=== PATIENT | male | born 1940 | race Caucasian/White ===

== ENCOUNTER → 2017-01-03 | Outpatient (CLI) | payer MEDICARE, BC, OTHER ==
[~2017-01-03] VITALS: Ht 175.3 cm; Wt 68.5 kg
[~2017-01-03] MED LIST: DUTA1CAP PO; FLOM5CAP PO; GABA-283 PO; LATA5OPD OU; LEVO50TA5 PO; LIDOCAINE 2% INJ 100 MG/5 ML SDV (FOR ANES.) As Ordered ONE; LISI10TA4 PO; NAPR500T2 PO; NS 1,000 ML IV SCH; OMEP20CA3 PO; PROPOFOL 200 MG/20 ML VIAL As Ordered ONE
--- NOTE | 2017-01-03 07:46 | ROOR ---
Patient Name: Haider Serna Procedure Date: 01/03/2017 7:28 AM Date of : 1940 Age: 76 Room: [facility] Gender: Male Note Status: Finalized Procedure: Colonoscopy Indications: High risk colon cancer surveillance: Personal history of colonic polyps, Last colonoscopy: November 2013 Providers: Santiago RAMIREZ MD Referring MD: Nicky Lunsford NP Requesting Provider: Medicines: Monitored Anesthesia Care Complications: No immediate complications. Procedure: Pre-Anesthesia Assessment: - The heart rate, respiratory rate, oxygen saturations, blood pressure, adequacy of pulmonary ventilation, and response to care were monitored throughout the procedure. The Colonoscope was introduced through the anus and advanced to the cecum, identified by appendiceal orifice and ileocecal valve. The colonoscopy was performed without difficulty. The patient tolerated the procedure well. The quality of the bowel preparation was good. Findings: The perianal and digital rectal examinations were normal. Internal hemorrhoids were found during retroflexion. The hemorrhoids were medium-sized. The entire examined colon appeared normal on direct and retroflexion views. Impression: - Small Internal hemorrhoids. - The entire examined colon is normal on direct and retroflexion views. - No specimens collected. Recommendation: - Repeat colonoscopy in 5 years for surveillance based on personal history of previous adenomatous polyps. Santiago Ramirez MD Santiago RAMIREZ MD 01/03/2017 7:46:08 AM This report has been signed electronically. Number of Addenda: 0 Note Initiated On: 01/03/2017 7:28 AM Estimated Blood Loss: Estimated blood loss: none.
[2017-01-03 08:16] VITALS: BP 144/93
== END | disposition home or self-care (01) ==
LOC: M OPP 06:29
PROVIDERS: ATTEND Internal Medicine Gastroenterology
DX: Z12.11 Encounter for screening for malignant neoplasm of colon (principal); Z86.010 Personal history of colon polyps; K64.8 Other hemorrhoids; I10 Essential (primary) hypertension; E03.9 Hypothyroidism, unspecified; K21.9 Gastro-esophageal reflux disease without esophagitis; M48.00 Spinal stenosis, site unspecified; M19.90 Unspecified osteoarthritis, unspecified site; Z79.899 Other long term (current) drug therapy; Z87.891 Personal history of nicotine dependence

== ENCOUNTER → 2018-03-31 | Outpatient (CLI) | payer MEDICARE, BC, OTHER | LOC: M RAD 16:44 | DX: R26.9 Unspecified abnormalities of gait and mobility (principal) | CPT/HCPCS: 70551 ==

== ENCOUNTER 2018-06-18 07:27 | Emergency (ER) | payer MEDICARE, BC, OTHER ==
[2018-06-18] MEDS: PERCOCET 5MG/325MG TAB PO (07:44)
[2018-06-18] MEDS: diazePAM 5 MG TAB PO (09:10)
[2018-06-18] MEDS: NAPROXEN 250 MG TAB PO (09:11)
[2018-06-18] MEDS: LIDOCAINE 5% (LIDODERM) PATCH TD (11:43)
[2018-06-18] MEDS ORDERED: **NOTE PATIENT COMMENT** MISC XX (21:00)
== END 2018-06-18 13:29 | disposition home or self-care (01) ==
LOC: M ED 07:27
DX: G89.29 Other chronic pain (principal); M54.5 Low back pain; I10 Essential (primary) hypertension; E07.9 Disorder of thyroid, unspecified; R26.89 Other abnormalities of gait and mobility; Z79.899 Other long term (current) drug therapy; Z79.890 Hormone replacement therapy
CPT/HCPCS: 72131

== ENCOUNTER 2018-08-08 16:29 | Emergency (ER) | payer MEDICARE, BC, OTHER ==
[~2018-08-08] VITALS: Ht 175.3 cm; Wt 68.0 kg
[~2018-08-08 16:29] MED LIST changes: +APAP325T4 PO; +FLOM0.4C39 PO; -FLOM5CAP PO; -GABA-283 PO; +GABA-845 PO; +LIDO5DIS41 TOP; -LIDOCAINE 2% INJ 100 MG/5 ML SDV (FOR ANES.) As Ordered ONE; +MEDR4PAK PO; +MULTCAP PO; +NAPR-885 PO; -NAPR500T2 PO; -NS 1,000 ML IV SCH; +PERC5TAB12 PO; -PROPOFOL 200 MG/20 ML VIAL As Ordered ONE; +VALI2TAB PO
[2018-08-08 17:55] LABS: BASO % 0.3 % (0.0-1.0); EOS # 0.1 10^3/uL (0.0-0.50); EOS % 0.6 % (0.0-3.0); HEMATOCRIT 35.5 % (42.0-52.0); HEMOGLOBIN 11.8 g/dl (13.5-17.5); LYMPH # 0.7 10^3/uL (1.5-4.5); MEAN CORPUSCULAR HEMOGLOBIN 31.1 pg (27.0-33.0); MEAN CORPUSCULAR HGB CONC 33.2 g/dl (32.0-36.5); MEAN CORPUSCULAR VOLUME 93.4 fl (80.0-96.0); MONO # 0.6 10^3/uL (0.0-0.8); MONO % 6.9 % (0.0-5.0); NEUTROPHILS # 7.2 10^3/uL (1.8-7.7); NEUTROPHILS % 83.9 % (36.0-66.0); PLATELET COUNT, AUTOMATED 248 10^3/uL (150-450); WHITE BLOOD COUNT 8.6 10^3/uL (4.0-10.0)
--- NOTE | 2018-08-08 18:09 | REPVR ---
EXAM: MR Lumbar Spine Without Contrast. EXAM DATE/TIME: 08/08/2018 4:42 PM CLINICAL HISTORY: 77 years old, male; Pain; Low back pain; Prior surgery; Surgery date: 6+ months; Surgery type: Surg x3, last one 02/10; Additional info: Back pain weakness right leg TECHNIQUE: Multiplanar magnetic resonance images of the lumbar spine without intravenous contrast. COMPARISON: MRI-LS SPINE W/O FOLL WITH CON 08/30/2013 1:00 PM FINDINGS: Vertebrae: Status post posterior interbody fusion of L4 and L5 using metallic fixation hardware. Slight anterolisthesis of L4 on L5. Abnormal signal demonstrated in L2 and L3 with expansion of the disc space demonstrating fluid signal invaginating both the inferior endplate of L2 and superior endplate of L3. Findings worrisome for infectious discitis/osteomyelitis. Spinal cord: Visualized distal spinal cord and conus medullaris appears unremarkable. DISCS/SPINAL CANAL/NEURAL FORAMINA: L1-L2: Clumping of nerve roots at L1-2 may suggest arachnoiditis. No central or lateral stenosis. Degenerative facet joint arthropathy. L2-L3: There is a severe central spinal stenosis at L2-3 secondary to diffuse annular bulging, thickened ligamentum flavum and facet joint arthropathy. Also noted is clumping of the traversing nerve roots which may indicate arachnoiditis. L3-L4: There is a severe central spinal stenosis at L3-4 secondary to diffuse annular bulging, thickened ligamentum flavum and facet joint arthropathy. Moderate foraminal stenosis on the left and mild foraminal narrowing on the right. Bilateral lateral recess stenosis. L4-L5: Adequate decompression at L4-5 secondary to laminectomy. Metallic hardware obscures visualization of the anatomy due to magnetic susceptibility artifact. L5-S1: Posterior hard disc protrusion at L5-S1 effaces the ventral subarachnoid space and abuts without significant compression of the S1 nerve roots as they exit from the thecal sac. Moderate to severe bilateral foraminal stenosis. Marked bilateral facet arthropathy. Soft tissues: Unremarkable. IMPRESSION: Abnormal signal demonstrated in L2 and L3 with expansion of the disc space demonstrating fluid signal invaginating both the inferior endplate of L2 and superior endplate of L3. Findings worrisome for infectious discitis/osteomyelitis. Status post posterior interbody fusion of L4 and L5 status post L4 laminectomy. Severe central spinal stenosis at L2-3, and L3-4, and posterior hard disc protrusion at L5-S1 without significant neural compromise. 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 Electronically signed by: Rey Bragg On 08/08/2018 18:08:50 PM
[2018-08-08 18:26] LABS: ALBUMIN 2.8 GM/DL (3.2-5.2); ALT/SGPT 38 U/L (12-78); BILIRUBIN,TOTAL 0.5 MG/DL (0.2-1.0); BLOOD UREA NITROGEN 18 MG/DL (7-18); CALCIUM LEVEL 8.3 MG/DL (8.8-10.2); CARBON DIOXIDE LEVEL 24 MEQ/L (21-32); CHLORIDE LEVEL 108 MEQ/L (98-107); CREATININE FOR GFR 0.79 MG/DL (0.70-1.30); GLOMERULAR FILTRATION RATE > 60.0 (>42); GLUCOSE, FASTING 104 MG/DL (70-100); POTASSIUM SERUM 3.9 MEQ/L (3.5-5.1); SODIUM LEVEL 144 MEQ/L (136-145)
[2018-08-08 19:02] LABS: ERYTHROCYTE SEDIMENTATION RATE 63 mm/hr (0-20)
[2018-08-08 23:36] VITALS: BP 141/65
== END 2018-08-08 23:42 | disposition short-term general hospital (02) ==
LOC: EDBD 16:29 → M ED 16:29
DX: M46.46 Discitis, unspecified, lumbar region (principal); M46.26 Osteomyelitis of vertebra, lumbar region; I10 Essential (primary) hypertension; E78.9 Disorder of lipoprotein metabolism, unspecified; Z91.81 History of falling; Z79.899 Other long term (current) drug therapy; Z79.1 Long term (current) use of non-steroidal anti-inflammatories (NSAID); Z98.1 Arthrodesis status

== ENCOUNTER → 2018-08-21 | Outpatient (REF) ==
[2018-08-21 09:36] LABS: BASO # 0.1 10^3/uL (0.0-0.2); BASO % 0.9 % (0.0-1.0); EOS # 0.1 10^3/uL (0.0-0.50); EOS % 1.4 % (0.0-3.0); HEMOGLOBIN 11.5 g/dl (13.5-17.5); LYMPH % 17.7 % (24.0-44.0); MEAN CORPUSCULAR HEMOGLOBIN 30.7 pg (27.0-33.0); MEAN CORPUSCULAR HGB CONC 33.8 g/dl (32.0-36.5); MEAN CORPUSCULAR VOLUME 90.9 fl (80.0-96.0); MONO # 0.3 10^3/uL (0.0-0.8); MONO % 5.8 % (0.0-5.0); NEUTROPHILS # 4.3 10^3/uL (1.8-7.7); NEUTROPHILS % 73.5 % (36.0-66.0); PLATELET COUNT, AUTOMATED 316 10^3/uL (150-450); RED BLOOD COUNT 3.74 10^6/uL (4.30-6.10); WHITE BLOOD COUNT 5.9 10^3/uL (4.0-10.0)
[2018-08-21 10:00] LABS: ERYTHROCYTE SEDIMENTATION RATE 48 mm/hr (0-20)
[2018-08-21 10:05] LABS: ALBUMIN 2.9 GM/DL (3.2-5.2); ALT/SGPT 13 U/L (12-78); BILIRUBIN,TOTAL 0.5 MG/DL (0.2-1.0); BLOOD UREA NITROGEN 11 MG/DL (7-18); C REACTIVE PROTEIN QUANTITATIV 1.67 MG/DL (0.00-0.30); CALCIUM LEVEL 8.6 MG/DL (8.8-10.2); CARBON DIOXIDE LEVEL 27 MEQ/L (21-32); CHLORIDE LEVEL 105 MEQ/L (98-107); CREATININE FOR GFR 0.92 MG/DL (0.70-1.30); GLOMERULAR FILTRATION RATE > 60.0 (>42); GLUCOSE, FASTING 114 MG/DL (70-100); POTASSIUM SERUM 3.2 MEQ/L (3.5-5.1); SODIUM LEVEL 142 MEQ/L (136-145); TOTAL PROTEIN 6.1 GM/DL (6.4-8.2)
== END ==
PROVIDERS: ATTEND Internal Medicine
DX: M86.9 Osteomyelitis, unspecified (principal)

== ENCOUNTER → 2018-08-24 | Outpatient (REF) ==
[2018-08-24 13:00] LABS: BASO # 0.1 10^3/uL (0.0-0.2); BASO % 0.8 % (0.0-1.0); EOS # 0.1 10^3/uL (0.0-0.50); EOS % 1.9 % (0.0-3.0); HEMATOCRIT 33.5 % (42.0-52.0); LYMPH # 1.2 10^3/uL (1.5-4.5); MEAN CORPUSCULAR HEMOGLOBIN 30.8 pg (27.0-33.0); MEAN CORPUSCULAR HGB CONC 32.8 g/dl (32.0-36.5); MEAN CORPUSCULAR VOLUME 93.8 fl (80.0-96.0); MONO # 0.4 10^3/uL (0.0-0.8); MONO % 6.3 % (0.0-5.0); NEUTROPHILS # 4.6 10^3/uL (1.8-7.7); NEUTROPHILS % 71.7 % (36.0-66.0); PLATELET COUNT, AUTOMATED 278 10^3/uL (150-450); RED BLOOD COUNT 3.57 10^6/uL (4.30-6.10); WHITE BLOOD COUNT 6.4 10^3/uL (4.0-10.0)
[2018-08-24 13:24] LABS: ALBUMIN 2.8 GM/DL (3.2-5.2); ALT/SGPT 13 U/L (12-78); BILIRUBIN,TOTAL 0.3 MG/DL (0.2-1.0); BLOOD UREA NITROGEN 13 MG/DL (7-18); C REACTIVE PROTEIN QUANTITATIV 1.19 MG/DL (0.00-0.30); CALCIUM LEVEL 8.5 MG/DL (8.8-10.2); CARBON DIOXIDE LEVEL 28 MEQ/L (21-32); CHLORIDE LEVEL 105 MEQ/L (98-107); GLOMERULAR FILTRATION RATE > 60.0 (>42); GLUCOSE, FASTING 97 MG/DL (70-100); SODIUM LEVEL 140 MEQ/L (136-145); TOTAL PROTEIN 5.7 GM/DL (6.4-8.2)
[2018-08-24 14:24] LABS: ERYTHROCYTE SEDIMENTATION RATE 45 mm/hr (0-20)
== END ==
PROVIDERS: ATTEND Internal Medicine
DX: M86.9 Osteomyelitis, unspecified (principal)

== ENCOUNTER → 2018-08-31 | Outpatient (REF) | payer MEDICARE, BC, OTHER ==
[2018-08-31 10:13] LABS: BASO # 0.1 10^3/uL (0.0-0.2); BASO % 1.2 % (0.0-1.0); EOS # 0.1 10^3/uL (0.0-0.50); EOS % 2.3 % (0.0-3.0); HEMATOCRIT 34.4 % (42.0-52.0); HEMOGLOBIN 12.4 g/dl (13.5-17.5); LYMPH # 1.1 10^3/uL (1.5-4.5); LYMPH % 25.4 % (24.0-44.0); MEAN CORPUSCULAR HEMOGLOBIN 33.2 pg (27.0-33.0); MEAN CORPUSCULAR VOLUME 92.2 fl (80.0-96.0); MONO # 0.4 10^3/uL (0.0-0.8); MONO % 8.2 % (0.0-5.0); NEUTROPHILS # 2.7 10^3/uL (1.8-7.7); NEUTROPHILS % 62.2 % (36.0-66.0); PLATELET COUNT, AUTOMATED 152 10^3/uL (150-450); RED BLOOD COUNT 3.73 10^6/uL (4.30-6.10); WHITE BLOOD COUNT 4.3 10^3/uL (4.0-10.0)
[2018-08-31 11:18] LABS: ERYTHROCYTE SEDIMENTATION RATE 35 mm/hr (0-20)
[2018-08-31 14:05] LABS: ALBUMIN 3.2 GM/DL (3.2-5.2); ALT/SGPT 20 U/L (12-78); BILIRUBIN,TOTAL 0.2 MG/DL (0.2-1.0); BLOOD UREA NITROGEN 18 MG/DL (7-18); C REACTIVE PROTEIN QUANTITATIV 0.73 MG/DL (0.00-0.30); CALCIUM LEVEL 9.1 MG/DL (8.8-10.2); CARBON DIOXIDE LEVEL 27 MEQ/L (21-32); CHLORIDE LEVEL 103 MEQ/L (98-107); CREATININE FOR GFR 0.85 MG/DL (0.70-1.30); GLOMERULAR FILTRATION RATE > 60.0 (>42); GLUCOSE, FASTING 82 MG/DL (70-100); POTASSIUM SERUM 4.6 MEQ/L (3.5-5.1); SODIUM LEVEL 138 MEQ/L (136-145); TOTAL PROTEIN 6.4 GM/DL (6.4-8.2)
== END ==
PROVIDERS: ATTEND Physician Assistant
DX: M86.9 Osteomyelitis, unspecified (principal)

== ENCOUNTER → 2018-09-07 | Outpatient (REF) | payer MEDICARE, BC, OTHER ==
[2018-09-07 07:28] LABS: BASO % 0.6 % (0.0-1.0); EOS # 0.2 10^3/uL (0.0-0.50); EOS % 3.9 % (0.0-3.0); HEMATOCRIT 35.3 % (42.0-52.0); LYMPH # 0.9 10^3/uL (1.5-4.5); LYMPH % 18.4 % (24.0-44.0); MEAN CORPUSCULAR HEMOGLOBIN 30.6 pg (27.0-33.0); MEAN CORPUSCULAR VOLUME 90.1 fl (80.0-96.0); MONO # 0.5 10^3/uL (0.0-0.8); MONO % 10.5 % (0.0-5.0); NEUTROPHILS # 3.2 10^3/uL (1.8-7.7); NEUTROPHILS % 66.4 % (36.0-66.0); PLATELET COUNT, AUTOMATED 177 10^3/uL (150-450); RED BLOOD COUNT 3.92 10^6/uL (4.30-6.10); WHITE BLOOD COUNT 4.9 10^3/uL (4.0-10.0)
[2018-09-07 07:47] LABS: ALT/SGPT 18 U/L (12-78); BILIRUBIN,TOTAL 0.2 MG/DL (0.2-1.0); BLOOD UREA NITROGEN 14 MG/DL (7-18); C REACTIVE PROTEIN QUANTITATIV 2.14 MG/DL (0.00-0.30); CALCIUM LEVEL 8.4 MG/DL (8.8-10.2); CARBON DIOXIDE LEVEL 26 MEQ/L (21-32); CHLORIDE LEVEL 101 MEQ/L (98-107); CREATININE FOR GFR 0.86 MG/DL (0.70-1.30); GLOMERULAR FILTRATION RATE > 60.0 (>42); GLUCOSE, FASTING 99 MG/DL (70-100); POTASSIUM SERUM 4.3 MEQ/L (3.5-5.1); SODIUM LEVEL 133 MEQ/L (136-145); TOTAL PROTEIN 6.3 GM/DL (6.4-8.2)
[2018-09-07 08:26] LABS: ERYTHROCYTE SEDIMENTATION RATE 39 mm/hr (0-20)
== END ==
PROVIDERS: ATTEND Internal Medicine
DX: M86.9 Osteomyelitis, unspecified (principal)

== ENCOUNTER → 2018-09-10 | Outpatient (REF) | payer MEDICARE, BC, OTHER ==
[2018-09-10 08:35] LABS: HEMATOCRIT 34.3 % (42.0-52.0); HEMOGLOBIN 11.5 g/dl (13.5-17.5); MEAN CORPUSCULAR HEMOGLOBIN 31.3 pg (27.0-33.0); MEAN CORPUSCULAR HGB CONC 33.5 g/dl (32.0-36.5); MEAN CORPUSCULAR VOLUME 93.2 fl (80.0-96.0); PLATELET COUNT, AUTOMATED 219 10^3/uL (150-450); RED BLOOD COUNT 3.68 10^6/uL (4.30-6.10); WHITE BLOOD COUNT 5.5 10^3/uL (4.0-10.0)
[2018-09-10 09:27] LABS: ERYTHROCYTE SEDIMENTATION RATE 31 mm/hr (0-20)
== END ==
PROVIDERS: ATTEND Physician Assistant
DX: M46.40 Discitis, unspecified, site unspecified (principal)

== ENCOUNTER → 2018-09-14 | Outpatient (REF) ==
[2018-09-14 10:24] LABS: BASO # 0.1 10^3/uL (0.0-0.2); EOS # 0.2 10^3/uL (0.0-0.50); HEMATOCRIT 36.9 % (42.0-52.0); HEMOGLOBIN 12.3 g/dl (13.5-17.5); LYMPH # 1.2 10^3/uL (1.5-4.5); LYMPH % 18.9 % (24.0-44.0); MEAN CORPUSCULAR HEMOGLOBIN 31.5 pg (27.0-33.0); MEAN CORPUSCULAR HGB CONC 33.3 g/dl (32.0-36.5); MEAN CORPUSCULAR VOLUME 94.6 fl (80.0-96.0); MONO # 0.4 10^3/uL (0.0-0.8); MONO % 6.9 % (0.0-5.0); NEUTROPHILS # 4.3 10^3/uL (1.8-7.7); NEUTROPHILS % 69.9 % (36.0-66.0); PLATELET COUNT, AUTOMATED 285 10^3/uL (150-450); WHITE BLOOD COUNT 6.1 10^3/uL (4.0-10.0)
[2018-09-14 10:48] LABS: ALBUMIN 2.6 GM/DL (3.2-5.2); ALT/SGPT 15 U/L (12-78); BILIRUBIN,TOTAL 0.1 MG/DL (0.2-1.0); BLOOD UREA NITROGEN 18 MG/DL (7-18); C REACTIVE PROTEIN QUANTITATIV 1.08 MG/DL (0.00-0.30); CALCIUM LEVEL 7.6 MG/DL (8.8-10.2); CARBON DIOXIDE LEVEL 25 MEQ/L (21-32); CHLORIDE LEVEL 108 MEQ/L (98-107); CREATININE FOR GFR 0.79 MG/DL (0.70-1.30); ERYTHROCYTE SEDIMENTATION RATE 35 mm/hr (0-20); GLOMERULAR FILTRATION RATE > 60.0 (>42); GLUCOSE, FASTING 115 MG/DL (70-100); POTASSIUM SERUM 3.7 MEQ/L (3.5-5.1); SODIUM LEVEL 140 MEQ/L (136-145); TOTAL PROTEIN 5.6 GM/DL (6.4-8.2)
== END ==
PROVIDERS: ATTEND Internal Medicine
DX: M46.40 Discitis, unspecified, site unspecified (principal)

== ENCOUNTER → 2018-09-21 | Outpatient (REF) | payer BC, MEDICARE, OTHER ==
[~2018-09-21] MED LIST changes: +LATA0.0013 OU; -LATA5OPD OU
[2018-09-21 07:13] LABS: BASO # 0.1 10^3/uL (0.0-0.2); BASO % 0.8 % (0.0-1.0); EOS # 0.2 10^3/uL (0.0-0.50); EOS % 2.7 % (0.0-3.0); HEMATOCRIT 34.6 % (42.0-52.0); HEMOGLOBIN 11.5 g/dl (13.5-17.5); LYMPH # 0.9 10^3/uL (1.5-4.5); LYMPH % 13.5 % (24.0-44.0); MEAN CORPUSCULAR HEMOGLOBIN 31.3 pg (27.0-33.0); MEAN CORPUSCULAR HGB CONC 33.2 g/dl (32.0-36.5); MEAN CORPUSCULAR VOLUME 94.3 fl (80.0-96.0); MONO # 0.6 10^3/uL (0.0-0.8); MONO % 9.4 % (0.0-5.0); NEUTROPHILS # 4.7 10^3/uL (1.8-7.7); NEUTROPHILS % 73.4 % (36.0-66.0); PLATELET COUNT, AUTOMATED 216 10^3/uL (150-450); RED BLOOD COUNT 3.67 10^6/uL (4.30-6.10); WHITE BLOOD COUNT 6.4 10^3/uL (4.0-10.0)
[2018-09-21 07:33] LABS: ERYTHROCYTE SEDIMENTATION RATE 35 mm/hr (0-20)
[2018-09-21 07:40] LABS: ALBUMIN 3.2 GM/DL (3.2-5.2); ALT/SGPT 23 U/L (12-78); BILIRUBIN,TOTAL 0.3 MG/DL (0.2-1.0); BLOOD UREA NITROGEN 15 MG/DL (7-18); C REACTIVE PROTEIN QUANTITATIV 1.37 MG/DL (0.00-0.30); CALCIUM LEVEL 8.4 MG/DL (8.8-10.2); CARBON DIOXIDE LEVEL 27 MEQ/L (21-32); CHLORIDE LEVEL 104 MEQ/L (98-107); CREATININE FOR GFR 0.74 MG/DL (0.70-1.30); GLOMERULAR FILTRATION RATE > 60.0 (>42); GLUCOSE, FASTING 83 MG/DL (70-100); POTASSIUM SERUM 4.5 MEQ/L (3.5-5.1); SODIUM LEVEL 137 MEQ/L (136-145); TOTAL PROTEIN 6.5 GM/DL (6.4-8.2)
== END ==
PROVIDERS: ATTEND Physician Assistant
DX: M86.9 Osteomyelitis, unspecified (principal)

== ENCOUNTER → 2018-09-28 | Outpatient (REF) | payer MEDICARE, BC, OTHER ==
[2018-09-28 08:10] LABS: BASO # 0.1 10^3/uL (0.0-0.2); BASO % 1.1 % (0.0-1.0); EOS # 0.2 10^3/uL (0.0-0.50); EOS % 3.3 % (0.0-3.0); HEMATOCRIT 36.5 % (42.0-52.0); HEMOGLOBIN 12.1 g/dl (13.5-17.5); LYMPH # 1.1 10^3/uL (1.5-4.5); LYMPH % 24.7 % (24.0-44.0); MEAN CORPUSCULAR HEMOGLOBIN 31.4 pg (27.0-33.0); MEAN CORPUSCULAR HGB CONC 33.2 g/dl (32.0-36.5); MEAN CORPUSCULAR VOLUME 94.8 fl (80.0-96.0); MONO # 0.4 10^3/uL (0.0-0.8); MONO % 8.5 % (0.0-5.0); NEUTROPHILS # 2.9 10^3/uL (1.8-7.7); NEUTROPHILS % 62.2 % (36.0-66.0); PLATELET COUNT, AUTOMATED 257 10^3/uL (150-450); RED BLOOD COUNT 3.85 10^6/uL (4.30-6.10); WHITE BLOOD COUNT 4.6 10^3/uL (4.0-10.0)
[2018-09-28 08:21] LABS: ALBUMIN 3.1 GM/DL (3.2-5.2); ALT/SGPT 23 U/L (12-78); BILIRUBIN,TOTAL 0.2 MG/DL (0.2-1.0); BLOOD UREA NITROGEN 20 MG/DL (7-18); C REACTIVE PROTEIN QUANTITATIV 0.46 MG/DL (0.00-0.30); CALCIUM LEVEL 8.5 MG/DL (8.8-10.2); CARBON DIOXIDE LEVEL 27 MEQ/L (21-32); CHLORIDE LEVEL 102 MEQ/L (98-107); CREATININE FOR GFR 0.81 MG/DL (0.70-1.30); GLOMERULAR FILTRATION RATE > 60.0 (>42); GLUCOSE, FASTING 86 MG/DL (70-100); POTASSIUM SERUM 4.2 MEQ/L (3.5-5.1); SODIUM LEVEL 137 MEQ/L (136-145); TOTAL PROTEIN 6.2 GM/DL (6.4-8.2)
[2018-09-28 09:22] LABS: ERYTHROCYTE SEDIMENTATION RATE 26 mm/hr (0-20)
== END ==
PROVIDERS: ATTEND Internal Medicine
DX: M86.9 Osteomyelitis, unspecified (principal)

== ENCOUNTER → 2019-04-02 | Outpatient (CLI) | payer MEDICARE, BC, OTHER ==
[~2019-04-02] MED LIST changes: -OMEP20CA3 PO; +OMEP20CA4 PO
--- NOTE | 2019-04-02 11:49 | REP ---
Clinical: Status post lumbar fusion. Technique: AP, lateral views of the lumbosacral spine. Comparison: 06/08/2018. Findings: There is significant compression deformities involving L2 and L3 with associated endplate sclerosis/heterogeneity, osteophytosis, and kyphosis. Differential diagnosis includes trauma related injury versus sequelae of diskitis. Remainder examination is relatively normal / stable. Impression: Destructive changes involving the L2 and L3 vertebral bodies centered at the disc space as above are relatively new when compared with 06/08/2018. Correlation is required. Differential diagnosis may include prior trauma or sequelae of diskitis/osteomyelitis. Electronically Signed by Rome Liu MD 04/02/2019 11:40 A
--- NOTE | 2019-04-02 12:08 | REP ---
CT LUMBAR SPINE WITHOUT CONTRAST: HISTORY: Status post lumbar fusion. L2-3 a osteomyelitis. Comparison is made with multiple prior lumbar spine imaging studies, the most recent of which is an MRI exam from August 08, 2018 showing L2-3 discitis. The most remote prior lumbar spine CT study in the electronic x-ray jacket is from March 17, 2013. TECHNIQUE: Helical scanning is acquired. Axial and coronal MPR images are generated and reviewed. CT FINDINGS: There is extensive endplate destruction on either side of the L2-3 intervertebral disc compared with prior CT study of June 18, 2018. There is a large vacuum phenomenon in the disc and the disc itself is narrower than was on August 08, 2018 MRI study. There is posterior osteophytic ridging and a retrolisthesis of L2 posterior with respect to L3 is seen measuring 10.3 mm. This is much more prominent than on the June 18, 2018 CT study and is probably more prominent than on the August 08, 2018 MRI exam. This produces mild to moderate central canal stenosis at the L2-3 disc level. There is an interspinous process fusion metallic device in place at L2-3 dorsally. The rest of anterior and lateral osteophyte formation is also present. No paravertebral soft-tissue swelling or fluid collection is appreciated. There are bilateral renal cortical cysts again noted. At the L1-2, there is no new abnormality. At L3-4 there is mild disc bulging and mild central canal stenosis again noted unchanged. No focal disc protrusion is seen. No foraminal narrowing is seen. At L4-5, there is a laminectomy defect and trans pedicle screw and dorsal connecting aarti fixation is seen across the 4-5 disc level. A vacuum phenomenon is also noted L4-5. There is a mild degenerative spondylolisthesis L4-5 unchanged from the comparison CT study of June 18, 2018. At L5-S1, there is degenerative disc narrowing posterior osteophytic ridging. This is unchanged. IMPRESSION: The most recent prior MRI study showed picture of acute infectious diskitis at L2-3. The disc itself appears improved and now contains a vacuum phenomena. No paravertebral inflammatory changes are noted. However, there is loss of vertebral body height at both L2 and L3 and there is a progressive retrolisthesis at L2-3 with central canal stenosis. Stable changes are noted at the other lumbar levels. Electronically Signed by Enmanuel Howell MD 04/02/2019 12:45 P
--- NOTE | 2019-04-02 14:00 | REP ---
CT THORACIC SPINE WITHOUT CONTRAST: HISTORY: Status post lumbar fusion. Osteomyelitis at L2-3. No comparison thoracic imaging. TECHNIQUE: Helical scanning is acquired. 4 mm axial images are generated. Coronal and sagittal MPR images are generated and reviewed. CT FINDINGS: Thoracic vertebral body heights are preserved. Alignment is normal in the thoracic spine. Mild discogenic spurring is noted anteriorly and along the right lateral margin of the thoracic spine at mid and lower thoracic levels. Disc spaces are maintained in height. No bony destructive lesion is seen. No neural foraminal narrowing is noted. There is a calcified right posterior disc protrusion small in size at the T6-7 disc level. The right central disc bulging is seen at T8-9. A right posterior disc protrusion again with calcification at T7-8. No other thoracic disc protrusion is seen. There is no bony destructive change. Incidental note is made of a focal area of parenchymal opacity in the right lower lobe suggesting a small focus of pneumonia or fibrosis. There is inspissated mucoid material in right lower lobe bronchi in this location on axial images. This may reflect bronchitis. IMPRESSION: Small thoracic disc protrusions as above. Mild degenerative disc changes. Incidental subtle infiltrate in the right lower lobe with inspissated endobronchial mucus question of bronchitis or subtle pneumonia. Otherwise negative. Electronically Signed by Enmanuel Howell MD 04/02/2019 04:41 P
== END ==
LOC: M RAD 10:58
PROVIDERS: ATTEND Neurological Surgery
DX: M46.28 Osteomyelitis of vertebra, sacral and sacrococcygeal region (principal); Z98.1 Arthrodesis status; R93.7 Abnormal findings on diagnostic imaging of other parts of musculoskeletal system

== ENCOUNTER 2019-05-25 10:04 | Day surgery (SDC) | payer MEDICARE, BC, OTHER ==
[~2019-05-25] VITALS: Ht 175.3 cm; Wt 63.0 kg
[~2019-05-25 10:04] MED LIST changes: +ACET-897 PO; +CEFA1TAB PO; +FLAX100010 PO; +LR 1,000 ML IV ONE; +MAGN400C2 PO; +PROBCAP14 PO; +VITA500C19 PO; +VITAD400CA PO; +ZINC1TAB2 PO
[2019-05-25] MEDS ORDERED: PROPOFOL 200 MG/20 ML VIAL As Ordered ONE (11:05)
[2019-05-25] MEDS ORDERED: LIDOCAINE 2% INJ 100 MG/5 ML SDV (FOR ANES.) As Ordered ONE (11:05)
[2019-05-25] MEDS ORDERED: ROCURONIUM BROMIDE 50 MG/5 ML VIAL As Ordered ONE (11:05)
[2019-05-25] MEDS ORDERED: fentaNYL 250 MCG/5 ML INJECTION (J3010) As Ordered ONE (11:06)
[2019-05-25] MEDS ORDERED: MIDAZOLAM INJ 2 MG/2 ML VIAL (J2250) As Ordered ONE (11:06)
[2019-05-25] MEDS ORDERED: FLUTISP (11:07)
[2019-05-25] MEDS ORDERED: BUPIVACAINE HCL 0.25% 30 ML VIAL As Ordered ONE (12:21)
[2019-05-25] MEDS ORDERED: ONDANSETRON 4MG/2ML VIAL (J2405) As Ordered ONE (13:38)
[2019-05-25] MEDS ORDERED: dexameTHASONE 4 MG/ML 1ML VIAL (J1100) As Ordered ONE (13:38)
[2019-05-25] MEDS ORDERED: KETOROLAC 60 MG/2 ML VIAL (J1885) As Ordered ONE (13:38)
[2019-05-25] MEDS ORDERED: SUGAMMADEX SODIUM 500 MG/5 ML VIAL (BRIDION) As Ordered ONE (13:39)
[2019-05-25] MEDS ORDERED: ACETAMINOPHEN 1000MG 100ML IV BTL (OFIRMEV) (J0131 PER 10MG) As Ordered ONE (14:10)
[2019-05-25] MEDS ORDERED: fentaNYL 100 MCG/2 ML INJECTION (J3010) As Ordered ONE (14:35)
[2019-05-25] MEDS ORDERED: MEPERIDINE INJ 25 MG/ML VIAL (J2175) IV PRN (15:00)
[2019-05-25] MEDS ORDERED: oxyCODONE 5MG TAB PO PRN (15:00)
[2019-05-25] MEDS ORDERED: METOCLOPRAMIDE INJ 10MG/2ML VIAL (J2765) IV PRN (15:00)
[2019-05-25] MEDS ORDERED: ONDANSETRON 4MG/2ML VIAL (J2405) IV PRN (15:00)
[2019-05-25] MEDS ORDERED: LR 1,000 ML IV SCH (15:00)
[2019-05-25] MEDS ORDERED: fentaNYL 100 MCG/2 ML INJECTION (J3010) IV PRN (15:00)
[2019-05-25] MEDS ORDERED: ACETAMINOPHEN TAB 650MG DOSE (2X325MG) PO PRN (15:15)
[2019-05-25 16:50] VITALS: BP 117/56
--- NOTE | 2019-05-27 07:35 | RO ---
DATE OF PROCEDURE: 05/25/2019 PREOPERATIVE DIAGNOSIS: Left inguinal hernia. POSTOPERATIVE DIAGNOSIS: Left inguinal hernia. PROCEDURE PERFORMED: A robotic-assisted laparoscopic left inguinal herniorrhaphy with mesh. SURGEON: Dr. Marcus AIRCRAFT ENGINE MECHANIC: ISATU Virgen. Zhanna assistance was required for placement of the trocars, passage of instruments, passage of needles and mesh and then removal of the trocars and suturing of the wounds. ANESTHESIA: General. INDICATIONS FOR THE PROCEDURE: Patient is a 78-year-old man with a left inguinal hernia which has become somewhat symptomatic. He is now for repair of his left inguinal hernia. OPERATIVE PROCEDURE: The patient was brought to the operating room and placed on the table in a supine position. He was placed under general endotracheal anesthesia. The patient's abdomen, groins and genitalia were prepped and draped in sterile fashion. 0.25% Marcaine was infiltrated at each of the trocar sites as needed. Initial insertion was in the supraumbilical position where a Veress needle was inserted and after a positive hanging drop test the abdomen was insufflated with carbon dioxide gas. An 8 mm robotic port was placed over a 5 mm scope and advanced through the abdominal wall without difficulty. Initial examination revealed no significant adhesions within the abdomen. He was noted to have a moderately large left inguinal hernia protrusion. There was no sign of a right inguinal hernia. A second 8 mm port was placed in the left upper quadrant and a third port was placed on the right. The patient was tilted to a moderate Trendelenburg position. The patient cart of the XI robot was brought into position and the camera port was docked. Targeting took place in the additional arms were then also docked. I then moved to the control console to begin the robotic portion of the procedure. Instruments utilized were a bipolar cauterizing grasper and a pair of cauterizing scissors. A peritoneal flap was developed by making an arcuate incision anterior to the area of the inguinal floor. The flap was developed by a combination of sharp and cautery dissection. The hernia sac was reduced into the abdomen. The structures of the spermatic cord were identified and preserved. The hernia was found to be a moderately large indirect inguinal hernia. Once the preperitoneal space had been adequately developed a large left side large 3DMax Light Mesh was selected. This was reference code # [id number], lot # [id number]. This was inserted into the abdomen and placed into the preperitoneal space. It was tacked at the area of the Gary's ligament with a 2-0 Vicryl. A single lateral suture was also placed at the upper outer aspect of the mesh. The peritoneal flap was then closed with a running suture of 2-0 V-Loc. The intra-abdominal pressure was reduced to approximately 8 mmHg well the flap was being closed. The final repair looked excellent. The robotic instruments were then removed. The patient was returned to a flat position and the abdomen was vented and the ports removed. Zhanna Gaxiola then proceeded to close the skin incisions with buried Vicryl sutures. The patient tolerated the procedure well without apparent complication. He was awakened in the operating room, extubated and moved to the recovery room in stable condition.
== END 2019-05-25 17:00 | disposition home or self-care (01) ==
LOC: M SDC 10:04
PROVIDERS: ATTEND Surgery
DX: K40.90 Unilateral inguinal hernia, without obstruction or gangrene, not specified as recurrent (principal); I10 Essential (primary) hypertension; K21.9 Gastro-esophageal reflux disease without esophagitis; E03.9 Hypothyroidism, unspecified; N40.0 Benign prostatic hyperplasia without lower urinary tract symptoms; Z87.891 Personal history of nicotine dependence; Z79.899 Other long term (current) drug therapy
CPT/HCPCS: 49650; C1781; J0131; J1100; J1885; J2250; J2405; J3010

== ENCOUNTER 2020-04-06 11:01 | Inpatient (IN) | payer MEDICARE, BC, OTHER ==
[~2020-04-06] VITALS: Ht 175.3 cm; Wt 59.9 kg
[~2020-04-06 11:01] MED LIST changes: -DUTA1CAP PO; +DUTA1CAP2 PO; +FLUTISP; -LR 1,000 ML IV ONE; +OMEP1CAP73 PO; -OMEP20CA4 PO
--- NOTE | 2020-04-07 11:46 | HPEPDOC ---
Car Seat Coverer Note DATE OF ADMISSION: 04-07-20 DATE OF SERVICE: 04-07-20 TIME OF ADMISSION: Please refer to physician's admission order. 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 He underwent surgery on 03-31-20 which was complicated by post-op blood loss anemia requiring blood transfusion and hypotension requiring a levophed drip. He was able to be transitioned off of levophed and participate n therapy where he was found to have impairments in mobility and ADLs and deemed medically appropriate for discharge to ARU on 04-07-20. REVIEW OF SYSTEMS: The following is a completed review of systems and has been reviewed. Review of systems otherwise unremarkable. PAIN: Patient self reports no pain EYES: No recent vision changes EARS, NOSE, & THROAT: No throat pain, or dysphagia, or rhinorrhea CARDIOVASCULAR: Denies chest pain or palpitations PULMONARY: Denies shortness of breath GASTROINTESTINAL: Denies constipation/diarrhea GENITOURINARY: +urinary retention MUSCULOSKELETAL:bilat LE weakness NEUROLOGICAL:+neurogenic bladder, bilat LE weakness HEMATOLOGICAL: denies easy bruising SKIN: [lumbo-sacral incision PSYCHIATRIC: Unremarkable All other review of systems found to be negative. PAST MEDICAL HISTORY: as per HPI PAST SURGICAL HISTORY: Appendectomy, colonoscopy, cystoscopy, prostate cancer, trigeminal nerve decompression, vasectomy, multiple lumbar back surgeries ALLERGIES: Please see below. MEDICATIONS: Please see below. SOCIAL HISTORY: former smoker, occasional ETOH, no illicit drugs DIET: low sodium PHYSICAL EXAMINATION: VITAL SIGNS: Please see below. GENERAL:Pleasant and cooperative. No acute distress. HEENT: PERRL. Extraocular movements intact. Clear conjunctiva CARDIOVASCULAR: Regular rate and rhythm. No murmurs, rubs, or gallops]. LUNGS: Clear to auscultation bilaterally. No wheezes. No rhonchi ABDOMEN: Soft, nontender, nondistended. Positive bowel sounds. Normal active bowel sounds NEUROLOGICAL: Alert and oriented times three. Cranial nerves II through XII grossly intact. Sensation grossly intact in all 4limbs EXTREMITIES: 5\5 strength bilateral upper extremities. 4-\5 strength right lower extremity. 5-/5 strength in left lower extremity. SKIN:sacrum with blacnhable erythema lumbar incision without induration/mild erythema, no drainage, 2 open areas along distal incision site LABORATORY DATA: Please see below. IMAGING:n Imaging documentation personally reviewed by record FUNCTIONAL STATUS: Premorbid: Modified Independent with all activities of daily life as well as mobility On Admission: Min-Mod for bed mobility, transfers, ambulation, dressing. GOALS: Mod-I household distances, stairs, dressing, toileting, bathing ASSESSMENT:79-year-old M with past medical history of cauda equina with multiple spinal surgeries who presents status post R19-caautr decompression/fusion and L2-L3 intradiscal osteotomy PLAN: 1. Rehab- PT/OT advance molbity and ADLs, TLSO when OOB, spinal precautions 2. Neuro- hx of multiple lumbar surgeries with cauda equina and chronic low back pain with urinary retention (self-caths at home for neurogenic bladder) s/p T10- pelvis decompression/fusion and L2-L3 intradiscal osteotomy performed 03-31-20 now with impairment sin overall function -monitor for new weakness and infection 3. CArdiac- hx of HTN with recent drops in BPs requiring levophed post-op, will monitor and c/u on lisinopril -medicine consulted to assist in overall management 4. Resp- monitor for infection, incentive spirometry 5. Endo- hx of hypothyroidism, c/u synthroid 6. - chronic urinary retention due to neurogenic bladder and prostate, c/u Adovert, Flomax, will do ICs on the floor, if patient able to self-catyh like he does at home, will encourgae this 7. DVT ppx- heparin 8. GI ppx - protonix 9. Pain- Tylenol, oxycodone, flexeril prn 10. SKin- dressing changes per instructions 11. Dispo- TBD POST ADMISSION PHYSICIAN EVALUATION: Medical and functional status: Description of medical status, medical assessment: As above. Rehabilitation diagnosis and current and prior cold morbid medical conditions as above. Risk of complications and plans to mitigate them as above. Description of functional status current status is as above. Prior status as above. Status compared to preadmission: There are no clinically significant differences between the patient's current status and the information described on the preadmission screening document. Treatment plan anticipated: Treatment plan is as described above. Required disciplines including physical therapy, occupational therapy, others as noted above Intensity of services:3 hours a day, 6 days a week. Special considerations: There are no specific special or safety considerations that would likely preclude immediate implementation of an intensive rehabilitation program or subsequently influence the plan of care. ATTESTATION: Considering all the information above, it is my best judgment that this patient requires intensive rehabilitation therapy as described above and an inpatient hospital environment due to the complexity of nursing, medical, and rehabilitation needs required by the patient. Furthermore, this patient can reasonably be expected to participate in an benefit from an inpatient rehabilitation stay with an interdisciplinary team approach to the delivery of rehabilitation care under the direction and supervision of rehabilitation physician. PROGNOSIS:good ESTIMATED LENGTH OF STAY: 14-16 days. PROJECTED DISCHARGE DESTINATION: Home with family support and any durable medical equipment required to increase functional safety and mobility TIME SPENT COUNSELING AND COORDINATING INITIAL CARE: Greater than 70 minutes. Vital Signs as per EMR Home Medications Scheduled Ascorbic Acid (Vitamin C) 500 Mg Capsule.er, 500 MG PO DAILY, (Reported) Docusate Sodium (Colace) 100 Mg Capsule, 100 MG PO BID, (Reported) Dutasteride (Dutasteride) 0.5 Mg Cap, 0.5 MG PO QHS, (Reported) Flaxseed Oil (Flaxseed Oil) 1,000 Mg Capsule, 2 CAP PO DAILY, (Reported) Gabapentin (Gabapentin) 400 Mg Cap, 400 MG PO BID, (Reported) Lactobacillus Acidophilus (Probiotic) 1 Each Capsule, 1 CAP PO DAILY, (Reported) Latanoprost (Xalatan) 0.005% 2.5ML Drops, 1 DROP OU DAILY, (Reported) Levothyroxine Sodium (Levothyroxine Sodium) 50 Mcg Tab, 50 MCG PO DAILY, (Reported) Lisinopril (Lisinopril) 10 Mg Tab, 10 MG PO DAILY, (Reported) Magnesium Hydroxide (Milk of Magnesia) 400 Mg/5 Ml Oral.susp, 45 ML PO QHS, (Reported) Multivitamin (Multivitamins) 1 Cap Cap, 1 CAP PO DAILY, (Reported) Omeprazole (Omeprazole) 20 Mg Cap, 20 MG PO DAILY, (Reported) Potassium Chloride (Potassium Chloride) 20 Meq Tablet.er, 20 MEQ PO BID, (Reported) Tamsulosin HCl (Flomax) 0.4 Mg Cap, 0.4 MG PO QHS, (Reported) Timolol Maleate (Timolol Maleate) 0.5% 5ML Drops, 1 DROP OU BID, (Reported) Zinc (Zinc) 50 Mg Tablet, 50 MG PO DAILY, (Reported) Scheduled PRN Acetaminophen (Acetaminophen) 325 Mg Tablet, 650 MG PO Q6H PRN for PAIN / FEVER, (Reported) Allergies Coded Allergies: No Known Allergies (Unverified , 05/12/19) A-FIB/CHADSVASC A-FIB History Current/History of A-Fib/PAF?: No RANDY MELO MD Apr 07, 2020 11:46
[2020-04-07] MEDS ORDERED: ONDANSETRON 4 MG TAB PO PRN (12:00)
[2020-04-07] MEDS ORDERED: oxyCODONE 5MG TAB PO PRN (12:00)
[2020-04-07] MEDS ORDERED: CYCLOBENZAPRINE 10MG TABLET PO PRN (12:00)
[2020-04-07 14:00] VITALS: BP 128/68
[2020-04-07] MEDS ORDERED: POTA1TAB14 PO (14:25)
[2020-04-07] MEDS ORDERED: ACET1TAB55 PO (14:25)
[2020-04-07] MEDS ORDERED: XALA0.007 OU (14:25)
[2020-04-07] MEDS ORDERED: TIMO0.5S29 OU (14:25)
[2020-04-07] MEDS ORDERED: SYNT50TA PO (14:25)
[2020-04-07] MEDS ORDERED: COLA100C5 PO (14:28)
[2020-04-07] MEDS ORDERED: MILKSUS3 PO (14:28)
[2020-04-07] MEDS: ACETAMINOPHEN 500 MG TAB PO SCH ×2 (16:00→20:45)
[2020-04-07] MEDS: REMEDY PHYTOPLEX Z-GUARD PASTE 113GM TUBE (FROM STOREROOM PRODUCT) TOP SCH ×2 (16:00→20:44)
[2020-04-07 20:00] VITALS: BP 102/53
[2020-04-07] MEDS: DUTASTERIDE 0.5 MG CAP (AVODART) PO SCH (20:43)
[2020-04-07] MEDS: SENNA 8.6 MG TAB (SENOKOT) PO SCH (20:43)
[2020-04-07] MEDS: GABAPENTIN 400 MG CAP PO SCH (20:43)
[2020-04-07] MEDS: DOCUSATE SODIUM 100 MG CAP PO SCH (20:43)
[2020-04-07] MEDS: TIMOLOL MALEATE 0.5% OPHTH SOLN 5 ML OU SCH (20:44)
[2020-04-07] MEDS: HEPARIN SOD (PORCINE) 5000UNITS/ML 1ML VIAL/SYRINGE SC SCH (20:44)
[2020-04-07] MEDS: LATANOPROST 0.005% OPHTH SOLN 2.5 ML OU SCH (20:44)
[2020-04-07] MEDS: TAMSULOSIN 0.4 MG CAP PO SCH (20:44)
[2020-04-08] MEDS: LEVOTHYROXINE 50MCG TABLET (0.05MG) PO SCH (05:53)
[2020-04-08 06:00] VITALS: BP 121/65
[2020-04-08 06:05] LABS: BASO % 0.4 % (0.0-1.0); EOS # 0.1 10^3/uL (0.0-0.5); EOS % 1.3 % (0.0-3.0); HEMOGLOBIN 11.5 g/dl (13.5-17.5); LYMPH # 1.1 10^3/uL (1.5-5.0); LYMPH % 13.2 % (24.0-44.0); MEAN CORPUSCULAR HEMOGLOBIN 31.5 pg (27.0-33.0); MEAN CORPUSCULAR HGB CONC 32.9 g/dl (32.0-36.5); MEAN CORPUSCULAR VOLUME 95.9 fl (80.0-96.0); MONO # 0.6 10^3/uL (0.0-0.8); MONO % 6.7 % (0.0-5.0); NEUTROPHILS # 6.6 10^3/uL (1.5-8.5); NEUTROPHILS % 76.9 % (36.0-66.0); PLATELET COUNT, AUTOMATED 243 10^3/uL (150-450); RED BLOOD COUNT 3.65 10^6/uL (4.30-6.10); WHITE BLOOD COUNT 8.5 10^3/uL (4.0-10.0)
[2020-04-08 06:36] LABS: ALBUMIN 2.6 GM/DL (3.2-5.2); ALT/SGPT 73 U/L (12-78); BILIRUBIN,TOTAL 0.4 MG/DL (0.2-1.0); BLOOD UREA NITROGEN 29 MG/DL (7-18); CALCIUM LEVEL 8.8 MG/DL (8.8-10.2); CARBON DIOXIDE LEVEL 26 MEQ/L (21-32); CHLORIDE LEVEL 110 MEQ/L (98-107); CREATININE FOR GFR 0.72 MG/DL (0.70-1.30); GLOMERULAR FILTRATION RATE > 60.0 (>35); GLUCOSE, FASTING 96 MG/DL (70-100); POTASSIUM SERUM 4.4 MEQ/L (3.5-5.1); SODIUM LEVEL 140 MEQ/L (136-145); TOTAL PROTEIN 6.1 GM/DL (6.4-8.2)
[2020-04-08] MEDS: POTASSIUM CHLORIDE 10 MEQ SR TABLET PO SCH (08:32)
[2020-04-08] MEDS: MULTIVITAMINS/MINERALS THERAP 1 TAB PO SCH (08:32)
[2020-04-08] MEDS: PANTOPRAZOLE 40MG TAB (PROTONIX) PO SCH (08:33)
[2020-04-08] MEDS: lisinopriL 10 MG TAB PO SCH (08:33)
[2020-04-08] MEDS: GABAPENTIN 400 MG CAP PO SCH ×2 (08:34→20:11)
[2020-04-08] MEDS: ACETAMINOPHEN 500 MG TAB PO SCH ×3 (08:34→20:14)
[2020-04-08] MEDS: DOCUSATE SODIUM 100 MG CAP PO SCH ×2 (08:35→20:14)
[2020-04-08] MEDS: HEPARIN SOD (PORCINE) 5000UNITS/ML 1ML VIAL/SYRINGE SC SCH ×2 (08:36→20:11)
[2020-04-08] MEDS: REMEDY PHYTOPLEX Z-GUARD PASTE 113GM TUBE (FROM STOREROOM PRODUCT) TOP SCH ×3 (08:36→20:17)
[2020-04-08] MEDS: TIMOLOL MALEATE 0.5% OPHTH SOLN 5 ML OU SCH ×2 (08:38→20:15)
[2020-04-08] MEDS ORDERED: FLUBLOK(EGG FREE)(QUAD)INFLUENZA VACC 0.5ML SYRINGE 18YRS & OLDER IM ONE (09:00)
[2020-04-08 14:00] VITALS: BP 139/60
[2020-04-08 20:00] VITALS: BP 134/63
[2020-04-08] MEDS: DUTASTERIDE 0.5 MG CAP (AVODART) PO SCH (20:11)
[2020-04-08] MEDS: TAMSULOSIN 0.4 MG CAP PO SCH (20:11)
[2020-04-08] MEDS: SENNA 8.6 MG TAB (SENOKOT) PO SCH (20:14)
[2020-04-08] MEDS: LATANOPROST 0.005% OPHTH SOLN 2.5 ML OU SCH (20:15)
[2020-04-09 06:00] VITALS: BP 133/65
[2020-04-09] MEDS: LEVOTHYROXINE 50MCG TABLET (0.05MG) PO SCH (06:26)
--- NOTE | 2020-04-09 07:23 | CR.PDOC ---
General Date of Consultation: Apr 08, 2020 Referring Provider: RANDY MELO MD Consultation REASON FOR CONSULTATION/CHIEF COMPLAINT: Management of any medical comorbidities HISTORY OF PRESENT ILLNESS: CHIEF COMPLAINT: spinal stenosis with spinal cord injury s/p lumbar-sacral decompression HISTORY OF PRESENT ILLNESS: 79M with PMH of HTN, urinary retention, GERD, hypothyroidism , chronic low back pain s/p multiple lumbar surgeries complicated by diskitis and osteomyelitis in 2019 at L2-L3 with cauda equina and presented to [facility] on 03-31-20 complaining of worsening low back pain and was evaluated by neurosurgery who recommended a [id number] decompression/fusion and L2-L3 intradiscal osteotomy for correction of his kyphosis. He underwent surgery on 03-31-20 which was complicated by post-op blood loss anemia requiring blood transfusion and hypotension requiring a levophed drip. He was able to be transitioned off of levophed and participate n therapy where he was found to have impairments in mobility and ADLs and deemed medically appropriate for admission to ARU for continued rehab. PAST MEDICAL HISTORY: HTN, urinary retention, GERD, hypothyroidism , chronic low back pain s/p multiple lumbar surgeries complicated by diskitis and osteomyelitis in 2019 at L2-L3 with cauda equina PAST SURGICAL HISTORY: Appendectomy, colonoscopy, cystoscopy, prostate cancer, trigeminal nerve decompression, vasectomy, multiple lumbar back surgeries FAMILY HISTORY: Father: old age Mother: mother , breast cancer with mets Siblings: All decreased older than patient SOCIAL HISTORY: Tobacco use: former smoker ETOH: occasional Illicit drug use: none ALLERGIES: Please see below. CURRENT MEDICATIONS: Please see below. REVIEW OF SYSTEMS: REVIEW OF SYSTEMS: The following is a completed review of systems and has been reviewed. Review of systems otherwise unremarkable. PAIN: Patient self reports no pain EYES: No recent vision changes EARS, NOSE, & THROAT: No throat pain, or dysphagia, or rhinorrhea CARDIOVASCULAR: Denies chest pain or palpitations PULMONARY: Denies shortness of breath GASTROINTESTINAL: Denies constipation/diarrhea GENITOURINARY: +urinary retention MUSCULOSKELETAL:bilat LE weakness NEUROLOGICAL:+neurogenic bladder, bilat LE weakness HEMATOLOGICAL: denies easy bruising SKIN: [lumbo-sacral incision PSYCHIATRIC: Unremarkable All other review of systems found to be negative. PHYSICAL EXAMINATION: VITAL SIGNS: Please see below. GENERAL: Pleasant and cooperative. No acute distress. Frail elderly gentleman. HEENT: PERRL. Extraocular movements intact. Clear conjunctiva, bitemporal wasting. CARDIOVASCULAR: Regular rate and rhythm. No murmurs, rubs, or gallops LUNGS: Clear to auscultation bilaterally. No wheezes. No rhonchi ABDOMEN: Soft, nontender, nondistended. Positive bowel sounds. Normal active bowel sounds NEUROLOGICAL: Alert and oriented times three. Cranial nerves II through XII grossly intact. Sensation grossly intact in all 4limbs, 5\5 strength bilateral upper extremities. 4-\5 strength right lower extremity. 5-/5 strength in left lower extremity. EXTREMITIES: No edema LABORATORY DATA: Please see below. ASSESSMENT AND PLAN: 79-year-old M with past medical history of cauda equina with multiple spinal surgeries who presents to ARU status post [id number] decompression/fusion and L2-L3 intradiscal osteotomy for continued rehab as he is below his baseline functional status. S/p [id number] decompression/fusion and L2-L3 intradiscal osteotomy performed 03-31-20 now with impairments in overall function Multiple lumbar surgeries with cauda equina and chronic low back pain with urinary retention (self-caths at home for neurogenic bladder) PT OT as per ARU Pain control with tylenol, oxycodone, flexeril prn Hypertension BP well controlled c/w lisinopril Hypothyroidism, c/u synthroid Chronic urinary retention due to neurogenic bladder and prostate, c/u Adovert, Flomax Patient self catheterizes at home. Glaucoma timolol and latanoprost eye drops DVT ppx- heparin GI ppx - protonix Thank You for consulting on this patient will continue to follow while he is in the hospital. Vital Signs/I&O Vital Signs Date Time Temp Pulse Resp B/P (MAP) Pulse Ox O2 Delivery O2 Flow Rate FiO2 04/08/20 08:33 121/65 04/08/20 06:00 97.4 89 18 97 Room Air I&O- Last 24 Hours up to 6 AM 04/08/20 05:59 Intake Total 440 ml Output Total 50 ml Balance 390 ml Laboratory Data Labs 24H Laboratory Tests 2 04/08/20 05:36: Immature Granulocyte % (Auto) 1.5, Neutrophils (%) (Auto) 76.9H, Lymphocytes (%) (Auto) 13.2L, Monocytes (%) (Auto) 6.7H, Eosinophils (%) (Auto) 1.3, Basophils (%) (Auto) 0.4, Neutrophils # (Auto) 6.6, Lymphocytes # (Auto) 1.1L, Monocytes # (Auto) 0.6, Eosinophils # (Auto) 0.1, Basophils # (Auto) 0.0, Nucleated Red Blood Cells % (auto) 0.0, Anion Gap 4L, Glomerular Filtration Rate > 60.0, Calcium Level 8.8, Total Bilirubin 0.4, Aspartate Amino Transf (AST/SGOT) 31, Alanine Aminotransferase (ALT/SGPT) 73, Alkaline Phosphatase 127H, Total Protein 6.1L, Albumin 2.6L, Albumin/Globulin Ratio 0.7 CBC/BMP Laboratory Tests 04/08/20 05:36 Allergies Coded Allergies: No Known Allergies (Unverified , 05/12/19) Home Medications Scheduled Ascorbic Acid (Vitamin C) 500 Mg Capsule.er, 500 MG PO DAILY, (Reported) Docusate Sodium (Colace) 100 Mg Capsule, 100 MG PO BID, (Reported) Dutasteride (Dutasteride) 0.5 Mg Cap, 0.5 MG PO QHS, (Reported) Flaxseed Oil (Flaxseed Oil) 1,000 Mg Capsule, 2 CAP PO DAILY, (Reported) Gabapentin (Gabapentin) 400 Mg Cap, 400 MG PO BID, (Reported) Lactobacillus Acidophilus (Probiotic) 1 Each Capsule, 1 CAP PO DAILY, (Reported) Latanoprost (Xalatan) 0.005% 2.5ML Drops, 1 DROP OU DAILY, (Reported) Levothyroxine Sodium (Levothyroxine Sodium) 50 Mcg Tab, 50 MCG PO DAILY, (Reported) Lisinopril (Lisinopril) 10 Mg Tab, 10 MG PO DAILY, (Reported) Magnesium Hydroxide (Milk of Magnesia) 400 Mg/5 Ml Oral.susp, 45 ML PO QHS, (Reported) Multivitamin (Multivitamins) 1 Cap Cap, 1 CAP PO DAILY, (Reported) Omeprazole (Omeprazole) 20 Mg Cap, 20 MG PO DAILY, (Reported) Potassium Chloride (Potassium Chloride) 20 Meq Tablet.er, 20 MEQ PO BID, (Reported) Tamsulosin HCl (Flomax) 0.4 Mg Cap, 0.4 MG PO QHS, (Reported) Timolol Maleate (Timolol Maleate) 0.5% 5ML Drops, 1 DROP OU BID, (Reported) Zinc (Zinc) 50 Mg Tablet, 50 MG PO DAILY, (Reported) Scheduled PRN Acetaminophen (Acetaminophen) 325 Mg Tablet, 650 MG PO Q6H PRN for PAIN / FEVER, (Reported) COREY BEST MD Apr 08, 2020 11:29
[2020-04-09] MEDS: GABAPENTIN 400 MG CAP PO SCH ×2 (08:59→20:45)
[2020-04-09] MEDS: PANTOPRAZOLE 40MG TAB (PROTONIX) PO SCH (08:59)
[2020-04-09] MEDS: MULTIVITAMINS/MINERALS THERAP 1 TAB PO SCH (08:59)
[2020-04-09] MEDS: HEPARIN SOD (PORCINE) 5000UNITS/ML 1ML VIAL/SYRINGE SC SCH ×2 (08:59→20:46)
[2020-04-09] MEDS: DOCUSATE SODIUM 100 MG CAP PO SCH ×2 (09:00→20:46)
[2020-04-09] MEDS: ACETAMINOPHEN 500 MG TAB PO SCH ×3 (09:00→20:46)
[2020-04-09] MEDS: POTASSIUM CHLORIDE 10 MEQ SR TABLET PO SCH (09:00)
[2020-04-09] MEDS: REMEDY PHYTOPLEX Z-GUARD PASTE 113GM TUBE (FROM STOREROOM PRODUCT) TOP SCH ×3 (09:00→20:46)
[2020-04-09] MEDS: lisinopriL 10 MG TAB PO SCH (09:02)
[2020-04-09] MEDS: TIMOLOL MALEATE 0.5% OPHTH SOLN 5 ML OU SCH ×2 (09:03→20:48)
[2020-04-09 14:00] VITALS: BP 120/57
[2020-04-09 20:00] VITALS: BP 127/68
[2020-04-09] MEDS: TAMSULOSIN 0.4 MG CAP PO SCH (20:45)
[2020-04-09] MEDS: DUTASTERIDE 0.5 MG CAP (AVODART) PO SCH (20:45)
[2020-04-09] MEDS: SENNA 8.6 MG TAB (SENOKOT) PO SCH (20:46)
[2020-04-09] MEDS: LATANOPROST 0.005% OPHTH SOLN 2.5 ML OU SCH (20:47)
[2020-04-10] MEDS: LEVOTHYROXINE 50MCG TABLET (0.05MG) PO SCH (05:30)
[2020-04-10 05:37] VITALS: BP 116/71
[2020-04-10 07:36] LABS: BASO % 0.6 % (0.0-1.0); EOS # 0.1 10^3/uL (0.0-0.5); EOS % 0.9 % (0.0-3.0); HEMATOCRIT 33.9 % (42.0-52.0); LYMPH # 1.1 10^3/uL (1.5-5.0); LYMPH % 15.4 % (24.0-44.0); MEAN CORPUSCULAR HGB CONC 32.4 g/dl (32.0-36.5); MEAN CORPUSCULAR VOLUME 95.5 fl (80.0-96.0); MONO # 0.5 10^3/uL (0.0-0.8); MONO % 7.6 % (0.0-5.0); NEUTROPHILS # 5.2 10^3/uL (1.5-8.5); NEUTROPHILS % 74.5 % (36.0-66.0); PLATELET COUNT, AUTOMATED 316 10^3/uL (150-450); RED BLOOD COUNT 3.55 10^6/uL (4.30-6.10)
[2020-04-10 08:06] LABS: BLOOD UREA NITROGEN 24 MG/DL (7-18); CALCIUM LEVEL 8.5 MG/DL (8.8-10.2); CARBON DIOXIDE LEVEL 24 MEQ/L (21-32); CHLORIDE LEVEL 110 MEQ/L (98-107); CREATININE FOR GFR 0.73 MG/DL (0.70-1.30); GLOMERULAR FILTRATION RATE > 60.0 (>35); GLUCOSE, FASTING 91 MG/DL (70-100); POTASSIUM SERUM 4.2 MEQ/L (3.5-5.1); SODIUM LEVEL 141 MEQ/L (136-145)
[2020-04-10] MEDS: ACETAMINOPHEN 500 MG TAB PO SCH ×3 (09:00→20:31)
[2020-04-10] MEDS: DOCUSATE SODIUM 100 MG CAP PO SCH ×2 (09:00→20:32)
[2020-04-10] MEDS: REMEDY PHYTOPLEX Z-GUARD PASTE 113GM TUBE (FROM STOREROOM PRODUCT) TOP SCH ×3 (09:00→20:30)
[2020-04-10] MEDS: HEPARIN SOD (PORCINE) 5000UNITS/ML 1ML VIAL/SYRINGE SC SCH ×2 (09:20→20:28)
[2020-04-10] MEDS: PANTOPRAZOLE 40MG TAB (PROTONIX) PO SCH (09:21)
[2020-04-10] MEDS: MULTIVITAMINS/MINERALS THERAP 1 TAB PO SCH (09:21)
[2020-04-10] MEDS: GABAPENTIN 400 MG CAP PO SCH ×2 (09:22→20:29)
[2020-04-10] MEDS: POTASSIUM CHLORIDE 10 MEQ SR TABLET PO SCH (09:28)
[2020-04-10] MEDS: lisinopriL 10 MG TAB PO SCH (09:28)
[2020-04-10] MEDS: TIMOLOL MALEATE 0.5% OPHTH SOLN 5 ML OU SCH ×2 (09:29→20:29)
[2020-04-10 14:00] VITALS: BP 108/59
[2020-04-10 20:00] VITALS: BP 125/58
[2020-04-10] MEDS: DUTASTERIDE 0.5 MG CAP (AVODART) PO SCH (20:28)
[2020-04-10] MEDS: TAMSULOSIN 0.4 MG CAP PO SCH (20:28)
[2020-04-10] MEDS: SENNA 8.6 MG TAB (SENOKOT) PO SCH (20:29)
[2020-04-10] MEDS: LATANOPROST 0.005% OPHTH SOLN 2.5 ML OU SCH (20:31)
[2020-04-11] MEDS: LEVOTHYROXINE 50MCG TABLET (0.05MG) PO SCH (05:23)
[2020-04-11 05:51] VITALS: BP 114/60
[2020-04-11] MEDS: POTASSIUM CHLORIDE 10 MEQ SR TABLET PO SCH (07:59)
[2020-04-11] MEDS: PANTOPRAZOLE 40MG TAB (PROTONIX) PO SCH (07:59)
[2020-04-11] MEDS: GABAPENTIN 400 MG CAP PO SCH ×2 (08:00→20:16)
[2020-04-11] MEDS: HEPARIN SOD (PORCINE) 5000UNITS/ML 1ML VIAL/SYRINGE SC SCH ×2 (08:00→20:16)
[2020-04-11] MEDS: MULTIVITAMINS/MINERALS THERAP 1 TAB PO SCH (08:00)
[2020-04-11] MEDS: REMEDY PHYTOPLEX Z-GUARD PASTE 113GM TUBE (FROM STOREROOM PRODUCT) TOP SCH ×3 (08:01→20:18)
[2020-04-11] MEDS: DOCUSATE SODIUM 100 MG CAP PO SCH ×2 (08:01→20:17)
[2020-04-11] MEDS: ACETAMINOPHEN 500 MG TAB PO SCH ×3 (08:01→20:16)
[2020-04-11] MEDS: TIMOLOL MALEATE 0.5% OPHTH SOLN 5 ML OU SCH ×2 (08:02→20:17)
[2020-04-11] MEDS: lisinopriL 10 MG TAB PO SCH (08:02)
[2020-04-11 14:43] VITALS: BP 123/68
[2020-04-11 20:00] VITALS: BP 123/64
[2020-04-11] MEDS: TAMSULOSIN 0.4 MG CAP PO SCH (20:16)
[2020-04-11] MEDS: DUTASTERIDE 0.5 MG CAP (AVODART) PO SCH (20:16)
[2020-04-11] MEDS: LATANOPROST 0.005% OPHTH SOLN 2.5 ML OU SCH (20:17)
[2020-04-11] MEDS: SENNA 8.6 MG TAB (SENOKOT) PO SCH (20:17)
[2020-04-12] VITALS (7 sets, daily range): BP systolic 82–118; BP diastolic 50–68
[2020-04-12] MEDS: LEVOTHYROXINE 50MCG TABLET (0.05MG) PO SCH (05:33)
[2020-04-12 07:04] LABS: BASO % 0.5 % (0.0-1.0); EOS # 0.1 10^3/uL (0.0-0.5); EOS % 1.2 % (0.0-3.0); HEMATOCRIT 34.7 % (42.0-52.0); HEMOGLOBIN 11.4 g/dl (13.5-17.5); LYMPH # 1.1 10^3/uL (1.5-5.0); LYMPH % 13.1 % (24.0-44.0); MEAN CORPUSCULAR HEMOGLOBIN 31.7 pg (27.0-33.0); MEAN CORPUSCULAR HGB CONC 32.9 g/dl (32.0-36.5); MEAN CORPUSCULAR VOLUME 96.4 fl (80.0-96.0); MONO # 0.4 10^3/uL (0.0-0.8); MONO % 5.5 % (0.0-5.0); NEUTROPHILS # 6.3 10^3/uL (1.5-8.5); NEUTROPHILS % 78.6 % (36.0-66.0); PLATELET COUNT, AUTOMATED 361 10^3/uL (150-450); WHITE BLOOD COUNT 8.1 10^3/uL (4.0-10.0)
[2020-04-12 07:28] LABS: BLOOD UREA NITROGEN 22 MG/DL (7-18); CALCIUM LEVEL 8.8 MG/DL (8.8-10.2); CARBON DIOXIDE LEVEL 27 MEQ/L (21-32); CHLORIDE LEVEL 108 MEQ/L (98-107); CREATININE FOR GFR 0.85 MG/DL (0.70-1.30); GLOMERULAR FILTRATION RATE > 60.0 (>35); GLUCOSE, FASTING 92 MG/DL (70-100); POTASSIUM SERUM 4.3 MEQ/L (3.5-5.1); SODIUM LEVEL 140 MEQ/L (136-145)
[2020-04-12] MEDS: DOCUSATE SODIUM 100 MG CAP PO SCH ×2 (08:09→21:00)
[2020-04-12] MEDS: GABAPENTIN 400 MG CAP PO SCH ×2 (08:14→22:03)
[2020-04-12] MEDS: MULTIVITAMINS/MINERALS THERAP 1 TAB PO SCH (08:15)
[2020-04-12] MEDS: PANTOPRAZOLE 40MG TAB (PROTONIX) PO SCH (08:15)
[2020-04-12] MEDS: POTASSIUM CHLORIDE 10 MEQ SR TABLET PO SCH (08:15)
[2020-04-12] MEDS: HEPARIN SOD (PORCINE) 5000UNITS/ML 1ML VIAL/SYRINGE SC SCH ×2 (08:15→22:03)
[2020-04-12] MEDS: lisinopriL 10 MG TAB PO SCH (08:15)
[2020-04-12] MEDS: ACETAMINOPHEN 500 MG TAB PO SCH ×3 (08:15→22:03)
[2020-04-12] MEDS: REMEDY PHYTOPLEX Z-GUARD PASTE 113GM TUBE (FROM STOREROOM PRODUCT) TOP SCH ×3 (08:15→22:07)
[2020-04-12] MEDS: TIMOLOL MALEATE 0.5% OPHTH SOLN 5 ML OU SCH ×2 (08:16→22:04)
--- NOTE | 2020-04-12 11:22 | IPNPDOC ---
PM&R Progress Note DATE OF SERVICE: Apr 11, 2020 Bottom Stainer Progress Note Subjective: PAtient reproting he feels well, has minimal pain, and that he has been making progress in therapy. REVIEW OF SYSTEMS: The following is a completed review of systems and has been reviewed. Review of systems otherwise unremarkable. PAIN: Patient self reports no pain EYES: No recent vision changes EARS, NOSE, & THROAT: No throat pain, or dysphagia, or rhinorrhea CARDIOVASCULAR: Denies chest pain or palpitations PULMONARY: Denies shortness of breath GASTROINTESTINAL: Denies constipation/diarrhea GENITOURINARY: +urinary retention MUSCULOSKELETAL:bilat LE weakness NEUROLOGICAL:+neurogenic bladder, bilat LE weakness HEMATOLOGICAL: denies easy bruising SKIN: lumbo-sacral incision PSYCHIATRIC: Unremarkable All other review of systems found to be negative. PHYSICAL EXAMINATION: VITAL SIGNS: Please see below. GENERAL:Pleasant and cooperative. No acute distress. HEENT: PERRL. Extraocular movements intact. Clear conjunctiva CARDIOVASCULAR: Regular rate and rhythm. No murmurs, rubs, or gallops]. LUNGS: Clear to auscultation bilaterally. No wheezes. No rhonchi ABDOMEN: Soft, nontender, nondistended. Positive bowel sounds. Normal active bowel sounds NEUROLOGICAL: Alert and oriented times three. Cranial nerves II through XII grossly intact. Sensation grossly intact in all 4limbs EXTREMITIES: 5\5 strength bilateral upper extremities. 4-\5 strength right lower extremity. 5-/5 strength in left lower extremity. SKIN:sacrum with no erythema lumbar incision covered with silver optifoam LABORATORY DATA: Please see below. ASSESSMENT:79-year-old M with past medical history of cauda equina with multiple spinal surgeries who presents status post [id number] decompression/fusion and L2-L3 intradiscal osteotomy PLAN: 1. Rehab- PT/OT advance molbity and ADLs, TLSO when OOB, spinal precautions, ambulating in therapy 2. Neuro- hx of multiple lumbar surgeries with cauda equina and chronic low back pain with urinary retention (self-caths at home for neurogenic bladder) s/p T10- pelvis decompression/fusion and L2-L3 intradiscal osteotomy performed 03-31-20 now with impairment sin overall function -monitor for new weakness and infection 3. CArdiac- hx of HTN with recent drops in BPs requiring levophed post-op, will monitor and c/u on lisinopril -medicine consulted to assist in overall management 4. Resp- monitor for infection, incentive spirometry 5. Endo- hx of hypothyroidism, c/u synthroid 6. - chronic urinary retention due to neurogenic bladder and prostate, c/u Adovert, Flomax, patient with concentrated urine, but no fever/chills/suprapubic pain/dysuria, will encourage po fluid intake, no suspicion for UTI 7. DVT ppx- heparin 8. GI ppx - protonix 9. Pain- Tylenol, oxycodone, flexeril prn 10. SKin- dressing changes per instructions 11. Dispo- TBD Allergies Coded Allergies: No Known Allergies (Unverified , 05/12/19) Vital Signs Vital Signs Date Time Temp Pulse Resp B/P (MAP) Pulse Ox O2 Delivery O2 Flow Rate FiO2 04/12/20 08:15 114/61 04/12/20 06:00 96.8 84 18 98 Room Air Laboratory Data CBC/BMP Laboratory Tests 04/12/20 06:41 Labs 24H Laboratory Tests 2 04/12/20 06:41: Immature Granulocyte % (Auto) 1.1, Neutrophils (%) (Auto) 78.6H, Lymphocytes (%) (Auto) 13.1L, Monocytes (%) (Auto) 5.5H, Eosinophils (%) (Auto) 1.2, Basophils (%) (Auto) 0.5, Neutrophils # (Auto) 6.3, Lymphocytes # (Auto) 1.1L, Monocytes # (Auto) 0.4, Eosinophils # (Auto) 0.1, Basophils # (Auto) 0.0, Nucleated Red Blood Cells % (auto) 0.0, Anion Gap 5L, Glomerular Filtration Rate > 60.0, Calcium Level 8.8 Current Medications Current Medications Current Medications Medications (Trade) Dose Ordered Sig/Freda Route PRN Reason Start Time Stop Time Status Last Admin Dose Admin Acetaminophen (Tylenol Tab) 1,000 mg TID PO 04/07/20 16:00 04/12/20 08:15 Cyclobenzaprine HCl (Flexeril) 10 mg Q8HP PRN PO SPASMS 04/07/20 12:00 Docusate Sodium (Colace) 100 mg BID PO 04/07/20 21:00 04/10/20 20:32 Dutasteride (Avodart) 0.5 mg QHS PO 04/07/20 21:00 04/11/20 20:16 Gabapentin (Neurontin) 400 mg BID PO 04/07/20 21:00 04/12/20 08:14 Heparin Sodium (Porcine) (Heparin) 5,000 units Q12H SC 04/07/20 21:00 04/12/20 08:15 Home Med (Med Rec Complete!) ASDIRECTED XX 04/07/20 14:30 04/07/20 14:31 DC Latanoprost (Xalatan 0.005% Op Soln) 1 drop QHS OU 04/07/20 21:00 04/11/20 20:17 Levothyroxine Sodium (Synthroid) 50 mcg DAILY@06 PO 04/08/20 06:00 04/12/20 05:33 Lisinopril (Prinivil) 10 mg DAILY PO 04/08/20 09:00 04/12/20 08:15 Multivitamins (Theragram-M) 1 tab DAILY PO 04/08/20 09:00 04/12/20 08:15 Ondansetron HCl (Zofran) 4 mg Q6HP PRN PO NAUSEA 04/07/20 12:00 Oxycodone HCl (Roxicodone, Oxyir) 5 mg Q4HP PRN PO PAIN 04/07/20 12:00 Pantoprazole Sodium (Protonix) 40 mg DAILY PO 04/08/20 09:00 04/12/20 08:15 Potassium Chloride (Micro-K Extencaps) 20 meq DAILY PO 04/08/20 09:00 04/12/20 08:15 Senna (Senokot) 1 tab QHS PO 04/07/20 21:00 04/10/20 20:29 Tamsulosin HCl (Flomax) 0.4 mg QHS PO 04/07/20 21:00 04/11/20 20:16 Timolol Maleate (Timoptic 0.5% Ophth Gisselle) 1 drop BID OU 04/07/20 21:00 04/12/20 08:16 RANDY MELO MD Apr 12, 2020 11:22
--- NOTE | 2020-04-12 11:22 | IPNPDOC ---
PM&R Progress Note DATE OF SERVICE: Apr 12, 2020 Direct Marketing Specialist Progress Note Subjective: Patient reporting he had a sudden urge to urinate and had difficulty controlling it. He was agreeable to resuming BID self-cathing like he did at home. REVIEW OF SYSTEMS: The following is a completed review of systems and has been reviewed. Review of systems otherwise unremarkable. PAIN: Patient self reports no pain EYES: No recent vision changes EARS, NOSE, & THROAT: No throat pain, or dysphagia, or rhinorrhea CARDIOVASCULAR: Denies chest pain or palpitations PULMONARY: Denies shortness of breath GASTROINTESTINAL: Denies constipation/diarrhea GENITOURINARY: +urinary retention (chronic) MUSCULOSKELETAL:bilat LE weakness NEUROLOGICAL:+neurogenic bladder, bilat LE weakness HEMATOLOGICAL: denies easy bruising SKIN: lumbo-sacral incision PSYCHIATRIC: Unremarkable All other review of systems found to be negative. PHYSICAL EXAMINATION: VITAL SIGNS: Please see below. GENERAL:Pleasant and cooperative. No acute distress. HEENT: PERRL. Extraocular movements intact. Clear conjunctiva CARDIOVASCULAR: Regular rate and rhythm. No murmurs, rubs, or gallops]. LUNGS: Clear to auscultation bilaterally. No wheezes. No rhonchi ABDOMEN: Soft, nontender, nondistended. Positive bowel sounds. Normal active bowel sounds NEUROLOGICAL: Alert and oriented times three. Cranial nerves II through XII grossly intact. Sensation grossly intact in all 4limbs EXTREMITIES: 5\5 strength bilateral upper extremities. 4-\5 strength right lower extremity. 5-/5 strength in left lower extremity. SKIN:sacrum with no erythema lumbar incision covered with silver optifoam LABORATORY DATA: Please see below. ASSESSMENT:79-year-old M with past medical history of cauda equina with multiple spinal surgeries who presents status post [id number] decompression/fusion and L2-L3 intradiscal osteotomy PLAN: 1. Rehab- PT/OT advance molbity and ADLs, TLSO when OOB, spinal precautions, ambulating in therapy 2. Neuro- hx of multiple lumbar surgeries with cauda equina and chronic low back pain with urinary retention (self-caths at home for neurogenic bladder) s/p T10- pelvis decompression/fusion and L2-L3 intradiscal osteotomy performed 03-31-20 now with impairment sin overall function -monitor for new weakness and infection 3. CArdiac- hx of HTN with recent drops in BPs requiring levophed post-op, will monitor and c/u on lisinopril -medicine consulted to assist in overall management 4. Resp- monitor for infection, incentive spirometry 5. Endo- hx of hypothyroidism, c/u synthroid 6. 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 DVT ppx- heparin 8. GI ppx - protonix 9. Pain- Tylenol, oxycodone, flexeril prn 10. SKin- dressing changes per instructions 11. Dispo- TBD Allergies Coded Allergies: No Known Allergies (Unverified , 05/12/19) Vital Signs Vital Signs Date Time Temp Pulse Resp B/P (MAP) Pulse Ox O2 Delivery O2 Flow Rate FiO2 04/12/20 08:15 114/61 04/12/20 06:00 96.8 84 18 98 Room Air Laboratory Data CBC/BMP Laboratory Tests 04/12/20 06:41 Labs 24H Laboratory Tests 2 04/12/20 06:41: Immature Granulocyte % (Auto) 1.1, Neutrophils (%) (Auto) 78.6H, Lymphocytes (%) (Auto) 13.1L, Monocytes (%) (Auto) 5.5H, Eosinophils (%) (Auto) 1.2, Basophils (%) (Auto) 0.5, Neutrophils # (Auto) 6.3, Lymphocytes # (Auto) 1.1L, Monocytes # (Auto) 0.4, Eosinophils # (Auto) 0.1, Basophils # (Auto) 0.0, Nucleated Red Blood Cells % (auto) 0.0, Anion Gap 5L, Glomerular Filtration Rate > 60.0, Calcium Level 8.8 Current Medications Current Medications Current Medications Medications (Trade) Dose Ordered Sig/Rfeda Route PRN Reason Start Time Stop Time Status Last Admin Dose Admin Acetaminophen (Tylenol Tab) 1,000 mg TID PO 04/07/20 16:00 04/12/20 08:15 Cyclobenzaprine HCl (Flexeril) 10 mg Q8HP PRN PO SPASMS 04/07/20 12:00 Docusate Sodium (Colace) 100 mg BID PO 04/07/20 21:00 04/10/20 20:32 Dutasteride (Avodart) 0.5 mg QHS PO 04/07/20 21:00 04/11/20 20:16 Gabapentin (Neurontin) 400 mg BID PO 04/07/20 21:00 04/12/20 08:14 Heparin Sodium (Porcine) (Heparin) 5,000 units Q12H SC 04/07/20 21:00 04/12/20 08:15 Home Med (Med Rec Complete!) ASDIRECTED XX 04/07/20 14:30 04/07/20 14:31 DC Latanoprost (Xalatan 0.005% Op Soln) 1 drop QHS OU 04/07/20 21:00 04/11/20 20:17 Levothyroxine Sodium (Synthroid) 50 mcg DAILY@06 PO 04/08/20 06:00 04/12/20 05:33 Lisinopril (Prinivil) 10 mg DAILY PO 04/08/20 09:00 04/12/20 08:15 Multivitamins (Theragram-M) 1 tab DAILY PO 04/08/20 09:00 04/12/20 08:15 Ondansetron HCl (Zofran) 4 mg Q6HP PRN PO NAUSEA 04/07/20 12:00 Oxycodone HCl (Roxicodone, Oxyir) 5 mg Q4HP PRN PO PAIN 04/07/20 12:00 Pantoprazole Sodium (Protonix) 40 mg DAILY PO 04/08/20 09:00 04/12/20 08:15 Potassium Chloride (Micro-K Extencaps) 20 meq DAILY PO 04/08/20 09:00 04/12/20 08:15 Senna (Senokot) 1 tab QHS PO 04/07/20 21:00 04/10/20 20:29 Tamsulosin HCl (Flomax) 0.4 mg QHS PO 04/07/20 21:00 04/11/20 20:16 Timolol Maleate (Timoptic 0.5% Ophth Gisselle) 1 drop BID OU 04/07/20 21:00 04/12/20 08:16 RANDY MELO MD Apr 12, 2020 11:22
[2020-04-12] MEDS: SENNA 8.6 MG TAB (SENOKOT) PO SCH (21:00)
[2020-04-12] MEDS: DUTASTERIDE 0.5 MG CAP (AVODART) PO SCH (22:03)
[2020-04-12] MEDS: TAMSULOSIN 0.4 MG CAP PO SCH (22:03)
[2020-04-12] MEDS: LATANOPROST 0.005% OPHTH SOLN 2.5 ML OU SCH (22:04)
[2020-04-13] MEDS: LEVOTHYROXINE 50MCG TABLET (0.05MG) PO SCH (05:48)
[2020-04-13 06:50] VITALS: BP 100/59
[2020-04-13] MEDS: REMEDY PHYTOPLEX Z-GUARD PASTE 113GM TUBE (FROM STOREROOM PRODUCT) TOP SCH ×3 (09:00→20:40)
[2020-04-13] MEDS ORDERED: LISINOPRIL *2.5 MG* TAB PO SCH (09:00)
[2020-04-13] MEDS: ACETAMINOPHEN 500 MG TAB PO SCH ×3 (09:00→20:40)
[2020-04-13] MEDS: DOCUSATE SODIUM 100 MG CAP PO SCH ×2 (09:00→20:40)
[2020-04-13] MEDS: HEPARIN SOD (PORCINE) 5000UNITS/ML 1ML VIAL/SYRINGE SC SCH ×2 (09:24→20:46)
[2020-04-13] MEDS: PANTOPRAZOLE 40MG TAB (PROTONIX) PO SCH (09:24)
[2020-04-13] MEDS: MULTIVITAMINS/MINERALS THERAP 1 TAB PO SCH (09:24)
[2020-04-13] MEDS: POTASSIUM CHLORIDE 10 MEQ SR TABLET PO SCH (09:24)
[2020-04-13] MEDS: TIMOLOL MALEATE 0.5% OPHTH SOLN 5 ML OU SCH ×2 (09:26→20:49)
--- NOTE | 2020-04-13 10:53 | IPNPDOC ---
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 He continues to feel steady on his feet and was concerned that when he went to self cath lat night he met some resistance and says he usually does it at home while standing. He was encouraged to stand here as well. REVIEW OF SYSTEMS: The following is a completed review of systems and has been reviewed. Review of systems otherwise unremarkable. PAIN: Patient self reports no pain EYES: No recent vision changes EARS, NOSE, & THROAT: No throat pain, or dysphagia, or rhinorrhea CARDIOVASCULAR: Denies chest pain or palpitations PULMONARY: Denies shortness of breath GASTROINTESTINAL: Denies constipation/diarrhea GENITOURINARY: +urinary retention (chronic) MUSCULOSKELETAL:bilat LE weakness NEUROLOGICAL:+neurogenic bladder, bilat LE weakness HEMATOLOGICAL: denies easy bruising SKIN: lumbo-sacral incision PSYCHIATRIC: Unremarkable All other review of systems found to be negative. PHYSICAL EXAMINATION: VITAL SIGNS: Please see below. GENERAL:Pleasant and cooperative. No acute distress. HEENT: PERRL. Extraocular movements intact. Clear conjunctiva CARDIOVASCULAR: Regular rate and rhythm. No murmurs, rubs, or gallops]. LUNGS: Clear to auscultation bilaterally. No wheezes. No rhonchi ABDOMEN: Soft, nontender, nondistended. Positive bowel sounds. Normal active bowel sounds NEUROLOGICAL: Alert and oriented times three. Cranial nerves II through XII grossly intact. Sensation grossly intact in all 4limbs EXTREMITIES: 5\5 strength bilateral upper extremities. 4-\5 strength right lower extremity. 5-/5 strength in left lower extremity. SKIN:sacrum with no erythema lumbar incision covered with silver optifoam LABORATORY DATA: Please see below. ASSESSMENT:79-year-old M with past medical history of cauda equina with multiple spinal surgeries who presents status post [id number] decompression/fusion and L2-L3 intradiscal osteotomy PLAN: 1. Rehab- PT/OT advance molbity and ADLs, TLSO when OOB, spinal precautions, ambulating in therapy 2. Neuro- hx of multiple lumbar surgeries with cauda equina and chronic low back pain with urinary retention (self-caths at home for neurogenic bladder) s/p T10- pelvis decompression/fusion and L2-L3 intradiscal osteotomy performed 03-31-20 now with impairment sin overall function -monitor for new weakness and infection 3. CArdiac- hx of HTN with asymptomatic soft BPs, lisinopril d/c'd and will lower dosing of gabapentin -medicine consulted to assist in overall management 4. Resp- monitor for infection, incentive spirometry 5. Endo- hx of hypothyroidism, c/u synthroid 6. 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 DVT ppx- heparin 8. GI ppx - protonix 9. Pain- Tylenol 10. SKin- dressing changes per instructions 11. Dispo- TBD Allergies Coded Allergies: No Known Allergies (Unverified , 05/12/19) Vital Signs Vital Signs Date Time Temp Pulse Resp B/P (MAP) Pulse Ox O2 Delivery O2 Flow Rate FiO2 04/13/20 06:50 97.1 81 16 100/59 (73) 98 Room Air Current Medications Current Medications Current Medications Medications (Trade) Dose Ordered Sig/Freda Route PRN Reason Start Time Stop Time Status Last Admin Dose Admin Acetaminophen (Tylenol Tab) 1,000 mg TID PO 04/07/20 16:00 04/12/20 22:03 Cyclobenzaprine HCl (Flexeril) 10 mg Q8HP PRN PO SPASMS 04/07/20 12:00 Docusate Sodium (Colace) 100 mg BID PO 04/07/20 21:00 04/10/20 20:32 Dutasteride (Avodart) 0.25 mg QHS PO 04/13/20 21:00 UNV Dutasteride (Avodart) 0.5 mg QHS PO 04/07/20 21:00 04/13/20 09:12 DC 04/12/20 22:03 Gabapentin (Neurontin) 200 mg BID PO 04/13/20 09:00 Gabapentin (Neurontin) 400 mg BID PO 04/07/20 21:00 04/13/20 09:12 DC 04/12/20 22:03 Heparin Sodium (Porcine) (Heparin) 5,000 units Q12H SC 04/07/20 21:00 04/13/20 09:24 Home Med (Med Rec Complete!) ASDIRECTED XX 04/07/20 14:30 04/07/20 14:31 DC Latanoprost (Xalatan 0.005% Op Soln) 1 drop QHS OU 04/07/20 21:00 04/12/20 22:04 Levothyroxine Sodium (Synthroid) 50 mcg DAILY@06 PO 04/08/20 06:00 04/13/20 05:48 Lisinopril (Prinivil) 2.5 mg DAILY PO 04/13/20 09:00 04/13/20 09:12 DC Lisinopril (Prinivil) 10 mg DAILY PO 04/08/20 09:00 04/12/20 13:59 DC 04/12/20 08:15 Multivitamins (Theragram-M) 1 tab DAILY PO 04/08/20 09:00 04/13/20 09:24 Ondansetron HCl (Zofran) 4 mg Q6HP PRN PO NAUSEA 04/07/20 12:00 Oxycodone HCl (Roxicodone, Oxyir) 5 mg Q4HP PRN PO PAIN 04/07/20 12:00 Pantoprazole Sodium (Protonix) 40 mg DAILY PO 04/08/20 09:00 04/13/20 09:24 Potassium Chloride (Micro-K Extencaps) 20 meq DAILY PO 04/08/20 09:00 04/13/20 09:24 Senna (Senokot) 1 tab QHS PO 04/07/20 21:00 04/10/20 20:29 Tamsulosin HCl (Flomax) 0.4 mg QHS PO 04/07/20 21:00 04/12/20 22:03 Timolol Maleate (Timoptic 0.5% Ophth Gisselle) 1 drop BID OU 04/07/20 21:00 04/13/20 09:26 RANDY MELO MD Apr 13, 2020 10:53
[2020-04-13] MEDS: GABAPENTIN 100 MG CAP PO SCH ×2 (12:52→20:46)
[2020-04-13 14:00] VITALS: BP 126/61
[2020-04-13 20:00] VITALS: BP 129/63
[2020-04-13] MEDS: SENNA 8.6 MG TAB (SENOKOT) PO SCH (20:40)
[2020-04-13] MEDS: TAMSULOSIN 0.4 MG CAP PO SCH (20:45)
[2020-04-13] MEDS: DUTASTERIDE 0.5 MG CAP (AVODART) PO SCH (20:45)
[2020-04-13] MEDS: LATANOPROST 0.005% OPHTH SOLN 2.5 ML OU SCH (20:47)
[2020-04-13] MEDS ORDERED: DUTASTERIDE 0.5 MG CAP (AVODART) PO SCH ×2 (21:00)
[2020-04-14 06:00] VITALS: BP 118/65
[2020-04-14] MEDS: LEVOTHYROXINE 50MCG TABLET (0.05MG) PO SCH (06:04)
[2020-04-14 06:59] LABS: BASO # 0.1 10^3/uL (0.0-0.2); BASO % 0.9 % (0.0-1.0); EOS # 0.1 10^3/uL (0.0-0.5); EOS % 1.6 % (0.0-3.0); HEMATOCRIT 35.3 % (42.0-52.0); HEMOGLOBIN 11.2 g/dl (13.5-17.5); LYMPH # 1.1 10^3/uL (1.5-5.0); LYMPH % 15.5 % (24.0-44.0); MEAN CORPUSCULAR HEMOGLOBIN 30.9 pg (27.0-33.0); MEAN CORPUSCULAR HGB CONC 31.7 g/dl (32.0-36.5); MEAN CORPUSCULAR VOLUME 97.2 fl (80.0-96.0); MONO # 0.5 10^3/uL (0.0-0.8); MONO % 6.4 % (0.0-5.0); NEUTROPHILS # 5.2 10^3/uL (1.5-8.5); NEUTROPHILS % 74.6 % (36.0-66.0); PLATELET COUNT, AUTOMATED 393 10^3/uL (150-450); RED BLOOD COUNT 3.63 10^6/uL (4.30-6.10)
[2020-04-14 07:26] LABS: BLOOD UREA NITROGEN 18 MG/DL (7-18); CALCIUM LEVEL 8.7 MG/DL (8.8-10.2); CARBON DIOXIDE LEVEL 25 MEQ/L (21-32); CHLORIDE LEVEL 107 MEQ/L (98-107); CREATININE FOR GFR 0.73 MG/DL (0.70-1.30); GLOMERULAR FILTRATION RATE > 60.0 (>35); GLUCOSE, FASTING 92 MG/DL (70-100); POTASSIUM SERUM 4.2 MEQ/L (3.5-5.1); SODIUM LEVEL 134 MEQ/L (136-145)
[2020-04-14] MEDS: PANTOPRAZOLE 40MG TAB (PROTONIX) PO SCH (08:18)
[2020-04-14] MEDS: GABAPENTIN 100 MG CAP PO SCH ×2 (08:18→20:10)
[2020-04-14] MEDS: MULTIVITAMINS/MINERALS THERAP 1 TAB PO SCH (08:18)
[2020-04-14] MEDS: ACETAMINOPHEN 500 MG TAB PO SCH ×3 (08:19→20:10)
[2020-04-14] MEDS: REMEDY PHYTOPLEX Z-GUARD PASTE 113GM TUBE (FROM STOREROOM PRODUCT) TOP SCH ×3 (08:19→20:11)
[2020-04-14] MEDS: HEPARIN SOD (PORCINE) 5000UNITS/ML 1ML VIAL/SYRINGE SC SCH ×2 (08:19→20:10)
[2020-04-14] MEDS: POTASSIUM CHLORIDE 10 MEQ SR TABLET PO SCH (08:19)
[2020-04-14] MEDS: DOCUSATE SODIUM 100 MG CAP PO SCH ×2 (08:19→20:10)
--- NOTE | 2020-04-14 11:26 | IPNPDOC ---
PM&R Progress Note DATE OF SERVICE: Apr 14, 2020 Shuttle Final Inspector Progress Note Subjective: Patient seen walking in therapy stating his brace hurts towards the top of his thoracic spine, but was relieved with padding that was placed. Denies enw we akness, fevers, or chills. REVIEW OF SYSTEMS: The following is a completed review of systems and has been reviewed. Review of systems otherwise unremarkable. PAIN: Patient self reports no pain EYES: No recent vision changes EARS, NOSE, & THROAT: No throat pain, or dysphagia, or rhinorrhea CARDIOVASCULAR: Denies chest pain or palpitations PULMONARY: Denies shortness of breath GASTROINTESTINAL: Denies constipation/diarrhea GENITOURINARY: +urinary retention (chronic) MUSCULOSKELETAL:bilat LE weakness NEUROLOGICAL:+neurogenic bladder, bilat LE weakness HEMATOLOGICAL: denies easy bruising SKIN: lumbo-sacral incision PSYCHIATRIC: Unremarkable All other review of systems found to be negative. PHYSICAL EXAMINATION: VITAL SIGNS: Please see below. GENERAL:Pleasant and cooperative. No acute distress. HEENT: PERRL. Extraocular movements intact. Clear conjunctiva CARDIOVASCULAR: Regular rate and rhythm. No murmurs, rubs, or gallops]. LUNGS: Clear to auscultation bilaterally. No wheezes. No rhonchi ABDOMEN: Soft, nontender, nondistended. Positive bowel sounds. Normal active bowel sounds NEUROLOGICAL: Alert and oriented times three. Cranial nerves II through XII grossly intact. Sensation grossly intact in all 4limbs EXTREMITIES: 5\5 strength bilateral upper extremities. 4-\5 strength right lower extremity. 5-/5 strength in left lower extremity. SKIN:sacrum with no erythema lumbar incision covered with silver optifoam LABORATORY DATA: Please see below. ASSESSMENT:79-year-old M with past medical history of cauda equina with multiple spinal surgeries who presents status post [id number] decompression/fusion and L2-L3 intradiscal osteotomy PLAN: 1. Rehab- PT/OT advance molbity and ADLs, TLSO when OOB, spinal precautions, ambulating in therapy 2. Neuro- hx of multiple lumbar surgeries with cauda equina and chronic low back pain with urinary retention (self-caths at home for neurogenic bladder) s/p T10- pelvis decompression/fusion and L2-L3 intradiscal osteotomy performed 03-31-20 now with impairment sin overall function -monitor for new weakness and infection 3. CArdiac- hx of HTN with asymptomatic soft BPs, lisinopril d/c'd and will lower dosing of gabapentin -medicine consulted to assist in overall management 4. Resp- monitor for infection, incentive spirometry 5. Endo- hx of hypothyroidism, c/u synthroid 6. 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 DVT ppx- heparin 8. GI ppx - protonix 9. Pain- Tylenol 10. SKin- dressing changes per instructions 11. Dispo- 04-18-20 to home, progressing towards goals Allergies Coded Allergies: No Known Allergies (Unverified , 05/12/19) Vital Signs Vital Signs Date Time Temp Pulse Resp B/P (MAP) Pulse Ox O2 Delivery O2 Flow Rate FiO2 04/14/20 06:00 97.7 88 18 118/65 (82) 98 Room Air Laboratory Data CBC/BMP Laboratory Tests 04/14/20 06:19 Labs 24H Laboratory Tests 2 04/14/20 06:19: Immature Granulocyte % (Auto) 1.0, Neutrophils (%) (Auto) 74.6H, Lymphocytes (%) (Auto) 15.5L, Monocytes (%) (Auto) 6.4H, Eosinophils (%) (Auto) 1.6, Basophils (%) (Auto) 0.9, Neutrophils # (Auto) 5.2, Lymphocytes # (Auto) 1.1L, Monocytes # (Auto) 0.5, Eosinophils # (Auto) 0.1, Basophils # (Auto) 0.1, Nucleated Red Blood Cells % (auto) 0.0, Anion Gap 2L, Glomerular Filtration Rate > 60.0, Calcium Level 8.7L Current Medications Current Medications Current Medications Medications (Trade) Dose Ordered Sig/Freda Route PRN Reason Start Time Stop Time Status Last Admin Dose Admin Acetaminophen (Tylenol Tab) 1,000 mg TID PO 04/07/20 16:00 04/12/20 22:03 Cyclobenzaprine HCl (Flexeril) 10 mg Q8HP PRN PO SPASMS 04/07/20 12:00 04/13/20 10:49 DC Docusate Sodium (Colace) 100 mg BID PO 04/07/20 21:00 04/10/20 20:32 Dutasteride (Avodart) 0.25 mg QHS PO 04/13/20 21:00 04/13/20 10:49 DC Dutasteride (Avodart) 0.5 mg QHS PO 04/07/20 21:00 04/13/20 20:45 Dutasteride (Avodart) 0.5 mg QHS PO 04/13/20 21:00 UNV Gabapentin (Neurontin) 200 mg BID PO 04/13/20 09:00 04/14/20 08:18 Gabapentin (Neurontin) 400 mg BID PO 04/07/20 21:00 04/13/20 09:12 DC 04/12/20 22:03 Heparin Sodium (Porcine) (Heparin) 5,000 units Q12H SC 04/07/20 21:00 04/14/20 08:19 Home Med (Med Rec Complete!) ASDIRECTED XX 04/07/20 14:30 04/07/20 14:31 DC Latanoprost (Xalatan 0.005% Op Soln) 1 drop QHS OU 04/07/20 21:00 04/13/20 20:47 Levothyroxine Sodium (Synthroid) 50 mcg DAILY@06 PO 04/08/20 06:00 04/14/20 06:04 Lisinopril (Prinivil) 2.5 mg DAILY PO 04/13/20 09:00 04/13/20 09:12 DC Lisinopril (Prinivil) 10 mg DAILY PO 04/08/20 09:00 04/12/20 13:59 DC 04/12/20 08:15 Multivitamins (Theragram-M) 1 tab DAILY PO 04/08/20 09:00 04/14/20 08:18 Ondansetron HCl (Zofran) 4 mg Q6HP PRN PO NAUSEA 04/07/20 12:00 Oxycodone HCl (Roxicodone, Oxyir) 5 mg Q4HP PRN PO PAIN 04/07/20 12:00 04/13/20 10:49 DC Pantoprazole Sodium (Protonix) 40 mg DAILY PO 04/08/20 09:00 04/14/20 08:18 Potassium Chloride (Micro-K Extencaps) 20 meq DAILY PO 04/08/20 09:00 04/14/20 08:19 Senna (Senokot) 1 tab QHS PO 04/07/20 21:00 04/10/20 20:29 Tamsulosin HCl (Flomax) 0.4 mg QHS PO 04/07/20 21:00 04/13/20 20:45 Timolol Maleate (Timoptic 0.5% Ophth Gisselle) 1 drop BID OU 04/07/20 21:00 04/13/20 11:43 DC 04/13/20 09:26 Timolol Maleate (Timoptic 0.5% Ophth Gisselle) 1 drop BID@1200,2100 OU 04/13/20 21:00 04/13/20 20:49 RANDY MELO MD Apr 14, 2020 11:26
[2020-04-14] MEDS: TIMOLOL MALEATE 0.5% OPHTH SOLN 5 ML OU SCH ×2 (12:00→20:11)
[2020-04-14 14:00] VITALS: BP 122/66
[2020-04-14 20:00] VITALS: BP 156/67
[2020-04-14] MEDS: TAMSULOSIN 0.4 MG CAP PO SCH (20:10)
[2020-04-14] MEDS: SENNA 8.6 MG TAB (SENOKOT) PO SCH (20:10)
[2020-04-14] MEDS: DUTASTERIDE 0.5 MG CAP (AVODART) PO SCH (20:11)
[2020-04-14] MEDS: LATANOPROST 0.005% OPHTH SOLN 2.5 ML OU SCH (20:11)
[2020-04-15] MEDS: LEVOTHYROXINE 50MCG TABLET (0.05MG) PO SCH (06:06)
[2020-04-15 06:30] VITALS: BP 117/64
[2020-04-15] MEDS: DOCUSATE SODIUM 100 MG CAP PO SCH ×2 (08:59→20:18)
[2020-04-15] MEDS: PANTOPRAZOLE 40MG TAB (PROTONIX) PO SCH (08:59)
[2020-04-15] MEDS: HEPARIN SOD (PORCINE) 5000UNITS/ML 1ML VIAL/SYRINGE SC SCH ×2 (09:00→20:18)
[2020-04-15] MEDS: GABAPENTIN 100 MG CAP PO SCH ×2 (09:00→20:18)
[2020-04-15] MEDS: MULTIVITAMINS/MINERALS THERAP 1 TAB PO SCH (09:00)
[2020-04-15] MEDS: POTASSIUM CHLORIDE 10 MEQ SR TABLET PO SCH (09:00)
[2020-04-15] MEDS: ACETAMINOPHEN 500 MG TAB PO SCH ×3 (09:00→20:18)
[2020-04-15] MEDS: REMEDY PHYTOPLEX Z-GUARD PASTE 113GM TUBE (FROM STOREROOM PRODUCT) TOP SCH ×3 (09:01→20:18)
[2020-04-15] MEDS: TIMOLOL MALEATE 0.5% OPHTH SOLN 5 ML OU SCH ×2 (12:15→20:18)
[2020-04-15 14:00] VITALS: BP 112/62
[2020-04-15] MEDS: TAMSULOSIN 0.4 MG CAP PO SCH (20:18)
[2020-04-15] MEDS: SENNA 8.6 MG TAB (SENOKOT) PO SCH (20:18)
[2020-04-15] MEDS: DUTASTERIDE 0.5 MG CAP (AVODART) PO SCH (20:18)
[2020-04-15] MEDS: LATANOPROST 0.005% OPHTH SOLN 2.5 ML OU SCH (20:19)
[2020-04-15 21:01] VITALS: BP 130/67
[2020-04-16] MEDS: LEVOTHYROXINE 50MCG TABLET (0.05MG) PO SCH (05:23)
[2020-04-16 05:40] VITALS: BP 137/72
[2020-04-16] MEDS: MULTIVITAMINS/MINERALS THERAP 1 TAB PO SCH (08:39)
[2020-04-16] MEDS: PANTOPRAZOLE 40MG TAB (PROTONIX) PO SCH (08:39)
[2020-04-16] MEDS: HEPARIN SOD (PORCINE) 5000UNITS/ML 1ML VIAL/SYRINGE SC SCH ×2 (08:39→20:01)
[2020-04-16] MEDS: DOCUSATE SODIUM 100 MG CAP PO SCH ×2 (08:39→20:01)
[2020-04-16] MEDS: GABAPENTIN 100 MG CAP PO SCH ×2 (08:40→20:01)
[2020-04-16] MEDS: ACETAMINOPHEN 500 MG TAB PO SCH ×3 (08:40→20:01)
[2020-04-16] MEDS: POTASSIUM CHLORIDE 10 MEQ SR TABLET PO SCH (08:40)
[2020-04-16] MEDS: REMEDY PHYTOPLEX Z-GUARD PASTE 113GM TUBE (FROM STOREROOM PRODUCT) TOP SCH ×3 (08:41→20:01)
[2020-04-16] MEDS: TIMOLOL MALEATE 0.5% OPHTH SOLN 5 ML OU SCH ×2 (12:17→20:02)
[2020-04-16 14:00] VITALS: BP 116/61
--- NOTE | 2020-04-16 16:49 | IPNPDOC ---
Date Seen The patient was seen on 04/16/20. Progress Note SUBJECTIVE: patient was seen and examined at bedside today. Doing well. No acute events overnight per RN. Patient denies chest pain, shortness of breath, palpitations, fevers, chills, n/v/d. OBJECTIVE PHYSICAL EXAMINATION: VITAL SIGNS: Please see below. General: NAD, comfortable HEENT: PERRLA, EOMI, sclerae clear Neck: supple, normal ROM, no JVD Resp: lungs CTAB, no wheeze, no rales, no crackles CVS: RRR, normal S1, S2, no murmurs Abdo: soft, no masses, no hepatosplenomegaly, BS+, no rebound tenderness Extremities: no edema, pulses 2+ MSK: no joint deformities, normal ROM Neuro: moving all 4 extremities, 4/5 strength in RLE, as on prior exam; 5/5 strength in LLE; 5/5 strength BL UE, Psych: calm, cooperative, AAO x 3 LABORATORY DATA, IMAGING STUDIES, MICROBIOLOGY: Please see below. DVT prophylaxis ordered?: heparin 79-year-old M with past medical history of cauda equina with multiple spinal surgeries who presents to ARU status post [id number] decompression/fusion and L2-L3 intradiscal osteotomy for continued rehab as he is below his baseline functional status. S/p [id number] decompression/fusion and L2-L3 intradiscal osteotomy performed 03-31-20 now with impairments in overall function Multiple lumbar surgeries with cauda equina and chronic low back pain with urinary retention (self-caths at home for neurogenic bladder) PT OT as per ARU Pain control with tylenol, oxycodone, flexeril prn Hypertension BP well controlled per ARU notes, lisinopril was DC agree, BP goal < 150/90. Hypothyroidism, c/w synthroid Chronic urinary retention due to neurogenic bladder and prostate, c/u Adovert, Flomax Patient self catheterizes at home. Glaucoma timolol and latanoprost eye drops DVT ppx- heparin GI ppx - protonix VS, I&O, 24H, Fishbone Vital Signs/I&O Vital Signs Date Time Temp Pulse Resp B/P (MAP) Pulse Ox O2 Delivery O2 Flow Rate FiO2 04/16/20 14:00 98.2 90 18 116/61 (79) 100 Room Air I&O- Last 24 Hours up to 6 AM 04/16/20 05:59 Intake Total 540 ml Output Total 775 ml Balance -235 ml MATT GE MD Apr 16, 2020 16:49
[2020-04-16 19:49] VITALS: BP 130/66
[2020-04-16] MEDS: TAMSULOSIN 0.4 MG CAP PO SCH (20:01)
[2020-04-16] MEDS: DUTASTERIDE 0.5 MG CAP (AVODART) PO SCH (20:01)
[2020-04-16] MEDS: SENNA 8.6 MG TAB (SENOKOT) PO SCH (20:01)
[2020-04-16] MEDS: LATANOPROST 0.005% OPHTH SOLN 2.5 ML OU SCH (20:02)
[2020-04-17] MEDS: LEVOTHYROXINE 50MCG TABLET (0.05MG) PO SCH (05:44)
[2020-04-17 05:52] VITALS: BP 122/66
[2020-04-17 07:08] LABS: BASO # 0.1 10^3/uL (0.0-0.2); BASO % 0.8 % (0.0-1.0); EOS # 0.1 10^3/uL (0.0-0.5); EOS % 1.1 % (0.0-3.0); HEMATOCRIT 36.1 % (42.0-52.0); LYMPH # 1.1 10^3/uL (1.5-5.0); LYMPH % 17.1 % (24.0-44.0); MEAN CORPUSCULAR HEMOGLOBIN 31.2 pg (27.0-33.0); MEAN CORPUSCULAR HGB CONC 33.2 g/dl (32.0-36.5); MEAN CORPUSCULAR VOLUME 93.8 fl (80.0-96.0); MONO # 0.4 10^3/uL (0.0-0.8); MONO % 6.7 % (0.0-5.0); NEUTROPHILS # 4.6 10^3/uL (1.5-8.5); NEUTROPHILS % 73.8 % (36.0-66.0); PLATELET COUNT, AUTOMATED 367 10^3/uL (150-450); RED BLOOD COUNT 3.85 10^6/uL (4.30-6.10); WHITE BLOOD COUNT 6.3 10^3/uL (4.0-10.0)
[2020-04-17 07:22] LABS: BLOOD UREA NITROGEN 21 MG/DL (7-18); CALCIUM LEVEL 8.8 MG/DL (8.8-10.2); CARBON DIOXIDE LEVEL 25 MEQ/L (21-32); CHLORIDE LEVEL 107 MEQ/L (98-107); CREATININE FOR GFR 0.76 MG/DL (0.70-1.30); GLOMERULAR FILTRATION RATE > 60.0 (>35); GLUCOSE, FASTING 93 MG/DL (70-100); POTASSIUM SERUM 4.3 MEQ/L (3.5-5.1); SODIUM LEVEL 140 MEQ/L (136-145)
[2020-04-17] MEDS: MULTIVITAMINS/MINERALS THERAP 1 TAB PO SCH (08:21)
[2020-04-17] MEDS: POTASSIUM CHLORIDE 10 MEQ SR TABLET PO SCH (08:22)
[2020-04-17] MEDS: HEPARIN SOD (PORCINE) 5000UNITS/ML 1ML VIAL/SYRINGE SC SCH ×2 (08:22→22:10)
[2020-04-17] MEDS: PANTOPRAZOLE 40MG TAB (PROTONIX) PO SCH (08:22)
[2020-04-17] MEDS: DOCUSATE SODIUM 100 MG CAP PO SCH ×2 (08:22→22:10)
[2020-04-17] MEDS: GABAPENTIN 100 MG CAP PO SCH ×2 (08:22→22:09)
[2020-04-17] MEDS: ACETAMINOPHEN 500 MG TAB PO SCH ×3 (08:22→21:00)
[2020-04-17] MEDS: REMEDY PHYTOPLEX Z-GUARD PASTE 113GM TUBE (FROM STOREROOM PRODUCT) TOP SCH ×3 (08:23→21:00)
[2020-04-17] MEDS ORDERED: VITMTA PO (09:23)
[2020-04-17] MEDS ORDERED: OMEP1CAP73 PO (09:23)
[2020-04-17] MEDS ORDERED: KLOR10TA76 PO (09:23)
[2020-04-17] MEDS ORDERED: FLOM0.4C39 PO (09:23)
[2020-04-17] MEDS ORDERED: AVOD0.5C PO (09:23)
[2020-04-17] MEDS ORDERED: LEVO50TA5 PO (09:23)
[2020-04-17] MEDS ORDERED: GABA-1171 PO (09:23)
--- NOTE | 2020-04-17 10:50 | IPNPDOC ---
PM&R Progress Note DATE OF SERVICE: Apr 17, 2020 Odd Bundle Worker Progress Note Subjective: Patient reporting he feels ready to go home tomorrow and will stay with his son for a period of time. REVIEW OF SYSTEMS: The following is a completed review of systems and has been reviewed. Review of systems otherwise unremarkable. PAIN: Patient self reports no pain EYES: No recent vision changes EARS, NOSE, & THROAT: No throat pain, or dysphagia, or rhinorrhea CARDIOVASCULAR: Denies chest pain or palpitations PULMONARY: Denies shortness of breath GASTROINTESTINAL: Denies constipation/diarrhea GENITOURINARY: +urinary retention (chronic) MUSCULOSKELETAL:bilat LE weakness NEUROLOGICAL:+neurogenic bladder, bilat LE weakness HEMATOLOGICAL: denies easy bruising SKIN: lumbo-sacral incision PSYCHIATRIC: Unremarkable All other review of systems found to be negative. PHYSICAL EXAMINATION: VITAL SIGNS: Please see below. GENERAL:Pleasant and cooperative. No acute distress. HEENT: PERRL. Extraocular movements intact. Clear conjunctiva CARDIOVASCULAR: Regular rate and rhythm. No murmurs, rubs, or gallops]. LUNGS: Clear to auscultation bilaterally. No wheezes. No rhonchi ABDOMEN: Soft, nontender, nondistended. Positive bowel sounds. Normal active bowel sounds NEUROLOGICAL: Alert and oriented times three. Cranial nerves II through XII grossly intact. Sensation grossly intact in all 4limbs EXTREMITIES: 5\5 strength bilateral upper extremities. 4-\5 strength right lower extremity. 5-/5 strength in left lower extremity. SKIN:sacrum with no erythema lumbar incision covered with silver optifoam LABORATORY DATA: Please see below. ASSESSMENT:79-year-old M with past medical history of cauda equina with multiple spinal surgeries who presents status post [id number] decompression/fusion and L2-L3 intradiscal osteotomy PLAN: 1. Rehab- PT/OT advance molbity and ADLs, TLSO when OOB, spinal precautions, ambulating further in therapy 2. Neuro- hx of multiple lumbar surgeries with cauda equina and chronic low back pain with urinary retention (self-caths at home for neurogenic bladder) s/p [id number] decompression/fusion and L2-L3 intradiscal osteotomy performed 03-31-20 now with impairment sin overall function -monitor for new weakness and infection 3. CArdiac- hx of HTN with asymptomatic soft BPs, lisinopril d/c'd and will lower dosing of gabapentin -medicine consulted to assist in overall management 4. Resp- monitor for infection, incentive spirometry 5. Endo- hx of hypothyroidism, c/u synthroid 6. 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 DVT ppx- heparin 8. GI ppx - protonix 9. Pain- Tylenol 10. SKin- dressing changes per instructions 11. Dispo- 04-18-20 to home, progressing towards goals Allergies Coded Allergies: No Known Allergies (Unverified , 05/12/19) Vital Signs Vital Signs Date Time Temp Pulse Resp B/P (MAP) Pulse Ox O2 Delivery O2 Flow Rate FiO2 04/17/20 05:52 97.1 95 18 122/66 (84) 98 Room Air Laboratory Data CBC/BMP Laboratory Tests 04/17/20 06:42 Labs 24H Laboratory Tests 2 04/17/20 06:42: Immature Granulocyte % (Auto) 0.5, Neutrophils (%) (Auto) 73.8H, Lymphocytes (%) (Auto) 17.1L, Monocytes (%) (Auto) 6.7H, Eosinophils (%) (Auto) 1.1, Basophils (%) (Auto) 0.8, Neutrophils # (Auto) 4.6, Lymphocytes # (Auto) 1.1L, Monocytes # (Auto) 0.4, Eosinophils # (Auto) 0.1, Basophils # (Auto) 0.1, Nucleated Red Blood Cells % (auto) 0.0, Anion Gap 8, Glomerular Filtration Rate > 60.0, Calcium Level 8.8 Current Medications Current Medications Current Medications Medications (Trade) Dose Ordered Sig/Freda Route PRN Reason Start Time Stop Time Status Last Admin Dose Admin Acetaminophen (Tylenol Tab) 1,000 mg TID PO 04/07/20 16:00 04/16/20 20:01 Cyclobenzaprine HCl (Flexeril) 10 mg Q8HP PRN PO SPASMS 04/07/20 12:00 04/13/20 10:49 DC Docusate Sodium (Colace) 100 mg BID PO 04/07/20 21:00 04/17/20 08:22 Dutasteride (Avodart) 0.25 mg QHS PO 04/13/20 21:00 04/13/20 10:49 DC Dutasteride (Avodart) 0.5 mg QHS PO 04/07/20 21:00 04/16/20 20:01 Dutasteride (Avodart) 0.5 mg QHS PO 04/13/20 21:00 UNV Gabapentin (Neurontin) 200 mg BID PO 04/13/20 09:00 04/17/20 08:22 Gabapentin (Neurontin) 400 mg BID PO 04/07/20 21:00 04/13/20 09:12 DC 04/12/20 22:03 Heparin Sodium (Porcine) (Heparin) 5,000 units Q12H SC 04/07/20 21:00 04/17/20 08:22 Home Med (Med Rec Complete!) ASDIRECTED XX 04/07/20 14:30 04/07/20 14:31 DC Latanoprost (Xalatan 0.005% Op Soln) 1 drop QHS OU 04/07/20 21:00 04/16/20 20:02 Levothyroxine Sodium (Synthroid) 50 mcg DAILY@06 PO 04/08/20 06:00 04/17/20 05:44 Lisinopril (Prinivil) 2.5 mg DAILY PO 04/13/20 09:00 04/13/20 09:12 DC Lisinopril (Prinivil) 10 mg DAILY PO 04/08/20 09:00 04/12/20 13:59 DC 04/12/20 08:15 Multivitamins (Theragram-M) 1 tab DAILY PO 04/08/20 09:00 04/17/20 08:21 Ondansetron HCl (Zofran) 4 mg Q6HP PRN PO NAUSEA 04/07/20 12:00 Oxycodone HCl (Roxicodone, Oxyir) 5 mg Q4HP PRN PO PAIN 04/07/20 12:00 04/13/20 10:49 DC Pantoprazole Sodium (Protonix) 40 mg DAILY PO 04/08/20 09:00 04/17/20 08:22 Potassium Chloride (Micro-K Extencaps) 20 meq DAILY PO 04/08/20 09:00 04/17/20 08:22 Senna (Senokot) 1 tab QHS PO 04/07/20 21:00 04/16/20 20:01 Tamsulosin HCl (Flomax) 0.4 mg QHS PO 04/07/20 21:00 04/16/20 20:01 Timolol Maleate (Timoptic 0.5% Ophth Gisselle) 1 drop BID OU 04/07/20 21:00 04/13/20 11:43 DC 04/13/20 09:26 Timolol Maleate (Timoptic 0.5% Ophth Gisselle) 1 drop BID@1200,2100 OU 04/13/20 21:00 04/16/20 20:02 RANDY MELO MD Apr 17, 2020 10:50
[2020-04-17] MEDS: TIMOLOL MALEATE 0.5% OPHTH SOLN 5 ML OU SCH ×2 (12:00→22:10)
[2020-04-17 14:00] VITALS: BP 116/71
[2020-04-17 20:00] VITALS: BP 132/74
[2020-04-17] MEDS: SENNA 8.6 MG TAB (SENOKOT) PO SCH (22:09)
[2020-04-17] MEDS: TAMSULOSIN 0.4 MG CAP PO SCH (22:10)
[2020-04-17] MEDS: LATANOPROST 0.005% OPHTH SOLN 2.5 ML OU SCH (22:10)
[2020-04-17] MEDS: DUTASTERIDE 0.5 MG CAP (AVODART) PO SCH (22:10)
[2020-04-18] MEDS: LEVOTHYROXINE 50MCG TABLET (0.05MG) PO SCH (05:36)
[2020-04-18 06:00] VITALS: BP 118/62
[2020-04-18] MEDS: MULTIVITAMINS/MINERALS THERAP 1 TAB PO SCH (08:40)
[2020-04-18] MEDS: GABAPENTIN 100 MG CAP PO SCH (08:40)
[2020-04-18] MEDS: PANTOPRAZOLE 40MG TAB (PROTONIX) PO SCH (08:40)
[2020-04-18] MEDS: POTASSIUM CHLORIDE 10 MEQ SR TABLET PO SCH (08:41)
[2020-04-18] MEDS: ACETAMINOPHEN 500 MG TAB PO SCH (08:44)
[2020-04-18] MEDS: DOCUSATE SODIUM 100 MG CAP PO SCH (08:45)
[2020-04-18] MEDS: REMEDY PHYTOPLEX Z-GUARD PASTE 113GM TUBE (FROM STOREROOM PRODUCT) TOP SCH (08:45)
[2020-04-18] MEDS: HEPARIN SOD (PORCINE) 5000UNITS/ML 1ML VIAL/SYRINGE SC SCH (08:45)
[2020-04-18] MEDS ORDERED: FLUBLOK(EGG FREE)(QUAD)INFLUENZA VACC 0.5ML SYRINGE 18YRS & OLDER IM ONE (09:00)
[2020-04-18] MEDS: TIMOLOL MALEATE 0.5% OPHTH SOLN 5 ML OU SCH (12:00)
--- NOTE | 2020-05-01 11:35 | PMRDS ---
DATE OF ADMISSION: 04/07/2020 DATE OF DISCHARGE: 04/18/2020 CHIEF COMPLAINT/DISCHARGE DIAGNOSIS: Spinal stenosis with spinal cord injury; status post lumbar sacral decompression. HISTORY OF PRESENT ILLNESS: This is an 79-year-old male with a past medical history of hypertension, urinary retention, GERD, hypothyroidism, chronic low back pain; status post multiple lumbar surgeries complicated by discitis and osteomyelitis in 2019 at the L2 through L3 with cauda equina and presented to [facility] on 03/31/2020 complaining of worsening low back pain. He was evaluated by neurosurgery, who recommended a T10 through pelvis decompression and fusion and L2 through L3 intradiscal osteotomy for correction of his kyphosis. He underwent surgery on 03/31/2020, which was complicated by postop blood loss anemia requiring blood transfusion and hypotension requiring Levophed drip. He was able to be transitioned off of Levophed and participate in therapy, where he was found to have impairments in mobility and ADLs and deemed medically appropriate for discharge to ARU on 04/07/2020. PAST MEDICAL HISTORY: As per HPI. HOSPITAL COURSE: Patient was admitted and enrolled in a comprehensive PT/OT program. He received 24 hour nursing supervision and weekly team meetings were held to discuss his progress. Patient, during his hospital course, was noted to have lower blood pressures, however he was asymptomatic, but his Lisinopril dosing was discontinued and his Gabapentin dosing also lowered. He continued to have signs and symptoms of neurogenic bladder and was instructed to continue to self catheterize. He made consistent and steady gains in therapy and was deemed medically and functionally stable to return home. DISCHARGE MEDICATIONS: As per instructions. FUNCTIONAL HISTORY ON DISCHARGE: Patient was modified independent, able to ambulate 150 feet. Thank you for this referral. PRIMITIVO
== END 2020-04-18 14:15 | disposition home health service (06) | DRG 552 ==
LOC: M PM&R 04-07 13:49
PROVIDERS: ADMIT Physical Medicine & Rehabilitation; ATTEND Physical Medicine & Rehabilitation
DX: M48.061 Spinal stenosis, lumbar region without neurogenic claudication (principal); G83.4 Cauda equina syndrome; I10 Essential (primary) hypertension; K21.9 Gastro-esophageal reflux disease without esophagitis; E03.9 Hypothyroidism, unspecified; H40.9 Unspecified glaucoma; M54.5 Low back pain; R33.9 Retention of urine, unspecified; N31.9 Neuromuscular dysfunction of bladder, unspecified; N42.9 Disorder of prostate, unspecified; Z74.09 Other reduced mobility; M62.81 Muscle weakness (generalized); Z85.46 Personal history of malignant neoplasm of prostate; Z98.1 Arthrodesis status; Z87.891 Personal history of nicotine dependence; Z79.899 Other long term (current) drug therapy

== ENCOUNTER 2020-05-09 18:40 | Inpatient (IN) | payer MEDICARE, BC, OTHER ==
[~2020-05-09] VITALS: Ht 170.2 cm; Wt 60.2 kg
[~2020-05-09 18:40] MED LIST changes: +ACET1TAB55 PO; +AVOD0.5C PO; +COLA100C5 PO; +GABA-1171 PO; +KLOR10TA76 PO; +MILKSUS3 PO; +POTA1TAB14 PO; +SYNT50TA PO; +TIMO0.5S29 OU; +VITMTA PO; +XALA0.007 OU
[2020-05-09] MEDS ORDERED: NS 1,000 ML IV ONE (19:30)
--- NOTE | 2020-05-09 19:51 | REPVR ---
PROCEDURE INFORMATION: Exam: CT Head Without Contrast Exam date and time: 05/09/2020 7:25 PM Age: 79 years old Clinical indication: Altered mental status/memory loss; Additional info: AMS TECHNIQUE: Imaging protocol: Computed tomography of the head without contrast. Radiation optimization: All CT scans at this facility use at least one of these dose optimization techniques: automated exposure control; mA and/or kV adjustment per patient size (includes targeted exams where dose is matched to clinical indication); or iterative reconstruction. COMPARISON: CT Head without contrast 04/12/2014 10:04 AM FINDINGS: Brain: Prominent extra-axial space along the left posterior fossa, stable. Age-related volume loss. Mild decreased attenuation of the supratentorial white matter is likely secondary to chronic microvascular ischemia. No acute intracranial hemorrhage or midline shift. Cerebral ventricles: No hydrocephalus. Bones/joints: Prior right retromastoid craniotomy. Paranasal sinuses: Visualized sinuses are unremarkable. No fluid levels. Mastoid air cells: Visualized mastoid air cells are well aerated. Soft tissues: Unremarkable. IMPRESSION: No acute intracranial abnormality. Electronically signed by: Oscar Thompson On 05/09/2020 19:51:11 PM
--- NOTE | 2020-05-09 19:54 | REPVR ---
PROCEDURE INFORMATION: Exam: CT Cervical Spine Without Contrast Exam date and time: 05/09/2020 7:25 PM Age: 79 years old Clinical indication: Injury or trauma; Fall; Blunt trauma TECHNIQUE: Imaging protocol: Computed tomography images of the cervical spine without contrast. Radiation optimization: All CT scans at this facility use at least one of these dose optimization techniques: automated exposure control; mA and/or kV adjustment per patient size (includes targeted exams where dose is matched to clinical indication); or iterative reconstruction. COMPARISON: No relevant prior studies available. FINDINGS: Vertebrae: Nonspecific straightening. Vertebral body height and AP alignment is preserved. Iadc-vr-[id number] degenerative change about the dens. Mild to moderate prevertebral osteophytosis. There are bilateral facet joint degenerative changes. No acute cervical spine fracture. Discs/Spinal canal/Neural foramina: No definite significant central canal stenosis within limitations of technique. Multilevel cervical foraminal stenoses. Soft tissues: Unremarkable. Lungs: Scarring at the lung apices. Pleural space: No visible pneumothorax. Vasculature: Vascular calcification. IMPRESSION: No acute cervical spine fracture. Electronically signed by: Oscar Thompson On 05/09/2020 19:54:48 PM
--- NOTE | 2020-05-09 20:12 | REPVR ---
PROCEDURE INFORMATION: Exam: CT Thoracic Spine Without Contrast Exam date and time: 05/09/2020 7:25 PM Age: 79 years old Clinical indication: Injury or trauma; Fall; Blunt trauma (contusions or hematomas) TECHNIQUE: Imaging protocol: Computed tomography images of the thoracic spine without contrast. Radiation optimization: All CT scans at this facility use at least one of these dose optimization techniques: automated exposure control; mA and/or kV adjustment per patient size (includes targeted exams where dose is matched to clinical indication); or iterative reconstruction. COMPARISON: SC CT Spine,thoracic w/o contrast 04/02/2019 11:11 AM FINDINGS: Vertebrae: Degenerative spondylosis of the lower cervical spine. Mild degenerative spondylosis of the thoracic spine. No acute fracture or subluxation. Posterior spinal fusion of the lower thoracic spine with bilateral pedicle screw and aarti instrumentation visualized at T10, T11 and T12. Discs/Spinal canal/Neural foramina: Mild bony spinal stenosis and moderate bilateral neural foraminal stenosis at C6-C7. No severe bony spinal stenosis or foraminal stenosis identified within the thoracic spine. Soft tissues: Unremarkable. Lungs: Linear atelectasis and/or scar in the posterior right lower lobe. Mild bronchiectasis within the posterior right lower lobe. Stomach and bowel: Large gastric hiatus hernia. IMPRESSION: No acute fracture or subluxation. Electronically signed by: Fam Gautam On 05/09/2020 20:11:51 PM
--- NOTE | 2020-05-09 20:21 | REPVR ---
PROCEDURE INFORMATION: Exam: CT Lumbar Spine Without Contrast Exam date and time: 05/09/2020 7:25 PM Age: 79 years old Clinical indication: Injury or trauma; Fall; Blunt trauma (contusions or hematomas) TECHNIQUE: Imaging protocol: Computed tomography images of the lumbar spine without contrast. Radiation optimization: All CT scans at this facility use at least one of these dose optimization techniques: automated exposure control; mA and/or kV adjustment per patient size (includes targeted exams where dose is matched to clinical indication); or iterative reconstruction. COMPARISON: CT Spine, lumbar w/o contrast 04/02/2019 11:11 AM FINDINGS: Limitations: This examination is suboptimal secondary to artifact from pedicle screw and aarti instrumentation. Vertebrae: Status post anterior spinal fusion at L2-L3, L4-L5 and L5-S1 with interbody fusion. Posterior spinal fusion from the lower thoracic spine to the sacrum with bilateral pedicle screws at T12, L1, L2, L3, L4, L5 , S1 and the right and left iliac bones. Posterior bone graft is also present throughout the lumbar spine. There are old anterior wedge deformities of L2 and L3. There is a mild anterolisthesis of L4 which appears similar to that seen on the prior lumbar spine CT scan performed on 04/02/2019. No acute fracture is identified; however, a nondisplaced fracture may not be visible on this examination secondary to the extent of artifact from spinal instrumentation. Discs/Spinal canal/Neural foramina: Evaluation of the spinal canal and neural foramina is extremely limited secondary to artifact. No bony spinal stenosis is identified. Soft tissues: Unremarkable. IMPRESSION: 1. Suboptimal examination secondary to artifact from spinal instrumentation. 2. No acute fracture identified; however, a nondisplaced fracture may not be visible on this examination secondary to the extent of artifact from spinal instrumentation. Electronically signed by: Fam Gautam On 05/09/2020 20:21:19 PM
[2020-05-09 20:22] LABS: BASO % 0.3 % (0.0-1.0); HEMATOCRIT 40.2 % (42.0-52.0); HEMOGLOBIN 12.9 g/dl (13.5-17.5); LYMPH # 0.9 10^3/uL (1.5-5.0); LYMPH % 5.6 % (24.0-44.0); MEAN CORPUSCULAR HEMOGLOBIN 30.3 pg (27.0-33.0); MEAN CORPUSCULAR HGB CONC 32.1 g/dl (32.0-36.5); MEAN CORPUSCULAR VOLUME 94.4 fl (80.0-96.0); MONO # 0.7 10^3/uL (0.0-0.8); MONO % 4.2 % (0.0-5.0); NEUTROPHILS # 13.9 10^3/uL (1.5-8.5); NEUTROPHILS % 89.6 % (36.0-66.0); PLATELET COUNT, AUTOMATED 269 10^3/uL (150-450); RED BLOOD COUNT 4.26 10^6/uL (4.30-6.10); WHITE BLOOD COUNT 15.5 10^3/uL (4.0-10.0)
[2020-05-09 20:52] LABS: ACETAMINOPHEN LEVEL < 2.0 UG/ML (10.0-30.0); ALT/SGPT 36 U/L (12-78); BILIRUBIN,DIRECT 0.3 MG/DL (0.0-0.2); BILIRUBIN,TOTAL 0.8 MG/DL (0.2-1.0); BLOOD UREA NITROGEN 21 MG/DL (7-18); CALCIUM LEVEL 8.7 MG/DL (8.8-10.2); CARBON DIOXIDE LEVEL 28 MEQ/L (21-32); CHLORIDE LEVEL 107 MEQ/L (98-107); CK-MB VALUE MASS 1.8 NG/ML (<3.6); CPK CREATINE PHOSPHOKINASE 296 U/L (39-308); CREATININE FOR GFR 1.06 MG/DL (0.70-1.30); ETHYL ALCOHOL (ETHANOL) < 0.003 % (0.000-0.010); GLOMERULAR FILTRATION RATE > 60.0 (>35); GLUCOSE, FASTING 109 MG/DL (70-100); MB/CK RELATIVE INDEX 0.61 (< OR =4); POTASSIUM SERUM 4.3 MEQ/L (3.5-5.1); SALICYLATE LEVEL < 1.7 MG/DL (5.0-30.0); SODIUM LEVEL 140 MEQ/L (136-145); TOTAL PROTEIN 6.6 GM/DL (6.4-8.2); TROPONIN I < 0.02 NG/ML (< 0.10)
--- NOTE | 2020-05-09 21:07 | REPVR ---
PROCEDURE INFORMATION: Exam: XR Chest, 1 View Exam date and time: 05/09/2020 8:45 PM Age: 79 years old Clinical indication: Other: AMS; Additional info: Altered mental status TECHNIQUE: Imaging protocol: XR of the chest Views: 1 view. COMPARISON: No relevant prior studies available. FINDINGS: Lungs: The lungs are clear. Pleural space: No pleural effusion or pneumothorax. Heart/Mediastinum: The cardiomediastinal silhouette and pulmonary vasculature are within normal limits. Bones/joints: Posterior spinal instrumentation at the lower thoracic spine. Soft tissues: Large gastric hiatus hernia. IMPRESSION: No acute abnormality. Electronically signed by: Fam Gautam On 05/09/2020 21:07:00 PM
[2020-05-09 21:09] LABS: BILIRUBIN, URINE MANUAL NEGATIVE (NEGATIVE); GLUCOSE, URINE (UA) MANUAL NEGATIVE (NEGATIVE); KETONE, URINE MANUAL 1+ mg/dL (NEGATIVE); UROBILINOGEN, URINE MANUAL NORMAL (NORMAL)
[2020-05-09 21:28] LABS: BACTERIA, URINE MOD AMOUNT; SQUAMOUS EPITHELIAL CELL URINE NONE SEEN /hpf (SMALL AMT); TRIPLE PHOSPHATE CRYSTAL,URINE MOD AMOUNT /hpf
[2020-05-09 21:29] LABS: AMORPHOUS SEDIMENT, URINE LARGE AMOUNT (NEGATIVE); HYALINE CAST, URINE NONE SEEN /lpf (0-1); MUCUS, URINE SMALL AMOUNT (NEGATIVE)
[2020-05-09 22:27] LABS: AMPHETAMINES LEVEL URINE NEGATIVE (NEGATIVE); BARBITURATES URINE NEGATIVE (NEGATIVE); BENZODIAZEPINES URINE NEGATIVE (NEGATIVE); CANNABINOIDS URINE NEGATIVE (NEGATIVE); COCAINE METABOLITE URINE NEGATIVE (NEGATIVE); METHADONE URINE NEGATIVE (NEGATIVE); OPIATES URINE NEGATIVE (NEGATIVE); PHENCYCLIDINE URINE NEGATIVE (NEGATIVE)
[2020-05-09] MEDS ORDERED: ACETAMINOPHEN TAB 650MG DOSE (2X325MG) PO ONE (23:30)
[2020-05-10] MEDS ORDERED: cefTRIAXone SOD 1 GM in D5W MINI-BAG PLUS 50 ML IV ONE (01:00)
[2020-05-10] MEDS ORDERED: ACETAMINOPHEN TAB 650MG DOSE (2X325MG) PO PRN (02:30)
[2020-05-10] MEDS ORDERED: TAB-TAB2 PO (02:32)
[2020-05-10] MEDS ORDERED: KLOR10TA76 PO (02:32)
[2020-05-10] MEDS ORDERED: OMEP-218 PO (02:32)
[2020-05-10] MEDS ORDERED: GABA-1171 PO (02:32)
[2020-05-10] MEDS ORDERED: LISI10TA4 PO (02:33)
[2020-05-10] MEDS ORDERED: FLUTISP (02:33)
--- NOTE | 2020-05-10 02:46 | HPEPDOC ---
General Date of Admission 05/10/20 Date of Service: May 10, 2020 Chief Complaint The patient is a 79-year-old male admitted with a reason for visit of AMS. Source: Patient, Family Exam Limitations: Dementia Timing/Duration: Day(s) Severity: Moderate Associated Symptoms: Weakness History of Present Illness Patient is 79 years old male with past medical history of HTN, urinary retention , GERD, hypothyroidism , chronic low back pain s/p multiple lumbar surgeries complicated by diskitis and osteomyelitis in 2019 at L2-L3 with cauda equine and presented to the hospital with increased confusion. According to his family patient has been having increased generalized weakness associated with confusion for past 1-2 days. He was found by family on the floor unknown how long unable to get up. In ER patient was found to have tachycardia, white blood count of 15.5 and fever. UA positive for pyuria. Imaging study negative for fracture. Home Medications Scheduled Ascorbic Acid (Vitamin C) 500 Mg Capsule.er, 500 MG PO DAILY, (Reported) Docusate Sodium (Colace) 100 Mg Capsule, 100 MG PO DAILY, (Reported) Dutasteride (Dutasteride) 0.5 Mg Cap, 0.5 MG PO QHS, (Reported) Gabapentin (Gabapentin) 100 Mg Capsule, 200 MG PO BID, (Reported) Lactobacillus Acidophilus (Probiotic) 1 Each Capsule, 1 CAP PO DAILY, (Reported) Latanoprost (Xalatan) 0.005% 2.5ML Drops, 1 DROP OU QHS, (Reported) Levothyroxine Sodium (Levothyroxine Sodium) 50 Mcg Tab, 50 MCG PO DAILY, (Reported) Lisinopril (Lisinopril) 10 Mg Tablet, 10 MG PO DAILY, (Reported) Multivitamin (Tab-A-Matilde) 1 Each Tablet, 1 TAB PO DAILY, (Reported) Omeprazole (Omeprazole) 20 Mg Capsule.dr, 20 MG PO DAILY, (Reported) Potassium Chloride (Klor-Con M10) 10 Meq Tab.er.prt, 20 MEQ PO DAILY, (Reported) Tamsulosin HCl (Flomax) 0.4 Mg Cap, 0.4 MG PO QHS, (Reported) Timolol Maleate (Timolol Maleate) 0.5% 5ML Drops, 1 DROP OU BID, (Reported) Zinc (Zinc) 50 Mg Tablet, 50 MG PO DAILY, (Reported) Scheduled PRN Acetaminophen (Acetaminophen) 325 Mg Tablet, 650 MG PO Q6H PRN for PAIN / FEVER, (Reported) Fluticasone Propionate (Fluticasone Propionate) 16 Gm [place].susp, 2 SPRAY NA DAILY PRN for NASAL CONGESTION, (Reported) Allergies Coded Allergies: No Known Allergies (Unverified , 05/12/19) Past Medical History Medical History HTN, urinary retention, GERD, hypothyroidism , chronic low back pain s/p multiple lumbar surgeries complicated by diskitis and osteomyelitis in 2019 at L2-L3 with cauda equine Surgical History [id number] decompression/fusion and L2-L3 intradiscal osteotomy Family History I personally reviewed family history and found not pertinent Social History * Smoker: former Smoker Alcohol: occationally Drugs: denies A-FIB/CHADSVASC A-FIB History Current/History of A-Fib/PAF?: No Current PO Anticoag Therapy: No Review of Systems Constitutional: Reports: Chills, Fever Eyes: Denies: Pain, Vision change ENT: Denies: Head Aches Skin: Denies: Rash, Lesions Pulmonary: Denies: Dyspnea Cardiovascular: Denies: Chest Pain, Palpitations Gastrointestinal: Denies: Nausea Genitourinary: Reports: Dysuria, Retention Hematologic: Denies: Bruising Endocrine: Denies: Polydipsia, Polyphagia Musculoskeletal: Denies: Neck Pain, Back Pain Neurological: Denies: Weakness Psych: Reports: Memory Issues Physical Examination General Exam: Positive: Cooperative, Moderate Distress Eye Exam: Positive: PERRLA ENT Exam: Positive: Atraumatic Neck Exam: Positive: Supple; Negative: JVD Chest Exam: Positive: Diminished Heart Exam: Positive: Tachycardic; Negative: Rate Normal Telemetry: Positive: Sinus Abdomen Exam: Positive: Normal bowel sounds Extremity Exam: Negative: Clubbing, Cyanosis Skin Exam: Negative: Lesion Neuro Exam: Positive: Strength at 5/5 X4 ext Psych Exam: Positive: Other (demented) Vital Signs Vital Signs Date Time Temp Pulse Resp B/P (MAP) Pulse Ox O2 Delivery O2 Flow Rate FiO2 05/09/20 23:10 100.8 05/09/20 20:57 20 Room Air 05/09/20 18:54 116 127/58 (81) 100 Laboratory Data Labs 24H Laboratory Tests 2 05/09/20 20:02: Immature Granulocyte % (Auto) 0.3, Neutrophils (%) (Auto) 89.6H, Lymphocytes (%) (Auto) 5.6L, Monocytes (%) (Auto) 4.2, Eosinophils (%) (Auto) 0.0, Basophils (%) (Auto) 0.3, Neutrophils # (Auto) 13.9H, Lymphocytes # (Auto) 0.9L, Monocytes # (Auto) 0.7, Eosinophils # (Auto) 0.0, Basophils # (Auto) 0.0, Nucleated Red Blood Cells % (auto) 0.0, Anion Gap 5L, Glomerular Filtration Rate > 60.0, Lactic Acid Level 1.7, Calcium Level 8.7L, Total Bilirubin 0.8, Direct Bilirubin 0.3H, Aspartate Amino Transf (AST/SGOT) 36, Alanine Aminotransferase (ALT/SGPT) 36, Alkaline Phosphatase 148H, Ammonia 18, Total Creatine Kinase 296, Creatine Kinase MB 1.8, Creatine Kinase MB Relative Index 0.61, Troponin I < 0.02, Total Protein 6.6, Albumin 3.0L, Albumin/Globulin Ratio 0.8, Thyroid Stimulating Hormone (TSH) 1.220, Salicylates Level < 1.7L, Acetaminophen Level < 2.0L, Ethyl Alcohol Level < 0.003 05/09/20 20:03: Urine Opiates Screen NEGATIVE, Urine Methadone Screen NEGATIVE, Urine Barbiturates Screen NEGATIVE, Urine Phencyclidine Screen NEGATIVE, Urine Amph etamines Screen NEGATIVE, Urine Benzodiazepines Screen NEGATIVE, Urine Cocaine Metabolite Screen NEGATIVE, Urine Cannabinoids Screen NEGATIVE 05/09/20 20:32: Bedside Glucose ([facility] Panel) 106 05/09/20 20:50: Urine Color (HAILE) YELLOW, Urine Appearance (HAILE) CLOUDYH, Urine pH (HAILE) 8.0, Urine Specific [place] (HAILE) 1.010, Bedside Urine Glucose (UA) NEGATIVE, Bedside Urine Ketones (LAB) 1+H, Bedside Urine Blood POSITIVEH, Bedside Urine Nitrite (LAB) POSITIVEH, Bedside Urine Bilirubin (LAB) NEGATIVE, Bedside Urine Urobilinogen (LAB) NORMAL, Bedside Urine Leukocyte Esterase (L POSITIVEH, Urine Sediment Examination UNSPUN, Urine RBC 3-5H, Urine WBC 5-7H, Urine Squamous Epithelial Cells NONE SEEN, Urine Triple Phosphate Crystals MOD AMOUNTH, Urine Amorphous Sediment LARGE AMOUNTH, Urine Bacteria MOD AMOUNTH, Urine Hyaline Casts NONE SEEN, Urine Mucus SMALL AMOUNTH CBC/BMP Laboratory Tests 05/09/20 20:02 Microbiology Microbiology 05/09/20 Urine Culture, Received Pending 05/09/20 Blood Culture, Received Pending Assessment/Plan Patient is 79 years old male with past medical history of HTN, urinary retention, GERD, hypothyroidism , chronic low back pain s/p multiple lumbar surgeries complicated by diskitis and osteomyelitis in 2019 at L2-L3 with cauda equine and presented to the hospital with increased confusion. According to his family patient has been having increased generalized weakness associated with confusion for past 1-2 days. He was found by family on the floor unknown how long unable to get up. In ER patient was found to have tachycardia, white blood count of 15.5 and fever. UA positive for pyuria. Imaging study negative for fracture. Problems (1) Sepsis Status: Acute Problem Text: Patient has leukocytosis, fever and tachycardia Blood culture, urine culture IV fluid Ceftriaxone IV (2) UTI (urinary tract infection) Status: Acute Problem Text: Patient self catheterize himself which predispose to UTI. Also patient has dementia, there is question about sterility of self catheterization Await urine culture (3) Urinary retention Status: Chronic Problem Text: Taylor placed (4) Status post lumbar spine operative procedure for decompression of spinal cord Status: Chronic Problem Text: PT/OT (5) Physical deconditioning Status: Chronic Problem Text: Due to multiple comorbidities complicated by acute UTI and sepsis PT/OT Plan / VTE VTE Prophylaxis Ordered?: Yes KENNEY LOW DO May 10, 2020 02:46
[2020-05-10] MEDS ORDERED: FLUTICASONE PROP 0.05% NASAL SPRAY 16 GM (FLONASE) PRN (03:00)
[2020-05-10] MEDS: NS 1,000 ML IV SCH ×3 (03:51→21:09)
[2020-05-10 04:54] VITALS: BP 124/86
[2020-05-10] MEDS: LEVOTHYROXINE 50MCG TABLET (0.05MG) PO SCH (05:39)
[2020-05-10 08:31] LABS: HEMATOCRIT 38.2 % (42.0-52.0); HEMOGLOBIN 12.1 g/dl (13.5-17.5); MEAN CORPUSCULAR HEMOGLOBIN 30.3 pg (27.0-33.0); MEAN CORPUSCULAR HGB CONC 31.7 g/dl (32.0-36.5); MEAN CORPUSCULAR VOLUME 95.5 fl (80.0-96.0); PLATELET COUNT, AUTOMATED 229 10^3/uL (150-450); WHITE BLOOD COUNT 12.9 10^3/uL (4.0-10.0)
[2020-05-10 09:07] LABS: BLOOD UREA NITROGEN 17 MG/DL (7-18); CALCIUM LEVEL 8.5 MG/DL (8.8-10.2); CARBON DIOXIDE LEVEL 23 MEQ/L (21-32); CHLORIDE LEVEL 110 MEQ/L (98-107); CREATININE FOR GFR 0.89 MG/DL (0.70-1.30); GLOMERULAR FILTRATION RATE > 60.0 (>35); GLUCOSE, FASTING 94 MG/DL (70-100); POTASSIUM SERUM 4.1 MEQ/L (3.5-5.1); SODIUM LEVEL 139 MEQ/L (136-145)
[2020-05-10] MEDS: DICLOFENAC EPOLAMINE 1.3 % PATCH TOP SCH ×2 (09:08→21:09)
[2020-05-10] MEDS: GABAPENTIN 100 MG CAP PO SCH ×2 (09:09→21:09)
[2020-05-10] MEDS: TIMOLOL MALEATE 0.5% OPHTH SOLN 5 ML OU SCH ×2 (09:09→21:27)
[2020-05-10] MEDS: DOCUSATE SODIUM 100 MG CAP PO SCH (09:09)
[2020-05-10] MEDS: OMEPRAZOLE 20 MG CAP PO SCH (09:10)
[2020-05-10] MEDS: POTASSIUM CHLORIDE 10 MEQ SR TABLET PO SCH (09:10)
[2020-05-10] MEDS: lisinopriL 10 MG TAB PO SCH (09:10)
[2020-05-10] MEDS: HEPARIN SOD (PORCINE) 5000UNITS/ML 1ML VIAL/SYRINGE SC SCH ×2 (09:11→21:08)
[2020-05-10] MEDS: ACETAMINOPHEN 500 MG TAB PO SCH ×3 (09:11→21:09)
[2020-05-10] MEDS: cefTRIAXone SOD 1 GM in D5W MINI-BAG PLUS 50 ML IV SCH (09:15)
[2020-05-10 14:00] VITALS: BP 92/57
[2020-05-10 15:15] VITALS: BP 118/64
[2020-05-10] MEDS ORDERED: DUTASTERIDE 0.5 MG CAP (AVODART) PO SCH (21:00)
[2020-05-10] MEDS ORDERED: TAMSULOSIN 0.4 MG CAP PO SCH (21:00)
[2020-05-10] MEDS ORDERED: LATANOPROST 0.005% OPHTH SOLN 2.5 ML OU SCH (21:00)
[2020-05-10 22:00] VITALS: BP 109/64
[2020-05-11 05:52] LABS: HEMATOCRIT 32.9 % (42.0-52.0); HEMOGLOBIN 10.5 g/dl (13.5-17.5); MEAN CORPUSCULAR HEMOGLOBIN 30.9 pg (27.0-33.0); MEAN CORPUSCULAR HGB CONC 31.9 g/dl (32.0-36.5); MEAN CORPUSCULAR VOLUME 96.8 fl (80.0-96.0); PLATELET COUNT, AUTOMATED 203 10^3/uL (150-450); WHITE BLOOD COUNT 8.9 10^3/uL (4.0-10.0)
[2020-05-11] MEDS: NS 1,000 ML IV SCH (05:55)
[2020-05-11] MEDS: LEVOTHYROXINE 50MCG TABLET (0.05MG) PO SCH (05:55)
[2020-05-11 06:00] VITALS: BP 112/64
[2020-05-11 06:15] LABS: BLOOD UREA NITROGEN 11 MG/DL (7-18); CARBON DIOXIDE LEVEL 23 MEQ/L (21-32); CHLORIDE LEVEL 111 MEQ/L (98-107); CREATININE FOR GFR 0.74 MG/DL (0.70-1.30); GLOMERULAR FILTRATION RATE > 60.0 (>35); GLUCOSE, FASTING 88 MG/DL (70-100); MAGNESIUM LEVEL 1.9 MG/DL (1.8-2.4); POTASSIUM SERUM 3.9 MEQ/L (3.5-5.1); SODIUM LEVEL 141 MEQ/L (136-145)
[2020-05-11] MEDS ORDERED: BACI1CAP PO (07:21)
[2020-05-11] MEDS ORDERED: LEVA750T7 PO (07:21)
[2020-05-11] MEDS: HEPARIN SOD (PORCINE) 5000UNITS/ML 1ML VIAL/SYRINGE SC SCH (08:00)
[2020-05-11] MEDS: OMEPRAZOLE 20 MG CAP PO SCH (08:01)
[2020-05-11] MEDS: DOCUSATE SODIUM 100 MG CAP PO SCH (08:01)
[2020-05-11] MEDS: POTASSIUM CHLORIDE 10 MEQ SR TABLET PO SCH (08:01)
[2020-05-11] MEDS: GABAPENTIN 100 MG CAP PO SCH (08:01)
[2020-05-11] MEDS: ACETAMINOPHEN 500 MG TAB PO SCH (08:01)
[2020-05-11 08:02] VITALS: BP 112/64
[2020-05-11] MEDS: TIMOLOL MALEATE 0.5% OPHTH SOLN 5 ML OU SCH (08:02)
[2020-05-11] MEDS: lisinopriL 10 MG TAB PO SCH (08:02)
[2020-05-11] MEDS: cefTRIAXone SOD 1 GM in D5W MINI-BAG PLUS 50 ML IV SCH (08:02)
[2020-05-11] MEDS: DICLOFENAC EPOLAMINE 1.3 % PATCH TOP SCH (08:03)
--- NOTE | 2020-05-11 11:24 | DS.PDOC ---
Discharge Summary General Date of Admission May 10, 2020 at 02:29 Date of Discharge may 11, 2020 discharged to Acute Rehab Unit Discharge Summary PROCEDURES PERFORMED DURING STAY: none DISCHARGE DIAGNOSES: Recurrent Falls at home/ Debility/Physical Deconditioning Acute encephalopathy due to infection UTI prior to hospital admission HTN, chronic urinary retention, GERD, hypothyroidism , chronic low back pain s/p multiple lumbar surgeries complicated by diskitis and osteomyelitis in 2019 at L2-L3 with cauda equina COMPLICATIONS/CHIEF COMPLAINT: UTI. HISTORY OF PRESENT ILLNESS: 79-year-old male presented to the emergency room with altered mental status with recurrent falls and weakness at home for the past 2 days, unable to ambulate on his stone was found on the floor by his family for an unknown period of time. He was brought into the emergency room via ambulance, was found to be tachycardic with white count of 15.5 and a fever with abnormal urinalysis and confusion. Patient was admitted for urinary tract infection, present prior to hospital admission, started on intravenous ceftriaxone. Patient's urine culture grew out Proteus which was sensitive to Levaquin. He continues to be debilitated and required assistance with ambulation but is cooperative and requesting acute rehabilitation. HOSPITAL COURSE: Patient was treated for urinary tract infection with intravenous ceftriaxone with improvement in his white count from 15.5 to normal. He remained afebrile during the entire admission. Urine culture grew out Proteus sensitive to Levaquin. He remained debilitated and is transferred to the acute rehabilitation unit for further management. Patient's follow-up is evaluated with CT of the cervical, thoracic and lumbar spine, all of which shows chronic changes without any acute fractures or subluxation. CT of the head was unremarkable without acute intracranial abnormality. Chest x-ray had no infiltrate or pulmonary edema. DISCHARGE MEDICATIONS: Please see below. ALLERGIES: Please see below. PHYSICAL EXAMINATION ON DISCHARGE: VITAL SIGNS: Please see below. GENERAL: Awake, alert, oriented to person, place and time. Answers questions appropriately. Hard of hearing, HEENT: NoJVD, no thyromegaly, anicteric. No jaundice. Dry mucous membranes CARDIOVASCULAR EXAMINATION: S1, S2, sinus rhythm RESPIRATORY EXAMINATION: Clear to auscultation ABDOMINAL EXAMINATION: Positive bowel sounds, soft, no CVA tenderness. Nontender, nondistended EXTREMITIES: No cyanosis or clubbing LABORATORY DATA: Please see below. IMAGING STUDIES: SEE BELOW DISCHARGE PLAN: ARU TIME SPENT ON DISCHARGE: 30 minutes. Vital Signs/I&Os Vital Signs Date Time Temp Pulse Resp B/P (MAP) Pulse Ox O2 Delivery O2 Flow Rate FiO2 05/11/20 10:00 99.0 05/11/20 08:02 112/64 05/11/20 06:00 106 18 98 Room Air I&O- Last 24 Hours up to 6 AM 05/11/20 06:00 Intake Total 3470 ml Output Total 1300 ml Balance 2170 ml Laboratory Data Labs 24H Laboratory Tests 2 05/11/20 05:34: Nucleated Red Blood Cells % (auto) 0.0, Anion Gap 7L, Glomerular Filtration Rate > 60.0, Calcium Level 8.0L, Magnesium Level 1.9 CBC/BMP Laboratory Tests 05/11/20 05:34 Microbiology Microbiology 05/10/20 Blood Culture - Preliminary, Resulted No growth after 24 hours . All specim... 05/09/20 Urine Culture - Final, Complete Proteus Mirabilis 05/09/20 Blood Culture - Preliminary, Resulted No growth after 24 hours . All specim... Discharge Medications Scheduled Ascorbic Acid (Vitamin C) 500 Mg Capsule.er, 500 MG PO DAILY, (Reported) Bacillus Coagulans (Bacid with Lactospore) 1 Each Capsule, 1 CAP PO BIDWM Docusate Sodium (Colace) 100 Mg Capsule, 100 MG PO DAILY, (Reported) Dutasteride (Dutasteride) 0.5 Mg Cap, 0.5 MG PO QHS, (Reported) Gabapentin (Gabapentin) 100 Mg Capsule, 200 MG PO BID, (Reported) Lactobacillus Acidophilus (Probiotic) 1 Each Capsule, 1 CAP PO DAILY, (Reported) Latanoprost (Xalatan) 0.005% 2.5ML Drops, 1 DROP OU QHS, (Reported) Levofloxacin (Levaquin) 750 Mg Tablet, 750 MG PO DAILY Levothyroxine Sodium (Levothyroxine Sodium) 50 Mcg Tab, 50 MCG PO DAILY, (Reported) Lisinopril (Lisinopril) 10 Mg Tablet, 10 MG PO DAILY, (Reported) Multivitamin (Tab-A-Matilde) 1 Each Tablet, 1 TAB PO DAILY, (Reported) Omeprazole (Omeprazole) 20 Mg Capsule.dr, 20 MG PO DAILY, (Reported) Potassium Chloride (Klor-Con M10) 10 Meq Tab.er.prt, 20 MEQ PO DAILY, (Reported) Tamsulosin HCl (Flomax) 0.4 Mg Cap, 0.4 MG PO QHS, (Reported) Timolol Maleate (Timolol Maleate) 0.5% 5ML Drops, 1 DROP OU BID, (Reported) Zinc (Zinc) 50 Mg Tablet, 50 MG PO DAILY, (Reported) Scheduled PRN Acetaminophen (Acetaminophen) 325 Mg Tablet, 650 MG PO Q6H PRN for PAIN / FEVER, (Reported) Fluticasone Propionate (Fluticasone Propionate) 16 Gm [place].susp, 2 SPRAY NA DAILY PRN for NASAL CONGESTION, (Reported) Allergies Coded Allergies: No Known Allergies (Unverified , 05/12/19) NICOLE MARTELL MD May 11, 2020 11:24
[2020-05-11 14:00] VITALS: BP 98/56
--- NOTE | 2020-05-11 19:03 | ECGEPIP ---
[facility] - ED Test Date: 2020-05-09 Pat Name: JOHNNA ROGER Department: Room: [place] [address] Gender: Male Collection Analyst: hailey : [id number] Requested By: BERT Ogden Order Number: [id number] Reading MD: Don Rodriguez Measurements Intervals [place] Rate: 123 P: 64 WV: 162 QRS: 66 QRSD: 87 T: 60 QT: 309 QTc: 442 Interpretive Statements SINUS TACHYCARDIA POOR R WAVE PROGRESSION NO PRIORS FOR COMPARISON Electronically Signed on 05-11-2020 19:03:24 EDT by Don Rodriguez
== END 2020-05-11 14:15 | DRG 690 ==
LOC: EDBD 18:40 → M ED 18:40 → M ED INP 05-10 02:29 → ENRESERV 05-10 03:35 → M MSPAV 05-10 04:56
PROVIDERS: ADMIT Internal Medicine; ATTEND General Practice
DX: N39.0 Urinary tract infection, site not specified (principal); G93.40 Encephalopathy, unspecified; G83.4 Cauda equina syndrome; R33.9 Retention of urine, unspecified; I10 Essential (primary) hypertension; K21.9 Gastro-esophageal reflux disease without esophagitis; E03.9 Hypothyroidism, unspecified; M54.5 Low back pain; B96.4 Proteus (mirabilis) (morganii) as the cause of diseases classified elsewhere; F03.90 Unspecified dementia, unspecified severity, without behavioral disturbance, psychotic disturbance, mood disturbance, and anxiety; R53.1 Weakness; Z79.899 Other long term (current) drug therapy

== ENCOUNTER 2020-05-11 11:55 | Inpatient (IN) | payer MEDICARE, BC, OTHER ==
[~2020-05-11] VITALS: Ht 170.2 cm; Wt 60.6 kg
[~2020-05-11 11:55] MED LIST changes: +BACI1CAP PO; +LEVA750T7 PO; +LevoFLOXacin 750 MG TABLET PO SCH; +OMEP-218 PO; +TAB-TAB2 PO
[2020-05-11] MEDS ORDERED: ACETAMINOPHEN 500 MG TAB PO PRN (13:00)
[2020-05-11] MEDS ORDERED: ONDANSETRON 4 MG TAB PO PRN (13:00)
[2020-05-11] MEDS ORDERED: ACETAMINOPHEN TAB 650MG DOSE (2X325MG) PO PRN (13:00)
[2020-05-11 14:30] VITALS: BP 149/70
[2020-05-11] MEDS ORDERED: FLUTICASONE PROP 0.05% NASAL SPRAY 16 GM (FLONASE) NARES PRN (15:00)
[2020-05-11] MEDS: LACTOBACILLUS ACIDOPHILUS CAP (BACID) PO SCH (16:46)
[2020-05-11] MEDS: MULTIVITAMINS/MINERALS THERAP 1 TAB PO SCH (16:46)
[2020-05-11] MEDS: ZINC SULFATE 220 MG CAP PO SCH (16:46)
--- NOTE | 2020-05-11 17:12 | HPEPDOC ---
[employer] Supervisor Note DATE OF ADMISSION: 05/11/2020 DATE OF SERVICE: 05/11/2020 TIME OF ADMISSION: Please refer to physician's admission order. SOURCE OF ADMISSION INFORMATION: Patient, son, medical records ADMITTING DIAGNOSES: Urosepsis. Status post multiple lumbar surgeries (3), instrumentation, revision for osteomyelitis, discitis with T10 to pelvis decompression, fusion March 2020 Cauda equina syndrome. Neurogenic bladder Chronic back pain. Trigeminal neuralgia status post decompression. BPH. Anemia. 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 GERD with hiatal hernia Glaucoma. Hypothyroidism. Hypertension CHIEF COMPLAINT: Fatigue, confusion, back pain, urinary incontinence, right temporal pain. HISTORY OF PRESENT ILLNESS: This is an 79-year-old gentleman with severe arthritis status post multiple thoracolumbar surgeries complicated with osteomyelitis, discitis, subsequent cauda equina syndrome requiring intermittent catheterization. March 2020, he underwent surgical clear out, replacement, fusion, and patient was stabilized, making good progress on home exercise program after a stint in the rehabilitation unit. Evidently he got up in the middle of the night to go to the bathroom, fell, was down for several hours for being discovered by his son in the rn gynecology and eventually taken to ER was found to be Uroseptic with Proteus mirabilis. Initial treatment with IV ceftriaxone, at the time of his transfer being changed to Levaquin. FUNCTIONAL STATUS: His baseline is completely independent and acting as caregiver for his , he had nearly regained full independence after the most recent surgery at time of the fall. Currently requires minimal to moderate assistance for bed mobility, general mobility and self-care activities. REVIEW OF SYSTEMS: The following is a completed review of systems and has been reviewed. Review of systems otherwise unremarkable. PAIN: Chronic low back, bilateral lower extremity EYES: No recent vision changes. EARS, NOSE, & THROAT: No throat pain, or dysphagia, or rhinorrhea. CARDIOVASCULAR: Denies chest pain or palpitations. PULMONARY: Denies shortness of breath. GASTROINTESTINAL: Denies constipation/diarrhea. Notes regularity with occasional need for laxatives. GENITOURINARY: Currently fully dependent, history of BPH and baseline need for intermittent calf proximally twice a day . MUSCULOSKELETAL: Healing from spine surgery. NEUROLOGICAL:Weakness, left upper extremity. Right lower extremity. HEMATOLOGICAL: Denies easy bruising. SKIN: Healing thoracolumbar incisions. PSYCHIATRIC: Unremarkable. All other review of systems found to be negative. PAST MEDICAL HISTORY: Status post resection of trigeminal nerve for trigeminal neuralgia with persistent pain. 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 Notes Hypothyroidism. Son also notes history of left upper and right lower extremity weakness, etiology not clear. PAST SURGICAL HISTORY: 1020 decompression trigeminal nerve. Appendectomy. Records indicate some type of remote gamma knife procedure 2 ALLERGIES: None known MEDICATIONS: Please see below. FAMILY HISTORY: Mother 57 from cancer. Father 88 of natural causes. SOCIAL HISTORY: . Non- Smoker, no EtOH, lives in a ramp modified entrance 1 story home with for whom he is the usual caregiver. DIET: Regular . PHYSICAL EXAMINATION: VITAL SIGNS: Please see below. GENERAL: Pleasant and cooperative. No acute distress. Alert and oriented times three. HEENT: PERRL. Extraocular movements intact. Clear conjunctiva, no adenopathy or thyromegaly. Full cervical range of motion without tenderness or spasm. Tongue pale and glossy, midline, poor dentition . Tenderness right temporal region CARDIOVASCULAR: Regular rate and rhythm. No murmurs, rubs, or gallops. LUNGS: Clear to auscultation bilaterally. No wheezes. No rhonchi. ABDOMEN: Soft, nontender, nondistended. Positive bowel sounds. Normal active bowel sounds, no organomegaly. NEUROLOGICAL: Alert and oriented times three. Able to spell world forward and backwards. Cranial nerves II through XII intact. Sensation grossly intact. Reflexes 1 + and symmetric bilateral biceps, absent, triceps, brachial radialis, patellar, Achilles tendon jerks. Fasciculations noted on bilateral upper extremities, possibly shivering. EXTREMITIES: 5/5 freight handler, elbow flexion, elbow extension, knee extension, foot dorsiflexion, plantar flexion. Pulses intact. No edema, no calf tenderness SKIN: Blanching erythema. Sacral region, dressings over lumbosacral and midthoracic incisions. LABORATORY DATA: Please see below. IMAGIN05.09.2020. CT lumbosacral spine Status post anterior spinal fusion at L2-L3, L4-L5 and L5-S1 with interbody fusion. Posterior spinal fusion from the lower thoracic spine to the sacrum with bilateral pedicle screws at T12, L1, L2, L3, L4, L5 , S1 and the right and left iliac bones. Posterior bone graft is also present throughout the lumbar spine. There are old anterior wedge deformities of L2 and L3. There is a mild anterolisthesis of L4 which appears similar to that seen on the prior lumbar spine CT scan performed on 04/02/2019. No acute fracture is identified . CT thoracic spine degenerative spondylosis of lower cervical spine, thoracic spine, no acute fracture or subluxation. Posterior fusion with bilateral pedicle screw and aarti instrumentation T10, 11, 12. Moderate bilateral neural foraminal stenosis. C6-7. Incidental note of mild bronchiectasis right posterior lobe and hiatus hernia CXRAY no acute findings 05.09.2020 CT Head compared to 2014 study . No acute intracranial abnormality FUNCTIONAL STATUS: Premorbid: Independent with all activities of daily life as well as mobility. On Admission: Moderate to maximal assistance for lower body dressing, shower transfers, stairs. Moderate assistance for bathing, upper body dressing, bed chair and wheelchair transfers, toilet transfers, ambulation. Minimum assistance for grooming. Supervision for memory and problem solving. Modified independence for social interaction, expression, comprehension, bowel and bladder. GOALS: I for all self-care, mobility and higher order ADLs ASSESSMENT:-This is an 79-year-old gentleman with past medical history multiple spinal surgeries complicated by interim osteomyelitis, discitis requiring revision and fusion March 2020 1510 through pelvis status post recent fall, so multiple medical status. Urosepsis. He presents for comprehensive rehabilitative services. Patient appears stable to proceed and participate fully in the program. PLAN: 1. Rehab- PT/OT advance gait and ADls, strengthen/stretch/maintain ROM all 4 limbs, pain management with appropriate modalities and accommodation medications 2. Neuro- hx of trigeminal neuralgia, Sindhu Surgery of unknown purpose, persisting left upper and right lower extremity weakness, possibly related to cervical challenges. Well continue to monitor and also dressed in the rehabilitation program 3. MSK status post spine surgery, monitor wound healing remove dressings and keep open to air tomorrow 4. Cardiac-appears currently stable on lisinopril. Well continue to monitor 5. Resp -incentive spirometry, monitor for infection 6. Endo-history of hypothyroidism. Continue medications 7. - hx of chronic incontinence . Continue Taylor treat urosepsis. Repeat culture and monitor as indicated. input 8. GI ppx-omeprazole 9. DVT ppx-heparin 10. Pain- tylenol high-dose, -lidoderm patch 11. Dispo- TBD either back to son or to home with . POST ADMISSION PHYSICIAN EVALUATION: Medical and functional status: Description of medical status, medical assessment: As above. Rehabilitation diagnosis and current and prior cold morbid medical conditions as above. Risk of complications and plans to mitigate them as above. Description of functional status current status is as above. Prior status as above. Status compared to preadmission: There are no clinically significant differences between the patient's current status and the information described on the preadmission screening document. Treatment plan anticipated: Treatment plan is as described above. Required disciplines including physical therapy, occupational therapy, others as noted above. Intensity of services: 3 hours a day,6-7 days a week. Special considerations: There are no specific special or safety considerations that would likely preclude immediate implementation of an intensive rehabilitation program or subsequently influence the plan of care. ATTESTATION: Considering all the information above, it is my best judgment that this patient requires intensive rehabilitation therapy as described above and an inpatient hospital environment due to the complexity of nursing, medical, and rehabilitation needs required by the patient. Furthermore, this patient can reasonably be expected to participate in an benefit from an inpatient rehabilitation stay with an interdisciplinary team approach to the delivery of rehabilitation care under the direction and supervision of rehabilitation physician. PROGNOSIS: Excellent. ESTIMATED LENGTH OF STAY:10-14 days. PROJECTED DISCHARGE DESTINATION: Home with family support and any durable medical equipment required to increase functional safety and mobility. TIME SPENT COUNSELING AND COORDINATING INITIAL CARE: Greater than 60 minutes. Vital Signs Vital Sign - Last 24 Hours 05/11/20 14:30 Temp 98.0 Pulse 99 Resp 17 B/P (MAP) 149/70 (96) Pulse Ox 93 O2 Delivery Room Air Home Medications Scheduled Ascorbic Acid (Vitamin C) 500 Mg Capsule.er, 500 MG PO DAILY, (Reported) Bacillus Coagulans (Bacid with Lactospore) 1 Each Capsule, 1 CAP PO BIDWM Docusate Sodium (Colace) 100 Mg Capsule, 100 MG PO DAILY, (Reported) Dutasteride (Dutasteride) 0.5 Mg Cap, 0.5 MG PO QHS, (Reported) Gabapentin (Gabapentin) 100 Mg Capsule, 200 MG PO BID, (Reported) Lactobacillus Acidophilus (Probiotic) 1 Each Capsule, 1 CAP PO DAILY, (Reported) Latanoprost (Xalatan) 0.005% 2.5ML Drops, 1 DROP OU QHS, (Reported) Levofloxacin (Levaquin) 750 Mg Tablet, 750 MG PO DAILY Levothyroxine Sodium (Levothyroxine Sodium) 50 Mcg Tab, 50 MCG PO DAILY, (Reported) Lisinopril (Lisinopril) 10 Mg Tablet, 10 MG PO DAILY, (Reported) Multivitamin (Tab-A-Matilde) 1 Each Tablet, 1 TAB PO DAILY, (Reported) Omeprazole (Omeprazole) 20 Mg Capsule.dr, 20 MG PO DAILY, (Reported) Potassium Chloride (Klor-Con M10) 10 Meq Tab.er.prt, 20 MEQ PO DAILY, (Reported) Tamsulosin HCl (Flomax) 0.4 Mg Cap, 0.4 MG PO QHS, (Reported) Timolol Maleate (Timolol Maleate) 0.5% 5ML Drops, 1 DROP OU BID, (Reported) Zinc (Zinc) 50 Mg Tablet, 50 MG PO DAILY, (Reported) Scheduled PRN Acetaminophen (Acetaminophen) 325 Mg Tablet, 650 MG PO Q6H PRN for PAIN / FEVER, (Reported) Fluticasone Propionate (Fluticasone Propionate) 16 Gm [place].susp, 2 SPRAY NA DAILY PRN for NASAL CONGESTION, (Reported) Allergies Coded Allergies: No Known Allergies (Unverified , 05/12/19) A-FIB/CHADSVASC A-FIB History Current/History of A-Fib/PAF?: No Current PO Anticoag Therapy: Yes Age/Risk Factor Scoring CHADSVASC: CHADSVASC Response (Comments) Value Age Risk Factor Age >/= 75 years old 2 Total 2 Treatment Treatment ordered: Heparin IV bridge Therapy TRINA BHAT MD May 11, 2020 17:12
[2020-05-11] MEDS ORDERED: LIDOCAINE 5% (LIDODERM) PATCH TD ONE (17:15)
[2020-05-11] MEDS: ACETAMINOPHEN TAB 650MG DOSE (2X325MG) PO PRN (17:22)
[2020-05-11 20:00] VITALS: BP 123/64
[2020-05-11] MEDS ORDERED: GABAPENTIN 100 MG CAP PO SCH (21:00)
[2020-05-11] MEDS ORDERED: LevoFLOXacin 750 MG TABLET PO SCH (21:00)
[2020-05-11] MEDS ORDERED: DOCUSATE SODIUM 100 MG CAP PO SCH (21:00)
[2020-05-11] MEDS: HEPARIN SOD (PORCINE) 5000UNITS/ML 1ML VIAL/SYRINGE SC SCH (21:15)
[2020-05-11] MEDS: TAMSULOSIN 0.4 MG CAP PO SCH (21:15)
[2020-05-11] MEDS: DUTASTERIDE 0.5 MG CAP (AVODART) PO SCH (21:15)
[2020-05-11] MEDS: LATANOPROST 0.005% OPHTH SOLN 2.5 ML OU SCH (21:16)
[2020-05-11] MEDS: TIMOLOL MALEATE 0.5% OPHTH SOLN 5 ML OU SCH (21:16)
[2020-05-12] MEDS: ACETAMINOPHEN TAB 650MG DOSE (2X325MG) PO PRN (04:03)
[2020-05-12 05:55] VITALS: BP 104/57
[2020-05-12] MEDS: LEVOTHYROXINE 50MCG TABLET (0.05MG) PO SCH (05:59)
[2020-05-12] MEDS ORDERED: **NOTE PATIENT COMMENT** MISC XX SCH (06:00)
[2020-05-12] MEDS: LACTOBACILLUS ACIDOPHILUS CAP (BACID) PO SCH (07:52)
[2020-05-12] MEDS: OMEPRAZOLE 20 MG CAP PO SCH (07:52)
[2020-05-12] MEDS: MULTIVITAMINS/MINERALS THERAP 1 TAB PO SCH (07:52)
[2020-05-12] MEDS: DOCUSATE SODIUM 100 MG CAP PO SCH (07:52)
[2020-05-12] MEDS: HEPARIN SOD (PORCINE) 5000UNITS/ML 1ML VIAL/SYRINGE SC SCH ×2 (07:52→21:21)
[2020-05-12] MEDS: GABAPENTIN 400 MG CAP PO SCH ×2 (07:52→21:20)
[2020-05-12] MEDS: ZINC SULFATE 220 MG CAP PO SCH (07:53)
[2020-05-12] MEDS: POTASSIUM CHLORIDE 10 MEQ SR TABLET PO SCH (07:53)
[2020-05-12] MEDS: ASCORBIC ACID 500 MG TAB PO SCH (07:53)
[2020-05-12] MEDS: lisinopriL 10 MG TAB PO SCH (07:58)
[2020-05-12 08:14] LABS: HEMATOCRIT 28.2 % (42.0-52.0); MEAN CORPUSCULAR HEMOGLOBIN 30.5 pg (27.0-33.0); MEAN CORPUSCULAR HGB CONC 31.9 g/dl (32.0-36.5); MEAN CORPUSCULAR VOLUME 95.6 fl (80.0-96.0); PLATELET COUNT, AUTOMATED 197 10^3/uL (150-450); RED BLOOD COUNT 2.95 10^6/uL (4.30-6.10); WHITE BLOOD COUNT 6.9 10^3/uL (4.0-10.0)
[2020-05-12 08:55] LABS: ALBUMIN 1.9 GM/DL (3.2-5.2); ALT/SGPT 65 U/L (12-78); BILIRUBIN,TOTAL 0.3 MG/DL (0.2-1.0); BLOOD UREA NITROGEN 10 MG/DL (7-18); CALCIUM LEVEL 7.9 MG/DL (8.8-10.2); CARBON DIOXIDE LEVEL 23 MEQ/L (21-32); CHLORIDE LEVEL 109 MEQ/L (98-107); CREATININE FOR GFR 0.65 MG/DL (0.70-1.30); GLOMERULAR FILTRATION RATE > 60.0 (>35); GLUCOSE, FASTING 86 MG/DL (70-100); POTASSIUM SERUM 3.9 MEQ/L (3.5-5.1); SODIUM LEVEL 140 MEQ/L (136-145); TOTAL PROTEIN 4.9 GM/DL (6.4-8.2)
[2020-05-12] MEDS: TIMOLOL MALEATE 0.5% OPHTH SOLN 5 ML OU SCH ×2 (09:00→21:22)
[2020-05-12 10:39] LABS: ERYTHROCYTE SEDIMENTATION RATE 80 mm/hr (0-20)
--- NOTE | 2020-05-12 11:05 | CR.PDOC ---
General Date of Consultation: May 12, 2020 Consultation REASON FOR CONSULTATION/CHIEF COMPLAINT: Management of chronic medical problems Referring physician: Dr. Gentile HISTORY OF PRESENT ILLNESS: 79-year-old male with a past medical history of L2-Y6ltooaw discitis and osteomyelitis with cauda equina managed at [facility] by neurosurgery, Status post T10 and L2-L3, Pelvic decompression and fusion with intradiscal osteotomy for kyphosis, hypothyroidism, gastroesophageal reflux disease, urinary retention, trigeminal neuralgia hypertension, hypothyroidism, chronic low back pain; status post multiple lumbar surgeries, postop blood loss anemia requiring red blood cell transfusion and hypotension requiring vasopre ssor therapy during his lumbar fusion surgery, and recently admitted to [facility] 05/10 to 05/11 for urinary tract infection and chronic back pain treated with IV ceftriaxone and transitioned to oral Levaquin after discharging to the acute rehabilitation unit. While in the acute rehabilitation unit. Patient developed a fever 101 with persistent pain in the lower back hospitals with us to help manage patient's acute issues. ALLERGIES: Please see below. HOME MEDICATIONS: Please see below. PAST MEDICAL HISTORY: Trigeminal neuralgia ,HTN, urinary retention, GERD, hypothyroidism , chronic low back pain s/p multiple lumbar surgeries complicated by diskitis and osteomyelitis in 2019 at L2-L3 with cauda equina PAST SURGICAL HISTORY: Appendectomy, colonoscopy, cystoscopy, prostate cancer, trigeminal nerve decompression, vasectomy, multiple lumbar back surgeries FAMILY HISTORY: Father: old age Mother: mother , breast cancer with mets Siblings: All decreased older than patient SOCIAL HISTORY: Tobacco use: former smoker ETOH: occasional Illicit drug use: none ALLERGIES: Please see below. CURRENT MEDICATIONS: Please see below. REVIEW OF SYSTEMS: EYES: No recent vision changes EARS, NOSE, & THROAT: No throat pain, or dysphagia, or rhinorrhea CARDIOVASCULAR: Denies shortness of breath, lower extremity edema, weight gain, dizziness or lightheaded chest pain or palpitations PULMONARY: Denies shortness of breath, fever, sputum production GASTROINTESTINAL: Denies constipation/diarrhea, nausea, vomiting GENITOURINARY: +urinary retention MUSCULOSKELETAL:bilat LE weakness, chronic back pain NEUROLOGICAL:+neurogenic bladder, bilat LE weakness HEMATOLOGICAL: denies easy bruising SKIN: [lumbo-sacral incision trigeminal neuralgia pain on the right face PSYCHIATRIC: Unremarkable All other review of systems found to be negative. PHYSICAL EXAMINATION: VITAL SIGNS: Please see below. GENERAL: Pleasant and cooperative. No acute distress. Frail elderly gentleman. brace across chest and back HEENT: PERRL. Extraocular movements intact. Clear conjunctiva, bitemporal wasting. CARDIOVASCULAR: Regular rate and rhythm. No murmurs, rubs, or gallops LUNGS: Clear to auscultation bilaterally. No wheezes. No rhonchi ABDOMEN: Soft, nontender, nondistended. Positive bowel sounds. Normal active bowel sounds NEUROLOGICAL: Alert and oriented times three. Cranial nerves II through XII grossly intact. Sensation grossly intact in all 4limbs, 5\5 strength bilateral upper extremities. 4-\5 strength right lower extremity. 5-/5 strength in left lower extremity. EXTREMITIES: No edema LABORATORY DATA: Please see below. ASSESSMENT AND PLAN: 79-year-old M with past medical history of status post T10- pelvis decompression/fusion and L2-L3 intradiscal osteotomy, cauda equina with multiple spinal surgeries who presents to ARU after being admitted to the medical service for urinary tract infection from May 10 to May 11. Urinary tract infection with Proteus, which is low-grade temperature 100.3 Chronic back pain and history of discitis, osteomyelitis S/p [id number] decompression/fusion and L2-L3 intradiscal osteotomy performed 03-31-20 Hypertension Hypothyroidism Chronic urinary retention due to neurogenic bladder and prostate, Glaucoma PLAN: Patient will be changed to Augmentin 875 twice a day to complete a full 7 day course of antibiotics. Blood cultures, sedimentation rate, CRP and procalcitonin will be checked along with daily fever, monitoring. Due to chronic back pain, will obtain an MRI of the lumbar spine to look for any other etiologies for patient's fever and discomfort. Holding parameters admitted, placed in patient's blood pressure medications. Vital Signs/I&O Vital Signs Date Time Temp Pulse Resp B/P (MAP) Pulse Ox O2 Delivery O2 Flow Rate FiO2 05/12/20 07:58 108/58 05/12/20 05:55 99.5 90 18 96 Room Air I&O- Last 24 Hours up to 6 AM 05/12/20 06:00 Intake Total 120 ml Output Total 800 ml Balance -680 ml Laboratory Data Labs 24H Laboratory Tests 2 05/12/20 06:00: 05/12/20 07:57: Nucleated Red Blood Cells % (auto) 0.0, Erythrocyte Sedimentation Rate 80H, Anion Gap 8, Glomerular Filtration Rate > 60.0, Calcium Level 7.9L, Total Bilirubin 0.3#, Aspartate Amino Transf (AST/SGOT) 45H, Alanine Aminotransferase (ALT/SGPT) 65, Alkaline Phosphatase 170H, C-Reactive Protein, Quantitative 17.30H, Total Protein 4.9#L, Albumin 1.9#L, Albumin/Globulin Ratio 0.6 CBC/BMP Laboratory Tests 05/12/20 07:57 Microbiology Microbiology 05/12/20 Blood Culture, Received Pending 05/12/20 Blood Culture, Received Pending Allergies Coded Allergies: No Known Allergies (Unverified , 05/12/19) Home Medications Scheduled Ascorbic Acid (Vitamin C) 500 Mg Capsule.er, 500 MG PO DAILY, (Reported) Bacillus Coagulans (Bacid with Lactospore) 1 Each Capsule, 1 CAP PO BIDWM for 7 Days, #14 Docusate Sodium (Colace) 100 Mg Capsule, 100 MG PO DAILY, (Reported) Dutasteride (Dutasteride) 0.5 Mg Cap, 0.5 MG PO QHS, (Reported) Gabapentin (Gabapentin) 100 Mg Capsule, 200 MG PO BID, (Reported) Lactobacillus Acidophilus (Probiotic) 1 Each Capsule, 1 CAP PO DAILY, (Reported) Latanoprost (Xalatan) 0.005% 2.5ML Drops, 1 DROP OU QHS, (Reported) Levofloxacin (Levaquin) 750 Mg Tablet, 750 MG PO DAILY for 7 Days, #7 Levothyroxine Sodium (Levothyroxine Sodium) 50 Mcg Tab, 50 MCG PO DAILY, (Reported) Lisinopril (Lisinopril) 10 Mg Tablet, 10 MG PO DAILY, (Reported) Multivitamin (Tab-A-Matilde) 1 Each Tablet, 1 TAB PO DAILY, (Reported) Omeprazole (Omeprazole) 20 Mg Capsule.dr, 20 MG PO DAILY, (Reported) Potassium Chloride (Klor-Con M10) 10 Meq Tab.er.prt, 20 MEQ PO DAILY, (Reported) Tamsulosin HCl (Flomax) 0.4 Mg Cap, 0.4 MG PO QHS, (Reported) Timolol Maleate (Timolol Maleate) 0.5% 5ML Drops, 1 DROP OU BID, (Reported) Zinc (Zinc) 50 Mg Tablet, 50 MG PO DAILY, (Reported) Scheduled PRN Acetaminophen (Acetaminophen) 325 Mg Tablet, 650 MG PO Q6H PRN for PAIN / FEVER, (Reported) Fluticasone Propionate (Fluticasone Propionate) 16 Gm [place].susp, 2 SPRAY NA DAILY PRN for NASAL CONGESTION, (Reported) NICOLE MARTELL MD May 12, 2020 10:43
[2020-05-12] MEDS ORDERED: PROHANCE 279.3MG/ML 15ML VIAL As Ordered ONE (11:14)
--- NOTE | 2020-05-12 11:33 | IPNPDOC ---
PM&R Progress Note DATE OF SERVICE: May 12, 2020 Business Services Intern Progress Note DATE OF ADMISSION: May 11, 2020 at 14:20 INPATIENT REHABILITATION ADMISSION DAY: #[1] DATE OF SERVICE: 05/12/2020 CHIEF COMPLAINT: Fatigue, confusion, back pain, urinary hesitancy and incontinence, right temporal pain. SUBJECTIVE: This is an 79-year-old gentleman with severe arthritis status post multiple thoracolumbar surgeries complicated with osteomyelitis, discitis, subsequent cauda equina syndrome requiring intermittent catheterization. March 2020, he underwent surgical clear out, replacement, fusion, and patient was stabilized, making good progress on home exercise program after a stint in the rehabilitation unit. 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 Initial treatment with IV ceftriaxone, at the time of his transfer changed to Levaquin and today Augmentin. He had a low-grade fever overnight, appetite remains good and he slept well with no new complaints, aside from desire to obtain the increased dose of gabapentin 400 mg to help with the trigeminal neuralgia pain. PAST MEDICAL HISTORY: Status post resection of trigeminal nerve for trigeminal neuralgia with persistent right temporofacial pain. 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 Notes Hypothyroidism. Son also notes history of left upper and right lower extremity weakness, etiology not clear. PAST SURGICAL HISTORY: Decompression trigeminal nerve. Appendectomy. Records indicate some type of remote gamma knife procedure 2 ALLERGIES: none MEDICATIONS: Please see below. FUNCTIONAL STATUS: His baseline is completely independent and acting as caregiver for his , he had nearly regained full independence after the most recent surgery at time of the fall. Currently requires minimal to moderate assistance for bed mobility, general mobility and self-care activities. Premorbid: Independent with all activities of daily life as well as mobility. Supervision for memory and problem solving. Modified independence for social interaction, expression, comprehension, bowel and bladder. REVIEW OF SYSTEMS: The following is a completed review of systems and has been reviewed. Review of systems otherwise unremarkable. PAIN: Chronic low back, bilateral lower extremity EYES: No recent vision changes. EARS, NOSE, & THROAT: No throat pain, or dysphagia, or rhinorrhea. CARDIOVASCULAR: Denies chest pain or palpitations. PULMONARY: Denies shortness of breath. GASTROINTESTINAL: Denies constipation/diarrhea. Notes regularity with occasional need for laxatives. GENITOURINARY: Currently fully dependent, history of BPH and baseline need for intermittent calf proximally twice a day . MUSCULOSKELETAL: Healing from spine surgery. NEUROLOGICAL:Weakness, left upper extremity. Right lower extremity. HEMATOLOGICAL: Denies easy bruising. SKIN: Healing thoracolumbar incisions. PSYCHIATRIC: Unremarkable. All other review of systems found to be negative. PHYSICAL EXAMINATION: VITAL SIGNS: Please see below. GENERAL: Pleasant and cooperative. No acute distress. Alert and oriented times three. HEENT: PERRL. Extraocular movements intact. Clear conjunctiva, no adenopathy or thyromegaly. Full cervical range of motion without tenderness or spasm. Tongue pale and glossy, midline, poor dentition . Tenderness right temporal region. CARDIOVASCULAR: Regular rate and rhythm. No murmurs, rubs, or gallops. LUNGS: Clear to auscultation bilaterally. No wheezes. No rhonchi. ABDOMEN: Soft, nontender, nondistended. Positive bowel sounds. Normal active bowel sounds, no organomegaly. NEUROLOGICAL: Alert and oriented times three. Cranial nerves II through XII intact. Sensation grossly intact. EXTREMITIES: 5/5 microbial specialist, elbow flexion, elbow extension, knee extension, foot dorsiflexion, plantar flexion. Pulses intact. No edema, no calf tenderness SKIN: Blanching erythema. Sacral region, dressings over lumbosacral and midthoracic incisions. LABORATORY DATA: Please see below. Anemia with H&H 04/24.[address] lumbosacral spine Status post anterior spinal fusion at L2-L3, L4-L5 and L5-S1 with interbody fusion. Posterior spinal fusion from the lower thoracic spine to the sacrum with bilateral pedicle screws at T12, L1, L2, L3, L4, L5 , S1 and the right and left iliac bones. Posterior bone graft is also present throughout the lumbar spine. There are old anterior wedge deformities of L2 and L3. There is a mild anterolisthesis of L4 which appears similar to that seen on the prior lumbar spine CT scan performed on 04/02/2019. No acute fracture is identified . CT thoracic spine degenerative spondylosis of lower cervical spine, thoracic spine, no acute fracture or subluxation. Posterior fusion with bilateral pedicle screw and aarti instrumentation T10, 11, 12. Moderate bilateral neural foraminal stenosis. C6-7. Incidental note of mild bronchiectasis right posterior lobe and hiatus hernia CXRAY no acute findings 05.09.2020 CT Head compared to 2014 study . No acute intracranial abnormality ASSESSMENT: Urosepsis. Status post multiple lumbar surgeries (3), instrumentation, revision for osteomyelitis, discitis with T10 to pelvis decompression, fusion March 2020 Cauda equina syndrome. Neurogenic bladder Chronic back pain. Trigeminal neuralgia status post decompression. BPH. Anemia. 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 GERD with hiatal hernia Glaucoma. Hypothyroidism. Hypertension -This is an 79-year-old gentleman with past medical history multiple spinal surgeries complicated by interim osteomyelitis, discitis requiring revision and fusion March 2020 1510 through pelvis status post recent fall, so multiple medical status. Urosepsis. He presents for comprehensive rehabilitative services. Patient appears stable to proceed and participate fully in the progr am. PLAN: 1. Rehab- PT/OT advance gait and ADls, strengthen/stretch/maintain ROM all 4 limbs, pain management with appropriate modalities and accommodation medications 2. Neuro- hx of trigeminal neuralgia, Sindhu Surgery of unknown purpose, persisting left upper and right lower extremity weakness, possibly related to cervical challenges. Well continue to monitor and also dressed in the rehabilitation program 3. MSK status post rx for infection and debridement spine surgery, monitor wound healing remove dressings and keep open to air. Not clear if full osteomyelitis antibiotic RX given or post op Abx given, appreciate hospitalist assistance in requesting prior records and trying to sort out so we know best plan moving forward. 4. Cardiac-appears currently stable on lisinopril. Well continue to monitor 5. Resp -incentive spirometry, monitor for infection 6. Endo-history of hypothyroidism. Continue medications 7. - hx of chronic incontinence . Continue Taylor with plan to transition to bladder retraining once infection under better control. Not clear what degree is related to BPH vs Neurogenic effects from Cauda Equina. Hopefully with continued healing from most recent LS surgery, there may be some neuro return and improved bladder function. follow up with urodynamics may be indicated. Repeat culture and monitor as indicated. input 8. GI ppx-omeprazole 9. DVT ppx-heparin 10. Pain- tylenol high-dose, -lidoderm patch, Gabapentin 11. Anemia-probable post op, possibly hematuria related to issues, may need stool guaiac or other eval to asses for sources of loss, remains a bit low, will provide supplementation and continue to monitor. 12. Dispo- TBD either back to son or to home with if sufficiently stabilized. PROGNOSIS: Excellent. ESTIMATED LENGTH OF STAY:10-14 days. PROJECTED DISCHARGE DESTINATION: Home with family support and any durable medical equipment required to increase functional safety and mobility. TIME SPENT COUNSELING AND COORDINATING CARE: Greater than 60 minutes. Allergies Coded Allergies: No Known Allergies (Unverified , 05/12/19) Vital Signs Vital Signs Date Time Temp Pulse Resp B/P (MAP) Pulse Ox O2 Delivery O2 Flow Rate FiO2 05/12/20 07:58 108/58 05/12/20 05:55 99.5 90 18 96 Room Air Laboratory Data CBC/BMP Laboratory Tests 05/12/20 07:57 Labs 24H Laboratory Tests 2 05/12/20 06:00: 05/12/20 07:57: Nucleated Red Blood Cells % (auto) 0.0, Erythrocyte Sedimentation Rate 80H, Anion Gap 8, Glomerular Filtration Rate > 60.0, Calcium Level 7.9L, Total Bilirubin 0.3#, Aspartate Amino Transf (AST/SGOT) 45H, Alanine Aminotransferase (ALT/SGPT) 65, Alkaline Phosphatase 170H, C-Reactive Protein, Quantitative 17.30H, Total Protein 4.9#L, Albumin 1.9#L, Albumin/Globulin Ratio 0.6 Microbiology Microbiology 05/12/20 Blood Culture, Received Pending 05/12/20 Blood Culture, Received Pending Current Medications Current Medications Current Medications Medications (Trade) Dose Ordered Sig/Freda Route PRN Reason Start Time Stop Time Status Last Admin Dose Admin Acetaminophen (Tylenol Tab) 650 mg Q4HP PRN PO MILD PAIN (PS 1-4) 05/11/20 13:00 05/11/20 15:00 DC Acetaminophen (Tylenol Tab) 650 mg Q6HP PRN PO PAIN OR FEVER 05/11/20 15:00 05/12/20 04:03 Acetaminophen (Tylenol Tab) 1,000 mg Q6HP PRN PO MILD PAIN (PS 1-4) 05/11/20 13:00 UNV Amoxicillin/ Clavulanate Potassium (Augmentin) 875 mg BID PO 05/12/20 09:00 05/16/20 21:01 Ascorbic Acid (Vitamin C) 500 mg DAILY PO 05/12/20 09:00 05/12/20 07:53 Docusate Sodium (Colace) 100 mg BID PO 05/11/20 21:00 05/11/20 15:17 DC Docusate Sodium (Colace) 100 mg QAM PO 05/12/20 09:00 05/12/20 07:52 Dutasteride (Avodart) 0.5 mg QHS PO 05/11/20 21:00 05/11/20 21:15 Ferrous Gluconate (Fergon) 324 mg BID PO 05/12/20 21:00 UNV Fluticasone Propionate (Flonase 0.05% Nasal [place]) 2 spray DAILYPRN PRN NARES NASAL CONGESTION 05/11/20 15:00 Gabapentin (Neurontin) 200 mg BID PO 05/11/20 21:00 05/12/20 06:51 DC 05/11/20 21:14 Gabapentin (Neurontin) 400 mg BID PO 05/12/20 09:00 05/12/20 07:52 Heparin Sodium (Porcine) (Heparin) 5,000 units Q12H SC 05/11/20 21:00 05/12/20 07:52 Home Med (Med Rec Complete!) ASDIRECTED XX 05/11/20 15:30 05/11/20 15:38 DC Lactobacillus Acidophilus (Bacid) 1 ea DAILY PO 05/11/20 09:00 05/12/20 07:52 Latanoprost (Xalatan 0.005% Op Soln) 1 drop QHS OU 05/11/20 21:00 05/11/20 21:16 Levofloxacin (Levaquin) 750 mg DAILY@06 PO 05/11/20 06:00 05/11/20 15:38 DC Levofloxacin (Levaquin) 750 mg DAILY@2100 PO 05/11/20 21:00 05/12/20 08:28 DC 05/11/20 21:15 Levothyroxine Sodium (Synthroid) 50 mcg DAILY@06 PO 05/12/20 06:00 05/12/20 05:59 Lisinopril (Prinivil) 10 mg DAILY PO 05/12/20 09:00 Multivitamins (Theragram-M) 1 tab DAILY PO 05/11/20 09:00 05/12/20 07:52 Non-Formulary Medication ( See Comment Field Below ) REMOVE LIDODERM PATCH DAILY@0600 XX 05/12/20 06:00 05/12/20 06:01 DC 05/12/20 06:00 Omeprazole (PriLOSEC) 20 mg DAILY PO 05/12/20 09:00 05/12/20 07:52 Ondansetron HCl (Zofran) 4 mg Q6HP PRN PO NAUSEA 05/11/20 13:00 Potassium Chloride (Micro-K Extencaps) 20 meq DAILY PO 05/12/20 09:00 05/12/20 07:53 Tamsulosin HCl (Flomax) 0.4 mg QHS PO 05/11/20 21:00 05/11/20 21:15 Timolol Maleate (Timoptic 0.5% Ophth [place]) 1 drop BID OU 05/11/20 21:00 05/11/20 21:16 Vitamin B Complex/ Vitamin C (Therapeutic B Complex w/C) 1 cap DAILY PO 05/13/20 09:00 UNV Zinc Sulfate (Zinc Sulfate) 220 mg DAILY PO 05/11/20 09:00 05/12/20 07:53 Zinc Sulfate (Zinc Sulfate) 220 mg DAILY PO 05/13/20 09:00 UNV TRINA BHAT MD May 12, 2020 11:33
[2020-05-12 14:00] VITALS: BP 136/63
[2020-05-12] MEDS: FERROUS GLUCONATE 324 MG TAB PO SCH ×2 (14:52→21:20)
[2020-05-12] MEDS: VITAMIN B COMPLEX/VIT C CAP PO SCH (14:52)
[2020-05-12] MEDS: AUGMENTIN 875 MG TAB PO SCH ×2 (14:52→21:20)
[2020-05-12] MEDS: ACETAMINOPHEN 500 MG TAB PO SCH ×2 (14:53→21:21)
--- NOTE | 2020-05-12 15:29 | REPVR ---
PROCEDURE INFORMATION: Exam: MR Lumbar Spine Without and With Contrast. Exam date and time: 05/12/2020 12:37 PM Age: 79 years old Clinical indication: Low back pain; Prior surgery; Surgery date: <1 month; Surgery type: Lumbar fusion with hardware; Patient HX: Back pain, ulcer low back. HX osteo. Best images due to PT condition, utilized metal artifact reduction software; Additional info: R/O osteo. Disciitis compare with mri spine 07/2019 TECHNIQUE: Imaging protocol: Multiplanar magnetic resonance images of the lumbar spine without and with intravenous contrast. Contrast material: PROHANCE; Contrast volume: 20 ml; Contrast route: INTRAVENOUS (IV); COMPARISON: MRI-Spine, L.S. without con 08/08/2018 5:08 PM FINDINGS: Unfortunately, there is extensive metal throughout the spine making evaluation from T9 through L2 possible. The only sequence status partial useful is the T2 weighted sagittal mars sequence. Minimal information can be obtained from L2/3 through S2. L3 appears compressed approximately 50%. L2/3: Axial images are nondiagnostic. Sagittal images demonstrate possible foraminal narrowing due to spurring or disc material bilaterally. Essentially this is a nondiagnostic level. L3/4: Foramina are not well seen due to spurring with possible narrowing versus sequelae of artifact. The axial images are nondiagnostic. L4/5: No definite spinal stenosis identified the extensive artifact. There is listhesis of L4 5 mm anterior to L5. The foramina demonstrate possible moderate to severe narrowing but there is artifact making evaluation very limited. L5/S1: There is posterior spurring without spinal stenosis. There is no definite protrusion or extrusion. Foramina are fairly obscured due to metal. The right may be moderate to severely narrowed the left moderately narrowed due to spurring. IMPRESSION: Minimal useful information is able to be obtained as discussed above. Specifically, the level of previous discitis which is apparently L2/3 is not able to be evaluated properly on this examination due to extensive metal artifact. The history states discitis compare with MRI spine 07/2019. Most recent MRI available is from July 2018. Electronically signed by: Saurabh Stanton On 05/12/2020 15:29:11 PM
[2020-05-12 20:30] VITALS: BP 108/56
[2020-05-12] MEDS: TAMSULOSIN 0.4 MG CAP PO SCH (21:20)
[2020-05-12] MEDS: DUTASTERIDE 0.5 MG CAP (AVODART) PO SCH (21:20)
[2020-05-12] MEDS: LATANOPROST 0.005% OPHTH SOLN 2.5 ML OU SCH (21:22)
[2020-05-13 05:34] VITALS: BP 127/61
[2020-05-13] MEDS: LEVOTHYROXINE 50MCG TABLET (0.05MG) PO SCH (06:07)
[2020-05-13] MEDS: ACETAMINOPHEN 500 MG TAB PO SCH ×3 (06:08→20:58)
[2020-05-13] MEDS: LACTOBACILLUS ACIDOPHILUS CAP (BACID) PO SCH (07:53)
[2020-05-13] MEDS: FERROUS GLUCONATE 324 MG TAB PO SCH ×2 (07:53→20:57)
[2020-05-13] MEDS: AUGMENTIN 875 MG TAB PO SCH ×2 (07:53→20:58)
[2020-05-13] MEDS: DOCUSATE SODIUM 100 MG CAP PO SCH (07:53)
[2020-05-13] MEDS: POTASSIUM CHLORIDE 10 MEQ SR TABLET PO SCH (07:54)
[2020-05-13] MEDS: ZINC SULFATE 220 MG CAP PO SCH (07:54)
[2020-05-13] MEDS: ASCORBIC ACID 500 MG TAB PO SCH (07:54)
[2020-05-13] MEDS: OMEPRAZOLE 20 MG CAP PO SCH (07:54)
[2020-05-13] MEDS: VITAMIN B COMPLEX/VIT C CAP PO SCH (07:54)
[2020-05-13] MEDS: GABAPENTIN 400 MG CAP PO SCH ×2 (07:54→20:57)
[2020-05-13] MEDS: MULTIVITAMINS/MINERALS THERAP 1 TAB PO SCH (07:54)
[2020-05-13] MEDS: HEPARIN SOD (PORCINE) 5000UNITS/ML 1ML VIAL/SYRINGE SC SCH ×2 (07:55→20:57)
[2020-05-13] MEDS: TIMOLOL MALEATE 0.5% OPHTH SOLN 5 ML OU SCH ×2 (07:55→20:58)
[2020-05-13] MEDS: lisinopriL 10 MG TAB PO SCH (07:55)
[2020-05-13] MEDS ORDERED: ZINC SULFATE 220 MG CAP PO SCH (09:00)
--- NOTE | 2020-05-13 13:19 | IPNPDOC ---
Date Seen The patient was seen on 05/13/20. Progress Note Fever 100.8 -recent proteus UTI on augmentin per sensitivities. -blood cx negative -LS MRI neg -check cxr, recheck ua., procalcitonin, esr, crp VS, I&O, 24H, Fishbone Vital Signs/I&O Vital Signs Date Time Temp Pulse Resp B/P (MAP) Pulse Ox O2 Delivery O2 Flow Rate FiO2 05/13/20 07:55 99/54 05/13/20 05:34 97.9 92 18 99 Room Air I&O- Last 24 Hours up to 6 AM 05/13/20 06:00 Intake Total 610 ml Output Total 500 ml Balance 110 ml Laboratory Data Microbiology Microbiology 05/12/20 Blood Culture - Preliminary, Resulted No growth after 24 hours . All specim... 05/12/20 Blood Culture - Preliminary, Resulted No growth after 24 hours . All specim... NICOLE MARTELL MD May 13, 2020 13:19
[2020-05-13 13:47] LABS: BASO % 0.2 % (0.0-1.0); EOS # 0.1 10^3/uL (0.0-0.5); EOS % 0.5 % (0.0-3.0); HEMATOCRIT 36.2 % (42.0-52.0); LYMPH # 0.9 10^3/uL (1.5-5.0); MEAN CORPUSCULAR HEMOGLOBIN 30.2 pg (27.0-33.0); MEAN CORPUSCULAR HGB CONC 30.7 g/dl (32.0-36.5); MEAN CORPUSCULAR VOLUME 98.4 fl (80.0-96.0); MONO # 0.6 10^3/uL (0.0-0.8); MONO % 6.8 % (0.0-5.0); NEUTROPHILS # 7.5 10^3/uL (1.5-8.5); NEUTROPHILS % 82.1 % (36.0-66.0); PLATELET COUNT, AUTOMATED 289 10^3/uL (150-450); RED BLOOD COUNT 3.68 10^6/uL (4.30-6.10); WHITE BLOOD COUNT 9.1 10^3/uL (4.0-10.0)
[2020-05-13 13:52] LABS: HEMOGLOBIN 11.1 g/dl (13.5-17.5)
[2020-05-13 14:00] VITALS: BP 148/67
[2020-05-13 14:25] LABS: ERYTHROCYTE SEDIMENTATION RATE 86 mm/hr (0-20)
[2020-05-13 14:32] LABS: BLOOD UREA NITROGEN 10 MG/DL (7-18); CALCIUM LEVEL 8.7 MG/DL (8.8-10.2); CARBON DIOXIDE LEVEL 26 MEQ/L (21-32); CHLORIDE LEVEL 109 MEQ/L (98-107); CREATININE FOR GFR 0.94 MG/DL (0.70-1.30); GLOMERULAR FILTRATION RATE > 60.0 (>35); GLUCOSE, FASTING 90 MG/DL (70-100); POTASSIUM SERUM 3.1 MEQ/L (3.5-5.1); SODIUM LEVEL 143 MEQ/L (136-145)
--- NOTE | 2020-05-13 14:40 | REPVR ---
PROCEDURE INFORMATION: Exam: XR Chest, 2 Views Exam date and time: 05/13/2020 2:19 PM Age: 79 years old Clinical indication: Fever TECHNIQUE: Imaging protocol: XR of the chest Views: 2 views. COMPARISON: CR PORTABLE CHEST X-RAY 05/09/2020 8:36 PM FINDINGS: Lungs: Unremarkable. No consolidation. Pleural space: Unremarkable. No pleural effusion. No pneumothorax. Heart/Mediastinum: The cardiomediastinal silhouette is fairly stable in appearance. A hiatal hernia is again present, now with an air-fluid level. Bones/joints: There is again hardware in the thoracolumbar spine. IMPRESSION: 1. No evidence for acute pulmonary disease. 2. Hiatal hernia, as on 05/09/20. Electronically signed by: Francisco Duran On 05/13/2020 14:39:54 PM
[2020-05-13 20:18] VITALS: BP 110/57
[2020-05-13] MEDS: DUTASTERIDE 0.5 MG CAP (AVODART) PO SCH (20:57)
[2020-05-13] MEDS: TAMSULOSIN 0.4 MG CAP PO SCH (20:57)
[2020-05-13] MEDS: LATANOPROST 0.005% OPHTH SOLN 2.5 ML OU SCH (20:58)
[2020-05-14 05:06] VITALS: BP 141/76
[2020-05-14] MEDS: LEVOTHYROXINE 50MCG TABLET (0.05MG) PO SCH (05:51)
[2020-05-14] MEDS: ACETAMINOPHEN 500 MG TAB PO SCH ×3 (05:52→21:32)
[2020-05-14] MEDS: DOCUSATE SODIUM 100 MG CAP PO SCH (08:27)
[2020-05-14] MEDS: ZINC SULFATE 220 MG CAP PO SCH (08:27)
[2020-05-14] MEDS: VITAMIN B COMPLEX/VIT C CAP PO SCH (08:27)
[2020-05-14] MEDS: MULTIVITAMINS/MINERALS THERAP 1 TAB PO SCH (08:27)
[2020-05-14] MEDS: LACTOBACILLUS ACIDOPHILUS CAP (BACID) PO SCH (08:27)
[2020-05-14] MEDS: FERROUS GLUCONATE 324 MG TAB PO SCH ×2 (08:27→21:33)
[2020-05-14] MEDS: OMEPRAZOLE 20 MG CAP PO SCH (08:27)
[2020-05-14] MEDS: AUGMENTIN 875 MG TAB PO SCH ×2 (08:27→21:32)
[2020-05-14] MEDS: GABAPENTIN 400 MG CAP PO SCH ×2 (08:27→21:33)
[2020-05-14] MEDS: ASCORBIC ACID 500 MG TAB PO SCH (08:27)
[2020-05-14] MEDS: POTASSIUM CHLORIDE 10 MEQ SR TABLET PO SCH (08:28)
[2020-05-14] MEDS: HEPARIN SOD (PORCINE) 5000UNITS/ML 1ML VIAL/SYRINGE SC SCH ×2 (08:28→21:32)
[2020-05-14] MEDS: lisinopriL 10 MG TAB PO SCH (08:31)
[2020-05-14] MEDS: TIMOLOL MALEATE 0.5% OPHTH SOLN 5 ML OU SCH ×2 (08:32→21:33)
[2020-05-14 14:00] VITALS: BP 112/59
[2020-05-14 20:00] VITALS: BP 117/55
[2020-05-14] MEDS: DUTASTERIDE 0.5 MG CAP (AVODART) PO SCH (21:32)
[2020-05-14] MEDS: TAMSULOSIN 0.4 MG CAP PO SCH (21:32)
[2020-05-14] MEDS: LATANOPROST 0.005% OPHTH SOLN 2.5 ML OU SCH (21:33)
[2020-05-15 06:00] VITALS: BP_SYST 126; BP_SYST 144; BP_DIAS 76; BP_DIAS 81
[2020-05-15] MEDS: LEVOTHYROXINE 50MCG TABLET (0.05MG) PO SCH (06:20)
[2020-05-15] MEDS: ACETAMINOPHEN 500 MG TAB PO SCH ×3 (06:21→21:11)
[2020-05-15 08:33] LABS: BLOOD UREA NITROGEN 7 MG/DL (7-18); CALCIUM LEVEL 7.9 MG/DL (8.8-10.2); CARBON DIOXIDE LEVEL 28 MEQ/L (21-32); CHLORIDE LEVEL 106 MEQ/L (98-107); CREATININE FOR GFR 0.73 MG/DL (0.70-1.30); GLOMERULAR FILTRATION RATE > 60.0 (>35); GLUCOSE, FASTING 96 MG/DL (70-100); POTASSIUM SERUM 3.6 MEQ/L (3.5-5.1); SODIUM LEVEL 141 MEQ/L (136-145)
[2020-05-15] MEDS: lisinopriL 10 MG TAB PO SCH (09:00)
[2020-05-15] MEDS: HEPARIN SOD (PORCINE) 5000UNITS/ML 1ML VIAL/SYRINGE SC SCH ×2 (09:36→21:12)
[2020-05-15] MEDS: OMEPRAZOLE 20 MG CAP PO SCH (09:36)
[2020-05-15] MEDS: AUGMENTIN 875 MG TAB PO SCH ×2 (09:37→21:12)
[2020-05-15] MEDS: POTASSIUM CHLORIDE 10 MEQ SR TABLET PO SCH (09:38)
[2020-05-15] MEDS: GABAPENTIN 400 MG CAP PO SCH ×2 (09:38→21:11)
[2020-05-15] MEDS: ASCORBIC ACID 500 MG TAB PO SCH (09:38)
[2020-05-15] MEDS: LACTOBACILLUS ACIDOPHILUS CAP (BACID) PO SCH (09:38)
[2020-05-15] MEDS: ZINC SULFATE 220 MG CAP PO SCH (09:38)
[2020-05-15] MEDS: FERROUS GLUCONATE 324 MG TAB PO SCH ×2 (09:38→21:10)
[2020-05-15] MEDS: MULTIVITAMINS/MINERALS THERAP 1 TAB PO SCH (09:38)
[2020-05-15] MEDS: VITAMIN B COMPLEX/VIT C CAP PO SCH (09:38)
[2020-05-15] MEDS: DOCUSATE SODIUM 100 MG CAP PO SCH (09:39)
[2020-05-15] MEDS: TIMOLOL MALEATE 0.5% OPHTH SOLN 5 ML OU SCH ×2 (09:39→21:11)
[2020-05-15 14:00] VITALS: BP 111/56
[2020-05-15] MEDS ORDERED: SANTYL OINT 30GM TOP SCH (16:00)
--- NOTE | 2020-05-15 16:56 | IPNPDOC ---
PM&R Progress Note DATE OF SERVICE: May 15, 2020 Scoop Machine Operator Progress Note DATE OF ADMISSION: May 11, 2020 at 14:20 INPATIENT REHABILITATION ADMISSION DAY: #1 DATE OF SERVICE: 05/12/2020 CHIEF COMPLAINT: Fatigue, confusion, back pain, urinary hesitancy and incontinence, right temporal pain. SUBJECTIVE: This is an 79-year-old gentleman with severe arthritis status post multiple thoracolumbar surgeries complicated with osteomyelitis, discitis, subsequent cauda equina syndrome related to neural impingement from migrated cage is requiring BID intermittent catheterization. March 2020, he underwent surgical clear out, replacement, fusion, and patient was stabilized, making good progress on home exercise program after a stint in the rehabilitation unit. There were 3 areas of eschar in the incision. Evidently he got up in the middle of the night to go to the bathroom, fell, was down for several hours for being discovered by his son in the layout technician and eventually taken to ER was found to be Uroseptic with Proteus mirabilis. Initial treatment with IV ceftriaxone, at the time of his transfer changed to Levaquin and off to transfer to the unit to Augmentin. He had a low-grade fever over the weekend, appetite is fair and he slept well with no new complaints. Right trigeminal neuralgia seems to be better controlled with the increased dose of gabapentin 400 mg. son is present. Discussed current situation and the plan of ongoing bladder training and attempt to remove Taylor and resumption of intermi ttent catheterization. The hope is that there may be some continued neurological return. That might help improve that function. Medical records obtained from [facility] notable for the following: Dr. Meena Marinelli notes, histories of 3 prior surgeries, 1. lumbar laminectomy. 2. L4-L5 MIDLAF surgery with bilateral interbody cages. 3. L2-3 laminotomy with intraspinous Coflex. Postoperatively after the last surgery, he developed severe discitis, osteomyelitis at L2-3 approximately one year ago, progressive severe kyphosis and cauda equina and compression on the right and neurogenic bladder. The cages had backed out, causing foraminal stenosis on the right more than the left. This required the patient to ambulate with extreme forward flexion with a walker. Noted right iliopsoas, 3 out of 5, quadriceps 4 out of 5, as well as bilateral hamstrings, tibialis anterior, extensor hallucis longus. On the left. He was 3 over 5 and left iliopsoas with grossly normal strength distally. 04/07/2020 Patient underwent L2-3 intradiscal osteotomy, T10 to pelvis decompression and fusion with plate osteotomies. Neuro monitoring without evidence of significant changes throughout the procedure. Estimated blood loss 1500 mL, transfused 4 units packed red cells. Infectious disease consult with Dr. Chavez in his note indicates patient had history of staph epi bacteremia with spinal ostial discitis, received 6 weeks of IV antibiotics ending in July 2019. He had history of C. difficile 2018. At the time of this most recent surgery March 2020, apparently there was fluid collection seen of the thoracic region just below the dermis. No purulence and extension deeper into the muscle. A CSF leak was noted which was closed and the swab grew one colony of cutiebacterium, the notes do not indicate whether or not this was treated. Patients urine much clearer today, spirits better and working on ambulation wearing his TLSO, more upright and with less LE discomfort. Feeling encouraged with his progress. PAST MEDICAL HISTORY: Status post resection of trigeminal nerve for trigeminal neuralgia with persistent right temporofacial pain. 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 Notes Hypothyroidism. Son also notes history of left upper and right lower extremity weakness, etiology not clear. PAST SURGICAL HISTORY: Decompression trigeminal nerve. Appendectomy. Records indicate some type of remote gamma knife procedure 2 ALLERGIES: none MEDICATIONS: Please see below. FUNCTIONAL STATUS: His baseline is completely independent and acting as caregiver for his , he had nearly regained full independence after the most recent surgery at time of the fall. Pt demonstrates improved safety with functional transfers participating in strengthening, endurance and improving balance in standing. Pt fatigued at end of session and requires increased cueing with ambulation to keep 4ww closerto KRIS and to increase L step length. Goal is to achieve mod I level again. REVIEW OF SYSTEMS: The following is a completed review of systems and has been reviewed. Review of systems otherwise unremarkable. PAIN: Chronic low back, bilateral lower extremity EYES: No recent vision changes. EARS, NOSE, & THROAT: No throat pain, or dysphagia, or rhinorrhea. CARDIOVASCULAR: Denies chest pain or palpitations. PULMONARY: Denies shortness of breath. GASTROINTESTINAL: Denies constipation/diarrhea. Notes regularity with occasional need for laxatives. GENITOURINARY: Currently Taylor dependent, history of BPH and baseline need for intermittent cath approximately twice a day . MUSCULOSKELETAL: Healing from spine surgery. NEUROLOGICAL:Weakness, left upper extremity. Right lower extremity. HEMATOLOGICAL: Denies easy bruising. SKIN: Healing thoracolumbar incisions. PSYCHIATRIC: Unremarkable. All other review of systems found to be negative. PHYSICAL EXAMINATION: VITAL SIGNS: Please see below. GENERAL: Pleasant and cooperative. No acute distress. Alert and oriented times three, very thin body habitus. HEENT: PERRL. Extraocular movements intact. Clear conjunctiva, no adenopathy or thyromegaly. Full cervical range of motion without tenderness or spasm. Tongue pale and glossy, midline, poor dentition . Tenderness right temporal region. CARDIOVASCULAR: Regular rate and rhythm. No murmurs, rubs, or gallops. LUNGS: Clear to auscultation bilaterally. No wheezes. No rhonchi. ABDOMEN: Soft, nontender, nondistended. Positive bowel sounds. Normal active bowel sounds, no organomegaly. NEUROLOGICAL: Alert and oriented times three. Cranial nerves II through XII intact. Sensation grossly intact. 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 Pulses intact. No edema, no calf tenderness SKIN: Blanching erythema. Sacral region, long midthoracic incisions with 3 areas of breakdown upper level 1 cm the mid and lower levels. 2 cm each with fibrinous necrotic bases. These were debrided. No bleeding, no malodor. LABORATORY DATA: Please see below. Anemia with H&H 9/28.2 last week, now improved to 11.1 and 36.2, WBC 9.1, creatinine 0.73, UA trace positive for le ukocyte esterase [id number]. CT lumbosacral spine Status post anterior spinal fusion at L2-L3, L4-L5 and L5-S1 with interbody fusion. Posterior spinal fusion from the lower thoracic spine to the sacrum with bilateral pedicle screws at T12, L1, L2, L3, L4, L5 , S1 and the right and left iliac bones. Posterior bone graft is also present throughout the lumbar spine. There are old anterior wedge deformities of L2 and L3. There is a mild anterolisthesis of L4 which appears similar to that seen on the prior lumbar spine CT scan performed on 04/02/2019. No acute fracture is identified . CT thoracic spine degenerative spondylosis of lower cervical spine, thoracic spine, no acute fracture or subluxation. Posterior fusion with bilateral pedicle screw and aarti instrumentation T10, 11, 12. Moderate bilateral neural foraminal stenosis. C6-7. Incidental note of mild bronchiectasis right posterior lobe and hiatus hernia. 05/12/2020 MRI significant artifact, post operative changes 05/13/2020. Chest x-ray negative for pneumonia or effusion. Incidental note of hiatal hernia 05.09.2020 CT Head compared to 2013 study . No acute intracranial abnormality ASSESSMENT: Urosepsis. Status post multiple lumbar surgeries (3), instrumentation, revision for osteomyelitis, discitis with T10 to pelvis decompression, fusion March 2020 Cauda equina syndrome. Neurogenic bladder Chronic back pain. Trigeminal neuralgia status post decompression. BPH. Anemia. 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 GERD with hiatal hernia Glaucoma. Hypothyroidism. Hypertension. Unstageable shallow Ulcerations incisional site. Thoracic spine, possible shearing or pressure lesions This is an 79-year-old gentleman with past medical history multiple spinal surgeries complicated by interim osteomyelitis, discitis requiring revision and fusion March 2020 151 through pelvis status post recent fall, so multiple medical status. Urosepsis. He presents for comprehensive rehabilitative services. Patient appears stable to proceed and participate fully in the program. PLAN: 1. Rehab- PT/OT advance gait and ADls, strengthen/stretch/maintain ROM all 4 limbs, pain management with appropriate modalities and accommodation medications 2. Neuro- hx of trigeminal neuralgia, Sindhu Surgery of unknown purpose, persisting left upper and right lower extremity weakness, possibly related to cervical challenges. Well continue to monitor and also dressed in the rehabilitation program 3. MSK status post rx for infection and debridement spine surgery, monitor wound healing remove dressings and keep open to air. Not clear if full osteomyelitis antibiotic RX given or post op Abx given, appreciate hospitalist assistance in requesting prior records and trying to sort out so we know best plan moving forward. 4. Blood pressure has been low with systolics in the 90s in the 100s have had to hold lisinopril. Well continue to monitor and adjust meds 5. Resp -incentive spirometry, monitor for infection 6. Endo-history of hypothyroidism. Continue medications 7. - hx of chronic incontinence and neurogenic bladder . Bladder retraining now that infection under better control. Not clear what degree is related to BPH vs Neurogenic effects from Cauda Equina. Well DC N monitor with bladder scans and see how he does probably will need to increase the frequency of self cath to 3 times a day if he continues to have significant incomplete voiding. Hopefully with continued healing from most recent LS surgery, there may be some neuro return and improved bladder function. follow up with urodynamics may be indicated. Repeat culture and monitor as indicated. input 8. GI ppx-omeprazole 9. DVT ppx-heparin 10. Pain- tylenol high-dose, -lidoderm patch, Gabapentin 11. Anemia-probable post op, possibly hematuria related to issues, may need stool guaiac or other eval to asses for sources of loss, improving, will provide supplementation and continue to monitor. 12. Skin -cleanse area with lavage play memory managed upper lesion, which was related to granular tissue, apply Santyl and 2 x 2 gauze to the lower 2 lesions. Well monitor and adjust treatment daily. In the interim, well attempt to avoid supine positioning and encourage side to side to minimize pressure over that s christo region. 12. Dispo- TBD either back to son or to home with if sufficiently stabilized. PROGNOSIS: Excellent. ESTIMATED LENGTH OF STAY:10-14 days. PROJECTED DISCHARGE DESTINATION: Home with family support and any durable medical equipment required to increase functional safety and mobility. TIME SPENT COUNSELING AND COORDINATING CARE: Greater than 40minutes. Allergies Coded Allergies: No Known Allergies (Unverified , 05/12/19) Vital Signs Vital Signs Date Time Temp Pulse Resp B/P (MAP) Pulse Ox O2 Delivery O2 Flow Rate FiO2 05/15/20 14:00 97.4 99 19 111/56 (74) 100 Room Air Laboratory Data CBC/BMP Laboratory Tests 05/15/20 07:33 Labs 24H Laboratory Tests 2 05/15/20 07:33: Anion Gap 7L, Glomerular Filtration Rate > 60.0, Calcium Level 7.9L Microbiology Microbiology 05/13/20 Urine Culture - Final, Complete 05/12/20 Blood Culture - Preliminary, Resulted No Growth after 72 hours. All specime... 05/12/20 Blood Culture - Preliminary, Resulted No Growth after 72 hours. All specime... Current Medications Current Medications Current Medications Medications (Trade) Dose Ordered Sig/Freda Route PRN Reason Start Time Stop Time Status Last Admin Dose Admin Acetaminophen (Tylenol Tab) 650 mg Q4HP PRN PO MILD PAIN (PS 1-4) 05/11/20 13:00 05/11/20 15:00 DC Acetaminophen (Tylenol Tab) 650 mg Q6HP PRN PO PAIN OR FEVER 05/11/20 15:00 05/12/20 14:36 DC 05/12/20 04:03 Acetaminophen (Tylenol Tab) 1,000 mg Q6HP PRN PO MILD PAIN (PS 1-4) 05/11/20 13:00 UNV Acetaminophen (Tylenol Tab) 1,000 mg Q8H PO 05/12/20 14:00 05/15/20 06:21 Amoxicillin/ Clavulanate Potassium (Augmentin) 875 mg BID PO 05/12/20 09:00 05/16/20 21:01 05/15/20 09:37 Ascorbic Acid (Vitamin C) 500 mg DAILY PO 05/12/20 09:00 05/15/20 09:38 Collagenase (Santyl) DAILYPRN TOP 05/15/20 16:00 Docusate Sodium (Colace) 100 mg BID PO 05/11/20 21:00 05/11/20 15:17 DC Docusate Sodium (Colace) 100 mg QAM PO 05/12/20 09:00 05/15/20 09:39 Dutasteride (Avodart) 0.5 mg QHS PO 05/11/20 21:00 05/14/20 21:32 Ferrous Gluconate (Fergon) 324 mg BID PO 05/12/20 09:00 05/15/20 09:38 Fluticasone Propionate (Flonase 0.05% Nasal Kegley) 2 spray DAILYPRN PRN NARES NASAL CONGESTION 05/11/20 15:00 Gabapentin (Neurontin) 200 mg BID PO 05/11/20 21:00 05/12/20 06:51 DC 05/11/20 21:14 Gabapentin (Neurontin) 400 mg BID PO 05/12/20 09:00 05/15/20 09:38 Heparin Sodium (Porcine) (Heparin) 5,000 units Q12H SC 05/11/20 21:00 05/15/20 09:36 Home Med (Med Rec Complete!) ASDIRECTED XX 05/11/20 15:30 05/11/20 15:38 DC Lactobacillus Acidophilus (Bacid) 1 ea DAILY PO 05/11/20 09:00 05/15/20 09:38 Latanoprost (Xalatan 0.005% Op Soln) 1 drop QHS OU 05/11/20 21:00 05/14/20 21:33 Levofloxacin (Levaquin) 750 mg DAILY@06 PO 05/11/20 06:00 05/11/20 15:38 DC Levofloxacin (Levaquin) 750 mg DAILY@2100 PO 05/11/20 21:00 05/12/20 08:28 DC 05/11/20 21:15 Levothyroxine Sodium (Synthroid) 50 mcg DAILY@06 PO 05/12/20 06:00 05/15/20 06:20 Lisinopril (Prinivil) 10 mg DAILY PO 05/12/20 09:00 Multivitamins (Theragram-M) 1 tab DAILY PO 05/11/20 09:00 05/15/20 09:38 Non-Formulary Medication ( See Comment Field Below ) REMOVE LIDODERM PATCH DAILY@0600 XX 05/12/20 06:00 05/12/20 06:01 DC 05/12/20 06:00 Omeprazole (PriLOSEC) 20 mg DAILY PO 05/12/20 09:00 05/15/20 09:36 Ondansetron HCl (Zofran) 4 mg Q6HP PRN PO NAUSEA 05/11/20 13:00 Potassium Chloride (Micro-K Extencaps) 20 meq DAILY PO 05/12/20 09:00 05/15/20 09:38 Tamsulosin HCl (Flomax) 0.4 mg QHS PO 05/11/20 21:00 05/14/20 21:32 Timolol Maleate (Timoptic 0.5% Ophth Gisselle) 1 drop BID OU 05/11/20 21:00 05/15/20 09:39 Vitamin B Complex/ Vitamin C (Therapeutic B Complex w/C) 1 cap DAILY PO 05/12/20 09:00 05/15/20 09:38 Zinc Sulfate (Zinc Sulfate) 220 mg DAILY PO 05/11/20 09:00 05/15/20 09:38 Zinc Sulfate (Zinc Sulfate) 220 mg DAILY PO 05/13/20 09:00 05/12/20 11:21 TRINA LEONARD MD May 15, 2020 16:56
[2020-05-15 19:32] LABS: APPEARANCE, URINE HAZY (CLEAR); BACTERIA, URINE AUTO NEGATIVE (NEGATIVE); BILIRUBIN, URINE AUTO NEGATIVE (NEGATIVE); BLOOD, URINE BLOOD NEGATIVE (NEGATIVE); CALCIUM OXALATE CRYSTALS SMALL; COLOR, URINE AMBER (YELLOW); GLUCOSE, URINE (UA) AUTO NEGATIVE (NEGATIVE); KETONE, URINE AUTO NEGATIVE (NEGATIVE); LEUKOCYTE ESTERASE, URINE AUTO NEGATIVE (NEGATIVE); MUCUS, URINE SMALL (NEGATIVE); NITRITE, URINE AUTO NEGATIVE (NEGATIVE); PROTEIN, URINE AUTO 1+ mg/dL (NEGATIVE); RBC, URINE AUTO 3 /HPF (0-3); SQUAMOUS EPITHELIAL CELL UR AU 0 /HPF (0-6); UROBILINOGEN, URINE AUTO 0.2 mg/dL (0.0-2.0); WBC, URINE AUTO 2 /HPF (0-3)
[2020-05-15 20:00] VITALS: BP 114/55
[2020-05-15] MEDS: DUTASTERIDE 0.5 MG CAP (AVODART) PO SCH (21:10)
[2020-05-15] MEDS: LATANOPROST 0.005% OPHTH SOLN 2.5 ML OU SCH (21:11)
[2020-05-15] MEDS: TAMSULOSIN 0.4 MG CAP PO SCH (21:11)
[2020-05-16 06:16] VITALS: BP 137/72
[2020-05-16] MEDS: ACETAMINOPHEN 500 MG TAB PO SCH ×3 (06:16→21:00)
[2020-05-16] MEDS: LEVOTHYROXINE 50MCG TABLET (0.05MG) PO SCH (06:17)
[2020-05-16] MEDS ORDERED: NS 250 ML IV ONE ×2 (07:30→08:30)
[2020-05-16 08:36] LABS: BLOOD UREA NITROGEN 10 MG/DL (7-18); CALCIUM LEVEL 8.3 MG/DL (8.8-10.2); CARBON DIOXIDE LEVEL 27 MEQ/L (21-32); CHLORIDE LEVEL 105 MEQ/L (98-107); CREATININE FOR GFR 0.79 MG/DL (0.70-1.30); GLOMERULAR FILTRATION RATE > 60.0 (>35); GLUCOSE, FASTING 112 MG/DL (70-100); POTASSIUM SERUM 3.7 MEQ/L (3.5-5.1); SODIUM LEVEL 140 MEQ/L (136-145)
[2020-05-16 09:00] VITALS: BP 125/60
[2020-05-16] MEDS: lisinopriL 10 MG TAB PO SCH (09:00)
[2020-05-16] MEDS: FERROUS GLUCONATE 324 MG TAB PO SCH ×2 (10:01→20:59)
[2020-05-16] MEDS: OMEPRAZOLE 20 MG CAP PO SCH (10:01)
[2020-05-16] MEDS: HEPARIN SOD (PORCINE) 5000UNITS/ML 1ML VIAL/SYRINGE SC SCH ×2 (10:01→21:00)
[2020-05-16] MEDS: ZINC SULFATE 220 MG CAP PO SCH (10:01)
[2020-05-16] MEDS: MULTIVITAMINS/MINERALS THERAP 1 TAB PO SCH (10:01)
[2020-05-16] MEDS: VITAMIN B COMPLEX/VIT C CAP PO SCH (10:01)
[2020-05-16] MEDS: DOCUSATE SODIUM 100 MG CAP PO SCH (10:02)
[2020-05-16] MEDS: GABAPENTIN 400 MG CAP PO SCH ×2 (10:02→20:59)
[2020-05-16] MEDS: LACTOBACILLUS ACIDOPHILUS CAP (BACID) PO SCH (10:02)
[2020-05-16] MEDS: POTASSIUM CHLORIDE 10 MEQ SR TABLET PO SCH (10:03)
[2020-05-16] MEDS: AUGMENTIN 875 MG TAB PO SCH ×2 (10:03→20:59)
[2020-05-16] MEDS: TIMOLOL MALEATE 0.5% OPHTH SOLN 5 ML OU SCH ×2 (10:03→21:01)
[2020-05-16] MEDS: ASCORBIC ACID 500 MG TAB PO SCH (10:03)
[2020-05-16] MEDS: PHENAZOPYRIDINE 100 MG TAB PO SCH ×2 (11:23→20:59)
--- NOTE | 2020-05-16 19:38 | IPNPDOC ---
PM&R Progress Note DATE OF SERVICE: May 16, 2020 Senior Occupational Therapist Progress Note DATE OF ADMISSION: May 11, 2020 at 14:20 INPATIENT REHABILITATION ADMISSION DAY: #5 DATE OF SERVICE: 05/16/2020 CHIEF COMPLAINT: Fatigue, confusion, back pain, urinary hesitancy and incontinence, right temporal pain. SUBJECTIVE: This is an 79-year-old gentleman with severe arthritis status post multiple thoracolumbar surgeries complicated with osteomyelitis, discitis, subsequent cauda equina syndrome related to neural impingement from migrated cage is requiring BID intermittent catheterization. March 2020, he underwent surgical clear out, replacement, fusion, and patient was stabilized, making good progress on home exercise program after a stint in the rehabilitation unit. There were 3 areas of eschar in the incision. Prior to this admission, evidently he got up in the middle of the night to go to the bathroom, fell, was down for several hours for being discovered by his son in the pelt dropper and eventually taken to ER was found to be Uroseptic with Proteus mirabilis. Initial treatment with IV ceftriaxone, at the time of his transfer changed to Levaquin and upon transfer to the unit to Augmentin. He had a low-grade fever over the weekend, appetite is fair and he slept well with no new complaints. Right trigeminal neuralgia seems to be better controlled with the increased dose of gabapentin 400 mg. Yesterday we began bladder training, clamping and releasing the Taylor every 2 hours, however during the day he was dehydrated with little output, kept going over night with 1100 cc out and beginning sense of need to void, Taylor was dc'd however he has only been able to void once thus far this afternoon. Will continue bladder scan and straight cath which was prior baseline, added Pyridium and rechecking wound. Patient discussed in team conference, note of some altered mental status observed during afternoon therapy sessions, possibly related to fatigue and UTI. Cleanse spinal wounds and applied Santyl, wound beds, wheat cleaner with no drainage today. Medical records obtained from [facility] notable for the following: Dr. Meena Marinelli notes, histories of 3 prior surgeries, 1. lumbar laminectomy. 2. L4-L5 MIDLAF surgery with bilateral interbody cages. 3. L2-3 laminotomy with intraspinous Coflex. Postoperatively after the last surgery, he developed severe discitis, osteomyelitis at L2-3 approximately one year ago, progressive severe kyphosis and cauda equina and compression on the right and neurogenic bladder. The cages had backed out, causing foraminal stenosis on the right more than the left. This required the patient to ambulate with extreme forward flexion with a walker. Noted right iliopsoas, 3 out of 5, quadriceps 4 out of 5, as well as bilateral hamstrings, tibialis anterior, extensor hallucis longus. On the left. He was 3 over 5 and left iliopsoas with grossly normal strength distally. 04/07/2020 Patient underwent L2-3 intradiscal osteotomy, T10 to pelvis decompression and fusion with plate osteotomies. Neuro monitoring without evidence of significant changes throughout the procedure. Estimated blood loss 1500 mL, transfused 4 units packed red cells. Infectious disease consult with Dr. Chavez in his note indicates patient had history of staph epi bacteremia with spinal ostial discitis, received 6 weeks of IV antibiotics ending in July 2019. He had history of C. difficile 2018. At the time of this most recent surgery March 2020, apparently there was fluid collection seen of the thoracic region just below the dermis. No purulence and extension deeper into the muscle. A CSF leak was noted which was closed and the swab grew one colony of cutiebacterium, the notes do not indicate whether or not this was treated. Patients urine much clearer today, spirits better and working on ambulation wearing his TLSO, more upright and with less LE discomfort. Feeling encouraged with his progress. ALLERGIES: none MEDICATIONS: Please see below. FUNCTIONAL STATUS: His baseline is completely independent and acting as caregiver for his , he had nearly regained full independence after the most recent surgery at time of the fall. Pt demonstrates improved safety with functional transfers participating in strengthening, endurance and improving balance in standing. Pt fatigued at end of session and requires increased cueing with ambulation to keep 4ww closerto KRIS and to increase L step length. Goal is to achieve mod I level again. REVIEW OF SYSTEMS: The following is a completed review of systems and has been reviewed. Review of systems otherwise unremarkable. PAIN: Chronic low back, bilateral lower extremity EYES: No recent vision changes. EARS, NOSE, & THROAT: No throat pain, or dysphagia, or rhinorrhea. CARDIOVASCULAR: Denies chest pain or palpitations. PULMONARY: Denies shortness of breath. GASTROINTESTINAL: Denies constipation/diarrhea. Notes regularity with occasional need for laxatives. GENITOURINARY: Transitioning from Taylor, history of BPH and baseline need for intermittent cath. MUSCULOSKELETAL: Healing from spine surgery. NEUROLOGICAL:Weakness, left upper extremity. Right lower extremity. HEMATOLOGICAL: Denies easy bruising. SKIN: Healing thoracolumbar incisions. PSYCHIATRIC: Unremarkable. All other review of systems found to be negative. PHYSICAL EXAMINATION: VITAL SIGNS: Please see below. GENERAL: Pleasant and cooperative. No acute distress. Alert and oriented times three, very thin body habitus. HEENT: PERRL. Extraocular movements intact. Clear conjunctiva, no adenopathy or thyromegaly. Full cervical range of motion without tenderness or spasm. Tongue pale and glossy, midline, poor dentition . Tenderness right temporal region. CARDIOVASCULAR: Regular rate and rhythm. No murmurs, rubs, or gallops. LUNGS: Clear to auscultation bilaterally. No wheezes. No rhonchi. ABDOMEN: Soft, nontender, nondistended. Positive bowel sounds. Normal active bowel sounds, no organomegaly. NEUROLOGICAL: Alert and oriented times three. Cranial nerves II through XII intact. Sensation grossly intact. EXTREMITIES: 5/5 eye physician, elbow flexion, elbow extension, knee extension, foot dorsiflexion, plantar flexion. Pulses intact. No edema, no calf tenderness SKIN: Blanching erythema. Sacral region, long midthoracic incisions with 3 areas of breakdown upper level 1 cm the mid and lower levels. 2 cm each wheat cleaner bases LABORATORY DATA: Please see below. Anemia IMAGIN05.09.2020. CT lumbosacral spine Status post anterior spinal fusion at L2-L3, L4-L5 and L5-S1 with interbody fusion. Posterior spinal fusion from the lower thoracic spine to the sacrum with bilateral pedicle screws at T12, L1, L2, L3, L4, L5 , S1 and the right and left iliac bones. Posterior bone graft is also present throughout the lumbar spine. There are old anterior wedge deformities of L2 and L3. There is a mild anterolisthesis of L4 which appears similar to that seen on the prior lumbar spine CT scan performed on 04/02/2019. No acute fracture is identified . CT thoracic spine degenerative spondylosis of lower cervical spine, thoracic spine, no acute fracture or subluxation. Posterior fusion with bilateral pedicle screw and aarti instrumentation T10, 11, 12. Moderate bilateral neural foraminal stenosis. C6-7. Incidental note of mild bronchiectasis right posterior lobe and hiatus hernia. 05/12/2020 MRI significant artifact, post operative changes 05/13/2020. Chest x-ray negative for pneumonia or effusion. Incidental note of hiatal hernia 05.09.2020 CT Head compared to 2013 study . No acute intracranial abnormality ASSESSMENT: Urosepsis. Status post multiple lumbar surgeries (3), instrumentation, revision for osteomyelitis, discitis with T10 to pelvis decompression, fusion March 2020 Cauda equina syndrome. Neurogenic bladder Chronic back pain. Trigeminal neuralgia status post decompression. BPH. Anemia. 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 GERD with hiatal hernia Glaucoma. Hypothyroidism. Hypertension. Unstageable shallow Ulcerations incisional site. Thoracic spine, possible shearing or pressure lesions, improving This is an 79-year-old gentleman with past medical history multiple spinal surgeries complicated by interim osteomyelitis, discitis requiring revision and fusion March 2020 1510 through pelvis status post recent fall, so multiple medical status. Urosepsis. He presents for comprehensive rehabilitative services. Patient appears stable to proceed and participate fully in the prog henry. PLAN: 1. Rehab- PT/OT advance gait and ADls, strengthen/stretch/maintain ROM all 4 limbs, pain management with appropriate modalities and medications 2. Neuro- hx of trigeminal neuralgia, Sindhu Surgery of unknown purpose, persisting left upper and right lower extremity weakness, possibly related to cervical challenges. Well continue to monitor and also dressed in the rehabilitation program 3. MSK status post rx for infection and debridement spine surgery, monitor wound healing encourage side to side lying 4. Blood pressure has been low with systolics in the 90s in the 100s have had to hold lisinopril. Well continue to monitor and adjust meds 5. Resp -incentive spirometry, monitor for infection 6. Endo-history of hypothyroidism. Continue medications 7. - hx of chronic incontinence and neurogenic bladder . Bladder retraining now that infection under better control. Not clear what degree is related to BPH vs Neurogenic effects from Cauda Equina. Well DC N monitor with bladder scans and see how he does probably will need to increase the frequency of self cath to 3 times a day if he continues to have significant incomplete voiding. Hopefully with continued healing from most recent LS surgery, there may be some neuro return and improved bladder function. follow up with urodynamics may be indicated. On antibiotics, repeat culture and monitor as indicated. input 8. GI ppx-omeprazole 9. DVT ppx-heparin 10. Pain- tylenol high-dose, -lidoderm patch, Gabapentin, well controlled 11. Anemia-probable post op, possibly hematuria related to issues, may need stool guaiac or other eval to asses for sources of loss, improving, will provide supplementation and continue to monitor. 12. Skin -cleanse area with lavage play memory managed upper lesion. Well monitor and adjust treatment daily. In the interim, well attempt to avoid supine positioning and encourage side to side to minimize pressure over that spinal region. 12. Dispo- TBD either back to son or to home with if sufficiently stabilized. PROGNOSIS: Excellent. ESTIMATED LENGTH OF STAY:10-14 days. PROJECTED DISCHARGE DESTINATION: Home with family support and any durable medical equipment required to increase functional safety and mobility. TIME SPENT COUNSELING AND COORDINATING CARE: Greater than 40minutes. Allergies Coded Allergies: No Known Allergies (Unverified , 05/12/19) Vital Signs Vital Signs Date Time Temp Pulse Resp B/P (MAP) Pulse Ox O2 Delivery O2 Flow Rate FiO2 05/16/20 09:00 125/60 05/16/20 06:16 98.3 85 18 97 Room Air Laboratory Data CBC/BMP Laboratory Tests 05/16/20 07:46 Labs 24H Laboratory Tests 2 05/16/20 07:46: Anion Gap 8, Glomerular Filtration Rate > 60.0, Calcium Level 8.3L Microbiology Microbiology 05/13/20 Urine Culture - Final, Complete 05/12/20 Blood Culture - Preliminary, Resulted No Growth after 72 hours. All specime... 05/12/20 Blood Culture - Preliminary, Resulted No Growth after 72 hours. All specime... Current Medications Current Medications Current Medications Medications (Trade) Dose Ordered Sig/Freda Route PRN Reason Start Time Stop Time Status Last Admin Dose Admin Acetaminophen (Tylenol Tab) 650 mg Q4HP PRN PO MILD PAIN (PS 1-4) 05/11/20 13:00 05/11/20 15:00 DC Acetaminophen (Tylenol Tab) 650 mg Q6HP PRN PO PAIN OR FEVER 05/11/20 15:00 05/12/20 14:36 DC 05/12/20 04:03 Acetaminophen (Tylenol Tab) 1,000 mg Q6HP PRN PO MILD PAIN (PS 1-4) 05/11/20 13:00 UNV Acetaminophen (Tylenol Tab) 1,000 mg Q8H PO 05/12/20 14:00 05/16/20 13:29 Amoxicillin/ Clavulanate Potassium (Augmentin) 875 mg BID PO 05/12/20 09:00 05/16/20 21:01 05/16/20 10:03 Ascorbic Acid (Vitamin C) 500 mg DAILY PO 05/12/20 09:00 05/16/20 10:03 Collagenase (Santyl) DAILYPRN TOP 05/15/20 16:00 05/16/20 19:01 DC 05/15/20 21:13 Docusate Sodium (Colace) 100 mg BID PO 05/11/20 21:00 05/11/20 15:17 DC Docusate Sodium (Colace) 100 mg QAM PO 05/12/20 09:00 05/16/20 10:02 Dutasteride (Avodart) 0.5 mg QHS PO 05/11/20 21:00 05/15/20 21:10 Ferrous Gluconate (Fergon) 324 mg BID PO 05/12/20 09:00 05/16/20 10:01 Fluticasone Propionate (Flonase 0.05% Nasal [place]) 2 spray DAILYPRN PRN NARES NASAL CONGESTION 05/11/20 15:00 Gabapentin (Neurontin) 200 mg BID PO 05/11/20 21:00 05/12/20 06:51 DC 05/11/20 21:14 Gabapentin (Neurontin) 400 mg BID PO 05/12/20 09:00 05/16/20 10:02 Heparin Sodium (Porcine) (Heparin) 5,000 units Q12H SC 05/11/20 21:00 05/16/20 10:01 Home Med (Med Rec Complete!) ASDIRECTED XX 05/11/20 15:30 05/11/20 15:38 DC Lactobacillus Acidophilus (Bacid) 1 ea DAILY PO 05/11/20 09:00 05/16/20 10:02 Latanoprost (Xalatan 0.005% Op Soln) 1 drop QHS OU 05/11/20 21:00 05/15/20 21:11 Levofloxacin (Levaquin) 750 mg DAILY@06 PO 05/11/20 06:00 05/11/20 15:38 DC Levofloxacin (Levaquin) 750 mg DAILY@2100 PO 05/11/20 21:00 05/12/20 08:28 DC 05/11/20 21:15 Levothyroxine Sodium (Synthroid) 50 mcg DAILY@06 PO 05/12/20 06:00 05/16/20 06:17 Lisinopril (Prinivil) 10 mg DAILY PO 05/12/20 09:00 Multivitamins (Theragram-M) 1 tab DAILY PO 05/11/20 09:00 05/16/20 10:01 Non-Formulary Medication ( See Comment Field Below ) REMOVE LIDODERM PATCH DAILY@0600 XX 05/12/20 06:00 05/12/20 06:01 DC 05/12/20 06:00 Omeprazole (PriLOSEC) 20 mg DAILY PO 05/12/20 09:00 05/16/20 10:01 Ondansetron HCl (Zofran) 4 mg Q6HP PRN PO NAUSEA 05/11/20 13:00 Phenazopyridine HCl (Pyridium) 100 mg BID PO 05/16/20 09:00 05/19/20 08:59 05/16/20 11:23 Potassium Chloride (Micro-K Extencaps) 20 meq DAILY PO 05/12/20 09:00 05/16/20 10:03 Tamsulosin HCl (Flomax) 0.4 mg QHS PO 05/11/20 21:00 05/15/20 21:11 Timolol Maleate (Timoptic 0.5% Ophth Gisselle) 1 drop BID OU 05/11/20 21:00 05/16/20 10:03 Vitamin B Complex/ Vitamin C (Therapeutic B Complex w/C) 1 cap DAILY PO 05/12/20 09:00 05/16/20 10:01 Zinc Sulfate (Zinc Sulfate) 220 mg DAILY PO 05/11/20 09:00 05/16/20 10:01 Zinc Sulfate (Zinc Sulfate) 220 mg DAILY PO 05/13/20 09:00 05/12/20 11:21 TRINA LEONARD MD May 16, 2020 19:38
[2020-05-16 20:00] VITALS: BP 138/72
[2020-05-16] MEDS: TAMSULOSIN 0.4 MG CAP PO SCH (20:59)
[2020-05-16] MEDS: DUTASTERIDE 0.5 MG CAP (AVODART) PO SCH (20:59)
[2020-05-16] MEDS: LATANOPROST 0.005% OPHTH SOLN 2.5 ML OU SCH (21:01)
[2020-05-17 06:00] VITALS: BP 109/56
[2020-05-17] MEDS: LEVOTHYROXINE 50MCG TABLET (0.05MG) PO SCH (06:10)
[2020-05-17] MEDS: ACETAMINOPHEN 500 MG TAB PO SCH ×3 (06:11→21:11)
[2020-05-17] MEDS: ASCORBIC ACID 500 MG TAB PO SCH (09:34)
[2020-05-17] MEDS: OMEPRAZOLE 20 MG CAP PO SCH (09:34)
[2020-05-17] MEDS: ZINC SULFATE 220 MG CAP PO SCH (09:34)
[2020-05-17] MEDS: FERROUS GLUCONATE 324 MG TAB PO SCH ×2 (09:35→21:10)
[2020-05-17] MEDS: LACTOBACILLUS ACIDOPHILUS CAP (BACID) PO SCH (09:35)
[2020-05-17] MEDS: POTASSIUM CHLORIDE 10 MEQ SR TABLET PO SCH (09:35)
[2020-05-17] MEDS: PHENAZOPYRIDINE 100 MG TAB PO SCH ×2 (09:35→21:10)
[2020-05-17] MEDS: DOCUSATE SODIUM 100 MG CAP PO SCH (09:35)
[2020-05-17] MEDS: MULTIVITAMINS/MINERALS THERAP 1 TAB PO SCH (09:35)
[2020-05-17] MEDS: VITAMIN B COMPLEX/VIT C CAP PO SCH (09:35)
[2020-05-17] MEDS: GABAPENTIN 400 MG CAP PO SCH ×2 (09:35→21:11)
[2020-05-17] MEDS: TIMOLOL MALEATE 0.5% OPHTH SOLN 5 ML OU SCH ×2 (09:36→21:10)
[2020-05-17] MEDS: HEPARIN SOD (PORCINE) 5000UNITS/ML 1ML VIAL/SYRINGE SC SCH ×2 (09:36→21:10)
--- NOTE | 2020-05-17 10:42 | IPNPDOC ---
PM&R Progress Note DATE OF SERVICE: May 17, 2020 Property Man Progress Note DATE OF ADMISSION: May 11, 2020 at 14:20 DATE OF ADMISSION: May 11, 2020 at 14:20 INPATIENT REHABILITATION ADMISSION DAY: #6 DATE OF SERVICE: 05/17/2020 CHIEF COMPLAINT: Fatigue, confusion, back pain, urinary hesitancy and incont inence, right temporal pain. SUBJECTIVE: This is an 79-year-old gentleman with severe arthritis status post multiple thoracolumbar surgeries complicated with osteomyelitis, discitis, subsequent cauda equina syndrome related to neural impingement from migrated cage is requiring BID intermittent catheterization. He has chronic weakness of left upper extremity and right lower extremity of unknown etiology, possibly needs evaluation of C Spine. March 2020, he underwent surgical clear out, replacement, fusion, and patient was stabilized, making good progress on home exercise program after a stint in the rehabilitation unit. There were 3 areas of eschar in the incision. Prior to current ARU admission, evidently he got up in the middle of the night to go to the bathroom, fell, was down for several hours before being discovered by his son in the control operator and eventually taken to ER was found to be Uroseptic with Proteus mirabilis. Initial treatment with IV ceftriaxone, at the time of his transfer changed to Levaquin and upon transfer to the unit to Augmentin. He had a low-grade fever over the weekend, appetite is fair and he slept well with no new complaints. Right trigeminal neuralgia seems to be better controlled with the increased dose of gabapentin 400 mg. We began bladder training, clamping and releasing the Taylor every 2 hours, however during the day he was dehydrated with little output, continues with hesitancy despite beginning sense of need to void after Taylor was dc'd. Will continue bladder scan and straight cath which was prior baseline, added Pyridium and rechecking wound. Will switch to medihoney dressing applications today. Medical records obtained from [facility] notable for the following: Dr. Meena Marinelli notes, histories of 3 prior surgeries, 1. lumbar laminectomy. 2. L4-L5 MIDLAF surgery with bilateral interbody cages. 3. L2-3 laminotomy with intraspinous Coflex. Postoperatively after the last surgery, he developed severe discitis, osteomyelitis at L2-3 approximately one year ago, progressive severe kyphosis and cauda equina and compression on the right and neurogenic bladder. The cages had backed out, causing foraminal stenosis on the right more than the left. This required the patient to ambulate with extreme forward flexion with a walker. Noted right iliopsoas, 3 out of 5, quadriceps 4 out of 5, as well as bilateral hamstrings, tibialis anterior, extensor hallucis longus. On the left. He was 3 over 5 and left iliopsoas with grossly normal strength distally. 04/07/2020 Patient underwent L2-3 intradiscal osteotomy, T10 to pelvis decompression and fusion with plate osteotomies. Neuro monitoring without e vidence of significant changes throughout the procedure. Estimated blood loss 1500 mL, transfused 4 units packed red cells. Infectious disease consult with Dr. Chavez in his note indicates patient had history of staph epi bacteremia with spinal ostial discitis, received 6 weeks of IV antibiotics ending in July 2019. He had history of C. difficile 2018. At the time of this most recent surgery March 2020, apparently there was fluid collection seen of the thoracic region just below the dermis. No purulence and extension deeper into the muscle. A CSF leak was noted which was closed and the swab grew one colony of cutiebacterium, the notes do not indicate whether or not this was treated. Patients urine much clearer today, spirits better and working on ambulation wearing his TLSO, more upright and with less LE discomfort. Feeling encouraged with his progress. ALLERGIES: none MEDICATIONS: Please see below. FUNCTIONAL STATUS: His baseline is completely independent and acting as caregiver for his , he had nearly regained full independence after the most recent surgery at time of the fall. Pt demonstrates improved safety with functional transfers participating in strengthening, endurance and improving balance in standing. Pt fatigued at end of session and requires increased cueing with ambulation to keep 4ww closerto KRIS and to increase L step length. Goal is to achieve mod I level again. REVIEW OF SYSTEMS: The following is a completed review of systems and has been reviewed. Review of systems otherwise unremarkable. PAIN: Chronic low back, bilateral lower extremity EYES: No recent vision changes. EARS, NOSE, & THROAT: No throat pain, or dysphagia, or rhinorrhea. CARDIOVASCULAR: Denies chest pain or palpitations. PULMONARY: Denies shortness of breath. GASTROINTESTINAL: Denies constipation/diarrhea. Notes regularity with occasional need for laxatives. GENITOURINARY: Transitioning from Taylor, history of BPH and baseline need for intermittent cath. MUSCULOSKELETAL: Healing from spine surgery. NEUROLOGICAL:Weakness, left upper extremity. Right lower extremity. HEMATOLOGICAL: Denies easy bruising. SKIN: Healing thoracolumbar incisions. PSYCHIATRIC: Unremarkable. All other review of systems found to be negative. PHYSICAL EXAMINATION: VITAL SIGNS: Please see below. GENERAL: Pleasant and cooperative. No acute distress. Alert and oriented times three, very thin body habitus. HEENT: PERRL. Extraocular movements intact. Clear conjunctiva, no adenopathy or thyromegaly. Full cervical range of motion without tenderness or spasm. Tongue pale and glossy, midline, poor dentition . Tenderness right temporal region. CARDIOVASCULAR: Regular rate and rhythm. No murmurs, rubs, or gallops. LUNGS: Clear to auscultation bilaterally. No wheezes. No rhonchi. ABDOMEN: Soft, nontender, nondistended. Positive bowel sounds. Normal active bowel sounds, no organomegaly. NEUROLOGICAL: Alert and oriented times three. Cranial nerves II through XII intact. Sensation grossly intact. EXTREMITIES: 5/5 machine i engraver, elbow flexion, elbow extension, knee extension, foot dorsiflexion, plantar flexion. Pulses intact. No edema, no calf tenderness SKIN: Blanching erythema. Sacral region, long midthoracic incisions with 3 areas of breakdown upper level 1 cm the mid and lower levels. 2 cm each mercury cell cleaner bases LABORATORY DATA: Please see below. Anemia [id number]. CT lumbosacral spine Status post anterior spinal fusion at L2-L3, L4-L5 and L5-S1 with interbody fusion. Posterior spinal fusion from the lower thoracic spine to the sacrum with bilateral pedicle screws at T12, L1, L2, L3, L4, L5 , S1 and the right and left iliac bones. Posterior bone graft is also present throughout the lumbar spine. There are old anterior wedge deformities of L2 and L3. There is a mild anterolisthesis of L4 which appears similar to that seen on the prior lumbar spine CT scan performed on 04/02/2019. No acute fracture is identified . CT thoracic spine degenerative spondylosis of lower cervical spine, thoracic spine, no acute fracture or subluxation. Posterior fusion with bilateral pedicle screw and aarti instrumentation T10, 11, 12. Moderate bilateral neural foraminal stenosis. C6-7. Incidental note of mild bronchiectasis right posterior lobe and hiatus hernia. 05/12/2020 MRI significant artifact, post operative changes 05/13/2020. Chest x-ray negative for pneumonia or effusion. Incidental note of hiatal hernia 05.09.2020 CT Head compared to 2013 study . No acute intracranial abnormality ASSESSMENT: Urosepsis. Status post multiple lumbar surgeries (3), instrumentation, revision for osteomyelitis, discitis with T10 to pelvis decompression, fusion March 2020 Cauda equina syndrome. Neurogenic bladder Chronic back pain. Trigeminal neuralgia status post decompression. BPH. Anemia. 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 GERD with hiatal hernia Glaucoma. Hypothyroidism. Hypertension. Unstageable shallow Ulcerations incisional site. Thoracic spine, possible shearing or pressure lesions, improving This is an 79-year-old gentleman with past medical history multiple spinal surgeries complicated by interim osteomyelitis, discitis requiring revision and fusion March [id number] through pelvis status post recent fall, so multiple medical status. Urosepsis. Crossed weakness left upper and right lower extremity along with persisting neurogenic bladder raise concern for possible C Spine abnormalities further contributing to the picture. Will delve into records, if no recent study obtained, may need to proceed to r/o syrinx, severe OA with SC compromise causing "double crush" with known prior cauda equina lesions. PLAN: 1. Rehab- PT/OT advance gait and ADls, strengthen/stretch/maintain ROM all 4 limbs, pain management with appropriate modalities and medications 2. Neuro- hx of trigeminal neuralgia Gamma knife Surgery previously, unknown indication, persisting left upper and right lower extremity weakness, possibly related to cervical challenges. Well continue to monitor and also dressed in the rehabilitation program 3. MSK status post rx for infection and debridement spine surgery, monitor wound healing encourage side to side lying 4. Blood pressure has been low with systolics in the 90s in the 100s will DC lisinopril and treat empirically, possibly needs permissive hypertension for improved cerebral circulation and cognitive clarity. 5. Resp -incentive spirometry, monitor for infection 6. Endo-history of hypothyroidism. Continue medications 7. - hx of chronic incontinence and neurogenic bladder . Bladder retraining now that infection under better control most recent cx negative. Not clear what degree is related to BPH vs Neurogenic effects from Cauda Equina. Well monitor with bladder scans and see how he does probably will need to increase the frequency of self cath to 3 times a day if he continues to have significant incomplete voiding. Hopefully with continued healing from most recent LS surgery, there may be some neuro return and improved bladder function. follow up with urodynamics may be indicated. On antibiotics, repeat culture and monitor as indicated. input 8. GI ppx-omeprazole 9. DVT ppx-heparin 10. Pain- tylenol high-dose, -lidoderm patch, Gabapentin, well controlled 11. Anemia-probable post op, possibly hematuria related to issues, may need stool guaiac or other eval to asses for sources of loss, improving, will provide supplementation and continue to monitor. 12. Skin -cleanse area with lavage play memory managed upper lesion. Well monitor and adjust treatment daily. In the interim, well attempt to avoid supine positioning and encourage side to side to minimize pressure over that spinal region. 12. Dispo- TBD either back to son or to home with if sufficiently stabilized. Allergies Coded Allergies: No Known Allergies (Unverified , 05/12/19) Vital Signs Vital Signs Date Time Temp Pulse Resp B/P (MAP) Pulse Ox O2 Delivery O2 Flow Rate FiO2 05/17/20 06:00 98.5 99 17 109/56 (73) 98 Room Air Microbiology Microbiology 05/13/20 Urine Culture - Final, Complete 05/12/20 Blood Culture - Preliminary, Resulted No Growth after 72 hours. All specime... 05/12/20 Blood Culture - Preliminary, Resulted No Growth after 72 hours. All specime... Current Medications Current Medications Current Medications Medications (Trade) Dose Ordered Sig/Freda Route PRN Reason Start Time Stop Time Status Last Admin Dose Admin Acetaminophen (Tylenol Tab) 650 mg Q4HP PRN PO MILD PAIN (PS 1-4) 05/11/20 13:00 05/11/20 15:00 DC Acetaminophen (Tylenol Tab) 650 mg Q6HP PRN PO PAIN OR FEVER 05/11/20 15:00 05/12/20 14:36 DC 05/12/20 04:03 Acetaminophen (Tylenol Tab) 1,000 mg Q6HP PRN PO MILD PAIN (PS 1-4) 05/11/20 13:00 UNV Acetaminophen (Tylenol Tab) 1,000 mg Q8H PO 05/12/20 14:00 05/17/20 06:11 Amoxicillin/ Clavulanate Potassium (Augmentin) 875 mg BID PO 05/12/20 09:00 05/16/20 21:01 DC 05/16/20 20:59 Ascorbic Acid (Vitamin C) 500 mg DAILY PO 05/12/20 09:00 05/17/20 09:34 Collagenase (Santyl) DAILYPRN TOP 05/15/20 16:00 05/16/20 19:01 DC 05/15/20 21:13 Docusate Sodium (Colace) 100 mg BID PO 05/11/20 21:00 05/11/20 15:17 DC Docusate Sodium (Colace) 100 mg QAM PO 05/12/20 09:00 05/17/20 09:35 Dutasteride (Avodart) 0.5 mg QHS PO 05/11/20 21:00 05/16/20 20:59 Ferrous Gluconate (Fergon) 324 mg BID PO 05/12/20 09:00 05/17/20 09:35 Fluticasone Propionate (Flonase 0.05% Nasal [place]) 2 spray DAILYPRN PRN NARES NASAL CONGESTION 05/11/20 15:00 Gabapentin (Neurontin) 200 mg BID PO 05/11/20 21:00 05/12/20 06:51 DC 05/11/20 21:14 Gabapentin (Neurontin) 400 mg BID PO 05/12/20 09:00 05/17/20 09:35 Heparin Sodium (Porcine) (Heparin) 5,000 units Q12H SC 05/11/20 21:00 05/17/20 09:36 Home Med (Med Rec Complete!) ASDIRECTED XX 05/11/20 15:30 05/11/20 15:38 DC Lactobacillus Acidophilus (Bacid) 1 ea DAILY PO 05/11/20 09:00 05/17/20 09:35 Latanoprost (Xalatan 0.005% Op Soln) 1 drop QHS OU 05/11/20 21:00 05/16/20 21:01 Levofloxacin (Levaquin) 750 mg DAILY@06 PO 05/11/20 06:00 05/11/20 15:38 DC Levofloxacin (Levaquin) 750 mg DAILY@2100 PO 05/11/20 21:00 05/12/20 08:28 DC 05/11/20 21:15 Levothyroxine Sodium (Synthroid) 50 mcg DAILY@06 PO 05/12/20 06:00 05/17/20 06:10 Lisinopril (Prinivil) 10 mg DAILY PO 05/12/20 09:00 05/17/20 07:16 DC Multivitamins (Theragram-M) 1 tab DAILY PO 05/11/20 09:00 05/17/20 09:35 Non-Formulary Medication ( See Comment Field Below ) REMOVE LIDODERM PATCH DAILY@0600 XX 05/12/20 06:00 05/12/20 06:01 DC 05/12/20 06:00 Omeprazole (PriLOSEC) 20 mg DAILY PO 05/12/20 09:00 05/17/20 09:34 Ondansetron HCl (Zofran) 4 mg Q6HP PRN PO NAUSEA 05/11/20 13:00 Phenazopyridine HCl (Pyridium) 100 mg BID PO 05/16/20 09:00 05/19/20 08:59 05/17/20 09:35 Potassium Chloride (Micro-K Extencaps) 20 meq DAILY PO 05/12/20 09:00 05/17/20 09:35 Tamsulosin HCl (Flomax) 0.4 mg QHS PO 05/11/20 21:00 05/16/20 20:59 Timolol Maleate (Timoptic 0.5% Ophth G[place]) 1 drop BID OU 05/11/20 21:00 05/17/20 09:36 Vitamin B Complex/ Vitamin C (Therapeutic B Complex w/C) 1 cap DAILY PO 05/12/20 09:00 05/17/20 09:35 Zinc Sulfate (Zinc Sulfate) 220 mg DAILY PO 05/11/20 09:00 05/17/20 09:34 Zinc Sulfate (Zinc Sulfate) 220 mg DAILY PO 05/13/20 09:00 05/12/20 11:21 TRINA LEONARD MD May 17, 2020 10:40
[2020-05-17 14:00] VITALS: BP 121/60
--- NOTE | 2020-05-17 19:13 | REPVR ---
PROCEDURE INFORMATION: Exam: CT Cervical Spine Without Contrast Exam date and time: 05/17/2020 5:41 PM Age: 79 years old Clinical indication: Weakness; Additional info: W contrast, worsening L ue, rle weakness, HX osteomyelitis TECHNIQUE: Imaging protocol: Computed tomography images of the cervical spine without contrast. Radiation optimization: All CT scans at this facility use at least one of these dose optimization techniques: automated exposure control; mA and/or kV adjustment per patient size (includes targeted exams where dose is matched to clinical indication); or iterative reconstruction. COMPARISON: CT Spine,cervical w/o contrast 05/09/2020 7:22 PM FINDINGS: Vertebrae: The dens appears intact and the lateral masses of C1 appear symmetric. The cervical vertebra and facet joints appear in alignment on the lateral view. There is no evidence of acute fracture. There is severe sclerosis and facet hypertrophy mid cervical region greater on the right. C5-C6: There is severe narrowing of the C5-C6 disc space and very large posterior right osteophyte causing moderate impression on the anterior right side of the thecal sac. There is also severe right C6 neural foraminal narrowing secondary to osteophyte formation. C6-C7: There is severe narrowing of the C6-C7 disc space with moderate irregular posterior osteophyte formation causing moderate impression on the thecal sac. There is moderate to severe bilateral C7 neural foraminal narrowing secondary to osteophyte formation. Other bones/joints: There is a craniotomy defect of the bone flap right posterior fossa. Soft tissues: There is no evidence of soft tissue swelling. Lungs: Clear apical portions of the lung. Other findings: There is no evidence of changes of osteomyelitis. IMPRESSION: 1. No evidence of osteomyelitis. 2. The C5-C6 level demonstrates large posterior right osteophyte and severe right C6 neural foraminal narrowing. 3. The C6-C7 level demonstrates moderate posterior osteophyte formation and moderate to severe C7 neural foraminal narrowing. Electronically signed by: Hugo Lucio On 05/17/2020 19:13:34 PM
--- NOTE | 2020-05-17 19:29 | REPVR ---
PROCEDURE INFORMATION: Exam: CT Thoracic Spine Without Contrast Exam date and time: 05/17/2020 5:41 PM Age: 79 years old Clinical indication: Weakness; Additional info: W contrast, worsening L ue, rle weakness, HX osteomyelitis TECHNIQUE: Imaging protocol: Computed tomography images of the thoracic spine without contrast. Radiation optimization: All CT scans at this facility use at least one of these dose optimization techniques: automated exposure control; mA and/or kV adjustment per patient size (includes targeted exams where dose is matched to clinical indication); or iterative reconstruction. COMPARISON: CT Spine,thoracic w/o contrast 05/09/2020 7:29 PM FINDINGS: Vertebrae: The thoracic vertebra appear in alignment on the lateral view, however there is mild kyphosis. Screws are noted at T10, T11, T12 and appearing intact. T6-T7: There is a moderate right paracentral osteophyte causing moderate impression on the thecal sac. T7-T8: There is a moderate right paracentral osteophyte causing moderate impression on the thecal sac. Other bones/joints: There is no evidence of osteomyelitis. Other findings: The apical and medial aspects of the lungs appear clear. IMPRESSION: There is no evidence of osteomyelitis. Electronically signed by: Hugo Lucio On 05/17/2020 19:29:43 PM
--- NOTE | 2020-05-17 19:46 | REPVR ---
PROCEDURE INFORMATION: Exam: CT Lumbar Spine Without Contrast Exam date and time: 05/17/2020 5:41 PM Age: 79 years old Clinical indication: Weakness; Additional info: W contrast, worsening L ue, rle weakness, HX osteomyelitis TECHNIQUE: Imaging protocol: Computed tomography images of the lumbar spine without contrast. Radiation optimization: All CT scans at this facility use at least one of these dose optimization techniques: automated exposure control; mA and/or kV adjustment per patient size (includes targeted exams where dose is matched to clinical indication); or iterative reconstruction. COMPARISON: CT Spine, lumbar w/o contrast 05/09/2020 7:29 PM FINDINGS: Tubes, catheters and devices: There is a large amount of artifact created by the screw and bar devices. No definite abscess can be identified however the sensitivity is markedly decreased secondary to the metallic artifact. Kidneys and ureters: There is a mass at the lower pole of the right kidney which may be a very large cyst. To exclude any possibility of solid pathology recommend correlation with an abdominal CT with contrast or ultrasound. There is a probable cyst lower pole left kidney. IMPRESSION: 1. There is a mass at the lower pole of the right kidney possibly a very large cyst. To exclude any possibility of a solid lesion recommend CT scan with contrast of the abdomen and pelvis or an ultrasound. 2. Wedge-shaped compression deformities and degenerative change L2 and L3 probably all chronic. Electronically signed by: Hugo Lucio On 05/17/2020 19:46:11 PM
[2020-05-17 20:30] VITALS: BP 124/66
[2020-05-17] MEDS: TAMSULOSIN 0.4 MG CAP PO SCH (21:10)
[2020-05-17] MEDS: LATANOPROST 0.005% OPHTH SOLN 2.5 ML OU SCH (21:10)
[2020-05-17] MEDS: DUTASTERIDE 0.5 MG CAP (AVODART) PO SCH (21:11)
[2020-05-18 05:58] VITALS: BP 131/70
[2020-05-18] MEDS: LEVOTHYROXINE 50MCG TABLET (0.05MG) PO SCH (05:59)
[2020-05-18] MEDS: ACETAMINOPHEN 500 MG TAB PO SCH ×3 (06:00→21:16)
--- NOTE | 2020-05-18 08:43 | PMRNOTEPD ---
PMR Note Subjective Case discussed further with son and physical therapy note comparison to most recent stay in the interim since this admission. There appears to be worsening right lower extremity and left upper extremity weakness. Although, he began to regain some sensation with bladder function, as well as challenges with significant hesitancy and difficulty voiding. Objective Wounds cleansed, operative wound, decreased to 0.5 cm, middle wound 1.1 cm and lower wound 2 cm and narrowing. Jackson honey dressing applied. Right lower extremity dorsiflexion 3 over 5, quads 3 over 5. Left upper extremit y biceps, 3+ over 5, hand intrinsics 3+ over 5. Assessment/Plan: Proceed with CT scan imaging, cervical thoracolumbar spine, possibly less and better observation of structures reassessing for evidence of persisting osteomyelitis, fluid collections, hematoma, or other pathology that might be exhibiting to worsening neurological presentation. Contact NS and update with results Continue wound management Continue intermittent cath Continue to encourage fluids Continue Abx CT noted for significant DDD C spine, no acute disc or myelopathy or syrinx, postoperative changes TL spine, no evidence recurrent osteomyelitis, fluid collection or bony changes. Will forward info to Dr. Benjamin at [facility]. Will initiate empiric trial low dose steroids for possible inflammatory changes Will shift Flomax to daily dosing, continue IC, wound care TRINA BHAT MD May 17, 2020 14:53
--- NOTE | 2020-05-18 08:43 | IPNPDOC ---
PM&R Progress Note DATE OF SERVICE: May 18, 2020 Director Of Cardiology Progress Note DATE OF ADMISSION: May 11, 2020 at 14:20 INPATIENT REHABILITATION ADMISSION DAY: #7 CHIEF COMPLAINT: Fatigue, confusion, back pain, urinary hesitancy and incontinence, right temporal pain. SUBJECTIVE: This is an 79-year-old gentleman with severe arthritis status post multiple thoracolumbar surgeries complicated with osteomyelitis, discitis, subsequent cauda equina syndrome related to neural impingement from migrated cage is requiring BID intermittent catheterization. He has chronic weakness of left upper extremity and right lower extremity of unknown etiology, possibly needs evaluation of C Spine. March 2020, he underwent surgical clear out, replacement, fusion, and patient was stabilized, making good progress on home exercise program after a stint in the rehabilitation unit. There were 3 areas of eschar in the incision. 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 Initial treatment with IV ceftriaxone, at the time of his transfer changed to Levaquin and upon transfer to the unit to Augmentin. He had a low-grade fever over the weekend, appetite is fair and he slept well with no new complaints. Right trigeminal neuralgia seems to be better controlled with the increased dose of gabapentin 400 mg. Bladder training begun earlier this week, initial clamping and releasing the Taylor every 2 hours and subsequent removal, however he continues with hesitancy despite increasing sense of urge to void. Will continue bladder scan and straight cath which was prior baseline, added Pyridium. Wound healing nicely, switch to medihoney dressing applications today. Medical records obtained from [facility] notable for the following: Dr. Meena Marinelli notes, histories of 3 prior surgeries, 1. Lumbar laminectomy. 2. L4-L5 MIDLAF surgery with bilateral interbody cages. 3. L2-3 laminotomy with intraspinous Coflex. Postoperatively after the last surgery, he developed severe discitis, osteomyelitis at L2-3 approximately one year ago, progressive severe kyphosis and cauda equina and compression on the right and neurogenic bladder. The cages had backed out, causing foraminal stenosis on the right more than the left. This required the patient to ambulate with extreme forward flexion with a walker. Noted right iliopsoas, 3 out of 5, quadriceps 4 out of 5, as well as bilateral hamstrings, tibialis anterior, extensor hallucis longus. On the left. He was 3 over 5 and left iliopsoas with grossly normal strength distally. 04/07/2020 Patient underwent L2-3 intradiscal osteotomy, T10 to pelvis decompression and fusion with plate osteotomies. Neuro monitoring without evidence of significant changes throughout the procedure. Estimated blood loss 1500 mL, transfused 4 units packed red cells. Infectious disease consult with Dr. 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 He had history of C. difficile 2018. At the time of this most recent surgery March 2020, apparently there was fluid collection seen of the thoracic region just below the dermis. No purulence and extension deeper into the muscle. A CSF leak was noted which was closed and the swab grew one colony of cutiebacterium, the available notes do not indicate whether or not this was treated. Patients spirits better and working on ambulation wearing his TLSO, more upright and with less LE discomfort. Feeling encouraged with his progress. MEDICATIONS: Please see below. FUNCTIONAL STATUS: His baseline is completely independent and acting as caregiver for his , he had nearly regained full independence after the most recent surgery at time of the fall. Pt demonstrates improved safety with functional transfers participating in strengthening, endurance and improving balance in standing. Pt stood at [facility] for safety, noted to have trunk flexion and RLE flexion. Pt unable to flex and clear RLE during transfer and instead demonstrated "sliding" of leg along floor. Goal is to achieve mod I level again. REVIEW OF SYSTEMS: The following is a completed review of systems and has been reviewed. Review of systems otherwise unremarkable. PAIN: Chronic low back, bilateral lower extremity EYES: No recent vision changes. EARS, NOSE, & THROAT: No throat pain, or dysphagia, or rhinorrhea. CARDIOVASCULAR: Denies chest pain or palpitations. PULMONARY: Denies shortness of breath. GASTROINTESTINAL: Denies constipation/diarrhea. Notes regularity with occasional need for laxatives. GENITOURINARY: Transitioning from Taylor, history of BPH and baseline need for intermittent cath. MUSCULOSKELETAL: Healing from spine surgery, notes new left shoulder girdle pain. NEUROLOGICAL:Weakness, left upper extremity. Right lower extremity. HEMATOLOGICAL: Denies easy bruising. SKIN: Healing thoracolumbar incisions. PSYCHIATRIC: Unremarkable. All other review of systems found to be negative. PHYSICAL EXAMINATION: VITAL SIGNS: Please see below. GENERAL: Pleasant and cooperative. No acute distress. Alert and oriented times three, very thin body habitus. HEENT: PERRL. Extraocular movements intact. Clear conjunctiva, no adenopathy or thyromegaly. Full cervical range of motion without tenderness or spasm. Tongue pale and glossy, midline, poor dentition . Tenderness right temporal region. CARDIOVASCULAR: Regular rate and rhythm. No murmurs, rubs, or gallops. LUNGS: Clear to auscultation bilaterally. No wheezes. No rhonchi. ABDOMEN: Soft, nontender, nondistended. Positive bowel sounds. Normal active bowel sounds, no organomegaly. NEUROLOGICAL: Alert and oriented times three. Cranial nerves II through XII intact. Sensation grossly intact. EXTREMITIES: 5/5 hand spring repairer helper, elbow flexion, elbow extension, knee extension, foot dorsiflexion, plantar flexion. Tenderness left bicipital tendon. Pulses intact. No edema, no calf tenderness SKIN: Blanching erythema. Sacral region, long midthoracic incisions with 3 areas of breakdown upper level 1 cm the mid and lower levels. 2 cm each final cleaner bases LABORATORY DATA: Please see below. Anemia [id number] Vertebrae: The dens appears intact and the lateral masses of C1 appear symmetric. The cervical vertebra and facet joints appear in alignment on the lateral view. There is no evidence of acute fracture. There is severe sclerosis and facet hypertrophy mid cervical region greater on the right. C5-C6: There is severe narrowing of the C5-C6 disc space and very large posterior right osteophyte causing moderate impression on the anterior right side of the thecal sac. There is also severe right C6 neural foraminal narrowing secondary to osteophyte formation. C6-C7: There is severe narrowing of the C6-C7 disc space with moderate irregular posterior osteophyte formation causing moderate impression on the thecal sac. There is moderate to severe bilateral C7 neural foraminal narrowing secondary to osteophyte formation. Other bones/joints: There is a craniotomy defect of the bone flap right posterior fossa. Soft tissues: There is no evidence of soft tissue swelling. Lungs: Clear apical portions of the lung. Other findings: There is no evidence of changes of osteomyelitis. 1. There is a mass at the lower pole of the right kidney possibly a very large cyst. To exclude any possibility of a solid lesion recommend CT scan with contrast of the abdomen and pelvis or an ultrasound. 2. Wedge-shaped compression deformities and degenerative change L2 and L3 probably all chronic. Vertebrae: The thoracic vertebra appear in alignment on the lateral view, however there is mild kyphosis. Screws are noted at T10, T11, T12 and appearing intact. T6-T7: There is a moderate right paracentral osteophyte causing moderate impression on the thecal sac. T7-T8: There is a moderate right paracentral osteophyte causing moderate impression on the thecal sac. Other bones/joints: There is no evidence of osteomyelitis. Other findings: The apical and medial aspects of the lungs appear clear. IMPRESSION: There is no evidence of osteomyelitis, disc, abscess. ASSESSMENT: Urosepsis, improving. Status post multiple lumbar surgeries (3), instrumentation, revision for osteomyelitis, discitis with T10 to pelvis decompression, fusion March 2020 Cauda equina syndrome. Neurogenic bladder Chronic back pain. Trigeminal neuralgia status post decompression. BPH. Anemia. 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 GERD with hiatal hernia Glaucoma. Hypothyroidism. Hypertension. Unstageable shallow Ulcerations incisional site. Thoracic spine, possible shearing or pressure lesions, improving Osteoarthritis with multilevel spondylytic changes History of right occipital window, micro arterial surgery , gamma knife for trigeminal neuralgia Renal cysts This is an 79-year-old gentleman with past medical history multiple spinal surgeries complicated by interim osteomyelitis, discitis requiring revision and fusion March 2020 T10 through pelvis status post recent fall. Urosepsis resolving with antibiotics. Crossed weakness left upper and right lower extremity along with persisting neurogenic bladder raised concern for possible C Spine abnormalities further contributing to the picture. Repeat CT shows improvement of interim notice of bronchiectasis, and incidental note of bilateral renal cysts possibly in need of further workup. Have forwarded current updates to treating Neurosurgeon Dr. Benjamin at [facility]. Will initiate empiric trial low dose steroids for possible inflammatory changes in both shoulder and spinal areas. Add topical Diclofenac patch for shoulder. DC heparin as he is ambulating more and risk of bleeding from trauma of repeated IC. Will shift Flomax to daily dosing. PLAN: 1. Rehab- PT/OT advance gait and ADls, strengthen/stretch/maintain ROM all 4 limbs, pain management with appropriate modalities and medications, consider FES. 2. Neuro- hx of trigeminal neuralgia stable, pain controlled Well continue to monitor and also address left upper, right lower extremity weakness in the rehabilitation program and with trial steroids. 3. MSK status post rx for infection and debridement spine surgery, monitor wound healing encourage side to side lying, possibly US left shoulder girdle pain 4. Blood pressure has been low with systolics in the 90s in the 100s will DC lisinopril and treat empirically, possibly needs permissive hypertension for improved cerebral circulation and cognitive clarity. Seems brighter today with the change. 5. Resp -incentive spirometry, monitor for infection 6. Endo-history of hypothyroidism. Continue medications 7. - hx of chronic incontinence and neurogenic bladder . Bladder retraining now that infection under better control most recent cx negative. Not clear what degree is related to BPH vs Neurogenic effects from Cauda Equina. Well monitor with bladder scans and see how he does probably will need to increase the frequency of self cath to 3 times a day if he continues to have significant incomplete voiding. Hopefully with continued healing from most recent LS surgery, there may be some neuro return and improved bladder function. follow up with urodynamics may be indicated. On antibiotics, repeat culture and monitor as indicated. input 8. GI ppx-omeprazole 9. DVT ppx-TEDS 10. Pain- tylenol high-dose, -lidoderm patch, Gabapentin, Diclofenac, well controlled 11. Anemia-probable post op, possibly hematuria related to issues, may need stool guaiac or other eval to asses for sources of loss, improving, will provide supplementation and continue to monitor. 12. Skin -cleanse area with vash and applied medihoney to lesions yesterday. Well monitor and adjust treatment daily. In the interim, well attempt to avoid supine positioning and encourage side to side to minimize pressure over that spinal region. 12. Dispo- TBD either back to son or to home with if sufficiently stabilized. Allergies Coded Allergies: No Known Allergies (Unverified , 05/12/19) Vital Signs Vital Signs Date Time Temp Pulse Resp B/P (MAP) Pulse Ox O2 Delivery O2 Flow Rate FiO2 05/18/20 05:58 98.1 92 18 131/70 (90) 99 Room Air Microbiology Microbiology 05/13/20 Urine Culture - Final, Complete 05/12/20 Blood Culture - Final, Complete NO GROWTH AFTER 5 DAYS 05/12/20 Blood Culture - Final, Complete NO GROWTH AFTER 5 DAYS Current Medications Current Medications Current Medications Medications (Trade) Dose Ordered Sig/Freda Route PRN Reason Start Time Stop Time Status Last Admin Dose Admin Acetaminophen (Tylenol Tab) 650 mg Q4HP PRN PO MILD PAIN (PS 1-4) 05/11/20 13:00 05/11/20 15:00 DC Acetaminophen (Tylenol Tab) 650 mg Q6HP PRN PO PAIN OR FEVER 05/11/20 15:00 05/12/20 14:36 DC 05/12/20 04:03 Acetaminophen (Tylenol Tab) 1,000 mg Q6HP PRN PO MILD PAIN (PS 1-4) 05/11/20 13:00 UNV Acetaminophen (Tylenol Tab) 1,000 mg Q8H PO 05/12/20 14:00 05/18/20 06:00 Amoxicillin/ Clavulanate Potassium (Augmentin) 875 mg BID PO 05/12/20 09:00 05/16/20 21:01 DC 05/16/20 20:59 Ascorbic Acid (Vitamin C) 500 mg DAILY PO 05/12/20 09:00 05/17/20 09:34 Collagenase (Santyl) DAILYPRN TOP 05/15/20 16:00 05/16/20 19:01 DC 05/15/20 21:13 Docusate Sodium (Colace) 100 mg BID PO 05/11/20 21:00 05/11/20 15:17 DC Docusate Sodium (Colace) 100 mg QAM PO 05/12/20 09:00 05/17/20 09:35 Dutasteride (Avodart) 0.5 mg QHS PO 05/11/20 21:00 05/17/20 21:11 Ferrous Gluconate (Fergon) 324 mg BID PO 05/12/20 09:00 05/17/20 21:10 Fluticasone Propionate (Flonase 0.05% Nasal [place]) 2 spray DAILYPRN PRN NARES NASAL CONGESTION 05/11/20 15:00 Gabapentin (Neurontin) 200 mg BID PO 05/11/20 21:00 05/12/20 06:51 DC 05/11/20 21:14 Gabapentin (Neurontin) 400 mg BID PO 05/12/20 09:00 05/17/20 21:11 Heparin Sodium (Porcine) (Heparin) 5,000 units Q12H SC 05/11/20 21:00 05/17/20 21:10 Home Med (Med Rec Complete!) ASDIRECTED XX 05/11/20 15:30 05/11/20 15:38 DC Lactobacillus Acidophilus (Bacid) 1 ea DAILY PO 05/11/20 09:00 05/17/20 09:35 Latanoprost (Xalatan 0.005% Op Soln) 1 drop QHS OU 05/11/20 21:00 05/17/20 21:10 Levofloxacin (Levaquin) 750 mg DAILY@06 PO 05/11/20 06:00 05/11/20 15:38 DC Levofloxacin (Levaquin) 750 mg DAILY@2100 PO 05/11/20 21:00 05/12/20 08:28 DC 05/11/20 21:15 Levothyroxine Sodium (Synthroid) 50 mcg DAILY@06 PO 05/12/20 06:00 05/18/20 05:59 Lisinopril (Prinivil) 10 mg DAILY PO 05/12/20 09:00 05/17/20 07:16 DC Multivitamins (Theragram-M) 1 tab DAILY PO 05/11/20 09:00 05/17/20 09:35 Non-Formulary Medication ( See Comment Field Below ) REMOVE LIDODERM PATCH DAILY@0600 XX 05/12/20 06:00 05/12/20 06:01 DC 05/12/20 06:00 Omeprazole (PriLOSEC) 20 mg DAILY PO 05/12/20 09:00 05/17/20 09:34 Ondansetron HCl (Zofran) 4 mg Q6HP PRN PO NAUSEA 05/11/20 13:00 Phenazopyridine HCl (Pyridium) 100 mg BID PO 05/16/20 09:00 05/19/20 08:59 05/17/20 21:10 Potassium Chloride (Micro-K Extencaps) 20 meq DAILY PO 05/12/20 09:00 05/17/20 09:35 Prednisone (Deltasone) 5 mg DAILY PO 05/18/20 09:00 Tamsulosin HCl (Flomax) 0.4 mg QHS PO 05/11/20 21:00 05/17/20 21:10 Timolol Maleate (Timoptic 0.5% Ophth Gisselle) 1 drop BID OU 05/11/20 21:00 05/17/20 21:10 Vitamin B Complex/ Vitamin C (Therapeutic B Complex w/C) 1 cap DAILY PO 05/12/20 09:00 05/17/20 09:35 Zinc Sulfate (Zinc Sulfate) 220 mg DAILY PO 05/11/20 09:00 05/17/20 09:34 Zinc Sulfate (Zinc Sulfate) 220 mg DAILY PO 05/13/20 09:00 05/12/20 11:21 TRINA LEONARD MD May 18, 2020 08:43
[2020-05-18] MEDS: ZINC SULFATE 220 MG CAP PO SCH (08:44)
[2020-05-18] MEDS: HEPARIN SOD (PORCINE) 5000UNITS/ML 1ML VIAL/SYRINGE SC SCH (08:44)
[2020-05-18] MEDS: MULTIVITAMINS/MINERALS THERAP 1 TAB PO SCH (08:44)
[2020-05-18] MEDS: POTASSIUM CHLORIDE 10 MEQ SR TABLET PO SCH (08:45)
[2020-05-18] MEDS: VITAMIN B COMPLEX/VIT C CAP PO SCH (08:45)
[2020-05-18] MEDS: OMEPRAZOLE 20 MG CAP PO SCH (08:45)
[2020-05-18] MEDS: LACTOBACILLUS ACIDOPHILUS CAP (BACID) PO SCH (08:45)
[2020-05-18] MEDS: ASCORBIC ACID 500 MG TAB PO SCH (08:45)
[2020-05-18] MEDS: DOCUSATE SODIUM 100 MG CAP PO SCH (08:45)
[2020-05-18] MEDS: GABAPENTIN 400 MG CAP PO SCH ×2 (08:46→21:17)
[2020-05-18] MEDS: predniSONE 5 MG TAB PO SCH (08:46)
[2020-05-18] MEDS: PHENAZOPYRIDINE 100 MG TAB PO SCH ×2 (08:46→21:16)
[2020-05-18] MEDS: FERROUS GLUCONATE 324 MG TAB PO SCH ×2 (08:46→21:16)
[2020-05-18] MEDS: TIMOLOL MALEATE 0.5% OPHTH SOLN 5 ML OU SCH ×2 (08:46→21:17)
[2020-05-18] MEDS: DICLOFENAC EPOLAMINE 1.3 % PATCH TOP SCH ×2 (09:00→21:00)
[2020-05-18] MEDS: TAMSULOSIN 0.4 MG CAP PO SCH (10:12)
[2020-05-18 14:00] VITALS: BP 121/63
[2020-05-18 20:15] VITALS: BP 120/60
[2020-05-18] MEDS: DUTASTERIDE 0.5 MG CAP (AVODART) PO SCH (21:16)
[2020-05-18] MEDS: LATANOPROST 0.005% OPHTH SOLN 2.5 ML OU SCH (21:17)
[2020-05-19] MEDS: LEVOTHYROXINE 50MCG TABLET (0.05MG) PO SCH (05:50)
[2020-05-19] MEDS: ACETAMINOPHEN 500 MG TAB PO SCH ×3 (05:50→21:01)
[2020-05-19 06:02] VITALS: BP 126/66
[2020-05-19] MEDS: DICLOFENAC EPOLAMINE 1.3 % PATCH TOP SCH ×2 (08:43→21:00)
[2020-05-19] MEDS: OMEPRAZOLE 20 MG CAP PO SCH (08:44)
[2020-05-19] MEDS: predniSONE 5 MG TAB PO SCH (08:44)
[2020-05-19] MEDS: VITAMIN B COMPLEX/VIT C CAP PO SCH (08:44)
[2020-05-19] MEDS: ASCORBIC ACID 500 MG TAB PO SCH (08:44)
[2020-05-19] MEDS: LACTOBACILLUS ACIDOPHILUS CAP (BACID) PO SCH (08:44)
[2020-05-19] MEDS: DOCUSATE SODIUM 100 MG CAP PO SCH (08:44)
[2020-05-19] MEDS: TAMSULOSIN 0.4 MG CAP PO SCH (08:44)
[2020-05-19] MEDS: MULTIVITAMINS/MINERALS THERAP 1 TAB PO SCH (08:44)
[2020-05-19] MEDS: GABAPENTIN 400 MG CAP PO SCH ×2 (08:44→21:01)
[2020-05-19] MEDS: FERROUS GLUCONATE 324 MG TAB PO SCH ×2 (08:44→21:01)
[2020-05-19] MEDS: ZINC SULFATE 220 MG CAP PO SCH (08:44)
[2020-05-19] MEDS: POTASSIUM CHLORIDE 10 MEQ SR TABLET PO SCH (08:45)
[2020-05-19] MEDS: TIMOLOL MALEATE 0.5% OPHTH SOLN 5 ML OU SCH ×2 (08:45→21:02)
[2020-05-19] MEDS: SANTYL OINT 30GM TOP SCH (09:00)
--- NOTE | 2020-05-19 09:46 | IPNPDOC ---
PM&R Progress Note DATE OF SERVICE: May 19, 2020 Layer Off Progress Note DATE OF ADMISSION: May 11, 2020 at 14:20 INPATIENT REHABILITATION ADMISSION DAY: #[8] CHIEF COMPLAINT: Fatigue, confusion, back pain, urinary hesitancy and incontinence, right temporal pain, right lower extremity, left upper extremity weakness. SUBJECTIVE: This is an 79-year-old gentleman with severe arthritis status post multiple thoracolumbar surgeries complicated with osteomyelitis, discitis, subsequent cauda equina syndrome related to neural impingement from migrated cage is requiring BID intermittent catheterization. He has chronic weakness of left upper extremity and right lower extremity of unknown etiology probably related to multilevel spinal spondyloarthropathy. Further discussion clarify history that he had had a prior right occipital craniotomy in symptoms of microvascular procedure along with the gamma knife as part of treatment for the trigeminal neuralgia. March 2020, he underwent surgical clear out, replacement, fusion, and patient was stabilized, making good progress on home exercise program after a stint in the rehabilitation unit. There were 3 areas of eschar in the inc ision. Prior to current ARU admission, evidently he got up in the middle of the night to go to the bathroom, fell, was down for several hours before being discovered by his son in the mental hygiene consultant and eventually taken to ER was found to be Uroseptic with Proteus mirabilis. Initial treatment with IV ceftriaxone, at the time of his transfer changed to Levaquin and upon transfer to the unit to Augmentin. He had a low-grade fever last weekend, appetite is fair and he slept well with no new complaints. Right trigeminal neuralgia seems to be better controlled with the increased dose of gabapentin 400 mg. Bladder training begun earlier this week, initial clamping and releasing the Taylor every 2 hours and subsequent removal, however he continues with hesitancy despite increasing sense of urge to void. Will continue bladder scan and straight cath which was prior baseline, added Pyridium. Wounds healing nicely. Dr. Meena Marinelli notes, histories of 3 prior surgeries, 1. Lumbar laminectomy. 2. L4-L5 MIDLAF surgery with bilateral interbody cages. 3. L2-3 laminotomy with intraspinous Coflex. Postoperatively after the last surgery, he developed severe discitis, osteomyelitis at L2-3 approximately one year ago, progressive severe kyphosis and cauda equina and compression on the right and neurogenic bladder. The cages had backed out, causing foraminal stenosis on the right more than the left. This required the patient to ambulate with extreme forward flexion with a walker. Noted right iliopsoas, 3 out of 5, quadriceps 4 out of 5, as well as bilateral hamstrings, tibialis anterior, extensor hallucis longus. On the left. He was 3 over 5 and left iliopsoas with grossly normal strength distally. 04/07/2020 Patient underwent L2-3 intradiscal osteotomy, T10 to pelvis decompres shama and fusion with plate osteotomies. Neuro monitoring without evidence of significant changes throughout the procedure. Estimated blood loss 1500 mL, transfused 4 units packed red cells. Infectious disease consult with Dr. 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 He had history of C. difficile 2018. At the time of this most recent surgery March 2020, apparently there was fluid collection seen of the thoracic region just below the dermis. No purulence and extension deeper into the muscle. A CSF leak was noted which was closed and the swab grew one colony of cutiebacterium, the available notes do not indicate whether or not this was treated. Patients spirits better and working on ambulation wearing his TLSO, more upright and with less LE discomfort. Feeling encouraged with his progress. Communication was sent to Dr. Coronado at [facility], [place] regarding alterations in the right lower extremity and recent reimaging and any further recommendations for workup or treatment adjustments. Low-dose prednisone was begun, well tolerated and seems to be helping further improve symptoms and stabilizing strength in the right lower extremity. MEDICATIONS: Please see below. FUNCTIONAL STATUS: His baseline is completely independent and acting as caregiver for his , he had nearly regained full independence after the most recent surgery at time of the fall. Pt demonstrates improved safety with functional transfers participating in strengthening, endurance and improving balance in standing. Pt. stood at [facility] for safety, noted to have trunk flexion and RLE flexion. Pt unable to flex and clear RLE during transfer and instead demonstrated "sliding" of leg along floor. Goal is to achieve mod I level again. REVIEW OF SYSTEMS: The following is a completed review of systems and has been reviewed. Review of systems otherwise unremarkable. PAIN: Chronic low back, bilateral lower extremity EYES: No recent vision changes. EARS, NOSE, & THROAT: No throat pain, or dysphagia, or rhinorrhea. CARDIOVASCULAR: Denies chest pain or palpitations. PULMONARY: Denies shortness of breath. GASTROINTESTINAL: Denies constipation/diarrhea. Notes regularity with occasional need for laxatives. GENITOURINARY: Getting some sensation, however, continues need intermittent cath. MUSCULOSKELETAL: Healing from spine surgery NEUROLOGICAL:Weakness, left upper extremity. Right lower extremity. HEMATOLOGICAL: Denies easy bruising. SKIN: Healing thoracolumbar incisions. PSYCHIATRIC: Unremarkable. All other review of systems found to be negative. PHYSICAL EXAMINATION: VITAL SIGNS: Please see below. GENERAL: Pleasant and cooperative. No acute distress. Alert and oriented times three, very thin body habitus. HEENT: PERRL. Extraocular movements intact. Clear conjunctiva, no adenopathy or thyromegaly. Full cervical range of motion without tenderness or spasm. Tongue pale and glossy, midline, poor dentition . Tenderness right temporal region. CARDIOVASCULAR: Regular rate and rhythm. No murmurs, rubs, or gallops. LUNGS: Clear to auscultation bilaterally. No wheezes. No rhonchi. ABDOMEN: Soft, nontender, nondistended. Positive bowel sounds. Normal active bowel sounds, no organomegaly. NEUROLOGICAL: Alert and oriented times three. Cranial nerves II through XII intact. Sensation grossly intact. EXTREMITIES: 5/5 right, 4 +over 5 left desk interviewer, elbow flexion, elbow extension, 4 over 5, right 5 over 5 left knee extension, foot dorsiflexion, plantar flexion. Pulses intact. No edema, no calf tenderness. SKIN: Blanching erythema. Sacral region, long midthoracic incisions with 3 areas of breakdown upper level 1 cm the mid and lower levels. 2 cm each. Dressings had come elevated and lesions are more necrotic. No drainage or redness. LABORATORY DATA: Please see below. Anemia [id number] Vertebrae: The dens appears intact and the lateral masses of C1 appear symmetric. The cervical vertebra and facet joints appear in alignment on the lateral view. There is no evidence of acute fracture. There is severe sclerosis and facet hypertrophy mid cervical region greater on the right. C5-C6: There is severe narrowing of the C5-C6 disc space and very large posterior right osteophyte causing moderate impression on the anterior right side of the thecal sac. There is also severe right C6 neural foraminal narrowing secondary to osteophyte formation. C6-C7: There is severe narrowing of the C6-C7 disc space with moderate irregular posterior osteophyte formation causing moderate impression on the thecal sac. There is moderate to severe bilateral C7 neural foraminal narrowing secondary to osteophyte formation. Other bones/joints: There is a craniotomy defect of the bone flap right posterior fossa. Soft tissues: There is no evidence of soft tissue swelling. Lungs: Clear apical portions of the lung. Other findings: There is no evidence of changes of osteomyelitis. 1. There is a mass at the lower pole of the right kidney possibly a very large cyst. To exclude any possibility of a solid lesion recommend CT scan with contrast of the abdomen and pelvis or an ultrasound. 2. Wedge-shaped compression deformities and degenerative change L2 and L3 probably all chronic. Vertebrae: The thoracic vertebra appear in alignment on the lateral view, however there is mild kyphosis. Screws are noted at T10, T11, T12 and appearing intact. T6-T7: There is a moderate right paracentral osteophyte causing moderate impression on the thecal sac. T7-T8: There is a moderate right paracentral osteophyte causing moderate impression on the thecal sac. Other bones/joints: There is no evidence of osteomyelitis. Other findings: The apical and medial aspects of the lungs appear clear. IMPRESSION: There is no evidence of osteomyelitis, disc, abscess. ASSESSMENT: Urosepsis, improving. Status post multiple lumbar surgeries (3), instrumentation, revision for osteomyelitis, discitis with T10 to pelvis decompression, fusion March 2020, no evidence of recurrence of infection Cauda equina syndrome. Neurogenic bladder Chronic back pain. Trigeminal neuralgia status post decompression. BPH. Anemia. 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 GERD with hiatal hernia Glaucoma. Hypothyroidism. Hypertension. Unstageable shallow Ulcerations incisional site. Thoracic spine, possible shearing or pressure lesions, improving Osteoarthritis with multilevel spondylytic changes History of right occipital window, micro arterial surgery , gamma knife for trigeminal neuralgia Renal cysts This is an 79-year-old gentleman with past medical history multiple spinal surgeries complicated by interim osteomyelitis, discitis requiring revision and fusion March 2020 T10 through pelvis status post recent fall. Urosepsis resolving with antibiotics. Crossed weakness left upper and right lower extremity along with persisting neurogenic bladder raised concern for possible C Spine abnormalities further contributing to the picture. Repeat CT shows improvement of interim notice of bronchiectasis, and incidental note of bilateral renal cysts possibly in need of further workup. Have forwarded current updates to treating Neurosurgeon Dr. Coronado at [facility]. Have initiated empiric trial low dose steroids for possible inflammatory changes in both shoulder and spinal areas, appears to be responding. . PLAN: 1. Rehab- PT/OT advance gait and ADls, strengthen/stretch/maintain ROM all 4 limbs, pain management with appropriate modalities and medications, consider FES. 2. Neuro- hx of trigeminal neuralgia stable, pain controlled Well continue to monitor and also address left upper, right lower extremity weakness in the rehabilitation program and with trial steroids. 3. MSK status post rx for infection and debridement spine surgery, monitor wound healing encourage side to side lying, possibly US left shoulder girdle pain 4. Blood pressure has been low with systolics in the 90s in the 100s will DC lisinopril and treat empirically, possibly needs permissive hypertension for improved cerebral circulation and cognitive clarity. Seems brighter today with the change. 5. Resp -incentive spirometry, monitor for infection 6. Endo-history of hypothyroidism. Continue medications 7. - hx of chronic incontinence and neurogenic bladder . Bladder retraining now that infection under better control most recent cx negative. Not clear what degree is related to BPH vs Neurogenic effects from Cauda Equina. Well monitor with bladder scans and see how he does probably will need to increase the frequency of self cath to 3 times a day if he continues to have significant incomplete voiding. Hopefully with continued healing from most recent LS surgery, there may be some neuro return and improved bladder function. follow up with urodynamics may be indicated. On antibiotics, repeat culture and monitor as indicated. Shifted Flomax to daytime dosing to see if that helps improve ability to spontaneously void. We'll proceed with nursing observation training and education on self catheterization techniques, in hopes of preventing or minimizing future infections. Probably will proceed with chronic suppression therapy, which will also help facilitate continued wound healing 8. GI ppx-omeprazole 9. DVT ppx-TEDS 10. Pain- tylenol high-dose, -lidoderm patch, Gabapentin, well controlled 11. Anemia-probable post op, possibly hematuria related to issues, may need stool guaiac or other eval to asses for sources of loss, improving, will provide supplementation and continue to monitor. 12. Skin -continue to cleanse switch back to santyl, to encourage further enzymatic debridement over the weekend, continue to attempt to avoid supine positioning and encourage side to side to minimize pressure over that spinal region. 12. Dispo- TBD either back to son or to home with if sufficiently stabilized. Allergies Coded Allergies: No Known Allergies (Unverified , 05/12/19) Vital Signs Vital Signs Date Time Temp Pulse Resp B/P (MAP) Pulse Ox O2 Delivery O2 Flow Rate FiO2 05/19/20 06:02 98.4 91 18 126/66 (86) 96 Room Air Microbiology Microbiology 05/13/20 Urine Culture - Final, Complete 05/12/20 Blood Culture - Final, Complete NO GROWTH AFTER 5 DAYS 05/12/20 Blood Culture - Final, Complete NO GROWTH AFTER 5 DAYS Current Medications Current Medications Current Medications Medications (Trade) Dose Ordered Sig/Freda Route PRN Reason Start Time Stop Time Status Last Admin Dose Admin Acetaminophen (Tylenol Tab) 650 mg Q4HP PRN PO MILD PAIN (PS 1-4) 05/11/20 13:00 05/11/20 15:00 DC Acetaminophen (Tylenol Tab) 650 mg Q6HP PRN PO PAIN OR FEVER 05/11/20 15:00 05/12/20 14:36 DC 05/12/20 04:03 Acetaminophen (Tylenol Tab) 1,000 mg Q6HP PRN PO MILD PAIN (PS 1-4) 05/11/20 13:00 UNV Acetaminophen (Tylenol Tab) 1,000 mg Q8H PO 05/12/20 14:00 05/19/20 05:50 Amoxicillin/ Clavulanate Potassium (Augmentin) 875 mg BID PO 05/12/20 09:00 05/16/20 21:01 DC 05/16/20 20:59 Ascorbic Acid (Vitamin C) 500 mg DAILY PO 05/12/20 09:00 05/19/20 08:44 Collagenase (Santyl) DAILYPRN TOP 05/15/20 16:00 05/16/20 19:01 DC 05/15/20 21:13 Diclofenac Epolamine (Flector 1.3%) 1 patch Q12H TOP 05/18/20 09:00 05/19/20 08:43 Docusate Sodium (Colace) 100 mg BID PO 05/11/20 21:00 05/11/20 15:17 DC Docusate Sodium (Colace) 100 mg QAM PO 05/12/20 09:00 05/19/20 08:44 Dutasteride (Avodart) 0.5 mg QHS PO 05/11/20 21:00 05/18/20 21:16 Ferrous Gluconate (Fergon) 324 mg BID PO 05/12/20 09:00 05/19/20 08:44 Fluticasone Propionate (Flonase 0.05% Nasal [place]) 2 spray DAILYPRN PRN NARES NASAL CONGESTION 05/11/20 15:00 Gabapentin (Neurontin) 200 mg BID PO 05/11/20 21:00 05/12/20 06:51 DC 05/11/20 21:14 Gabapentin (Neurontin) 400 mg BID PO 05/12/20 09:00 05/19/20 08:44 Heparin Sodium (Porcine) (Heparin) 5,000 units Q12H SC 05/11/20 21:00 05/18/20 10:41 DC 05/18/20 08:44 Home Med (Med Rec Complete!) ASDIRECTED XX 05/11/20 15:30 05/11/20 15:38 DC Lactobacillus Acidophilus (Bacid) 1 ea DAILY PO 05/11/20 09:00 05/19/20 08:44 Latanoprost (Xalatan 0.005% Op Soln) 1 drop QHS OU 05/11/20 21:00 05/18/20 21:17 Levofloxacin (Levaquin) 750 mg DAILY@06 PO 05/11/20 06:00 05/11/20 15:38 DC Levofloxacin (Levaquin) 750 mg DAILY@2100 PO 05/11/20 21:00 05/12/20 08:28 DC 05/11/20 21:15 Levothyroxine Sodium (Synthroid) 50 mcg DAILY@06 PO 05/12/20 06:00 05/19/20 05:50 Lisinopril (Prinivil) 10 mg DAILY PO 05/12/20 09:00 05/17/20 07:16 DC Multivitamins (Theragram-M) 1 tab DAILY PO 05/11/20 09:00 05/19/20 08:44 Non-Formulary Medication ( See Comment Field Below ) REMOVE LIDODERM PATCH DAILY@0600 XX 05/12/20 06:00 05/12/20 06:01 DC 05/12/20 06:00 Omeprazole (PriLOSEC) 20 mg DAILY PO 05/12/20 09:00 05/19/20 08:44 Ondansetron HCl (Zofran) 4 mg Q6HP PRN PO NAUSEA 05/11/20 13:00 Phenazopyridine HCl (Pyridium) 100 mg BID PO 05/16/20 09:00 05/19/20 08:59 DC 05/18/20 21:16 Potassium Chloride (Micro-K Extencaps) 20 meq DAILY PO 05/12/20 09:00 05/19/20 08:45 Prednisone (Deltasone) 5 mg DAILY PO 05/18/20 09:00 05/19/20 08:44 Tamsulosin HCl (Flomax) 0.4 mg DAILY PO 05/18/20 09:00 05/19/20 08:44 Tamsulosin HCl (Flomax) 0.4 mg QHS PO 05/11/20 21:00 05/18/20 09:01 DC 05/17/20 21:10 Timolol Maleate (Timoptic 0.5% Ophth Gisselle) 1 drop BID OU 05/11/20 21:00 05/19/20 08:45 Vitamin B Complex/ Vitamin C (Therapeutic B Complex w/C) 1 cap DAILY PO 05/12/20 09:00 05/19/20 08:44 Zinc Sulfate (Zinc Sulfate) 220 mg DAILY PO 05/11/20 09:00 05/19/20 08:44 Zinc Sulfate (Zinc Sulfate) 220 mg DAILY PO 05/13/20 09:00 05/12/20 11:21 TRINA LEONARD MD May 19, 2020 09:46
[2020-05-19 14:00] VITALS: BP 115/65
[2020-05-19 20:00] VITALS: BP 125/65
[2020-05-19] MEDS: DUTASTERIDE 0.5 MG CAP (AVODART) PO SCH (21:01)
[2020-05-19] MEDS: LATANOPROST 0.005% OPHTH SOLN 2.5 ML OU SCH (21:02)
[2020-05-20 05:56] VITALS: BP 124/66
[2020-05-20] MEDS: LEVOTHYROXINE 50MCG TABLET (0.05MG) PO SCH (06:09)
[2020-05-20] MEDS: ACETAMINOPHEN 500 MG TAB PO SCH ×3 (06:09→20:08)
[2020-05-20] MEDS: ZINC SULFATE 220 MG CAP PO SCH (08:17)
[2020-05-20] MEDS: MULTIVITAMINS/MINERALS THERAP 1 TAB PO SCH (08:17)
[2020-05-20] MEDS: ASCORBIC ACID 500 MG TAB PO SCH (08:17)
[2020-05-20] MEDS: OMEPRAZOLE 20 MG CAP PO SCH (08:17)
[2020-05-20] MEDS: POTASSIUM CHLORIDE 10 MEQ SR TABLET PO SCH (08:18)
[2020-05-20] MEDS: TAMSULOSIN 0.4 MG CAP PO SCH (08:18)
[2020-05-20] MEDS: predniSONE 5 MG TAB PO SCH (08:18)
[2020-05-20] MEDS: VITAMIN B COMPLEX/VIT C CAP PO SCH (08:18)
[2020-05-20] MEDS: FERROUS GLUCONATE 324 MG TAB PO SCH ×2 (08:18→20:08)
[2020-05-20] MEDS: DICLOFENAC EPOLAMINE 1.3 % PATCH TOP SCH ×2 (08:18→20:08)
[2020-05-20] MEDS: DOCUSATE SODIUM 100 MG CAP PO SCH (08:18)
[2020-05-20] MEDS: GABAPENTIN 400 MG CAP PO SCH ×2 (08:18→20:08)
[2020-05-20] MEDS: LACTOBACILLUS ACIDOPHILUS CAP (BACID) PO SCH (08:18)
[2020-05-20] MEDS: TIMOLOL MALEATE 0.5% OPHTH SOLN 5 ML OU SCH ×2 (08:19→20:08)
[2020-05-20] MEDS: SANTYL OINT 30GM TOP SCH (08:20)
[2020-05-20 14:00] VITALS: BP 125/65
[2020-05-20 20:00] VITALS: BP 142/69
[2020-05-20] MEDS: DUTASTERIDE 0.5 MG CAP (AVODART) PO SCH (20:08)
[2020-05-20] MEDS: LATANOPROST 0.005% OPHTH SOLN 2.5 ML OU SCH (20:08)
[2020-05-21] MEDS: LEVOTHYROXINE 50MCG TABLET (0.05MG) PO SCH (05:07)
[2020-05-21] MEDS: ACETAMINOPHEN 500 MG TAB PO SCH ×3 (05:08→20:39)
[2020-05-21 06:30] VITALS: BP 139/67
[2020-05-21] MEDS: ZINC SULFATE 220 MG CAP PO SCH (08:15)
[2020-05-21] MEDS: DOCUSATE SODIUM 100 MG CAP PO SCH (08:15)
[2020-05-21] MEDS: MULTIVITAMINS/MINERALS THERAP 1 TAB PO SCH (08:15)
[2020-05-21] MEDS: ASCORBIC ACID 500 MG TAB PO SCH (08:15)
[2020-05-21] MEDS: TAMSULOSIN 0.4 MG CAP PO SCH (08:15)
[2020-05-21] MEDS: FERROUS GLUCONATE 324 MG TAB PO SCH ×2 (08:16→20:38)
[2020-05-21] MEDS: DICLOFENAC EPOLAMINE 1.3 % PATCH TOP SCH ×2 (08:16→20:38)
[2020-05-21] MEDS: VITAMIN B COMPLEX/VIT C CAP PO SCH (08:16)
[2020-05-21] MEDS: LACTOBACILLUS ACIDOPHILUS CAP (BACID) PO SCH (08:16)
[2020-05-21] MEDS: POTASSIUM CHLORIDE 10 MEQ SR TABLET PO SCH (08:16)
[2020-05-21] MEDS: predniSONE 5 MG TAB PO SCH (08:16)
[2020-05-21] MEDS: GABAPENTIN 400 MG CAP PO SCH ×2 (08:16→20:38)
[2020-05-21] MEDS: OMEPRAZOLE 20 MG CAP PO SCH (08:16)
[2020-05-21] MEDS: SANTYL OINT 30GM TOP SCH (08:17)
[2020-05-21] MEDS: TIMOLOL MALEATE 0.5% OPHTH SOLN 5 ML OU SCH ×2 (08:17→20:38)
[2020-05-21 14:00] VITALS: BP 109/58
[2020-05-21 20:15] VITALS: BP 122/63
[2020-05-21] MEDS: DUTASTERIDE 0.5 MG CAP (AVODART) PO SCH (20:38)
[2020-05-21] MEDS: LATANOPROST 0.005% OPHTH SOLN 2.5 ML OU SCH (20:38)
[2020-05-22] MEDS: LEVOTHYROXINE 50MCG TABLET (0.05MG) PO SCH (05:44)
[2020-05-22] MEDS: ACETAMINOPHEN 500 MG TAB PO SCH ×3 (05:45→21:54)
[2020-05-22 05:55] VITALS: BP 126/69
[2020-05-22 07:30] VITALS: BP 112/57
[2020-05-22] MEDS: MULTIVITAMINS/MINERALS THERAP 1 TAB PO SCH (08:14)
[2020-05-22] MEDS: LACTOBACILLUS ACIDOPHILUS CAP (BACID) PO SCH (08:14)
[2020-05-22] MEDS: TAMSULOSIN 0.4 MG CAP PO SCH (08:15)
[2020-05-22] MEDS: VITAMIN B COMPLEX/VIT C CAP PO SCH (08:15)
[2020-05-22] MEDS: FERROUS GLUCONATE 324 MG TAB PO SCH ×2 (08:15→20:54)
[2020-05-22] MEDS: POTASSIUM CHLORIDE 10 MEQ SR TABLET PO SCH (08:15)
[2020-05-22] MEDS: ASCORBIC ACID 500 MG TAB PO SCH (08:15)
[2020-05-22] MEDS: ZINC SULFATE 220 MG CAP PO SCH (08:15)
[2020-05-22] MEDS: DOCUSATE SODIUM 100 MG CAP PO SCH (08:15)
[2020-05-22] MEDS: predniSONE 5 MG TAB PO SCH (08:15)
[2020-05-22] MEDS: OMEPRAZOLE 20 MG CAP PO SCH (08:15)
[2020-05-22] MEDS: GABAPENTIN 400 MG CAP PO SCH ×2 (08:15→20:53)
[2020-05-22] MEDS: DICLOFENAC EPOLAMINE 1.3 % PATCH TOP SCH ×2 (08:16→20:55)
[2020-05-22] MEDS: TIMOLOL MALEATE 0.5% OPHTH SOLN 5 ML OU SCH ×2 (08:17→20:54)
--- NOTE | 2020-05-22 11:07 | IPNPDOC ---
PM&R Progress Note DATE OF SERVICE: May 22, 2020 [employer] Progress Note DATE OF ADMISSION: May 11, 2020 at 14:20 INPATIENT REHABILITATION ADMISSION DAY: #[9] CHIEF COMPLAINT: Fatigue, confusion, back pain, urinary hesitancy and incontinence, right temporal pain, right lower extremity, left upper extremity weakness. SUBJECTIVE: This is an 79-year-old gentleman with severe arthritis status post multiple thoracolumbar surgeries complicated with osteomyelitis, discitis, subsequent cauda equina syndrome related to neural impingement from migrated cage is requiring BID intermittent catheterization. He has chronic weakness of left upper extremity and right lower extremity of unknown etiology probably related to multilevel spinal spondyloarthropathy. Further discussion clarified history that he had had a prior right occipital craniotomy in symptoms of microvascular procedure along with the gamma knife as part of treatment for the trigeminal neuralgia. March 2020, he underwent surgical clear out, replacement, fusion, and patient was stabilized, making good progress on home exercise program after a stint in the rehabilitation unit. There were 3 areas of eschar in the incision. Prior to current ARU admission, evidently he got up in the middle of the night to go to the bathroom, fell, was down for several hours before being discovered by his son in the equipment operator and eventually taken to ER was found to be Uroseptic with Proteus mirabilis. Initial treatment with IV ceftriaxone, at the time of his transfer changed to Levaquin and upon transfer to the unit, to Augmentin. Right trigeminal neuralgia seems to be better controlled with the increased dose of gabapentin 400 mg. Bladder training begun last week, and he is working on optimized self cath techniques, family to bring in prior more user friendly catheterization tubes, education on aseptic technique being reinforced. Wounds healing nicely. Dr. Meena Marinelli notes, histories of 3 prior surgeries, 1. Lumbar laminectomy. 2. L4-L5 MIDLAF surgery with bilateral interbody cages. 3. L2-3 laminotomy with intraspinous Coflex. Postoperatively after the last surgery, he developed severe discitis, osteomyelitis at L2-3 approximately one year ago, progressive severe kyphosis and cauda equina and compression on the right and neurogenic bladder. The cages had backed out, causing foraminal stenosis on the right more than the left. This required the patient to ambulate with extreme forward flexion with a walker. Noted right iliopsoas, 3 out of 5, quadriceps 4 out of 5, as well as bilateral hamstrings, tibialis anterior, extensor hallucis longus. On the left. He was 3 over 5 and left iliopsoas with grossly normal strength distally. 04/07/2020 Patient underwent L2-3 intradiscal osteotomy, T10 to pelvis decompression and fusion with plate osteotomies. Neuro monitoring without evidence of significant changes throughout the procedure. Estimated blood loss 1500 mL, transfused 4 units packed red cells. Infectious disease consult with Dr. 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 He had history of C. difficile 2018. At the time of this most recent surgery March 2020, apparently there was fluid collection seen of the thoracic region just below the dermis. No purulence and extension deeper into the muscle. A CSF leak was noted which was closed and the swab grew one colony of cutiebacterium, the available notes do not indicate whether or not this was treated. Patients spirits better and working on ambulation wearing his TLSO, more upright and with no back or LE discomfort. Feeling encouraged with his progress. Communication was sent to Dr. Coronado at [facility] regarding alterations in the right lower extremity and recent reimaging and any further recommendations for workup or treatment adjustments. Low-dose prednisone was begun, well tolerated and seems to be helping further improve symptoms and stabilizing strength in the right lower extremity. MEDICATIONS: Please see below. FUNCTIONAL STATUS: His baseline is completely independent and acting as caregiver for his , he had nearly regained full independence after the most recent surgery at time of the fall. Pt demonstrates improved safety with functional transfers participating in strengthening, endurance and improving balance in standing. Pt. stood at [facility] for safety, noted to have trunk flexion and RLE flexion. Patient fatigues easily working on strengthening activities for the upper and lower extremities. Improving ability to flex and clear RLE during transfer. Goal is to achieve mod I level again. REVIEW OF SYSTEMS: The following is a completed review of systems and has been reviewed. Review of systems otherwise unremarkable. PAIN: Chronic low back, bilateral lower extremity EYES: No recent vision changes. EARS, NOSE, & THROAT: No throat pain, or dysphagia, or rhinorrhea. CARDIOVASCULAR: Denies chest pain or palpitations. PULMONARY: Denies shortness of breath. GASTROINTESTINAL: Denies constipation/diarrhea. Notes regularity with occasional need for laxatives. GENITOURINARY: Getting some sensation, however, continues need intermittent cath. MUSCULOSKELETAL: Healing from spine surgery NEUROLOGICAL:Weakness, left upper extremity. Right lower extremity. HEMATOLOGICAL: Denies easy bruising. SKIN: Healing thoracolumbar incisions. PSYCHIATRIC: Unremarkable. All other review of systems found to be negative. PHYSICAL EXAMINATION: VITAL SIGNS: Please see below. GENERAL: Pleasant and cooperative. No acute distress. Alert and oriented times three, very thin body habitus. HEENT: PERRL. Extraocular movements intact. Clear conjunctiva, no adenopathy or thyromegaly. Full cervical range of motion without tenderness or spasm. Tenderness right temporal region. CARDIOVASCULAR: Regular rate and rhythm. No murmurs, rubs, or gallops. LUNGS: Clear to auscultation bilaterally. No wheezes. No rhonchi. ABDOMEN: Soft, nontender, nondistended. Positive bowel sounds. Normal active bowel sounds, no organomegaly. NEUROLOGICAL: Alert and oriented times three. Cranial nerves II through XII intact. Sensation grossly intact. EXTREMITIES: 5/5 right, 4 +over 5 left steam finisher, elbow flexion, elbow extension, 4 over 5, right 5 over 5 left knee extension, foot dorsiflexion, plantar flexion. Pulses intact. No edema, no calf tenderness. SKIN: Blanching erythema. Sacral region, long midthoracic incisions with 3 areas of breakdown upper level 1 cm the mid and lower levels. 2 cm each. Dressings intact. LABORATORY DATA: Please see below. Anemia [id number] Vertebrae: The dens appears intact and the lateral masses of C1 appear symmetric. The cervical vertebra and facet joints appear in alignment on the lateral view. There is no evidence of acute fracture. There is severe sclerosis and facet hypertrophy mid cervical region greater on the right. C5-C6: There is severe narrowing of the C5-C6 disc space and very large posterior right osteophyte causing moderate impression on the anterior right side of the thecal sac. There is also severe right C6 neural foraminal narrowing secondary to osteophyte formation. C6-C7: There is severe narrowing of the C6-C7 disc space with moderate irregular posterior osteophyte formation causing moderate impression on the thecal sac. There is moderate to severe bilateral C7 neural foraminal narrowing secondary to osteophyte formation. Other bones/joints: There is a craniotomy defect of the bone flap right posterior fossa. Soft tissues: There is no evidence of soft tissue swelling. Lungs: Clear apical portions of the lung. Other findings: There is no evidence of changes of osteomyelitis. 1. There is a mass at the lower pole of the right kidney possibly a very large cyst. To exclude any possibility of a solid lesion recommend CT scan with contrast of the abdomen and pelvis or an ultrasound. 2. Wedge-shaped compression deformities and degenerative change L2 and L3 probably all chronic. Vertebrae: The thoracic vertebra appear in alignment on the lateral view, however there is mild kyphosis. Screws are noted at T10, T11, T12 and appearing intact. T6-T7: There is a moderate right paracentral osteophyte causing moderate impression on the thecal sac. T7-T8: There is a moderate right paracentral osteophyte causing moderate impression on the thecal sac. Other bones/joints: There is no evidence of osteomyelitis. Other findings: The apical and medial aspects of the lungs appear clear. IMPRESSION: There is no evidence of osteomyelitis, disc, abscess. ASSESSMENT: Urosepsis, improving. Status post multiple lumbar surgeries (3), instrumentation, revision for osteomyelitis, discitis with T10 to pelvis decompression, fusion March 2020, no evidence of recurrence of infection Cauda equina syndrome. Neurogenic bladder Chronic back pain. Trigeminal neuralgia status post decompression. BPH. Anemia. 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 GERD with hiatal hernia Glaucoma. Hypothyroidism. Hypertension. Unstageable shallow Ulcerations incisional site. Thoracic spine, possible shearing or pressure lesions, improving Osteoarthritis with multilevel spondylytic changes History of right occipital window, micro arterial surgery , gamma knife for trigeminal neuralgia Renal cysts This is an 79-year-old gentleman with past medical history multiple spinal surgeries complicated by interim osteomyelitis, discitis requiring revision and fusion March 2020 T10 through pelvis status post recent fall. Urosepsis resolving with antibiotics. Crossed weakness left upper and right lower extremity along with persisting neurogenic bladder raised concern for possible C Spine abnormalities further contributing to the picture. Repeat CT shows improvement of interim notice of bronchiectasis, and incidental note of bilateral renal cysts possibly in need of further workup. Have forwarded current updates to treating Neurosurgeon Dr. Coronado at [facility]. Have initiated empiric trial low dose steroids for possible inflammatory changes in both shoulder and spinal areas, appears to be responding, will begin slow wean to minimize adverse effects. PLAN: 1. Rehab- PT/OT advance gait and ADls, strengthen/stretch/maintain ROM all 4 limbs, pain management with appropriate modalities and medications, consider FES. 2. Neuro- hx of trigeminal neuralgia stable, pain controlled Well continue to monitor and also address left upper, right lower extremity weakness in the rehabilitation program and with trial steroids. 3. MSK status post rx for infection and debridement spine surgery, monitor wound healing encourage side to side lying, possibly US left shoulder girdle pain 4. Blood pressure has been low with systolics in the 90s in the 100s will DC lisinopril and treat empirically, possibly needs permissive hypertension for improved cerebral circulation and cognitive clarity. Seems brighter today with the change. 5. Resp -incentive spirometry, monitor for infection 6. Endo-history of hypothyroidism. Continue medications 7. - hx of chronic incontinence and neurogenic bladder .We'll proceed with nursing observation training and education on self catheterization techniques, in hopes of preventing or minimizing future infections. Probably will proceed with chronic suppression therapy, which will also help facilitate continued wound healing 8. GI ppx-omeprazole 9. DVT ppx-TEDS 10. Pain- tylenol high-dose, -lidoderm patch, Gabapentin, well controlled 11. Anemia-probable post op, possibly hematuria related to issues, may need stool guaiac or other eval to asses for sources of loss, improving, will provide supplementation and continue to monitor. 12. Skin -continue to cleanse switched back to santyl, to encourage further enzymatic debridement over the weekend, continue to attempt to avoid supine positioning and encourage side to side to minimize pressure over that spinal region, will monitor and adjust as heals. 12. Dispo- TBD either back to son or to home with if sufficiently stabilized. Allergies Coded Allergies: No Known Allergies (Unverified , 05/12/19) Vital Signs Vital Signs Date Time Temp Pulse Resp B/P (MAP) Pulse Ox O2 Delivery O2 Flow Rate FiO2 05/22/20 07:30 100 112/57 (75) 99 Room Air 05/22/20 05:55 97.6 18 Microbiology Microbiology 05/13/20 Urine Culture - Final, Complete 05/12/20 Blood Culture - Final, Complete NO GROWTH AFTER 5 DAYS 05/12/20 Blood Culture - Final, Complete NO GROWTH AFTER 5 DAYS Current Medications Current Medications Current Medications Medications (Trade) Dose Ordered Sig/Freda Route PRN Reason Start Time Stop Time Status Last Admin Dose Admin Acetaminophen (Tylenol Tab) 650 mg Q4HP PRN PO MILD PAIN (PS 1-4) 05/11/20 13:00 05/11/20 15:00 DC Acetaminophen (Tylenol Tab) 650 mg Q6HP PRN PO PAIN OR FEVER 05/11/20 15:00 05/12/20 14:36 DC 05/12/20 04:03 Acetaminophen (Tylenol Tab) 1,000 mg Q6HP PRN PO MILD PAIN (PS 1-4) 05/11/20 13:00 UNV Acetaminophen (Tylenol Tab) 1,000 mg Q8H PO 05/12/20 14:00 05/21/20 05:08 Amoxicillin/ Clavulanate Potassium (Augmentin) 875 mg BID PO 05/12/20 09:00 05/16/20 21:01 DC 05/16/20 20:59 Ascorbic Acid (Vitamin C) 500 mg DAILY PO 05/12/20 09:00 05/22/20 08:15 Collagenase (Santyl) DAILYPRN TOP 05/15/20 16:00 05/16/20 19:01 DC 05/15/20 21:13 Collagenase (Santyl) see nursing instructions, clean... DAILY TOP 05/19/20 09:00 05/22/20 08:59 DC 05/21/20 08:17 Diclofenac Epolamine (Flector 1.3%) 1 patch Q12H TOP 05/18/20 09:00 05/19/20 08:43 Docusate Sodium (Colace) 100 mg BID PO 05/11/20 21:00 05/11/20 15:17 DC Docusate Sodium (Colace) 100 mg QAM PO 05/12/20 09:00 05/22/20 08:15 Dutasteride (Avodart) 0.5 mg QHS PO 05/11/20 21:00 05/21/20 20:38 Ferrous Gluconate (Fergon) 324 mg BID PO 05/12/20 09:00 05/22/20 08:15 Fluticasone Propionate (Flonase 0.05% Nasal [place]) 2 spray DAILYPRN PRN NARES NASAL CONGESTION 05/11/20 15:00 Gabapentin (Neurontin) 200 mg BID PO 05/11/20 21:00 05/12/20 06:51 DC 05/11/20 21:14 Gabapentin (Neurontin) 400 mg BID PO 05/12/20 09:00 05/22/20 08:15 Heparin Sodium (Porcine) (Heparin) 5,000 units Q12H SC 05/11/20 21:00 05/18/20 10:41 DC 05/18/20 08:44 Home Med (Med Rec Complete!) ASDIRECTED XX 05/11/20 15:30 05/11/20 15:38 DC Lactobacillus Acidophilus (Bacid) 1 ea DAILY PO 05/11/20 09:00 05/22/20 08:14 Latanoprost (Xalatan 0.005% Op Soln) 1 drop QHS OU 05/11/20 21:00 05/21/20 20:38 Levofloxacin (Levaquin) 750 mg DAILY@06 PO 05/11/20 06:00 05/11/20 15:38 DC Levofloxacin (Levaquin) 750 mg DAILY@2100 PO 05/11/20 21:00 05/12/20 08:28 DC 05/11/20 21:15 Levothyroxine Sodium (Synthroid) 50 mcg DAILY@06 PO 05/12/20 06:00 05/22/20 05:44 Lisinopril (Prinivil) 10 mg DAILY PO 05/12/20 09:00 05/17/20 07:16 DC Multivitamins (Theragram-M) 1 tab DAILY PO 05/11/20 09:00 05/22/20 08:14 Non-Formulary Medication ( See Comment Field Below ) REMOVE LIDODERM PATCH DAILY@0600 XX 05/12/20 06:00 05/12/20 06:01 DC 05/12/20 06:00 Omeprazole (PriLOSEC) 20 mg DAILY PO 05/12/20 09:00 05/22/20 08:15 Ondansetron HCl (Zofran) 4 mg Q6HP PRN PO NAUSEA 05/11/20 13:00 Phenazopyridine HCl (Pyridium) 100 mg BID PO 05/16/20 09:00 05/19/20 08:59 DC 05/18/20 21:16 Potassium Chloride (Micro-K Extencaps) 20 meq DAILY PO 05/12/20 09:00 05/22/20 08:15 Prednisone (Deltasone) 5 mg DAILY PO 05/18/20 09:00 05/22/20 08:15 Tamsulosin HCl (Flomax) 0.4 mg DAILY PO 05/18/20 09:00 05/22/20 08:15 Tamsulosin HCl (Flomax) 0.4 mg QHS PO 05/11/20 21:00 05/18/20 09:01 DC 05/17/20 21:10 Timolol Maleate (Timoptic 0.5% Ophth Gisselle) 1 drop BID OU 05/11/20 21:00 05/22/20 08:17 Vitamin B Complex/ Vitamin C (Therapeutic B Complex w/C) 1 cap DAILY PO 05/12/20 09:00 05/22/20 08:15 Zinc Sulfate (Zinc Sulfate) 220 mg DAILY PO 05/11/20 09:00 05/22/20 08:15 Zinc Sulfate (Zinc Sulfate) 220 mg DAILY PO 05/13/20 09:00 05/12/20 11:21 TRINA LEONARD MD May 22, 2020 11:06
[2020-05-22 14:00] VITALS: BP_SYST 129; BP_DIAS 6; BP_DIAS 66
[2020-05-22 16:30] VITALS: BP 111/57
[2020-05-22 20:15] VITALS: BP 122/66
[2020-05-22] MEDS: DUTASTERIDE 0.5 MG CAP (AVODART) PO SCH (20:54)
[2020-05-22] MEDS: LATANOPROST 0.005% OPHTH SOLN 2.5 ML OU SCH (20:54)
[2020-05-23] MEDS: LEVOTHYROXINE 50MCG TABLET (0.05MG) PO SCH (05:30)
[2020-05-23] MEDS: ACETAMINOPHEN 500 MG TAB PO SCH ×3 (05:43→20:49)
[2020-05-23 05:51] VITALS: BP 113/67
[2020-05-23] MEDS: ZINC SULFATE 220 MG CAP PO SCH (10:17)
[2020-05-23] MEDS: DOCUSATE SODIUM 100 MG CAP PO SCH (10:17)
[2020-05-23] MEDS: OMEPRAZOLE 20 MG CAP PO SCH (10:17)
[2020-05-23] MEDS: ASCORBIC ACID 500 MG TAB PO SCH (10:17)
[2020-05-23] MEDS: TAMSULOSIN 0.4 MG CAP PO SCH (10:17)
[2020-05-23] MEDS: VITAMIN B COMPLEX/VIT C CAP PO SCH (10:17)
[2020-05-23] MEDS: LACTOBACILLUS ACIDOPHILUS CAP (BACID) PO SCH (10:17)
[2020-05-23] MEDS: MULTIVITAMINS/MINERALS THERAP 1 TAB PO SCH (10:18)
[2020-05-23] MEDS: predniSONE 2.5 MG TAB PO SCH (10:18)
[2020-05-23] MEDS: POTASSIUM CHLORIDE 10 MEQ SR TABLET PO SCH (10:18)
[2020-05-23] MEDS: FERROUS GLUCONATE 324 MG TAB PO SCH ×2 (10:18→20:54)
[2020-05-23] MEDS: GABAPENTIN 400 MG CAP PO SCH ×2 (10:18→20:54)
[2020-05-23] MEDS: TIMOLOL MALEATE 0.5% OPHTH SOLN 5 ML OU SCH ×2 (10:19→20:54)
--- NOTE | 2020-05-23 11:52 | IPNPDOC ---
PM&R Progress Note DATE OF SERVICE: May 23, 2020 [employer] Progress Note CHIEF COMPLAINT: Fatigue, confusion, back pain, urinary hesitancy and incontinence, right temporal pain, right lower extremity, left upper extremity weakness. SUBJECTIVE: This is an 79-year-old gentleman with severe arthritis status post multiple thoracolumbar surgeries complicated with osteomyelitis, discitis, subsequent cauda equina syndrome related to neural impingement from migrated cage is requiring BID intermittent catheterization. He has chronic weakness of left upper extremity and right lower extremity of unknown etiology probably related to multilevel spinal spondyloarthropathy. Further discussion clarified history that he had had a prior right occipital craniotomy in symptoms of microvascular procedure along with the gamma knife as part of treatment for the trigeminal neuralgia. March 2020, he underwent surgical clear out, replacement, fusion, and patient was stabilized, making good progress on home exercise program after a stint in the rehabilitation unit. There were 3 areas of eschar in the incision. Prior to current ARU admission, evidently he got up in the middle of the night to go to the bathroom, fell, was down for several hours before being discovered by his son in the director medical economics and eventually taken to ER was found to be Uroseptic with Proteus mirabilis. Initial treatment with IV ceftriaxone, at the time of his transfer changed to Levaquin and upon transfer to the unit, to Augmentin. Right trigeminal neuralgia seems to be better controlled with the increased dose of gabapentin 400 mg. Bladder training begun last week, and he is working on optimized self cath techniques, family brought in more user friendly catheterization tubes, education on aseptic technique being reinforced. Patient pleased he was able to spontaneously void more frequently in between caths, continuing to measure PVRS. Steroids tapering, off antibiotics, doing well. Wounds healing nicely. Dr. Meena Marinelli notes, histories of 3 prior surgeries, 1. Lumbar laminectomy. 2. L4-L5 MIDLAF surgery with bilateral interbody cages. 3. L2-3 laminotomy with intraspinous Coflex. Postoperatively after the last surgery, he developed severe discitis, osteomyelitis at L2-3 approximately one year ago, progressive severe kyphosis and cauda equina and compression on the right and neurogenic bladder. The cages had backed out, causing foraminal stenosis on the right more than the left. This required the patient to ambulate with extreme forward flexion with a walker. Noted right iliopsoas, 3 out of 5, quadriceps 4 out of 5, as well as bilateral hamstrings, tibialis anterior, extensor hallucis longus. On the left. He was 3 over 5 and left iliopsoas with grossly normal strength distally. 04/07/2020 Patient underwent L2-3 intradiscal osteotomy, T10 to pelvis decom pression and fusion with plate osteotomies. Neuro monitoring without evidence of significant changes throughout the procedure. Estimated blood loss 1500 mL, transfused 4 units packed red cells. Infectious disease consult with Dr. 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 He had history of C. difficile 2018. At the time of this most recent surgery March 2020, apparently there was fl uid collection seen of the thoracic region just below the dermis. No purulence and extension deeper into the muscle. A CSF leak was noted which was closed and the swab grew one colony of cutiebacterium, the available notes do not indicate whether or not this was treated. Patients spirits better and working on ambulation wearing his TLSO, more upright and with no back or LE discomfort. Feeling encouraged with his progress. MEDICATIONS: Please see below. FUNCTIONAL STATUS: His baseline is completely independent and acting as caregiver for his , he had nearly regained full independence after the most recent surgery at time of the fall. Pt demonstrates improved safety with functional transfers participating in strengthening, endurance and improving balance in standing. Pt. stood at SBA, much more steady and at times able to go sit to stand without pushing off using his hands. Patient fatigues easily working on strengthening activities for the upper and lower extremities. Improving ability to flex and cl ear RLE during transfer. Goal is to achieve mod I level again. REVIEW OF SYSTEMS: The following is a completed review of systems and has been reviewed. Review of systems otherwise unremarkable. PAIN: Chronic low back, bilateral lower extremity EYES: No recent vision changes. EARS, NOSE, & THROAT: No throat pain, or dysphagia, or rhinorrhea. CARDIOVASCULAR: Denies chest pain or palpitations. PULMONARY: Denies shortness of breath. GASTROINTESTINAL: Denies constipation/diarrhea. Notes regularity with occasional need for laxatives. GENITOURINARY: Getting some sensation, however, continues need intermittent cath. MUSCULOSKELETAL: Healing from spine surgery NEUROLOGICAL:Weakness, left upper extremity. Right lower extremity. HEMATOLOGICAL: Denies easy bruising. SKIN: Healing thoracolumbar incisions. PSYCHIATRIC: Unremarkable. All other review of systems found to be negative. PHYSICAL EXAMINATION: VITAL SIGNS: Please see below. GENERAL: Pleasant and cooperative. No acute distress. Alert and oriented times three, very thin body habitus. HEENT: PERRL. Extraocular movements intact. Clear conjunctiva, no adenopathy or thyromegaly. Full cervical range of motion without tenderness or spasm. Tenderness right temporal region. CARDIOVASCULAR: Regular rate and rhythm. No murmurs, rubs, or gallops. LUNGS: Clear to auscultation bilaterally. No wheezes. No rhonchi. ABDOMEN: Soft, nontender, nondistended. Positive bowel sounds. Normal active bowel sounds, no organomegaly. NEUROLOGICAL: Alert and oriented times three. Cranial nerves II through XII intact. Sensation grossly intact. EXTREMITIES: 5/5 right, 4 +over 5 left applied exercise physiologist, elbow flexion, elbow extension, 4+ over 5, right 5 over 5 left knee extension, foot dorsiflexion, plantar flexion. Pulses intact. No edema, no calf tenderness. SKIN: Blanching erythema. Sacral region, long midthoracic incisions with 3 areas of breakdown upper level 1 cm the mid and lower levels. 2 cm each. Healing well, no drainage. LABORATORY DATA: Please see below. Anemia [id number] Vertebrae: The dens appears intact and the lateral masses of C1 appear symmetric. The cervical vertebra and facet joints appear in alignment on the lateral view. There is no evidence of acute fracture. There is severe sclerosis and facet hypertrophy mid cervical region greater on the right. C5-C6: There is severe narrowing of the C5-C6 disc space and very large posterior right osteophyte causing moderate impression on the anterior right side of the thecal sac. There is also severe right C6 neural foraminal narrowing secondary to osteophyte formation. C6-C7: There is severe narrowing of the C6-C7 disc space with moderate irregular posterior osteophyte formation causing moderate impression on the thecal sac. There is moderate to severe bilateral C7 neural foraminal narrowing secondary to osteophyte formation. Other bones/joints: There is a craniotomy defect of the bone flap right posterior fossa. Soft tissues: There is no evidence of soft tissue swelling. Lungs: Clear apical portions of the lung. Other findings: There is no evidence of changes of osteomyelitis. 1. There is a mass at the lower pole of the right kidney possibly a very large cyst. To exclude any possibility of a solid lesion recommend CT scan with contrast of the abdomen and pelvis or an ultrasound. 2. Wedge-shaped compression deformities and degenerative change L2 and L3 probably all chronic. Vertebrae: The thoracic vertebra appear in alignment on the lateral view, however there is mild kyphosis. Screws are noted at T10, T11, T12 and appearing intact. T6-T7: There is a moderate right paracentral osteophyte causing moderate impression on the thecal sac. T7-T8: There is a moderate right paracentral osteophyte causing moderate impression on the thecal sac. Other bones/joints: There is no evidence of osteomyelitis. Other findings: The apical and medial aspects of the lungs appear clear. IMPRESSION: There is no evidence of osteomyelitis, disc, abscess. ASSESSMENT: Urosepsis, improving. Status post multiple lumbar surgeries (3), instrumentation, revision for osteomyelitis, discitis with T10 to pelvis decompression, fusion March 2020, no evidence of recurrence of infection Cauda equina syndrome. Neurogenic bladder Chronic back pain. Trigeminal neuralgia status post decompression. BPH. Anemia. 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 GERD with hiatal hernia Glaucoma. Hypothyroidism. Hypertension. Unstageable shallow Ulcerations incisional site. Thoracic spine, possible shearing or pressure lesions, improving Osteoarthritis with multilevel spondylytic changes History of right occipital window, micro arterial surgery , gamma knife for trig eminal neuralgia Renal cysts This is an 79-year-old gentleman with past medical history multiple spinal surgeries complicated by interim osteomyelitis, discitis requiring revision and fusion March 2020 T10 through pelvis status post recent fall. Urosepsis resolving with antibiotics. Crossed weakness left upper and right lower extremity along with persisting neurogenic bladder raised concern for possible C Spine abnormalities further contributing to the picture. Repeat CT shows improvement of interim notice of bronchiectasis, and incidental note of bilateral renal cysts possibly in need of further workup. Have forwarded current updates to treating Neurosurgeon Dr. Coronado at [facility]. Have initiated empiric trial low dose steroids for possible inflammatory changes in both shoulder and spinal areas, appears to be responding, will begin slow wean to minimize adverse effects. PLAN: 1. Rehab- PT/OT advance gait and ADls, strengthen/stretch/maintain ROM all 4 limbs, pain management with appropriate modalities and medications, consider FES. 2. Neuro- hx of trigeminal neuralgia stable, pain controlled Well continue to monitor and also address left upper, improving right lower extremity weakness in the rehabilitation program and with trial steroids. 3. MSK status post rx for infection and debridement spine surgery, monitor wound healing encourage side to side lying 4. Blood pressure has been low with systolics in the 90s in the 100s will DC lisinopril and treat empirically, possibly needs permissive hypertension for improved cerebral circulation and cognitive clarity. Seems brighter with the change. 5. Resp -incentive spirometry, monitor for infection 6. Endo-history of hypothyroidism. Continue medications 7. - hx of chronic incontinence and neurogenic bladder .We'll proceed with nursing observation training and education on self catheterization techniques, in hopes of preventing or minimizing future infections. Probably will proceed with chronic suppression therapy, which will also help facilitate continued woun d healing 8. GI ppx-omeprazole 9. DVT ppx-TEDS 10. Pain- tylenol high-dose, -lidoderm patch, Gabapentin, well controlled 11. Anemia-probable post op, possibly hematuria related to issues, may need stool guaiac or other eval to asses for sources of loss, improving, will provide supplementation and continue to monitor. 12. Skin -continue to cleanse switched back to santyl, to encourage further enzymatic debridement over the weekend, continue to attempt to avoid supine positioning and encourage side to side to minimize pressure over that spinal region, will monitor and adjust as heals. 12. Dispo- TBD either back to son or to home with if sufficiently stabilized. Allergies Coded Allergies: No Known Allergies (Unverified , 05/12/19) Vital Signs Vital Signs Date Time Temp Pulse Resp B/P (MAP) Pulse Ox O2 Delivery O2 Flow Rate FiO2 05/23/20 05:51 97.8 88 17 113/67 (82) 96 Room Air Microbiology Microbiology 05/13/20 Urine Culture - Final, Complete Current Medications Current Medications Current Medications Medications (Trade) Dose Ordered Sig/Freda Route PRN Reason Start Time Stop Time Status Last Admin Dose Admin Acetaminophen (Tylenol Tab) 650 mg Q4HP PRN PO MILD PAIN (PS 1-4) 05/11/20 13:00 05/11/20 15:00 DC Acetaminophen (Tylenol Tab) 650 mg Q6HP PRN PO PAIN OR FEVER 05/11/20 15:00 05/12/20 14:36 DC 05/12/20 04:03 Acetaminophen (Tylenol Tab) 1,000 mg Q6HP PRN PO MILD PAIN (PS 1-4) 05/11/20 13:00 UNV Acetaminophen (Tylenol Tab) 1,000 mg Q8H PO 05/12/20 14:00 05/23/20 05:43 Amoxicillin/ Clavulanate Potassium (Augmentin) 875 mg BID PO 05/12/20 09:00 05/16/20 21:01 DC 05/16/20 20:59 Ascorbic Acid (Vitamin C) 500 mg DAILY PO 05/12/20 09:00 05/23/20 10:17 Collagenase (Santyl) DAILYPRN TOP 05/15/20 16:00 05/16/20 19:01 DC 05/15/20 21:13 Collagenase (Santyl) see nursing instructions, clean... DAILY TOP 05/19/20 09:00 05/22/20 08:59 DC 05/21/20 08:17 Diclofenac Epolamine (Flector 1.3%) 1 patch Q12H TOP 05/18/20 09:00 05/23/20 09:02 DC 05/19/20 08:43 Docusate Sodium (Colace) 100 mg BID PO 05/11/20 21:00 05/11/20 15:17 DC Docusate Sodium (Colace) 100 mg QAM PO 05/12/20 09:00 05/23/20 10:17 Dutasteride (Avodart) 0.5 mg QHS PO 05/11/20 21:00 05/22/20 20:54 Ferrous Gluconate (Fergon) 324 mg BID PO 05/12/20 09:00 05/23/20 10:18 Fluticasone Propionate (Flonase 0.05% Nasal [place]) 2 spray DAILYPRN PRN NARES NASAL CONGESTION 05/11/20 15:00 Gabapentin (Neurontin) 200 mg BID PO 05/11/20 21:00 05/12/20 06:51 DC 05/11/20 21:14 Gabapentin (Neurontin) 400 mg BID PO 05/12/20 09:00 05/23/20 10:18 Heparin Sodium (Porcine) (Heparin) 5,000 units Q12H SC 05/11/20 21:00 05/18/20 10:41 DC 05/18/20 08:44 Home Med (Med Rec Complete!) ASDIRECTED XX 05/11/20 15:30 05/11/20 15:38 DC Lactobacillus Acidophilus (Bacid) 1 ea DAILY PO 05/11/20 09:00 05/23/20 10:17 Latanoprost (Xalatan 0.005% Op Soln) 1 drop QHS OU 05/11/20 21:00 05/22/20 20:54 Levofloxacin (Levaquin) 750 mg DAILY@06 PO 05/11/20 06:00 05/11/20 15:38 DC Levofloxacin (Levaquin) 750 mg DAILY@2100 PO 05/11/20 21:00 05/12/20 08:28 DC 05/11/20 21:15 Levothyroxine Sodium (Synthroid) 50 mcg DAILY@06 PO 05/12/20 06:00 05/23/20 05:30 Lisinopril (Prinivil) 10 mg DAILY PO 05/12/20 09:00 05/17/20 07:16 DC Multivitamins (Theragram-M) 1 tab DAILY PO 05/11/20 09:00 05/23/20 10:18 Non-Formulary Medication ( See Comment Field Below ) REMOVE LIDODERM PATCH DAILY@0600 XX 05/12/20 06:00 05/12/20 06:01 DC 05/12/20 06:00 Omeprazole (PriLOSEC) 20 mg DAILY PO 05/12/20 09:00 05/23/20 10:17 Ondansetron HCl (Zofran) 4 mg Q6HP PRN PO NAUSEA 05/11/20 13:00 Phenazopyridine HCl (Pyridium) 100 mg BID PO 05/16/20 09:00 05/19/20 08:59 DC 05/18/20 21:16 Potassium Chloride (Micro-K Extencaps) 20 meq DAILY PO 05/12/20 09:00 05/23/20 10:18 Prednisone (Deltasone) 2.5 mg DAILY PO 05/23/20 09:00 05/23/20 10:18 Prednisone (Deltasone) 5 mg DAILY PO 05/18/20 09:00 05/22/20 11:21 DC 05/22/20 08:15 Tamsulosin HCl (Flomax) 0.4 mg DAILY PO 05/18/20 09:00 05/23/20 10:17 Tamsulosin HCl (Flomax) 0.4 mg QHS PO 05/11/20 21:00 05/18/20 09:01 DC 05/17/20 21:10 Timolol Maleate (Timoptic 0.5% Ophth Gisselle) 1 drop BID OU 05/11/20 21:00 05/23/20 10:19 Vitamin B Complex/ Vitamin C (Therapeutic B Complex w/C) 1 cap DAILY PO 05/12/20 09:00 05/23/20 10:17 Zinc Sulfate (Zinc Sulfate) 220 mg DAILY PO 05/11/20 09:00 05/23/20 10:17 Zinc Sulfate (Zinc Sulfate) 220 mg DAILY PO 05/13/20 09:00 05/12/20 11:21 TRINA LEONARD MD May 23, 2020 11:52
[2020-05-23 14:00] VITALS: BP 125/66
[2020-05-23 20:45] VITALS: BP 112/60
[2020-05-23] MEDS: LATANOPROST 0.005% OPHTH SOLN 2.5 ML OU SCH (20:54)
[2020-05-23] MEDS: DUTASTERIDE 0.5 MG CAP (AVODART) PO SCH (20:54)
[2020-05-24 06:00] VITALS: BP 115/64
[2020-05-24] MEDS: LEVOTHYROXINE 50MCG TABLET (0.05MG) PO SCH (06:23)
[2020-05-24] MEDS: ACETAMINOPHEN 500 MG TAB PO SCH ×3 (06:23→20:37)
[2020-05-24] MEDS: TAMSULOSIN 0.4 MG CAP PO SCH (08:16)
[2020-05-24] MEDS: MULTIVITAMINS/MINERALS THERAP 1 TAB PO SCH (08:16)
[2020-05-24] MEDS: OMEPRAZOLE 20 MG CAP PO SCH (08:16)
[2020-05-24] MEDS: VITAMIN B COMPLEX/VIT C CAP PO SCH (08:16)
[2020-05-24] MEDS: ZINC SULFATE 220 MG CAP PO SCH (08:16)
[2020-05-24] MEDS: ASCORBIC ACID 500 MG TAB PO SCH (08:16)
[2020-05-24] MEDS: LACTOBACILLUS ACIDOPHILUS CAP (BACID) PO SCH (08:16)
[2020-05-24] MEDS: FERROUS GLUCONATE 324 MG TAB PO SCH ×2 (08:16→20:37)
[2020-05-24] MEDS: POTASSIUM CHLORIDE 10 MEQ SR TABLET PO SCH (08:17)
[2020-05-24] MEDS: predniSONE 2.5 MG TAB PO SCH (08:17)
[2020-05-24] MEDS: TIMOLOL MALEATE 0.5% OPHTH SOLN 5 ML OU SCH ×2 (08:17→20:37)
[2020-05-24] MEDS: GABAPENTIN 400 MG CAP PO SCH ×2 (08:17→20:37)
[2020-05-24] MEDS: DOCUSATE SODIUM 100 MG CAP PO SCH (08:17)
--- NOTE | 2020-05-24 08:30 | IPNPDOC ---
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 Right trigeminal neuralgia seems to be better controlled with the increased dose of gabapentin 400 mg and course of steroids. Bladder training begun last week, and he is working on optimized self cath techniques, family brought in more user friendly catheterization tubes, education on aseptic technique being reinforced. Patient pleased he was able to spontaneously void more frequently in between caths, continuing to measure PVRS, however he did not get much sleep last night up with bladder distension and nursing protocol not to cath below a certain scan level, will proceed to independent bladder management with setup. He has difficulty opening the packages on the hospital versions and is trying to conserve his more user friendly supply from home, concerned to have enough when he is discharged. We will work out a better plan with nursing and case management regarding this. Steroids tapering, off antibiotics, doing well. W ounds healing nicely. Patients spirits better and working on ambulation wearing his TLSO, more upright and with no back or LE discomfort. Feeling encouraged with his progress. MEDICATIONS: Please see below. FUNCTIONAL STATUS: His baseline is completely independent and acting as caregiver for his , he had nearly regained full independence after the most recent surgery at time of the fall. Pt demonstrates improved safety with functional transfers participating in strengthening, endurance and improving balance in standing. Pt. stood at SBA, much more steady and at times able to go sit to stand without pushing off using his hands. Patient fatigues easily working on strengthening activities for the upper and lower extremities. Improving ability to flex and clear RLE during transfer. Rallied today and was even starting toe rises, more upright posture today. Goal is to achieve mod I level again. REVIEW OF SYSTEMS: The following is a completed review of systems and has been reviewed. Review of systems otherwise unremarkable. PAIN: Chronic low back, bilateral lower extremity EYES: No recent vision changes. EARS, NOSE, & THROAT: No throat pain, or dysphagia, or rhinorrhea. CARDIOVASCULAR: Denies chest pain or palpitations. PULMONARY: Denies shortness of breath. GASTROINTESTINAL: Denies constipation/diarrhea. Notes regularity with occasional need for laxatives. GENITOURINARY: Getting some sensation, however, continues need intermittent cath. MUSCULOSKELETAL: Healing from spine surgery NEUROLOGICAL:Weakness, left upper extremity. Right lower extremity. HEMATOLOGICAL: Denies easy bruising. SKIN: Healing thoracolumbar incisions. PSYCHIATRIC: Unremarkable. All other review of systems found to be negative. PHYSICAL EXAMINATION: VITAL SIGNS: Please see below. GENERAL: Pleasant and cooperative. No acute distress, looks fatigued today. Alert and oriented times three, very thin body habitus. HEENT: PERRL. Extraocular movements intact. Clear conjunctiva, no adenopathy or thyromegaly. Full cervical range of motion without tenderness or spasm. Tenderness right temporal region. CARDIOVASCULAR: Regular rate and rhythm. No murmurs, rubs, or gallops. LUNGS: Clear to auscultation bilaterally. No wheezes. No rhonchi. ABDOMEN: Soft, nontender, nondistended. Positive bowel sounds. Normal active bowel sounds, no organomegaly. NEUROLOGICAL: Alert and oriented times three. Cranial nerves II through XII intact. Sensation grossly intact. 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 Pulses intact. No edema, no calf tenderness. SKIN: Blanching erythema. Sacral region, long midthoracic incisions with 3 areas of breakdown upper level 0.3 cm and dry, nearly healed the mid and lower levels. 0.8 and 1 cm. Healing well, no drainage. LABORATORY DATA: Please see below. Anemia [id number] Vertebrae: The dens appears intact and the lateral masses of C1 appear symmetric. The cervical vertebra and facet joints appear in alignment on the lateral view. There is no evidence of acute fracture. There is severe sclerosis and facet hypertrophy mid cervical region greater on the right. C5-C6: There is severe narrowing of the C5-C6 disc space and very large posterior right osteophyte causing moderate impression on the anterior right side of the thecal sac. There is also severe right C6 neural foraminal narrowing secondary to osteophyte formation. C6-C7: There is severe narrowing of the C6-C7 disc space with moderate irregular posterior osteophyte formation causing moderate impression on the thecal sac. There is moderate to severe bilateral C7 neural foraminal narrowing secondary to osteophyte formation. Other bones/joints: There is a craniotomy defect of the bone flap right posterior fossa. Soft tissues: There is no evidence of soft tissue swelling. Lungs: Clear apical portions of the lung. Other findings: There is no evidence of changes of osteomyelitis. 1. There is a mass at the lower pole of the right kidney possibly a very large cyst. To exclude any possibility of a solid lesion recommend CT scan with contrast of the abdomen and pelvis or an ultrasound. 2. Wedge-shaped compression deformities and degenerative change L2 and L3 probably all chronic. Vertebrae: The thoracic vertebra appear in alignment on the lateral view, however there is mild kyphosis. Screws are noted at T10, T11, T12 and appearing intact. T6-T7: There is a moderate right paracentral osteophyte causing moderate impression on the thecal sac. T7-T8: There is a moderate right paracentral osteophyte causing moderate impression on the thecal sac. Other bones/joints: There is no evidence of osteomyelitis. ASSESSMENT: Urosepsis, improving. Status post multiple lumbar surgeries (3), instrumentation, revision for osteomyelitis, discitis with T10 to pelvis decompression, fusion March 2020, no evidence of recurrence of infection Cauda equina syndrome. Neurogenic bladder Chronic back pain. Trigeminal neuralgia status post decompression. BPH. Anemia. 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 GERD with hiatal hernia Glaucoma. Hypothyroidism. Hypertension. Unstageable shallow Ulcerations incisional site. Thoracic spine, possible shearing or pressure lesions, improving Osteoarthritis with multilevel spondylytic changes History of right occipital window, micro arterial surgery , gamma knife for trigeminal neuralgia Renal cysts This is an 79-year-old gentleman with past medical history multiple spinal surgeries complicated by interim osteomyelitis, discitis requiring revision and fusion March 2020 T10 through pelvis status post recent fall. Urosepsis resolving with antibiotics. Crossed weakness left upper and right lower extremity along with persisting neurogenic bladder raised concern for possible C Spine abnormalities further contributing to the picture. Repeat CT shows improvement of interim notice of bronchiectasis, and incidental note of bilateral renal cysts possibly in need of further workup. Further discussion clarified history that he had had a prior right occipital craniotomy with microvascular procedure along with the gamma knife as part of treatment for the trigeminal neuralgia. Have initiated empiric trial low dose steroids for possible inflammatory changes appears to be responding, will begin slow wean to minimize adverse effects. Neural recovery evident and progressing nicely post op and post rx of infection. PLAN: 1. Rehab- PT/OT advance gait and ADls, strengthen/stretch/maintain ROM all 4 limbs, pain management with appropriate modalities and medications, consider FES. 2. Neuro- hx of trigeminal neuralgia stable, pain controlled Well continue to monitor and also address left upper, improving right lower extremity weakness in the rehabilitation programs. 3. MSK status post rx for infection and debridement spine surgery, monitor wound healing encourage side to side lying 4. Blood pressure has been low with systolics in the 90s in the 100s will DC lisinopril and treat empirically, possibly needs permissive hypertension for improved cerebral circulation and cognitive clarity. Seems brighter with the change. BP stable 5. Resp -incentive spirometry, monitor for infection 6. Endo-history of hypothyroidism. Continue medications 7. - hx of chronic incontinence and neurogenic bladder .We'll proceed with nursing observation training and education on self catheterization techniques, in hopes of preventing or minimizing future infections. Probably will proceed with chronic suppression therapy, which will also help facilitate continued wound healing. 8. GI ppx-omeprazole 9. DVT ppx-TEDS 10. Pain- tylenol high-dose, -lidoderm patch, Gabapentin, well controlled 11. Anemia-probable post op, possibly hematuria related to issues, may need stool guaiac or other eval to asses for sources of loss, improving, will provide supplementation and continue to monitor. 12. Skin -continue to cleanse and dress and continue to attempt to avoid supine positioning and encourage side to side to minimize pressure over that spinal region, will monitor and adjust as heals. 13. Dispo- back to son. TIME SPENT: Chart Review, examination and documentation minutes. Allergies Coded Allergies: No Known Allergies (Unverified , 05/12/19) Vital Signs Vital Signs Date Time Temp Pulse Resp B/P (MAP) Pulse Ox O2 Delivery O2 Flow Rate FiO2 05/24/20 06:00 98.3 106 18 115/64 (81) 98 Room Air Laboratory Data Labs 24H Laboratory Tests 2 05/24/20 06:46: Urine Color YELLOW, Urine Appearance CLEAR, Urine pH 6.0, Urine Specific [place] 1.011, Urine Protein NEGATIVE, Urine Glucose (UA) NEGATIVE, Urine Ketones NEGATIVE, Urine Blood NEGATIVE, Urine Nitrite NEGATIVE, Urine Bilirubin NEGATIVE, Urine Urobilinogen 0.2, Urine Leukocyte Esterase NEGATIVE, Urine WBC (Auto) 0, Urine RBC (Auto) 3, Urine Hyaline Casts (Auto) 0, Urine Bacteria (Auto) NEGATIVE, Urine Squamous Epithelial Cells 0, Urine Mucus (Auto) SMALL, Urine Sperm (Auto) Current Medications Current Medications Current Medications Medications (Trade) Dose Ordered Sig/Freda Route PRN Reason Start Time Stop Time Status Last Admin Dose Admin Acetaminophen (Tylenol Tab) 650 mg Q4HP PRN PO MILD PAIN (PS 1-4) 05/11/20 13:00 05/11/20 15:00 DC Acetaminophen (Tylenol Tab) 650 mg Q6HP PRN PO PAIN OR FEVER 05/11/20 15:00 05/12/20 14:36 DC 05/12/20 04:03 Acetaminophen (Tylenol Tab) 1,000 mg Q6HP PRN PO MILD PAIN (PS 1-4) 05/11/20 13:00 UNV Acetaminophen (Tylenol Tab) 1,000 mg Q8H PO 05/12/20 14:00 05/24/20 06:23 Amoxicillin/ Clavulanate Potassium (Augmentin) 875 mg BID PO 05/12/20 09:00 05/16/20 21:01 DC 05/16/20 20:59 Ascorbic Acid (Vitamin C) 500 mg DAILY PO 05/12/20 09:00 05/24/20 08:16 Collagenase (Santyl) DAILYPRN TOP 05/15/20 16:00 05/16/20 19:01 DC 05/15/20 21:13 Collagenase (Santyl) see nursing instructions, clean... DAILY TOP 05/19/20 09:00 05/22/20 08:59 DC 05/21/20 08:17 Diclofenac Epolamine (Flector 1.3%) 1 patch Q12H TOP 05/18/20 09:00 05/23/20 09:02 DC 05/19/20 08:43 Docusate Sodium (Colace) 100 mg BID PO 05/11/20 21:00 05/11/20 15:17 DC Docusate Sodium (Colace) 100 mg QAM PO 05/12/20 09:00 05/23/20 10:17 Dutasteride (Avodart) 0.5 mg QHS PO 05/11/20 21:00 05/23/20 20:54 Ferrous Gluconate (Fergon) 324 mg BID PO 05/12/20 09:00 05/24/20 08:16 Fluticasone Propionate (Flonase 0.05% Nasal [place]) 2 spray DAILYPRN PRN NARES NASAL CONGESTION 05/11/20 15:00 Gabapentin (Neurontin) 200 mg BID PO 05/11/20 21:00 05/12/20 06:51 DC 05/11/20 21:14 Gabapentin (Neurontin) 400 mg BID PO 05/12/20 09:00 05/24/20 08:17 Heparin Sodium (Porcine) (Heparin) 5,000 units Q12H SC 05/11/20 21:00 05/18/20 10:41 DC 05/18/20 08:44 Home Med (Med Rec Complete!) ASDIRECTED XX 05/11/20 15:30 05/11/20 15:38 DC Lactobacillus Acidophilus (Bacid) 1 ea DAILY PO 05/11/20 09:00 05/24/20 08:16 Latanoprost (Xalatan 0.005% Op Soln) 1 drop QHS OU 05/11/20 21:00 05/23/20 20:54 Levofloxacin (Levaquin) 750 mg DAILY@06 PO 05/11/20 06:00 05/11/20 15:38 DC Levofloxacin (Levaquin) 750 mg DAILY@2100 PO 05/11/20 21:00 05/12/20 08:28 DC 05/11/20 21:15 Levothyroxine Sodium (Synthroid) 50 mcg DAILY@06 PO 05/12/20 06:00 05/24/20 06:23 Lisinopril (Prinivil) 10 mg DAILY PO 05/12/20 09:00 05/17/20 07:16 DC Multivitamins (Theragram-M) 1 tab DAILY PO 05/11/20 09:00 05/24/20 08:16 Non-Formulary Medication ( See Comment Field Below ) REMOVE LIDODERM PATCH DAILY@0600 XX 05/12/20 06:00 05/12/20 06:01 DC 05/12/20 06:00 Omeprazole (PriLOSEC) 20 mg DAILY PO 05/12/20 09:00 05/24/20 08:16 Ondansetron HCl (Zofran) 4 mg Q6HP PRN PO NAUSEA 05/11/20 13:00 Phenazopyridine HCl (Pyridium) 100 mg BID PO 05/16/20 09:00 05/19/20 08:59 DC 05/18/20 21:16 Potassium Chloride (Micro-K Extencaps) 20 meq DAILY PO 05/12/20 09:00 05/24/20 08:17 Prednisone (Deltasone) 2.5 mg DAILY PO 05/23/20 09:00 05/24/20 08:17 Prednisone (Deltasone) 5 mg DAILY PO 05/18/20 09:00 05/22/20 11:21 DC 05/22/20 08:15 Tamsulosin HCl (Flomax) 0.4 mg DAILY PO 05/18/20 09:00 05/24/20 08:16 Tamsulosin HCl (Flomax) 0.4 mg QHS PO 05/11/20 21:00 05/18/20 09:01 DC 05/17/20 21:10 Timolol Maleate (Timoptic 0.5% Ophth [place]iss[place]) 1 drop BID OU 05/11/20 21:00 05/24/20 08:17 Vitamin B Complex/ Vitamin C (Therapeutic B Complex w/C) 1 cap DAILY PO 05/12/20 09:00 05/24/20 08:16 Zinc Sulfate (Zinc Sulfate) 220 mg DAILY PO 05/11/20 09:00 05/24/20 08:16 Zinc Sulfate (Zinc Sulfate) 220 mg DAILY PO 05/13/20 09:00 05/12/20 11:21 TRINA LEONARD MD May 24, 2020 08:29
[2020-05-24 14:00] VITALS: BP 120/66
[2020-05-24 20:00] VITALS: BP 132/72
[2020-05-24] MEDS: LATANOPROST 0.005% OPHTH SOLN 2.5 ML OU SCH (20:37)
[2020-05-24] MEDS: DUTASTERIDE 0.5 MG CAP (AVODART) PO SCH (20:37)
[2020-05-25] MEDS: ACETAMINOPHEN 500 MG TAB PO SCH ×3 (06:00→20:35)
[2020-05-25 06:15] VITALS: BP 133/68
[2020-05-25] MEDS: LEVOTHYROXINE 50MCG TABLET (0.05MG) PO SCH (06:25)
[2020-05-25] MEDS: predniSONE 2.5 MG TAB PO SCH (08:13)
[2020-05-25] MEDS: VITAMIN B COMPLEX/VIT C CAP PO SCH (08:13)
[2020-05-25] MEDS: MULTIVITAMINS/MINERALS THERAP 1 TAB PO SCH (08:13)
[2020-05-25] MEDS: TAMSULOSIN 0.4 MG CAP PO SCH (08:13)
[2020-05-25] MEDS: ASCORBIC ACID 500 MG TAB PO SCH (08:13)
[2020-05-25] MEDS: POTASSIUM CHLORIDE 10 MEQ SR TABLET PO SCH (08:13)
[2020-05-25] MEDS: FERROUS GLUCONATE 324 MG TAB PO SCH ×2 (08:13→20:34)
[2020-05-25] MEDS: OMEPRAZOLE 20 MG CAP PO SCH (08:13)
[2020-05-25] MEDS: TIMOLOL MALEATE 0.5% OPHTH SOLN 5 ML OU SCH ×2 (08:13→20:35)
[2020-05-25] MEDS: GABAPENTIN 400 MG CAP PO SCH ×2 (08:13→20:34)
[2020-05-25] MEDS: LACTOBACILLUS ACIDOPHILUS CAP (BACID) PO SCH (08:13)
[2020-05-25] MEDS: ZINC SULFATE 220 MG CAP PO SCH (08:13)
[2020-05-25] MEDS: DOCUSATE SODIUM 100 MG CAP PO SCH (08:14)
[2020-05-25 14:00] VITALS: BP 124/71
[2020-05-25 20:00] VITALS: BP 121/69
[2020-05-25] MEDS: DUTASTERIDE 0.5 MG CAP (AVODART) PO SCH (20:34)
[2020-05-25] MEDS: LATANOPROST 0.005% OPHTH SOLN 2.5 ML OU SCH (20:35)
[2020-05-26] MEDS: ACETAMINOPHEN 500 MG TAB PO SCH (05:30)
[2020-05-26] MEDS: LEVOTHYROXINE 50MCG TABLET (0.05MG) PO SCH (05:30)
[2020-05-26 05:54] VITALS: BP 126/71
[2020-05-26] MEDS ORDERED: GABA-845 PO (08:45)
[2020-05-26] MEDS ORDERED: FERR32TA PO (08:45)
[2020-05-26] MEDS ORDERED: FLOM0.4C39 PO (08:45)
[2020-05-26] MEDS ORDERED: PRED25TA PO (08:45)
--- NOTE | 2020-05-26 08:53 | DS.PDOC ---
PM&R Discharge Summary [employer]ating [employer]er Discharge Note DATE OF ADMISSION: May 01, 2020 at 18:30 DATE OF DISCHARGE: 05.26.2020 DISCHARGE DIAGNOSES: Urosepsis, improving. Status post multiple lumbar surgeries (3), instrumentation, revision for osteomyelitis, discitis with T10 to pelvis decompression, fusion March 2020, no evidence of recurrence of infection Cauda equina syndrome. Neurogenic bladder Chronic back pain. BPH. Anemia. 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 Hypertension. Unstageable shallow Ulcerations incisional site. Thoracic spine Renal cysts PAST MEDICAL HISTORY: GERD with hiatal hernia Glaucoma. Hypothyroidism. Osteoarthritis with multilevel spondylytic changes PAST SURGICAL HISTORY: History of right occipital window, micro arterial surgery , gamma knife for trigeminal neuralgia Trigeminal neuralgia status post decompression. Status post multiple lumbar surgeries (3), instrumentation, revision for osteomyelitis, discitis with T10 to pelvis decompression, fusion March 2020, no evidence of recurrence of infection HOSPITAL COURSE: This is an 79-year-old gentleman with past medical history multiple spinal surgeries complicated by interim osteomyelitis, discitis requiring revision and fusion March 2020 T10 through pelvis status post recent fall. He successfully completed rehabilitation and was staying with his son having outpatient OT/PT when he fell and was found down and with Urosepsis. Since admission to ARU, he has responded well to a course of antibiotics. Crossed weakness left upper and right lower extremity along with persisting neurogenic bladder raised concern for possible C Spine abnormalities further contributing to the picture. Repeat CT showed multilevel spondylosis and foraminal impingement, improvement of interim notice of bronchiectasis, and incidental note of bilateral renal cysts possibly in need of further workup. Further discussion clarified history that in the early ' he had gamma knife as part of treatment for the trigeminal neuralgia. He received empiric trial low dose steroids for possible inflammatory changes and responded well, will continue slow wean to minimize adverse effects. Neural recovery evident and progressing nicely post op and post rx of infection. Claudia was dc'd per bladder protocol, however unfortunately, despite increase of Flomax and addition of Pyridium, he was unable to spontaneously void sufficiently to avoid intermittent cath, recommended to continue at least 3 times a day and as needed, with follow up for any possible prostate component to hesitancy. Given neurological recovery of increased strength in right lower extremity, it is possibly more of a mechanical obstructive uropathy now that is the challenge than merely the cauda equina syndrome. Shallow ulcerations over spinal incision site felt to be perpetuated by brace irritation and prolonged supine positioning. Side to side positioning and use of a gel pillow when seated are recommended. Protective foam dressing suggested until TLSO deemed no longer necessary per NS. BP dropped on several occasions and has been within acceptable range off antihypertensive medications PHYSICAL EXAMINATION: VITAL SIGNS: Please see below. GENERAL: Pleasant and cooperative. No acute distress, looks fatigued today. Alert and oriented times three, very thin body habitus. HEENT: PERRL. Extraocular movements intact. Clear conjunctiva, no adenopathy or thyromegaly. Full cervical range of motion without tenderness or spasm. Tenderness right temporal region. CARDIOVASCULAR: Regular rate and rhythm. No murmurs, rubs, or gallops. LUNGS: Clear to auscultation bilaterally. No wheezes. No rhonchi. ABDOMEN: Soft, nontender, nondistended. Positive bowel sounds. Normal active bowel sounds, no organomegaly. NEUROLOGICAL: Alert and oriented times three. Cranial nerves II through XII intact. Sensation grossly intact. 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 Pulses intact. No edema, no calf tenderness. SKIN: Blanching erythema. Sacral region, long midthoracic incisions with 3 areas of breakdown upper level 0.3 cm and dry, nearly healed the mid and lower levels. 0.8 and 1 cm. Healing well, no drainage. LABORATORY DATA: Please see below. Anemia FUNCTIONAL STATUS AT DISCHARGE: Pt ambulates 160' with 4ww and Mod I independent with setup for straight cath TID Dressing and self care independent with setup GI continent and regular BM Skin NS WD dressings incisions LABORATORY DATA: Please see below U/A 10.28 neg ALLERGIES: See below. MEDICATIONS: See Below. DISCHARGE DISPOSITION: Home with son with follow up with: - Dr. Coronado, neurosurgery at [facility] for re-imaging, healing progress, decision on length of time to wear TLSO, need for skin protection from shearing irritation from the brace in interim (will provide foam bangading), -PMD regarding anemia, coordination for glaucoma, general medical care - Urology regarding renal cysts, hesitancy requiring regular intermittent catheterization, whether any BPH component that could be adderssed, home health PT, wound care, mobility with walker Vital Signs/I&O Vital Sign - Last 24 Hours 05/25/20 05/25/20 05/26/20 14:00 20:00 05:54 Temp 98.0 98.7 98.1 Pulse 109 89 88 Resp 19 18 18 B/P (MAP) 124/71 (88) 121/69 (86) 126/71 (89) Pulse Ox 99 97 97 O2 Delivery Room Air Room Air Room Air I&O- Last 24 Hours up to 6 AM 05/26/20 06:00 Intake Total 360 ml Output Total 1275 ml Balance -915 ml Medications Medications Current Medications Medications (Trade) Dose Ordered Sig/Freda Route PRN Reason Start Time Stop Time Status Last Admin Dose Admin Acetaminophen (Tylenol Tab) 650 mg Q4HP PRN PO MILD PAIN (PS 1-4) 05/11/20 13:00 05/11/20 15:00 DC Acetaminophen (Tylenol Tab) 650 mg Q6HP PRN PO PAIN OR FEVER 05/11/20 15:00 05/12/20 14:36 DC 05/12/20 04:03 Acetaminophen (Tylenol Tab) 1,000 mg Q6HP PRN PO MILD PAIN (PS 1-4) 05/11/20 13:00 UNV Acetaminophen (Tylenol Tab) 1,000 mg Q8H PO 05/12/20 14:00 05/26/20 05:30 Amoxicillin/ Clavulanate Potassium (Augmentin) 875 mg BID PO 05/12/20 09:00 05/16/20 21:01 DC 05/16/20 20:59 Ascorbic Acid (Vitamin C) 500 mg DAILY PO 05/12/20 09:00 05/25/20 08:13 Collagenase (Santyl) DAILYPRN TOP 05/15/20 16:00 05/16/20 19:01 DC 05/15/20 21:13 Collagenase (Santyl) see nursing instructions, clean... DAILY TOP 05/19/20 09:00 05/22/20 08:59 DC 05/21/20 08:17 Diclofenac Epolamine (Flector 1.3%) 1 patch Q12H TOP 05/18/20 09:00 05/23/20 09:02 DC 05/19/20 08:43 Docusate Sodium (Colace) 100 mg BID PO 05/11/20 21:00 05/11/20 15:17 DC Docusate Sodium (Colace) 100 mg QAM PO 05/12/20 09:00 05/23/20 10:17 Dutasteride (Avodart) 0.5 mg QHS PO 05/11/20 21:00 05/25/20 20:34 Ferrous Gluconate (Fergon) 324 mg BID PO 05/12/20 09:00 05/25/20 20:34 Fluticasone Propionate (Flonase 0.05% Nasal [place]) 2 spray DAILYPRN PRN NARES NASAL CONGESTION 05/11/20 15:00 Gabapentin (Neurontin) 200 mg BID PO 05/11/20 21:00 05/12/20 06:51 DC 05/11/20 21:14 Gabapentin (Neurontin) 400 mg BID PO 05/12/20 09:00 05/25/20 20:34 Heparin Sodium (Porcine) (Heparin) 5,000 units Q12H SC 05/11/20 21:00 05/18/20 10:41 DC 05/18/20 08:44 Home Med (Med Rec Complete!) ASDIRECTED XX 05/11/20 15:30 05/11/20 15:38 DC Lactobacillus Acidophilus (Bacid) 1 ea DAILY PO 05/11/20 09:00 05/25/20 08:13 Latanoprost (Xalatan 0.005% Op Soln) 1 drop QHS OU 05/11/20 21:00 05/25/20 20:35 Levofloxacin (Levaquin) 750 mg DAILY@06 PO 05/11/20 06:00 05/11/20 15:38 DC Levofloxacin (Levaquin) 750 mg DAILY@2100 PO 05/11/20 21:00 05/12/20 08:28 DC 05/11/20 21:15 Levothyroxine Sodium (Synthroid) 50 mcg DAILY@06 PO 05/12/20 06:00 05/26/20 05:30 Lisinopril (Prinivil) 10 mg DAILY PO 05/12/20 09:00 05/17/20 07:16 DC Multivitamins (Theragram-M) 1 tab DAILY PO 05/11/20 09:00 05/25/20 08:13 Non-Formulary Medication ( See Comment Field Below ) REMOVE LIDODERM PATCH DAILY@0600 XX 05/12/20 06:00 05/12/20 06:01 DC 05/12/20 06:00 Omeprazole (PriLOSEC) 20 mg DAILY PO 05/12/20 09:00 05/25/20 08:13 Ondansetron HCl (Zofran) 4 mg Q6HP PRN PO NAUSEA 05/11/20 13:00 Phenazopyridine HCl (Pyridium) 100 mg BID PO 05/16/20 09:00 05/19/20 08:59 DC 05/18/20 21:16 Potassium Chloride (Micro-K Extencaps) 20 meq DAILY PO 05/12/20 09:00 05/25/20 08:13 Prednisone (Deltasone) 2.5 mg DAILY PO 05/23/20 09:00 05/25/20 08:13 Prednisone (Deltasone) 5 mg DAILY PO 05/18/20 09:00 05/22/20 11:21 DC 05/22/20 08:15 Tamsulosin HCl (Flomax) 0.4 mg DAILY PO 05/18/20 09:00 05/25/20 08:13 Tamsulosin HCl (Flomax) 0.4 mg QHS PO 05/11/20 21:00 05/18/20 09:01 DC 05/17/20 21:10 Timolol Maleate (Timoptic 0.5% Ophth Gisselle) 1 drop BID OU 05/11/20 21:00 05/25/20 20:35 Vitamin B Complex/ Vitamin C (Therapeutic B Complex w/C) 1 cap DAILY PO 05/12/20 09:00 05/25/20 08:13 Zinc Sulfate (Zinc Sulfate) 220 mg DAILY PO 05/11/20 09:00 05/25/20 08:13 Zinc Sulfate (Zinc Sulfate) 220 mg DAILY PO 05/13/20 09:00 05/12/20 11:21 DC Scheduled Ascorbic Acid (Vitamin C) 500 Mg Capsule.er, 500 MG PO DAILY, (Reported) Bacillus Coagulans (Bacid with Lactospore) 1 Each Capsule, 1 CAP PO BIDWM Docusate Sodium (Colace) 100 Mg Capsule, 100 MG PO DAILY, (Reported) Dutasteride (Dutasteride) 0.5 Mg Cap, 0.5 MG PO QHS, (Reported) Ferrous Gluconate (Ferrous Gluconate) 324 Mg Tablet, 324 MG PO BID Gabapentin (Gabapentin) 400 Mg Capsule, 400 MG PO BID Lactobacillus Acidophilus (Probiotic) 1 Each Capsule, 1 CAP PO DAILY, (Reported) Latanoprost (Xalatan) 0.005% 2.5ML Drops, 1 DROP OU QHS, (Reported) Levothyroxine Sodium (Levothyroxine Sodium) 50 Mcg Tab, 50 MCG PO DAILY, (Reported) Multivitamin (Tab-A-Matilde) 1 Each Tablet, 1 TAB PO DAILY, (Reported) Omeprazole (Omeprazole) 20 Mg Capsule.dr, 20 MG PO DAILY, (Reported) Potassium Chloride (Klor-Con M10) 10 Meq Tab.er.prt, 20 MEQ PO DAILY, (Reported) Prednisone (Prednisone) 2.5 Mg Tablet, 2.5 MG PO DAILY Tamsulosin HCl (Flomax) 0.4 Mg Cap, 0.4 MG PO QHS, (Reported) Tamsulosin HCl (Flomax) 0.4 Mg Capsule, 0.4 MG PO DAILY Timolol Maleate (Timolol Maleate) 0.5% 5ML Drops, 1 DROP OU BID, (Reported) Zinc (Zinc) 50 Mg Tablet, 50 MG PO DAILY, (Reported) Scheduled PRN Acetaminophen (Acetaminophen) 325 Mg Tablet, 650 MG PO Q6H PRN for PAIN / FEVER, (Reported) Fluticasone Propionate (Fluticasone Propionate) 16 Gm [place].susp, 2 SPRAY NA DAILY PRN for NASAL CONGESTION, (Reported) Allergies Coded Allergies: No Known Allergies (Unverified , 05/12/19) TRINA BHAT MD May 26, 2020 08:53
[2020-05-26] MEDS: ZINC SULFATE 220 MG CAP PO SCH (09:03)
[2020-05-26] MEDS: DOCUSATE SODIUM 100 MG CAP PO SCH (09:04)
[2020-05-26] MEDS: ASCORBIC ACID 500 MG TAB PO SCH (09:04)
[2020-05-26] MEDS: TAMSULOSIN 0.4 MG CAP PO SCH (09:04)
[2020-05-26] MEDS: POTASSIUM CHLORIDE 10 MEQ SR TABLET PO SCH (09:04)
[2020-05-26] MEDS: OMEPRAZOLE 20 MG CAP PO SCH (09:04)
[2020-05-26] MEDS: VITAMIN B COMPLEX/VIT C CAP PO SCH (09:04)
[2020-05-26] MEDS: predniSONE 2.5 MG TAB PO SCH (09:04)
[2020-05-26] MEDS: LACTOBACILLUS ACIDOPHILUS CAP (BACID) PO SCH (09:04)
[2020-05-26] MEDS: FERROUS GLUCONATE 324 MG TAB PO SCH (09:04)
[2020-05-26] MEDS: GABAPENTIN 400 MG CAP PO SCH (09:04)
[2020-05-26] MEDS: MULTIVITAMINS/MINERALS THERAP 1 TAB PO SCH (09:04)
[2020-05-26] MEDS: TIMOLOL MALEATE 0.5% OPHTH SOLN 5 ML OU SCH (09:05)
== END 2020-05-26 12:20 | disposition home health service (06) | DRG 74 ==
LOC: M PM&R 14:20
PROVIDERS: ADMIT Physical Medicine & Rehabilitation; ATTEND Physical Medicine & Rehabilitation
DX: G83.4 Cauda equina syndrome (principal); L98.428 Non-pressure chronic ulcer of back with other specified severity; N40.1 Benign prostatic hyperplasia with lower urinary tract symptoms; R32 Unspecified urinary incontinence; R53.83 Other fatigue; I10 Essential (primary) hypertension; R53.1 Weakness; G50.0 Trigeminal neuralgia; H40.9 Unspecified glaucoma; M51.35 Other intervertebral disc degeneration, thoracolumbar region; K44.9 Diaphragmatic hernia without obstruction or gangrene; K21.9 Gastro-esophageal reflux disease without esophagitis; G81.91 Hemiplegia, unspecified affecting right dominant side; D50.0 Iron deficiency anemia secondary to blood loss (chronic); E03.9 Hypothyroidism, unspecified; N28.1 Cyst of kidney, acquired; R33.9 Retention of urine, unspecified; M47.815 Spondylosis without myelopathy or radiculopathy, thoracolumbar region; Z98.1 Arthrodesis status; Z79.899 Other long term (current) drug therapy

== ENCOUNTER 2022-04-29 13:14 | Inpatient (IN) | payer MEDICARE, BC, OTHER ==
[~2022-04-29] VITALS: Ht 175.3 cm; Wt 60.7 kg
[~2022-04-29 13:14] MED LIST changes: +FERR32TA PO; +GABA-283 PO; -GABA-845 PO; -KLOR10TA76 PO; +LISI10TA22 PO; -LISI10TA4 PO; -LevoFLOXacin 750 MG TABLET PO SCH; +OMEP-173 PO; -OMEP-218 PO; +POTA-136 PO; +PRED25TA PO; +RAME8TAB2 PO
[2022-04-29] MEDS ORDERED: ACETAMINOPHEN TAB 650MG DOSE (2X325MG) PO PRN (13:20)
[2022-04-29 13:25] VITALS: BP 157/76
[2022-04-29] MEDS ORDERED: HOME MED LIST COMPLETE! XX SCH (13:40)
[2022-04-29 15:10] VITALS: BP 128/70
[2022-04-29] MEDS ORDERED: ONDANSETRON 4MG ORAL DISINTEGRATING TAB PO PRN (16:10)
[2022-04-29] MEDS: LACTOBACILLUS ACIDOPHILUS CAP (BACID) PO SCH (18:36)
[2022-04-29 20:00] VITALS: BP 140/74
[2022-04-29] MEDS: TAMSULOSIN 0.4 MG CAP PO SCH (20:22)
[2022-04-29] MEDS: CEPHALEXIN 250MG CAPSULE PO SCH (20:22)
[2022-04-29] MEDS: DUTASTERIDE 0.5 MG CAP (AVODART) PO SCH (20:22)
[2022-04-29] MEDS: LATANOPROST 0.005% OPHTH SOLN 2.5 ML OU SCH (20:22)
[2022-04-29] MEDS: GABAPENTIN 400MG CAP PO SCH (20:22)
[2022-04-29] MEDS: TIMOLOL MALEATE 0.5% OPHTH SOLN 5 ML OU SCH (20:23)
[2022-04-30] MEDS: LEVOTHYROXINE 50MCG TABLET (0.05MG) PO SCH (06:35)
[2022-04-30 06:43] LABS: BASO % 0.9 % (0.0-1.0); EOS # 0.2 10^3/uL (0.0-0.5); EOS % 4.5 % (0.0-3.0); HEMATOCRIT 37.2 % (42.0-52.0); HEMOGLOBIN 12.4 g/dl (13.5-17.5); LYMPH # 1.1 10^3/uL (1.5-5.0); LYMPH % 26.3 % (24.0-44.0); MEAN CORPUSCULAR HGB CONC 33.3 g/dl (32.0-36.5); MEAN CORPUSCULAR VOLUME 95.9 fl (80.0-96.0); MONO # 0.4 10^3/uL (0.0-0.8); MONO % 9.5 % (2.0-8.0); NEUTROPHILS # 2.4 10^3/uL (1.5-8.5); NEUTROPHILS % 57.1 % (36.0-66.0); PLATELET COUNT, AUTOMATED 234 10^3/uL (150-450); RED BLOOD COUNT 3.88 10^6/uL (4.30-6.10); WHITE BLOOD COUNT 4.2 10^3/uL (4.0-10.0)
[2022-04-30 06:44] VITALS: BP 130/70
[2022-04-30] MEDS ORDERED: FLUBLOK(EGG FREE)(QUAD)INFLUENZA VACC 0.5ML SYRINGE 18YRS & OLDER IM.IMMUN ONE (09:00)
[2022-04-30] MEDS: GABAPENTIN 400MG CAP PO SCH ×2 (09:13→20:37)
[2022-04-30] MEDS: POTASSIUM CHLORIDE 10MEQ SR TABLET PO SCH (09:13)
[2022-04-30] MEDS: LACTOBACILLUS ACIDOPHILUS CAP (BACID) PO SCH ×3 (09:13→17:36)
[2022-04-30] MEDS: NEPHRO-VIT TAB (NEPHROCAPS) PO SCH (09:13)
[2022-04-30] MEDS: CEPHALEXIN 250MG CAPSULE PO SCH ×2 (09:13→20:37)
[2022-04-30] MEDS: OMEPRAZOLE 20MG CAP PO SCH (09:13)
[2022-04-30] MEDS: ENOXAPARIN 40MG/0.4ML SYRINGE (J1650 PER 10MG) SC SCH (09:13)
[2022-04-30] MEDS: MULTIVITAMINS/MINERALS THERAP 1 TAB PO SCH (09:13)
[2022-04-30] MEDS: TIMOLOL MALEATE 0.5% OPHTH SOLN 5 ML OU SCH ×2 (09:15→20:42)
[2022-04-30] MEDS: SENNA 8.6 MG TAB (SENOKOT) PO SCH ×2 (12:14→20:37)
[2022-04-30 14:00] VITALS: BP 135/68
[2022-04-30] MEDS: DOCUSATE SODIUM 100MG CAPSULE PO PRN (14:57)
[2022-04-30 20:21] VITALS: BP 144/76
[2022-04-30] MEDS: TAMSULOSIN 0.4 MG CAP PO SCH (20:37)
[2022-04-30] MEDS: DUTASTERIDE 0.5 MG CAP (AVODART) PO SCH (20:37)
[2022-04-30] MEDS: LATANOPROST 0.005% OPHTH SOLN 2.5 ML OU SCH (20:38)
[2022-05-01 05:41] VITALS: BP 130/67
[2022-05-01] MEDS: LEVOTHYROXINE 50MCG TABLET (0.05MG) PO SCH (05:42)
[2022-05-01 06:21] LABS: HEMATOCRIT 38.6 % (42.0-52.0); HEMOGLOBIN 12.9 g/dl (13.5-17.5); MEAN CORPUSCULAR HEMOGLOBIN 32.1 pg (27.0-33.0); MEAN CORPUSCULAR HGB CONC 33.4 g/dl (32.0-36.5); PLATELET COUNT, AUTOMATED 275 10^3/uL (150-450); RED BLOOD COUNT 4.02 10^6/uL (4.30-6.10); WHITE BLOOD COUNT 4.5 10^3/uL (4.0-10.0)
[2022-05-01] MEDS: SENNA 8.6 MG TAB (SENOKOT) PO SCH ×2 (08:58→20:49)
[2022-05-01] MEDS: GABAPENTIN 400MG CAP PO SCH ×2 (08:59→20:49)
[2022-05-01] MEDS: MULTIVITAMINS/MINERALS THERAP 1 TAB PO SCH (08:59)
[2022-05-01] MEDS: LACTOBACILLUS ACIDOPHILUS CAP (BACID) PO SCH ×3 (08:59→18:00)
[2022-05-01] MEDS: POTASSIUM CHLORIDE 10MEQ SR TABLET PO SCH (08:59)
[2022-05-01] MEDS: OMEPRAZOLE 20MG CAP PO SCH (08:59)
[2022-05-01] MEDS: NEPHRO-VIT TAB (NEPHROCAPS) PO SCH (08:59)
[2022-05-01] MEDS: ENOXAPARIN 40MG/0.4ML SYRINGE (J1650 PER 10MG) SC SCH (08:59)
[2022-05-01] MEDS: TIMOLOL MALEATE 0.5% OPHTH SOLN 5 ML OU SCH ×2 (09:00→20:52)
[2022-05-01 14:00] VITALS: BP 142/73
[2022-05-01 20:00] VITALS: BP 140/68
[2022-05-01] MEDS: TAMSULOSIN 0.4 MG CAP PO SCH (20:49)
[2022-05-01] MEDS: DUTASTERIDE 0.5 MG CAP (AVODART) PO SCH (20:49)
[2022-05-01] MEDS: LATANOPROST 0.005% OPHTH SOLN 2.5 ML OU SCH (20:50)
[2022-05-02] MEDS: LEVOTHYROXINE 50MCG TABLET (0.05MG) PO SCH (05:25)
[2022-05-02 06:00] VITALS: BP 138/60
[2022-05-02] MEDS: TIMOLOL MALEATE 0.5% OPHTH SOLN 5 ML OU SCH ×2 (09:00→20:32)
[2022-05-02] MEDS: OMEPRAZOLE 20MG CAP PO SCH (09:16)
[2022-05-02] MEDS: NEPHRO-VIT TAB (NEPHROCAPS) PO SCH (09:17)
[2022-05-02] MEDS: GABAPENTIN 400MG CAP PO SCH ×2 (09:17→20:32)
[2022-05-02] MEDS: POTASSIUM CHLORIDE 10MEQ SR TABLET PO SCH (09:17)
[2022-05-02] MEDS: ENOXAPARIN 40MG/0.4ML SYRINGE (J1650 PER 10MG) SC SCH (09:17)
[2022-05-02] MEDS: MULTIVITAMINS/MINERALS THERAP 1 TAB PO SCH (09:17)
[2022-05-02] MEDS: SENNA 8.6 MG TAB (SENOKOT) PO SCH (09:17)
[2022-05-02] MEDS: LACTOBACILLUS ACIDOPHILUS CAP (BACID) PO SCH ×3 (09:18→17:59)
[2022-05-02 14:00] VITALS: BP 132/68
[2022-05-02 20:00] VITALS: BP 139/63
[2022-05-02] MEDS: TAMSULOSIN 0.4 MG CAP PO SCH (20:32)
[2022-05-02] MEDS: LATANOPROST 0.005% OPHTH SOLN 2.5 ML OU SCH (20:32)
[2022-05-02] MEDS: DUTASTERIDE 0.5 MG CAP (AVODART) PO SCH (20:32)
[2022-05-02] MEDS ORDERED: SENNA 8.6 MG TAB (SENOKOT) PO PRN (21:00)
[2022-05-03] MEDS: LEVOTHYROXINE 50MCG TABLET (0.05MG) PO SCH (05:48)
[2022-05-03 06:00] VITALS: BP 130/60
[2022-05-03 06:48] LABS: ALBUMIN 2.9 GM/DL (3.2-5.2); ALT/SGPT 44 U/L (12-78); BILIRUBIN,TOTAL 0.3 MG/DL (0.2-1.0); BLOOD UREA NITROGEN 19 MG/DL (7-18); CALCIUM LEVEL 8.7 MG/DL (8.8-10.2); CARBON DIOXIDE LEVEL 27 MEQ/L (21-32); CHLORIDE LEVEL 106 MEQ/L (98-107); CREATININE FOR GFR 0.87 MG/DL (0.70-1.30); GLOMERULAR FILTRATION RATE > 60.0 (>35); GLUCOSE, FASTING 93 MG/DL (70-100); POTASSIUM SERUM 4.5 MEQ/L (3.5-5.1); SODIUM LEVEL 140 MEQ/L (136-145); TOTAL PROTEIN 5.8 GM/DL (6.4-8.2)
[2022-05-03] MEDS: LACTOBACILLUS ACIDOPHILUS CAP (BACID) PO SCH ×3 (07:49→17:14)
[2022-05-03] MEDS: DOCUSATE SODIUM 100MG CAPSULE PO PRN (07:49)
[2022-05-03] MEDS: MULTIVITAMINS/MINERALS THERAP 1 TAB PO SCH (07:49)
[2022-05-03] MEDS: NEPHRO-VIT TAB (NEPHROCAPS) PO SCH (07:49)
[2022-05-03] MEDS: GABAPENTIN 400MG CAP PO SCH ×2 (07:50→20:05)
[2022-05-03] MEDS: POTASSIUM CHLORIDE 10MEQ SR TABLET PO SCH (07:50)
[2022-05-03] MEDS: ENOXAPARIN 40MG/0.4ML SYRINGE (J1650 PER 10MG) SC SCH (07:50)
[2022-05-03] MEDS: OMEPRAZOLE 20MG CAP PO SCH (07:50)
[2022-05-03] MEDS: TIMOLOL MALEATE 0.5% OPHTH SOLN 5 ML OU SCH ×2 (07:51→20:06)
[2022-05-03 14:00] VITALS: BP 131/66
[2022-05-03 20:00] VITALS: BP 128/58
[2022-05-03] MEDS: TAMSULOSIN 0.4 MG CAP PO SCH (20:05)
[2022-05-03] MEDS: DUTASTERIDE 0.5 MG CAP (AVODART) PO SCH (20:05)
[2022-05-03] MEDS: LATANOPROST 0.005% OPHTH SOLN 2.5 ML OU SCH (20:05)
[2022-05-04] MEDS: LEVOTHYROXINE 50MCG TABLET (0.05MG) PO SCH (05:38)
[2022-05-04 06:00] VITALS: BP 121/65
[2022-05-04] MEDS: LACTOBACILLUS ACIDOPHILUS CAP (BACID) PO SCH ×3 (09:08→17:36)
[2022-05-04] MEDS: POTASSIUM CHLORIDE 10MEQ SR TABLET PO SCH (09:08)
[2022-05-04] MEDS: NEPHRO-VIT TAB (NEPHROCAPS) PO SCH (09:08)
[2022-05-04] MEDS: OMEPRAZOLE 20MG CAP PO SCH (09:09)
[2022-05-04] MEDS: MULTIVITAMINS/MINERALS THERAP 1 TAB PO SCH (09:09)
[2022-05-04] MEDS: ENOXAPARIN 40MG/0.4ML SYRINGE (J1650 PER 10MG) SC SCH (09:09)
[2022-05-04] MEDS: GABAPENTIN 400MG CAP PO SCH ×2 (09:09→20:34)
[2022-05-04] MEDS: TIMOLOL MALEATE 0.5% OPHTH SOLN 5 ML OU SCH ×2 (09:10→20:34)
[2022-05-04 14:00] VITALS: BP 116/61
[2022-05-04 19:39] VITALS: BP 121/74
[2022-05-04] MEDS: LATANOPROST 0.005% OPHTH SOLN 2.5 ML OU SCH (20:34)
[2022-05-04] MEDS: TAMSULOSIN 0.4 MG CAP PO SCH (20:34)
[2022-05-04] MEDS: DUTASTERIDE 0.5 MG CAP (AVODART) PO SCH (20:34)
[2022-05-05] MEDS: LEVOTHYROXINE 50MCG TABLET (0.05MG) PO SCH (05:52)
[2022-05-05 05:55] VITALS: BP 128/61
[2022-05-05] MEDS: OMEPRAZOLE 20MG CAP PO SCH (08:37)
[2022-05-05] MEDS: POTASSIUM CHLORIDE 10MEQ SR TABLET PO SCH (08:37)
[2022-05-05] MEDS: MULTIVITAMINS/MINERALS THERAP 1 TAB PO SCH (08:37)
[2022-05-05] MEDS: NEPHRO-VIT TAB (NEPHROCAPS) PO SCH (08:37)
[2022-05-05] MEDS: GABAPENTIN 400MG CAP PO SCH ×2 (08:37→20:20)
[2022-05-05] MEDS: LACTOBACILLUS ACIDOPHILUS CAP (BACID) PO SCH ×3 (08:37→17:49)
[2022-05-05] MEDS: ENOXAPARIN 40MG/0.4ML SYRINGE (J1650 PER 10MG) SC SCH (08:37)
[2022-05-05] MEDS: TIMOLOL MALEATE 0.5% OPHTH SOLN 5 ML OU SCH ×2 (08:38→20:21)
[2022-05-05 14:00] VITALS: BP 124/65
[2022-05-05 20:00] VITALS: BP 139/67
[2022-05-05] MEDS: DUTASTERIDE 0.5 MG CAP (AVODART) PO SCH (20:20)
[2022-05-05] MEDS: TAMSULOSIN 0.4 MG CAP PO SCH (20:20)
[2022-05-05] MEDS: LATANOPROST 0.005% OPHTH SOLN 2.5 ML OU SCH (20:20)
[2022-05-06] MEDS: LEVOTHYROXINE 50MCG TABLET (0.05MG) PO SCH (05:36)
[2022-05-06 06:00] VITALS: BP 129/64
[2022-05-06] MEDS: ENOXAPARIN 40MG/0.4ML SYRINGE (J1650 PER 10MG) SC SCH (09:10)
[2022-05-06] MEDS: NEPHRO-VIT TAB (NEPHROCAPS) PO SCH (09:10)
[2022-05-06] MEDS: OMEPRAZOLE 20MG CAP PO SCH (09:10)
[2022-05-06] MEDS: GABAPENTIN 400MG CAP PO SCH ×2 (09:10→20:44)
[2022-05-06] MEDS: POTASSIUM CHLORIDE 10MEQ SR TABLET PO SCH (09:10)
[2022-05-06] MEDS: LACTOBACILLUS ACIDOPHILUS CAP (BACID) PO SCH ×3 (09:10→17:58)
[2022-05-06] MEDS: MULTIVITAMINS/MINERALS THERAP 1 TAB PO SCH (09:10)
[2022-05-06] MEDS: TIMOLOL MALEATE 0.5% OPHTH SOLN 5 ML OU SCH ×2 (09:11→20:44)
[2022-05-06 14:00] VITALS: BP 138/63
[2022-05-06 20:00] VITALS: BP 151/71
[2022-05-06] MEDS: TAMSULOSIN 0.4 MG CAP PO SCH (20:44)
[2022-05-06] MEDS: DUTASTERIDE 0.5 MG CAP (AVODART) PO SCH (20:44)
[2022-05-06] MEDS: LATANOPROST 0.005% OPHTH SOLN 2.5 ML OU SCH (20:45)
[2022-05-07 06:00] VITALS: BP 137/63
[2022-05-07] MEDS: LEVOTHYROXINE 50MCG TABLET (0.05MG) PO SCH (06:26)
[2022-05-07] MEDS: LACTOBACILLUS ACIDOPHILUS CAP (BACID) PO SCH ×2 (08:37→12:11)
[2022-05-07] MEDS: GABAPENTIN 400MG CAP PO SCH (08:37)
[2022-05-07] MEDS: OMEPRAZOLE 20MG CAP PO SCH (08:37)
[2022-05-07] MEDS: MULTIVITAMINS/MINERALS THERAP 1 TAB PO SCH (08:37)
[2022-05-07] MEDS: NEPHRO-VIT TAB (NEPHROCAPS) PO SCH (08:37)
[2022-05-07] MEDS: POTASSIUM CHLORIDE 10MEQ SR TABLET PO SCH (08:37)
[2022-05-07] MEDS: ENOXAPARIN 40MG/0.4ML SYRINGE (J1650 PER 10MG) SC SCH (08:37)
[2022-05-07] MEDS: TIMOLOL MALEATE 0.5% OPHTH SOLN 5 ML OU SCH (08:38)
== END 2022-05-07 12:45 | disposition home health service (06) | DRG 73 ==
LOC: M PM&R 13:25
PROVIDERS: ADMIT Physical Medicine & Rehabilitation; ATTEND Physical Medicine & Rehabilitation
DX: G83.4 Cauda equina syndrome (principal); G92.8 Other toxic encephalopathy; K59.2 Neurogenic bowel, not elsewhere classified; K44.0 Diaphragmatic hernia with obstruction, without gangrene; N39.0 Urinary tract infection, site not specified; M48.54XA Collapsed vertebra, not elsewhere classified, thoracic region, initial encounter for fracture; M54.9 Dorsalgia, unspecified; D64.9 Anemia, unspecified; K21.9 Gastro-esophageal reflux disease without esophagitis; H40.9 Unspecified glaucoma; E03.9 Hypothyroidism, unspecified; M47.815 Spondylosis without myelopathy or radiculopathy, thoracolumbar region; G83.24 Monoplegia of upper limb affecting left nondominant side; I10 Essential (primary) hypertension; R27.0 Ataxia, unspecified; G83.11 Monoplegia of lower limb affecting right dominant side; E77.8 Other disorders of glycoprotein metabolism; R33.9 Retention of urine, unspecified; E83.51 Hypocalcemia; R39.11 Hesitancy of micturition; G50.0 Trigeminal neuralgia; M47.814 Spondylosis without myelopathy or radiculopathy, thoracic region; N40.1 Benign prostatic hyperplasia with lower urinary tract symptoms; E53.8 Deficiency of other specified B group vitamins; Z98.1 Arthrodesis status; Z79.890 Hormone replacement therapy; Z79.899 Other long term (current) drug therapy; Z74.1 Need for assistance with personal care; Z74.09 Other reduced mobility

== ENCOUNTER → 2022-10-22 | Outpatient (REF) | payer MEDICARE, BC, OTHER ==
[2022-10-22 17:31] LABS: FOLATE > 24.0 NG/ML (>5.4); VITAMIN B12 LEVEL 559 PG/ML (211-911)
== END ==
LOC: M LAB REF 16:21
PROVIDERS: ATTEND Internal Medicine
DX: R20.2 Paresthesia of skin (principal); R41.3 Other amnesia

== ENCOUNTER → 2022-11-12 | Outpatient (REF) | payer MEDICARE, OTHER ==
[~2022-11-12] MED LIST changes: +FLUT50SP17; -FLUTISP; +TIMO0.5S20 OU; -TIMO0.5S29 OU
[2022-11-12 18:04] LABS: PHOSPHORUS LEVEL 2.8 MG/DL (2.4-5.1); PTH INTACT 46.7 PG/ML (18.5-88.0)
== END ==
LOC: M LAB REF 16:16
PROVIDERS: ATTEND Nurse Practitioner Adult Health
DX: M81.0 Age-related osteoporosis without current pathological fracture (principal)

== ENCOUNTER → 2022-12-06 | Outpatient (REF) | payer MEDICARE, OTHER ==
[~2022-12-06] MED LIST changes: +POTA-298 PO; -POTA1TAB14 PO
== END ==
LOC: M LAB REF 16:17
PROVIDERS: ATTEND Internal Medicine
DX: M81.0 Age-related osteoporosis without current pathological fracture (principal)

== ENCOUNTER → 2023-06-10 | Outpatient (REF) | payer MEDICARE, OTHER ==
[~2023-06-10] MED LIST changes: -GABA-283 PO; +GABA-284 PO
== END ==
LOC: M LAB REF 16:14
PROVIDERS: ATTEND Internal Medicine
DX: M81.0 Age-related osteoporosis without current pathological fracture (principal); Z79.899 Other long term (current) drug therapy

== ENCOUNTER → 2024-04-28 | Outpatient (REF) ==
[~2024-04-28] MED LIST changes: -FLUT50SP17; +FLUTISP; -VITA500C19 PO; +VITA500C22 PO
[2024-04-28 09:11] LABS: HEMATOCRIT 27.4 % (42.0-52.0); HEMOGLOBIN 8.9 g/dl (13.5-17.5); MEAN CORPUSCULAR HEMOGLOBIN 32.5 pg (27.0-33.0); MEAN CORPUSCULAR HGB CONC 32.5 g/dl (32.0-36.5); PLATELET COUNT, AUTOMATED 285 10^3/uL (150-450); RED BLOOD COUNT 2.74 10^6/uL (4.30-6.10); WHITE BLOOD COUNT 4.4 10^3/uL (4.0-10.0)
[2024-04-28 09:40] LABS: BLOOD UREA NITROGEN 17 MG/DL (9-23); CARBON DIOXIDE LEVEL 27 MMOL/L (20-31); CHLORIDE LEVEL 111 MMOL/L (98-107); CREATININE FOR GFR 0.72 MG/DL (0.70-1.30); GLOMERULAR FILTRATION RATE > 60.0 (>35); GLUCOSE, FASTING 77 MG/DL (74-106); POTASSIUM SERUM 3.9 MMOL/L (3.5-5.1); SODIUM LEVEL 141 MMOL/L (136-145)
[2024-04-28 09:42] LABS: THYROID STIMULATING HORMONE 2.789 uIU/ML (0.55-4.78)
== END ==
PROVIDERS: ATTEND Internal Medicine
DX: I10 Essential (primary) hypertension (principal)

== ENCOUNTER → 2024-05-05 | Outpatient (REF) ==
[2024-05-05 08:54] LABS: HEMATOCRIT 33.6 % (42.0-52.0); HEMOGLOBIN 10.7 g/dl (13.5-17.5); MEAN CORPUSCULAR HEMOGLOBIN 33.2 pg (27.0-33.0); MEAN CORPUSCULAR HGB CONC 31.8 g/dl (32.0-36.5); MEAN CORPUSCULAR VOLUME 104.3 fl (80.0-96.0); PLATELET COUNT, AUTOMATED 246 10^3/uL (150-450); RED BLOOD COUNT 3.22 10^6/uL (4.30-6.10); WHITE BLOOD COUNT 4.5 10^3/uL (4.0-10.0)
[2024-05-05 09:27] LABS: BLOOD UREA NITROGEN 16 MG/DL (9-23); CALCIUM LEVEL 8.3 MG/DL (8.3-10.6); CARBON DIOXIDE LEVEL 27 MMOL/L (20-31); CHLORIDE LEVEL 110 MMOL/L (98-107); CREATININE FOR GFR 0.76 MG/DL (0.70-1.30); GLOMERULAR FILTRATION RATE > 60.0 (>35); GLUCOSE, FASTING 77 MG/DL (74-106); POTASSIUM SERUM 4.4 MMOL/L (3.5-5.1); SODIUM LEVEL 142 MMOL/L (136-145)
== END ==
PROVIDERS: ATTEND Internal Medicine
DX: I10 Essential (primary) hypertension (principal)

== ENCOUNTER → 2024-06-15 | Outpatient (REF) | payer MEDICARE, OTHER, BC | LOC: M LAB REF 17:36 | PROVIDERS: ATTEND Internal Medicine | DX: M81.0 Age-related osteoporosis without current pathological fracture (principal); Z79.899 Other long term (current) drug therapy ==

== ENCOUNTER → 2024-06-15 | Outpatient (REF) | payer MEDICARE, OTHER, BC ==
[2024-06-15 17:45] LABS: APPEARANCE, URINE CLOUDY (CLEAR); BACTERIA, URINE AUTO 1+ (NEGATIVE); BILIRUBIN, URINE AUTO NEGATIVE (NEGATIVE); BLOOD, URINE BLOOD 2+ (NEGATIVE); COLOR, URINE YELLOW (YELLOW); GLUCOSE, URINE (UA) AUTO NEGATIVE (NEGATIVE); KETONE, URINE AUTO TRACE mg/dL (NEGATIVE); LEUKOCYTE ESTERASE, URINE AUTO 2+ (NEGATIVE); NITRITE, URINE AUTO NEGATIVE (NEGATIVE); PROTEIN, URINE AUTO 2+ mg/dL (NEGATIVE); RBC, URINE AUTO TNTC /HPF (0-3); SPECIFIC GRAVITY URINE AUTO 1.019 (1.002-1.035); SQUAMOUS EPITHELIAL CELL UR AU 1 /HPF (0-6); UROBILINOGEN, URINE AUTO 0.2 mg/dL (0.0-2.0); WBC, URINE AUTO TNTC /HPF (0-3)
== END ==
LOC: M SMT 17:07
PROVIDERS: ATTEND Nurse Practitioner Family
DX: R33.9 Retention of urine, unspecified (principal)

== ENCOUNTER → 2024-06-16 | Outpatient (REF) | PROVIDERS: ATTEND Internal Medicine | DX: E03.9 Hypothyroidism, unspecified (principal); Z53.9 Procedure and treatment not carried out, unspecified reason ==

== ENCOUNTER → 2024-07-15 | Outpatient (REF) | payer MEDICARE, OTHER, BC ==
[2024-07-15 15:49] LABS: APPEARANCE, URINE TURBID (CLEAR); BACTERIA, URINE AUTO 2+ (NEGATIVE); BILIRUBIN, URINE AUTO NEGATIVE (NEGATIVE); BLOOD, URINE BLOOD 2+ (NEGATIVE); COLOR, URINE AMBER (YELLOW); GLUCOSE, URINE (UA) AUTO NEGATIVE (NEGATIVE); KETONE, URINE AUTO TRACE mg/dL (NEGATIVE); LEUKOCYTE ESTERASE, URINE AUTO 2+ (NEGATIVE); MUCUS, URINE MODERATE (NEGATIVE); NITRITE, URINE AUTO NEGATIVE (NEGATIVE); PROTEIN, URINE AUTO 2+ mg/dL (NEGATIVE); RBC, URINE AUTO TNTC /HPF (0-3); SPECIFIC GRAVITY URINE AUTO 1.023 (1.002-1.035); SQUAMOUS EPITHELIAL CELL UR AU 2 /HPF (0-6); UROBILINOGEN, URINE AUTO 0.2 mg/dL (0.0-2.0); WBC, URINE AUTO TNTC /HPF (0-3)
== END ==
LOC: M SMT 14:56
PROVIDERS: ATTEND Nurse Practitioner Family
DX: R33.9 Retention of urine, unspecified (principal)

== ENCOUNTER → 2024-10-19 | Outpatient (REF) | payer MEDICARE, BC ==
[~2024-10-19] MED LIST changes: +ATOR40TA75 PO; +CALC250T PO; +D31000CA4 PO; +ECOT81TA5 PO; +LEVO75TAB PO; +MAGN400C PO; +MULT-40 PO
[2024-10-19 16:16] LABS: PERCENT SATURATION 8.6 % (19.7-50.0)
== END ==
LOC: M LAB REF 15:09
PROVIDERS: ATTEND Internal Medicine
DX: D50.9 Iron deficiency anemia, unspecified (principal)

== ENCOUNTER → 2024-12-10 | Outpatient (REF) | payer MEDICARE, BC ==
[~2024-12-10] MED LIST changes: -FLOM0.4C39 PO; +LIDO1ADH93 TOP; -LIDO5DIS41 TOP; +TAMS-18 PO
[2024-12-10 17:29] LABS: APPEARANCE, URINE CLOUDY (CLEAR); BACTERIA, URINE AUTO 1+ (NEGATIVE); BILIRUBIN, URINE AUTO NEGATIVE (NEGATIVE); BLOOD, URINE BLOOD 2+ (NEGATIVE); COLOR, URINE YELLOW (YELLOW); GLUCOSE, URINE (UA) AUTO NEGATIVE (NEGATIVE); KETONE, URINE AUTO NEGATIVE (NEGATIVE); LEUKOCYTE ESTERASE, URINE AUTO 3+ (NEGATIVE); MUCUS, URINE SMALL (NEGATIVE); NITRITE, URINE AUTO NEGATIVE (NEGATIVE); PROTEIN, URINE AUTO 2+ mg/dL (NEGATIVE); RBC, URINE AUTO 79 /HPF (0-3); SQUAMOUS EPITHELIAL CELL UR AU 0 /HPF (0-6); UROBILINOGEN, URINE AUTO 0.2 mg/dL (0.0-2.0); WBC, URINE AUTO TNTC /HPF (0-3)
== END ==
LOC: M SMT 16:50
PROVIDERS: ATTEND Nurse Practitioner Family
DX: R33.9 Retention of urine, unspecified (principal)

== ENCOUNTER 2025-02-06 03:11 | Inpatient (IN) | payer MEDICARE, BC ==
[~2025-02-06] VITALS: Ht 175.3 cm; Wt 57.1 kg
[2025-02-06] MEDS: NS (Normal Saline) 0.9% 1,000 ML IV ONE (04:55)
[2025-02-06 04:57] LABS: BASO # 0.0 10^3/uL (0.0-0.2); BASO % 0.1 % (0.0-1.0); EOS # 0.0 10^3/uL (0.0-0.5); EOS % 0.0 % (0.0-3.0); LYMPH # 0.4 10^3/uL (1.5-5.0); LYMPH % 4.4 % (24.0-44.0); MONO # 0.1 10^3/uL (0.0-0.8); MONO % 1.6 % (2.0-8.0); NEUTROPHILS # 7.6 10^3/uL (1.5-8.5); NEUTROPHILS % 93.7 % (36.0-66.0); PLATELET COUNT, AUTOMATED 204 10^3/uL (150-450)
[2025-02-06 05:23] LABS: ALT/SGPT 24 U/L (7.0-40); AST/SGOT 24 U/L (<34); CALCIUM LEVEL 8.4 MG/DL (8.3-10.6); CARBON DIOXIDE LEVEL 30 MMOL/L (20-31); CHLORIDE LEVEL 102 MMOL/L (98-107); CREATININE FOR GFR 0.91 MG/DL (0.70-1.30); GLOMERULAR FILTRATION RATE 82.6 (>35); POTASSIUM SERUM 4.1 MMOL/L (3.5-5.1); SODIUM LEVEL 146 MMOL/L (136-145)
[2025-02-06 05:37] LABS: KETONE, URINE AUTO RFX 2+ mg/dL (NEGATIVE); MUCUS, URINE RFX SMALL (NEGATIVE); NITRITE, URINE AUTO RFX NEGATIVE (NEGATIVE); RBC, URINE AUTO RFX 22 /HPF (0-3); SQUAM EPITHELIAL CELL UR AURFX 0 /HPF (0-6)
[2025-02-06 05:38] LABS: LEUKOCYTE ESTERASE UR AUTO RFX 2+ (NEGATIVE); WBC, URINE AUTO RFX 77 /HPF (0-3)
[2025-02-06 07:50] LABS: CK-MB VALUE MASS < 1.0 NG/ML (<3.6)
[2025-02-06 07:51] LABS: CPK CREATINE PHOSPHOKINASE 93 U/L (46-171)
[2025-02-06] MEDS: LevoFLOXacin IV 750 MG in IV 1 EA IV ONE (08:03)
[2025-02-06] MEDS ORDERED: ISOVUE-370 76% 100 ML VIAL As Ordered ONE (08:03)
[2025-02-06] MEDS: NS (Normal Saline) 0.9% 1,000 ML IV SCH (08:04)
[2025-02-06] MEDS: ONDANSETRON 4MG 2ML VIAL IV ONE (08:07)
[2025-02-06] MEDS: PANTOPRAZOLE 40MG VIAL IV ONE (08:07)
[2025-02-06 11:52] LABS: CK-MB VALUE MASS 1.8 NG/ML (<3.6)
[2025-02-06 11:54] LABS: CPK CREATINE PHOSPHOKINASE 135.0 U/L (46-171); MB/CK RELATIVE INDEX 1.33 (< OR =4)
[2025-02-06 12:10] VITALS: BP 115/67; TEMP 98.3; O2SAT 96
[2025-02-06] MEDS: D5W/0.45% SODIUM CHLORIDE 1,000 ML IV SCH (12:48)
[2025-02-06] MEDS ORDERED: NEUR300C PO (13:14)
[2025-02-06] MEDS ORDERED: HOME MED LIST COMPLETE! XX SCH (13:15)
[2025-02-06 15:47] VITALS: BP 130/67; TEMP 98.5; O2SAT 97
[2025-02-06] MEDS: LEVOTHYROXINE 100 MCG (0.1 MG) 5ML SDV PF (SOLUTION FORM) IV SCH (16:36)
[2025-02-06 19:06] VITALS: BP 118/60; TEMP 97.9; O2SAT 97
[2025-02-06] MEDS: PANTOPRAZOLE 40MG VIAL IV SCH (21:10)
[2025-02-06 23:00] VITALS: BP 108/66; TEMP 97.5; O2SAT 96
[2025-02-07 03:30] VITALS: BP 119/62; TEMP 97; O2SAT 98
[2025-02-07 04:40] LABS: BASO # 0.0 10^3/uL (0.0-0.2); BASO % 0.1 % (0.0-1.0); EOS # 0.0 10^3/uL (0.0-0.5); EOS % 0.1 % (0.0-3.0); LYMPH # 1.0 10^3/uL (1.5-5.0); LYMPH % 7.9 % (24.0-44.0); MONO # 0.7 10^3/uL (0.0-0.8); MONO % 5.3 % (2.0-8.0); NEUTROPHILS # 10.7 10^3/uL (1.5-8.5); NEUTROPHILS % 86.4 % (36.0-66.0); PLATELET COUNT, AUTOMATED 187 10^3/uL (150-450)
[2025-02-07 05:03] LABS: CALCIUM LEVEL 7.7 MG/DL (8.3-10.6); CARBON DIOXIDE LEVEL 30.0 MMOL/L (20-31); CHLORIDE LEVEL 103.0 MMOL/L (98-107); CREATININE FOR GFR 0.89 MG/DL (0.70-1.30); GLOMERULAR FILTRATION RATE 84.0 (>35); MAGNESIUM LEVEL 2.3 MG/DL (1.8-2.4); POTASSIUM SERUM 3.4 MMOL/L (3.5-5.1); SODIUM LEVEL 147.0 MMOL/L (136-145)
[2025-02-07] MEDS: D5W 1,000 ML IV SCH (06:55)
[2025-02-07 07:25] VITALS: BP 128/61; TEMP 97.6; O2SAT 99
[2025-02-07] MEDS ORDERED: E-Z-PAQUE 96% w/w SUSP 176 GM BTL As Ordered ONE (07:54)
[2025-02-07] MEDS: KCL 10MEQ/100ML SWI (KRUN) 10 MEQ in IV 1 EA IV SCH (09:31)
[2025-02-07 12:00] VITALS: BP 141/67; TEMP 97.7; O2SAT 100
[2025-02-07 15:06] LABS: CALCIUM LEVEL 7.6 MG/DL (8.3-10.6); CARBON DIOXIDE LEVEL 30.0 MMOL/L (20-31); CHLORIDE LEVEL 103.0 MMOL/L (98-107); CREATININE FOR GFR 0.79 MG/DL (0.70-1.30); GLOMERULAR FILTRATION RATE 87.1 (>35); POTASSIUM SERUM 3.6 MMOL/L (3.5-5.1); SODIUM LEVEL 143.0 MMOL/L (136-145)
[2025-02-07 15:49] VITALS: BP 127/61; TEMP 98.1; O2SAT 97
[2025-02-07] MEDS: KCL 20MEQ IN D5/0.45NS 1000ML 1,000 ML IV SCH (16:26)
[2025-02-07 19:46] VITALS: BP 156/72; TEMP 97.3; O2SAT 98
[2025-02-07 23:34] VITALS: BP 134/64; TEMP 97; O2SAT 97
[2025-02-08 03:38] VITALS: BP 127/61; TEMP 97.8; O2SAT 98
[2025-02-08 04:37] LABS: BASO # 0.0 10^3/uL (0.0-0.2); BASO % 0.3 % (0.0-1.0); EOS # 0.1 10^3/uL (0.0-0.5); EOS % 0.8 % (0.0-3.0); LYMPH # 1.2 10^3/uL (1.5-5.0); LYMPH % 19.9 % (24.0-44.0); MONO # 0.5 10^3/uL (0.0-0.8); MONO % 8.4 % (2.0-8.0); NEUTROPHILS # 4.2 10^3/uL (1.5-8.5); NEUTROPHILS % 70.3 % (36.0-66.0); PLATELET COUNT, AUTOMATED 178 10^3/uL (150-450)
[2025-02-08 04:55] LABS: CALCIUM LEVEL 7.1 MG/DL (8.3-10.6); CARBON DIOXIDE LEVEL 27.0 MMOL/L (20-31); CHLORIDE LEVEL 106.0 MMOL/L (98-107); CREATININE FOR GFR 0.73 MG/DL (0.70-1.30); GLOMERULAR FILTRATION RATE 89.2 (>35); MAGNESIUM LEVEL 2.2 MG/DL (1.8-2.4); POTASSIUM SERUM 3.8 MMOL/L (3.5-5.1); SODIUM LEVEL 143.0 MMOL/L (136-145)
[2025-02-08] MEDS: LevoFLOXacin IV 750 MG in IV 1 EA IV SCH (05:10)
[2025-02-08 08:22] VITALS: BP_SYST 114; BP_SYST 170; BP_DIAS 57; BP_DIAS 82; TEMP 97.3; TEMP 97.7; O2SAT 97; O2SAT 99
[2025-02-08 11:44] VITALS: BP 115/56; TEMP 97.6; O2SAT 97
[2025-02-08 15:31] VITALS: BP 121/60; TEMP 97.6; O2SAT 100
[2025-02-08 20:34] VITALS: BP 129/60; TEMP 98; O2SAT 99
[2025-02-09 00:11] VITALS: BP 138/66; TEMP 97.2; O2SAT 96
[2025-02-09 04:15] VITALS: BP 164/74; TEMP 98.1; O2SAT 98
[2025-02-09 06:30] LABS: CALCIUM LEVEL 7.8 MG/DL (8.3-10.6); CARBON DIOXIDE LEVEL 25.0 MMOL/L (20-31); CHLORIDE LEVEL 107.0 MMOL/L (98-107); CREATININE FOR GFR 0.72 MG/DL (0.70-1.30); GLOMERULAR FILTRATION RATE 89.5 (>35); MAGNESIUM LEVEL 2.0 MG/DL (1.8-2.4); POTASSIUM SERUM 3.9 MMOL/L (3.5-5.1); SODIUM LEVEL 143.0 MMOL/L (136-145)
[2025-02-09 07:15] VITALS: BP 160/72; TEMP 98.2; O2SAT 99
[2025-02-09 16:16] VITALS: BP 132/75; TEMP 97.7; O2SAT 99
[2025-02-09 19:45] VITALS: BP 135/63; TEMP 98.6; O2SAT 98
[2025-02-09 23:28] VITALS: BP 145/70; TEMP 97.9; O2SAT 98
[2025-02-10 03:26] VITALS: BP 146/74; TEMP 97.7; O2SAT 98
[2025-02-10 07:09] VITALS: BP 126/63; TEMP 97.4; O2SAT 97
[2025-02-10 07:20] LABS: CALCIUM LEVEL 8.8 MG/DL (8.3-10.6); CARBON DIOXIDE LEVEL 27.0 MMOL/L (20-31); CHLORIDE LEVEL 105.0 MMOL/L (98-107); CREATININE FOR GFR 0.77 MG/DL (0.70-1.30); GLOMERULAR FILTRATION RATE 87.7 (>35); MAGNESIUM LEVEL 1.9 MG/DL (1.8-2.4); POTASSIUM SERUM 3.8 MMOL/L (3.5-5.1); SODIUM LEVEL 141.0 MMOL/L (136-145)
[2025-02-10] MEDS ORDERED: LEVO1TAB38 PO (14:19)
[2025-02-10] MEDS ORDERED: PROBCAP14 PO (14:27)
[2025-02-10] MEDS ORDERED: PROT1TAB2 PO (15:00)
[2025-02-10] MEDS ORDERED: HEPARIN SOD 5000 UNITS/ML 1 ML VIAL/SYRINGE SC SCH (21:00)
== END 2025-02-10 15:55 | disposition home health service (06) | DRG 391 ==
LOC: M ED 03:11 → M ED INP 10:15 → M PCU 12:03
PROVIDERS: ADMIT Internal Medicine; ATTEND Internal Medicine
PROC: 0DJ0XZZ Inspection of Upper Intestinal Tract, External Approach (ICD-10-PCS; principal; 2025-02-07)
DX: K44.0 Diaphragmatic hernia with obstruction, without gangrene (principal); E43 Unspecified severe protein-calorie malnutrition; G83.4 Cauda equina syndrome; E87.0 Hyperosmolality and hypernatremia; Z68.1 Body mass index [BMI] 19.9 or less, adult; Z66 Do not resuscitate; F03.90 Unspecified dementia, unspecified severity, without behavioral disturbance, psychotic disturbance, mood disturbance, and anxiety; I10 Essential (primary) hypertension; E03.9 Hypothyroidism, unspecified; D64.9 Anemia, unspecified; G50.0 Trigeminal neuralgia; N40.1 Benign prostatic hyperplasia with lower urinary tract symptoms; R33.9 Retention of urine, unspecified; M54.9 Dorsalgia, unspecified; G89.29 Other chronic pain; R04.0 Epistaxis; E87.6 Hypokalemia; M81.0 Age-related osteoporosis without current pathological fracture; H40.9 Unspecified glaucoma; K21.9 Gastro-esophageal reflux disease without esophagitis; Z86.73 Personal history of transient ischemic attack (TIA), and cerebral infarction without residual deficits; Z90.49 Acquired absence of other specified parts of digestive tract; Z79.82 Long term (current) use of aspirin; Z79.890 Hormone replacement therapy; Z79.899 Other long term (current) drug therapy

== ENCOUNTER → 2025-06-29 | Outpatient (REF) | payer MEDICARE, OTHER ==
[~2025-06-29] MED LIST changes: +LEVO1TAB38 PO; +NEUR300C PO; +PROT1TAB2 PO
[2025-06-29 18:34] LABS: APPEARANCE, URINE CLOUDY (CLEAR); BACTERIA, URINE AUTO 1+ (NEGATIVE); BILIRUBIN, URINE AUTO NEGATIVE (NEGATIVE); BLOOD, URINE BLOOD 3+ (NEGATIVE); GLUCOSE, URINE (UA) AUTO NEGATIVE (NEGATIVE); KETONE, URINE AUTO TRACE mg/dL (NEGATIVE); LEUKOCYTE ESTERASE, URINE AUTO 2+ (NEGATIVE); NITRITE, URINE AUTO NEGATIVE (NEGATIVE); PROTEIN, URINE AUTO 3+ mg/dL (NEGATIVE); RBC, URINE AUTO TNTC /HPF (0-3); SPECIFIC GRAVITY URINE AUTO 1.018 (1.002-1.035); SQUAMOUS EPITHELIAL CELL UR AU 0 /HPF (0-6); UROBILINOGEN, URINE AUTO 0.2 mg/dL (0.0-2.0); WBC, URINE AUTO TNTC /HPF (0-3)
== END ==
LOC: M SMT 17:23
PROVIDERS: ATTEND Nurse Practitioner Family
DX: N39.0 Urinary tract infection, site not specified (principal)

== ENCOUNTER → 2025-07-27 | Outpatient (REF) | payer MEDICARE, BC ==
[2025-07-27 13:13] LABS: APPEARANCE, URINE TURBID (CLEAR); BACTERIA, URINE AUTO NEGATIVE (NEGATIVE); BILIRUBIN, URINE AUTO NEGATIVE (NEGATIVE); BLOOD, URINE BLOOD 2+ (NEGATIVE); GLUCOSE, URINE (UA) AUTO NEGATIVE (NEGATIVE); KETONE, URINE AUTO TRACE mg/dL (NEGATIVE); LEUKOCYTE ESTERASE, URINE AUTO 2+ (NEGATIVE); NITRITE, URINE AUTO NEGATIVE (NEGATIVE); PROTEIN, URINE AUTO 3+ mg/dL (NEGATIVE); RBC, URINE AUTO 0 /HPF (0-3); SPECIFIC GRAVITY URINE AUTO 1.024 (1.002-1.035); SQUAMOUS EPITHELIAL CELL UR AU 0 /HPF (0-6); UROBILINOGEN, URINE AUTO 0.2 mg/dL (0.0-2.0); WBC, URINE AUTO 0 /HPF (0-3)
== END ==
LOC: M SMT 12:42
PROVIDERS: ATTEND Physician Assistant
DX: R33.9 Retention of urine, unspecified (principal)